=== PATIENT | female | born 1985 | race Caucasian/White ===

== ENCOUNTER → 2016-09-16 | Outpatient (REF) | payer OTHER ==
[~2016-09-16] MED LIST: /ONDA4TA OR; ACET65TA OR; CELE40TA PO; CIPR500T4 OR; CIPR500T89 PO; CLOT10TR PO; FLAG500T OR; FLAG500T PO; HEPA50VL SC; LEXA1TAB2 PO; LIAL1.2T PO; LOMO2.5T PO; LOPE2CA PO; METO10VL IV; MORP2SY IV; MOTR200T40 PO; MULTIVIT PO; NICO21DI4 TD; NICO21DI5 TD; NYST10PW TOP; ONDA4VLL IV; OXYC10TA12 PO; OXYC15TA76 PO; PERC7.5T12 PO; PRED10TA2 OR; PRED20TA OR; PRED20TA PO; PRIL40CA OR; PROT1TAB2 PO; PROT20TA11 PO; SENN8.6C PO; VITA100066 PO; VITA50003 PO; XANA0.25 PO; ZOFR20TA PO; [UNRECOGNIZED DRUG - OTHER] PO; humera IM; vitamin d PO
[2016-09-16 16:31] LABS: ALBUMIN 3.7 GM/DL (3.2-5.2); ALBUMIN/GLOBULIN RATIO 0.69 (1.00-1.93); ALKALINE PHOSPHATASE 384 U/L (45-117); ALT/SGPT 135 U/L (12-78); ANION GAP 10 MEQ/L (8-16); AST/SGOT 64 U/L (15-37); BASO # 0.2 K/mm3 (0.0-0.2); BASO % 1.4 % (0.0-1.0); BILIRUBIN,DIRECT 0.3 MG/DL (0.0-0.2); BILIRUBIN,TOTAL 0.4 MG/DL (0.2-1.0); BLOOD UREA NITROGEN 29 MG/DL (7-18); CALCIUM LEVEL 9.8 MG/DL (8.5-10.1); CARBON DIOXIDE LEVEL 23 MEQ/L (21-32); CHLORIDE LEVEL 100 MEQ/L (98-107); CREATININE FOR GFR 0.65 MG/DL (0.55-1.02); EOS # 0.2 K/mm3 (0.0-0.50); EOS % 1.1 % (0.0-3.0); GLOMERULAR FILTRATION RATE > 60.0 (>60); GLUCOSE, FASTING 116 MG/DL (70-105); LARGE UNSTAINED CELL # 0.3 K/mm3 (0.0-0.4); LYMPH # 4.5 K/mm3 (1.5-4.5); LYMPH % 33.1 % (24.0-44.0); MEAN CORPUSCULAR VOLUME 85.3 fl (80.0-96.0); MONO # 0.6 K/mm3 (0.0-0.8); MONO % 4.6 % (0.0-5.0); NEUTROPHILS # 7.5 K/mm3 (1.8-7.7); NEUTROPHILS % 57.8 % (36.0-66.0); PHOSPHORUS LEVEL 3.5 MG/DL (2.5-4.9); PLATELET COUNT, AUTOMATED 304 k/mm3 (150-450); POTASSIUM SERUM 4.4 MEQ/L (3.5-5.1); RED CELL DISTRIBUTION WIDTH 13.1 % (11.5-14.5); SODIUM LEVEL 133 MEQ/L (136-145); TOTAL PROTEIN 9.1 GM/DL (6.4-8.2); TRIGLYCERIDES LEVEL 158 MG/DL (<150); WHITE BLOOD COUNT 12.9 K/mm3 (4.0-10.0)
== END ==
LOC: M LAB REF 16:01
PROVIDERS: ATTEND Surgery
DX: K50.913 Crohn's disease, unspecified, with fistula (principal)

== ENCOUNTER 2016-09-20 18:24 | Inpatient (IN) | payer OTHER ==
[~2016-09-20] VITALS: Ht 160 cm; Wt 48.0 kg
[~2016-09-20 18:24] MED LIST changes: -OXYC15TA76 PO; -PROT1TAB2 PO; -PROT20TA11 PO
[2016-09-20] MEDS ORDERED: METOCLOPRAMIDE INJ 10MG/2ML VIAL (J2765) As Ordered ONE (20:22)
[2016-09-20] MEDS ORDERED: HYDROmorphone HCL 1 MG/ML SYRINGE (J1170) As Ordered ONE (20:22)
[2016-09-20 20:49] LABS: BASO % 0.2 % (0.0-1.0); EOS % 0.2 % (0.0-3.0); LARGE UNSTAINED CELL # 0.3 K/mm3 (0.0-0.4); LARGE UNSTAINED CELL % 1.4 % (0.0-4.0); LYMPH # 3.4 K/mm3 (1.5-4.5); LYMPH % 16.7 % (24.0-44.0); MEAN CORPUSCULAR HEMOGLOBIN 29.7 pg (27.0-33.0); MEAN CORPUSCULAR HGB CONC 35.7 g/dl (32.0-36.5); MEAN CORPUSCULAR VOLUME 83.3 fl (80.0-96.0); MONO # 0.8 K/mm3 (0.0-0.8); NEUTROPHILS # 15.8 K/mm3 (1.8-7.7); NEUTROPHILS % 77.4 % (36.0-66.0); PLATELET COUNT, AUTOMATED 335 k/mm3 (150-450); RED CELL DISTRIBUTION WIDTH 12.1 % (11.5-14.5); WHITE BLOOD COUNT 20.4 K/mm3 (4.0-10.0)
[2016-09-20] MEDS ORDERED: BOUDREAUX'S BUTT PASTE 4OZ TOP ONE (21:15)
[2016-09-20 21:26] LABS: ALBUMIN 4.3 GM/DL (3.2-5.2); ALBUMIN/GLOBULIN RATIO 0.74 (1.00-1.93); ALKALINE PHOSPHATASE 446 U/L (45-117); ALT/SGPT 159 U/L (12-78); AMYLASE 86 U/L (25-115); ANION GAP 14 MEQ/L (8-16); AST/SGOT 85 U/L (15-37); BILIRUBIN,DIRECT 0.3 MG/DL (0.0-0.2); BILIRUBIN,TOTAL 0.6 MG/DL (0.2-1.0); BLOOD UREA NITROGEN 82 MG/DL (7-18); CALCIUM LEVEL 11.6 MG/DL (8.5-10.1); CARBON DIOXIDE LEVEL 17 MEQ/L (21-32); CHLORIDE LEVEL 94 MEQ/L (98-107); CREATININE FOR GFR 1.08 MG/DL (0.55-1.02); GLOMERULAR FILTRATION RATE > 60.0 (>60); GLUCOSE, FASTING 127 MG/DL (70-105); SODIUM LEVEL 125 MEQ/L (136-145); TOTAL PROTEIN 10.1 GM/DL (6.4-8.2)
[2016-09-20] MEDS ORDERED: LOMOTIL 2.5MG/0.025MG TABLET As Ordered ONE (21:27)
[2016-09-20 21:41] LABS: POTASSIUM SERUM 5.4 MEQ/L (3.5-5.1)
[2016-09-20] MEDS ORDERED: GASTROGRAFIN SOLUTION 30ML (Q9963) As Ordered ONE (22:47)
[2016-09-20] MEDS ORDERED: ISOVUE-370 76% 100ML VIAL (Q9967) As Ordered ONE (23:30)
--- NOTE | 2016-09-21 00:30 | REPUSA ---
CLINICAL HISTORY: Abdominal pain TECHNIQUE: CT of the abdomen and pelvis was performed without intravenous contrast by obtaining walter guous CT axial slices from level of the heart to the proximal femoral diaphyses. Multiplanar reformat s were obtained in the coronal and sagittal projections. COMPARISON: CT abdomen pelvis 08/10/2016 FINDINGS : LOWER CHEST: The lung bases are clear. Heart is normal in size. No pleural or pericardial effusion is seen. LIVER: The liver is normal in size and contour. BILIARY SYSTEM: Status post cholecystectomy with no intrahepatic biliary ductal dilatation or calcifi ed biliary stones. PANCREAS: The pancreas is normal in size, contour and density. No suspicious cystic lesion or ductal dilatation. SPLEEN: Normal in size with no suspicious cystic lesion. ADRENALS: The adrenal glands are unremarkable. KIDNEYS/URETERS: The kidneys are normal in size. No calcified renal or ureteral calculi are seen. No suspicious cystic lesion or hydronephrosis. The ureters are not dilated. URINARY BLADDER: The urinary bladder is unremarkable without calcified stone, wall thickening or diverticula seen. UTERUS/ADNEXA: The uterus and left adnexa unremarkable. 1.9 cm right adnexal cyst has decreased from previous 2.4 cm. Air in vaginal vault again noted. AORTA AND ILIAC ARTERIES: No aneurysmal dilatation of the aorta or iliac arteries is seen. LYMPH NODES: No enlarged adenopathy. GASTROINTESTINAL: Operative sutures are noted in right lower quadrant from what appears to be an ill colic resection with right lower quadrant ileostomy. Stomach duodenum, and remaining bowel grossly no rmal without evidence of obstruction. PERITONEUM/RETROPERITONEUM/ABDOMINAL PELVIC WALL: -Stable approximately 2.5 x 1.0 cm right lower quadrant air-fluid collection noted on axial series 20 1, image 97 -There is contrast-filled fluid collection in the anterior mid abdominal wall communicating with an a pproximately 2.9 x 1.1 cm anterior intra-abdominal contrast and air-fluid collection on axial series 201, image 99-102 and inseparable from underlying contrast small bowel. -No other evidence of extraluminal air. -Resolution of multiple additional previous intra-abdominal fluid collections. OSSEOUS STRUCTURES/SOFT TISSUES: No suspicious osseous lesion or acute fracture. Midline abdominal wa ll douglas with stable 2 drain-like devices. IMPRESSION : 1. 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 2. Grossly stable additional 2.5 x 1.0 cm right lower quadrant fluid collection medial to the ileocol ic resection sutures which may be separate from the enterocutaneous fistula. While this may represent a postoperative seroma, in setting of infection abscess is not excluded.
[2016-09-21] MEDS ORDERED: ONDANSETRON 4MG/2ML VIAL (J2405) As Ordered ONE (00:33)
[2016-09-21] MEDS ORDERED: PROT20TA11 PO (01:52)
[2016-09-21] MEDS ORDERED: OXYC15TA76 PO (01:52)
[2016-09-21] MEDS ORDERED: VITA50003 PO (01:52)
[2016-09-21] MEDS ORDERED: ZOFR20TA PO (01:52)
[2016-09-21] MEDS ORDERED: LOPE2CA PO (01:52)
[2016-09-21] MEDS ORDERED: LOMO2.5T PO (01:52)
[2016-09-21] MEDS ORDERED: hydrOXYzine 10 MG TAB PO PRN (02:30)
[2016-09-21] MEDS ORDERED: METOCLOPRAMIDE INJ 10MG/2ML VIAL (J2765) As Ordered ONE (02:52)
[2016-09-21] MEDS ORDERED: oxyCODONE 5MG TAB PO PRN (03:00)
[2016-09-21] MEDS ORDERED: BOUDREAUX'S BUTT PASTE 4OZ TOP PRN (03:00)
--- NOTE | 2016-09-21 03:31 | EDDOCDS ---
Physician Documentation [facility] Name: Rosemarie Cortes Age: 31 yrs Sex: Female : 1985 Arrival Date: 09/20/2016 Time: 18:24 Bed 17 Private MD: Disposition: 09/21/16 01:16 Hospitalization ordered by Lindsay Kenyon for Inpatient Admission. Preliminary diagnosis are Volume depletion, Hypo-osmolality and hyponatremia, Vomiting, Abdominal and pelvic pain - with ostomy leakage. - Bed requested for 4 [place]. - Status is Inpatient Admission. cp1 - Condition is Stable. - Problem is an ongoing problem. - Symptoms have improved. Historical: - Allergies: no known allergies; - Home Meds: 1. diphenoxylate-atropine 2.5-0.025 mg Oral tab 2 tabs once daily (Last dose: 09/20/2016 08:00) 2. loperamide 2 mg Oral cap 2 caps (Last dose: 09/20/2016 08:00) 3. oxycodone 15 mg Oral tab 1 tab every 4 hours (Last dose: 09/20/2016 08:00) 4. Vitamin D Oral 73181 unit daily (Last dose: 09/20/2016 08:00) 5. Zofran (as hydrochloride) 4 mg Oral tab every 8 hours (Last dose: 09/20/2016 08:00) - PMHx: Crohn's; Anxiety; - PSHx: Gall Bladder Removal; Appendectomy; ; removal of illium; ileostomy with fistula; [facility] PICC placement; - Social history: Smoking status: Patient uses tobacco products, light tobacco smoker. No barriers to communication noted, The patient speaks fluent Kyrgyz. - Family history: Not pertinent. - : The pt / caregiver states he / she is not on anticoagulants. Home medication list is obtained from the patient. - Exposure Risk Screening:: None identified. PARAEDUCATOR: 09/20 18:42 LMP N/A - Irregular menses aa3 Vital Signs: 21:21 BP 122 / 58; Pulse 127; Resp 18; Temp 99; Pulse Ox 98% ; Weight 52.16 kg / 114.99 lbs; cmb Height 5 ft. 3 in. (160.02 cm) (M); Pain 01/19; 09/21 01:46 BP 106 / 63; Pulse 114; Resp 20; Temp 97.2(O); Pulse Ox 98% on R/A; Pain 5/10; jmv 03:27 BP 92 / 61; Pulse 120; Resp 20; Temp 98.1(O); Pulse Ox 98% on R/A; Pain 5/10; cmb 09/20 21:21 Body Mass Index 20.37 (52.16 kg, 160.02 cm) cmb MDM: 09/20 20:16 Metoclopramide 10 mg IV at 40 mg/hr once over 15 mins ordered. cs11 20:17 Dilaudid - HYDROmorphone 0.5 mg IVP once ordered. cs11 20:17 NS 0.9% 500 ml IV at bolus once ordered. cs11 20:18 CBC with Diff Ordered. EDMS 20:18 MED Profile Ordered. EDMS 20:18 Liver Profile Ordered. EDMS 20:18 Amylase Ordered. EDMS 20:18 Lipase Ordered. EDMS 20:29 Diphenoxylate-Atropine 2 tab-caps PO once ordered. cs11 20:36 Zinc Oxide Ointment 16 % 1 applic Topical now; apply to area around ostomy ordered. cs11 21:13 CBC with Diff Reviewed. cs11 21:15 Urinalysis: cath Ordered. EDMS 21:15 Urine Culture Ordered. EDMS 21:49 MED Profile Reviewed. cs11 21:49 Liver Profile Reviewed. cs11 21:49 Amylase Reviewed. cs11 21:49 Lipase Reviewed. cs11 21:51 NS 0.9% 1000 ml IV at bolus once ordered. cs11 22:09 Financial registration complete. zo 22:26 Urinalysis: cath Reviewed. cs11 23:00 [facility] [place] was scanned into [employer] and attached to record. zo 23:01 Diatrizoate Meglumine & Sodium Liquid 10 ml PO once; mix in 290cc of water; 1st 2250 af2 2nd cup at 2320 ordered. 23:51 CT ABD & PELVIS W/O CONTRAST Ordered. EDMS 09/21 00:29 Dilaudid - HYDROmorphone 0.5 mg IVP once ordered. mm11 00:29 Ondansetron 4 mg IVP once ordered. mm11 00:43 CT ABD & PELVIS W/O CONTRAST Reviewed. mm11 00:45 Venous Blood Gas (large pea green tube on ice) Ordered. EDMS 01:03 BED REQUEST+ADM ordered. EDMS 01:46 CBC WITH DIFFERENTIAL Ordered. EDMS 01:46 COMPLETE COMPHRENSIVE METABOLI Ordered. EDMS 01:47 PROTHROMBIN TIME PROFILE\E\INR Ordered. EDMS 02:17 LACTIC ACID LEVEL, LACTATE Ordered. EDMS 02:27 Admission / Observation Status ordered. EDMS 02:31 IONIZED CALCIUM Ordered. EDMS 02:34 Metoclopramide 5 mg IV at 40 mg/hr once over 15 mins ordered. af2 02:46 SODIUM,RANDOM URINE Ordered. EDMS 02:48 Written Provider Order was scanned into [employer] and attached to record. jlm 02:53 GAMMA GLUTAMYLTRANSFERASE Ordered. EDMS 02:55 GASTROINTESTINAL (GI) PANEL Ordered. EDMS 02:56 GASTROINTESTINAL (GI) PANEL Ordered. EDMS 03:13 T-Sheet-- Draft Copy was scanned into [employer] and attached to record. hs2 Administered Medications: 09/20 20:43 Drug: NS 0.9% 500 ml [sodium chloride 0.9 % intravenous solution] Route: IV; Rate: af2 bolus; Site: Implantable Access Device; 20:44 Drug: Metoclopramide 10 mg [metoclopramide 5 mg/mL injection solution] Route: IV; Rate: af2 40 mg/hr; Infused Over: 15 mins; Site: Implantable Access Device; 20:44 Drug: Dilaudid - HYDROmorphone 0.5 mg [hydromorphone 1 mg/mL injection syringe (0.5 af2 mL)] Route: IVP; Site: Implantable Access Device; 22:17 Drug: Zinc Oxide Ointment 16 % 1 applic Route: Topical; Site: affected area; af2 22:18 Drug: Diphenoxylate-Atropine 2 tab-caps [diphenoxylate-atropine 2.5 mg-0.025 mg tablet af2 (2 tabs)] Route: PO; 23:01 Drug: Diatrizoate Meglumine & Sodium 10 ml [diatrizoate meglumine and diat.sodium 66 af2 %-10 % oral solution (10 mL)] Route: PO; 23:06 Drug: NS 0.9% 1000 ml [sodium chloride 0.9 % intravenous solution] Route: IV; Rate: kas2 bolus; Site: Implantable Access Device; 09/21 00:37 Drug: Dilaudid - HYDROmorphone 0.5 mg [hydromorphone 1 mg/mL injection syringe (0.5 af2 mL)] Route: IVP; Site: Implantable Access Device; 00:38 Drug: Ondansetron 4 mg [ondansetron HCl 2 mg/mL intravenous solution (2 mL)] Route: af2 IVP; Site: Implantable Access Device; 02:55 Drug: Metoclopramide 5 mg [metoclopramide 5 mg/mL injection solution] Route: IV; Rate: af2 40 mg/hr; Infused Over: 15 mins; Site: Implantable Access Device; Signatures: Dispatcher [employer] EDMS Camila Lomas Matthew, DO DO mm11 Beverly Hankins,AMINATA SORENSONN cp1 Savi Melgar RN RN sls1 Marvel Hung, DO DO cs11 Jessi Wise RN RN aa3 Maryam Jimenez, [employer] Bette Castellanos RN RN af2 Deborah Daley, Reg Reg hs2 Katina Vidal RN kas2 The chart was reviewed and I authenticate all verbal orders and agree with the evaluation and treatment provided.Corrections: (The following items were deleted from the chart) 09/20 23:51 21:58 CT ABD & PELVIS WITH CONTRAST+CT ordered. EDMS EDMS 09/21 02:52 02:42 GAMMA GLUTAMYLTRANSFERASE ordered. EDMS EDMS 03:00 01:47 CDIFF PCR ordered. EDMS EDMS Attachments: 09/20 23:00 [facility] [place] Agreement zo 09/21 02:48 Written Provider Order jlm 03:13 T-Sheet-- Draft Copy hs2 MTDD
--- NOTE | 2016-09-21 03:31 | EDDOCDS ---
Nurse's Notes [facility] Name: Rosemarie Cortes Age: 31 yrs Sex: Female : 1985 Arrival Date: 09/20/2016 Time: 18:24 Bed 17 Private MD: Diagnosis: Volume depletion;Hypo-osmolality and hyponatremia;Vomiting;Abdominal and pelvic pain-with ostomy leakage Presentation: 09/20 18:29 Presenting complaint: EMS states: Patient has leaking around colostomy bag. Patient aa3 requested to go to [facility], was brought here by EMS to stabilize. Risk factors: the patient reports no vaginal bleeding. Adult Sepsis Screening: The patient does not have new or worsening altered mentation. Patient's respiratory rate is less than 22. Systolic blood pressure is less than or equal to 100 (1 point). Patient has a qSOFA score of 1- Negative Sepsis Screen. Suicide/Homicide risk assessment- the patient denies having any suicidal and/or homicidal ideations and does not present with any other emotional, behavioral or mental health complaints. Status: Patient is not a service worker or dependent. Transition of care: patient was not received from another setting of care. 18:29 Acuity: FREDDIE Level 3 aa3 18:29 Method Of Arrival: Ambulance aa3 Triage Assessment: 18:42 General: Appears uncomfortable, Behavior is anxious, cooperative. Pain: Location: aa3 umbilical area Pain currently is 7 out of 10 on a pain scale. Quality of pain is described as pulling. Pt Declines HIV testing. Neurological: Level of Consciousness is awake, alert, Oriented to person, place, time. Respiratory: Airway is patent Respiratory effort is even, unlabored, Respiratory pattern is regular, symmetrical. GI: Abdomen is non- distended Ileostomy site is reddened. Ostomy appliance is not intact. Last BM was September 20, 2016. 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 diphenoxylate-atropine 2.5-0.025 mg Oral tab 2 tabs once daily (Last dose: 09/20/2016 08:00) 2. loperamide 2 mg Oral cap 2 caps (Last dose: 09/20/2016 08:00) 3. oxycodone 15 mg Oral tab 1 tab every 4 hours (Last dose: 09/20/2016 08:00) 4. Vitamin D Oral 31439 unit daily (Last dose: 09/20/2016 08:00) 5. Zofran (as hydrochloride) 4 mg Oral tab every 8 hours (Last dose: 09/20/2016 08:00) - PMHx: Crohn's; Anxiety; - PSHx: Gall Bladder Removal; Appendectomy; ; removal of illium; ileostomy with fistula; MARY BETH PICC placement; - Social history: Smoking status: Patient uses tobacco products, light tobacco smoker. No barriers to communication noted, The patient speaks fluent Hungarian. - Family history: Not pertinent. - : The pt / caregiver states he / she is not on anticoagulants. Home medication list is obtained from the patient. - Exposure Risk Screening:: None identified. Screenin/10 02:47 Screening information is obtained from the patient. Fall risk: No risks identified. af2 Assistance ADL's: requires no assistance with activities of daily living. Abuse/DV Screen: The patient / caregiver reports he/she is: not in a situation that causes fear, pain or injury. Nutritional screening: On TPN. Advance Directives: Further advance directive information is declined. home support is adequate. Assessment: 09/20 19:24 General: Appears ill, Behavior is crying. Pain: Location: abdomen Pain currently is 10 af2 out of 10 on a pain scale. Neurological: Level of Consciousness is awake, alert, obeys commands. Cardiovascular: Heart tones S1 S2 present. Respiratory: Airway is patent Respiratory effort is even, unlabored, Breath sounds are clear bilaterally. GI: Abdomen is non- distended Colostomy site is reddened. is excoriated. colostomy bag is leaking. father states that "pt needs to go to [facility] and she will get there one way or another tonight.". GI: Bowel sounds present X 4 quads. Abd is tender to palpation X 4 quads. Guarding noted X 4 quads. Reports lower abdominal pain, upper abd pain, nausea, vomiting, states that colostomy drainage is unchanged. Derm: Skin is pale. 19:49 General: pt father approaches nurses station screaming, "I need some help, she is af2 leaking all over in here." Father advised of ER rules and asked to use call light for future needs, receptive to information and verbalizes understanding. Clean towels applied to leaking ostomy, skin underneath noted to be excoriated. . 20:49 General: Appears ill, uncomfortable, pt colostomy drainage cleaned and new towels af2 applied. assisted with repositioning and provided with ice chips. states relief with pain meds.. 21:50 General: Appears ill, Behavior is cooperative. Neurological: Level of Consciousness is af2 awake, alert. Respiratory: Airway is patent Respiratory effort is even, unlabored. Derm: Skin is pale. 22:50 General: Appears ill, Behavior is cooperative, pt unable to tolerated po contrast. af2 23:48 General: this freelance writer attempted iv on pt unsuccessfully, pt states "you can't get an IV, af2 you need to just do it without." provider notified, okay to do ct without contrast.. 09/21 00:50 General: Appears ill, Behavior is cooperative. Neurological: Level of Consciousness is af2 awake, alert. Respiratory: Airway is patent Respiratory effort is even, unlabored. GI: Reports diarrhea, nausea. Derm: Skin is pale. 01:50 General: Appears ill, Behavior is cooperative. Neurological: Level of Consciousness is af2 awake, alert. Respiratory: Airway is patent Respiratory effort is even, unlabored. GI: Reports lower abdominal pain, upper abd pain, nausea. Derm: Skin is pale. 02:50 General: Appears ill, Behavior is cooperative. Neurological: Level of Consciousness is af2 awake, alert. Respiratory: Airway is patent Respiratory effort is even, unlabored. GI: Reports diarrhea, nausea. Derm: Skin is pale. 03:25 General: Appears ill. Neurological: Level of Consciousness is awake, alert. af2 Respiratory: Airway is patent Respiratory effort is even, unlabored. GI: Abdomen is non- distended Colostomy site is reddened. is excoriated. Reports nausea. Derm: Skin is pale. Vital Signs: 09/20 21:21 BP 122 / 58; Pulse 127; Resp 18; Temp 99; Pulse Ox 98% ; Weight 52.16 kg; Height 5 ft. cmb 3 in. (160.02 cm) (M); Pain 01/19; 09/21 01:46 BP 106 / 63; Pulse 114; Resp 20; Temp 97.2(O); Pulse Ox 98% on R/A; Pain 5/10; jmv 03:27 BP 92 / 61; Pulse 120; Resp 20; Temp 98.1(O); Pulse Ox 98% on R/A; Pain 5/10; cmb 09/20 21:21 Body Mass Index 20.37 (52.16 kg, 160.02 cm) cmb Vitals: 09/20 18:42 Log In Time N/A - ambulance arrival. aa3 ED Course: 18:24 Patient visited by Ara Acuña, Manager Ent. deg 18:24 Patient moved to Waiting deg 18:26 Patient moved to 17 deg 18:29 Jessi Wise RN is Primary Nurse. aa3 18:33 Triage Initiated aa3 18:44 Patient visited by Jessi Wise RN. aa3 18:48 Marvel Hung DO is Attending Physician. cs11 18:48 Patient visited by Marvel Hung DO. cs11 18:55 Bette Venegas RN is Primary Nurse. af2 19:23 Patient visited by Bette Venegas RN. af2 19:23 The patient / caregiver is instructed regarding the plan of care and ED course. Patient af2 has correct armband on for positive identification. Placed in gown. 19:28 Patient visited by Bette Venegas RN. af2 19:51 Patient visited by Bette Venegas RN. af2 20:48 Patient visited by Bette Venegas RN. af2 20:50 Patient visited by Bette Venegas RN. af2 20:50 Flushed PICC line. af2 21:22 Patient visited by Elena Christina. cmb 22:18 Patient visited by Bette Venegas RN. af2 23:00 Patient visited by Bette Venegas RN. af2 23:00 [facility] Payment Agreement was scanned into [employer] and attached to record. zo 23:33 Patient visited by Bette Venegas RN. af2 23:34 Patient visited by Bette Venegas RN. af2 23:49 Patient visited by Bette Venegas RN. af2 23:57 Attending Physician role handed off by Marvel Hung DO mm11 23:57 Chuck Sadler DO is Attending Physician. mm11 09/21 00:15 Patient visited by Bette Venegas RN. af2 00:27 Diet: Patient given ice chips. Tolerated well. jlm 00:28 Patient visited by Maryam Jimenez, Manager Ent. jlm 00:39 CT ABD & PELVIS W/O CONTRAST Returned. EDMS 01:01 Patient visited by Chuck Salder DO. mm11 01:14 Lindsay Kenyon is Hospitalizing Provider. mm11 01:22 Patient visited by Elena Christina. cmb 01:47 Patient visited by Amauri Duvall PCA. jmv 02:04 Lindsay Kenyon medical administrative specialist. ys2 02:39 Lindsay Kenyon is Hospitalizing Provider. sls1 02:47 No procedures done that require assistance. af2 02:48 Written Provider Order was scanned into [employer] and attached to record. jlm 03:13 T-Sheet-- Draft Copy was scanned into [employer] and attached to record. hs2 03:27 Patient visited by Bette Venegas RN. af2 03:28 Patient visited by Elena Christina. cmb Administered Medications: 09/20 20:43 Drug: NS 0.9% 500 ml [sodium chloride 0.9 % intravenous solution] Route: IV; Rate: af2 bolus; Site: Implantable Access Device; 20:44 Drug: Metoclopramide 10 mg [metoclopramide 5 mg/mL injection solution] Route: IV; Rate: af2 40 mg/hr; Infused Over: 15 mins; Site: Implantable Access Device; 20:44 Drug: Dilaudid - HYDROmorphone 0.5 mg [hydromorphone 1 mg/mL injection syringe (0.5 af2 mL)] Route: IVP; Site: Implantable Access Device; 22:17 Drug: Zinc Oxide Ointment 16 % 1 applic Route: Topical; Site: affected area; af2 22:18 Drug: Diphenoxylate-Atropine 2 tab-caps [diphenoxylate-atropine 2.5 mg-0.025 mg tablet af2 (2 tabs)] Route: PO; 23:01 Drug: Diatrizoate Meglumine & Sodium 10 ml [diatrizoate meglumine and diat.sodium 66 af2 %-10 % oral solution (10 mL)] Route: PO; 23:06 Drug: NS 0.9% 1000 ml [sodium chloride 0.9 % intravenous solution] Route: IV; Rate: kas2 bolus; Site: Implantable Access Device; 09/21 00:37 Drug: Dilaudid - HYDROmorphone 0.5 mg [hydromorphone 1 mg/mL injection syringe (0.5 af2 mL)] Route: IVP; Site: Implantable Access Device; 00:38 Drug: Ondansetron 4 mg [ondansetron HCl 2 mg/mL intravenous solution (2 mL)] Route: af2 IVP; Site: Implantable Access Device; 02:55 Drug: Metoclopramide 5 mg [metoclopramide 5 mg/mL injection solution] Route: IV; Rate: af2 40 mg/hr; Infused Over: 15 mins; Site: Implantable Access Device; Order Results: Lab Order: CBC with Diff; SPEC'M 09/20/16 20:38 Test: WHITE BLOOD COUNT; Value: 20.4; Range: 4.0-10.0; Abnormal: Above high normal; Units: K/mm3; Status: F Test: RED BLOOD COUNT; Value: 5.93; Range: 4.00-5.40; Abnormal: Above high normal; Units: M/mm3; Status: F Test: HEMOGLOBIN; Value: 17.6; Range: 12.0-16.0; Abnormal: Above high normal; Units: g/dl; Status: F Test: HEMATOCRIT; Value: 49.4; Range: 36.0-47.0; Abnormal: Above high normal; Units: %; Status: F Test: MEAN CORPUSCULAR VOLUME; Value: 83.3; Range: 80.0-96.0; Units: fl; Status: F Test: MEAN CORPUSCULAR HEMOGLOBIN; Value: 29.7; Range: 27.0-33.0; Units: pg; Status: F Test: MEAN CORPUSCULAR HGB CONC; Value: 35.7; Range: 32.0-36.5; Units: g/dl; Status: F Test: RED CELL DISTRIBUTION WIDTH; Value: 12.1; Range: 11.5-14.5; Units: %; Status: F Test: PLATELET COUNT, AUTOMATED; Value: 335; Range: 150-450; Units: k/mm3; Status: F Test: NEUTROPHILS %; Value: 77.4; Range: 36.0-66.0; Abnormal: Above high normal; Units: %; Status: F Test: LYMPH %; Value: 16.7; Range: 24.0-44.0; Abnormal: Below low normal; Units: %; Status: F Test: MONO %; Value: 4.0; Range: 0.0-5.0; Units: %; Status: F Test: EOS %; Value: 0.2; Range: 0.0-3.0; Units: %; Status: F Test: BASO %; Value: 0.2; Range: 0.0-1.0; Units: %; Status: F Test: LARGE UNSTAINED CELL %; Value: 1.4; Range: 0.0-4.0; Units: %; Status: F Test: NEUTROPHILS #; Value: 15.8; Range: 1.8-7.7; Abnormal: Above high normal; Units: K/mm3; Status: F Test: LYMPH #; Value: 3.4; Range: 1.5-4.5; Units: K/mm3; Status: F Test: MONO #; Value: 0.8; Range: 0.0-0.8; Units: K/mm3; Status: F Test: EOS #; Value: 0.0; Range: 0.0-0.50; Units: K/mm3; Status: F Test: BASO #; Value: 0.0; Range: 0.0-0.2; Units: K/mm3; Status: F Test: LARGE UNSTAINED CELL #; Value: 0.3; Range: 0.0-0.4; Units: K/mm3; Status: F Lab Order: [facility] Profile; [facility]'M 09/20/16 20:38 Test: GLUCOSE, FASTING; Value: 127; Range: 70-105; Abnormal: Above high normal; Units: MG/DL; Status: F Test: BLOOD UREA NITROGEN; Value: 82; Range: 7-18; Abnormal: Above high normal; Units: MG/DL; Status: F Test: CREATININE FOR GFR; Value: 1.08; Range: 0.55-1.02; Abnormal: Above high normal; Units: MG/DL; Status: F Test: GLOMERULAR FILTRATION RATE; Value: > 60.0; Range: >60; Status: F Test: SODIUM LEVEL; Value: 125; Range: 136-145; Abnormal: Below low normal; Units: MEQ/L; Status: F Test: POTASSIUM SERUM; Value: 5.4; Range: 3.5-5.1; Abnormal: Above high normal; Units: MEQ/L; Status: F Test: CHLORIDE LEVEL; Value: 94; Range: 98-107; Abnormal: Below low normal; Units: MEQ/L; Status: F Test: CARBON DIOXIDE LEVEL; Value: 17; Range: 21-32; Abnormal: Below low normal; Units: MEQ/L; Status: F Test: ANION GAP; Value: 14; Range: 8-16; Units: MEQ/L; Status: F Test: CALCIUM LEVEL; Value: 11.6; Range: 8.5-10.1; Abnormal: Above high normal; Units: MG/DL; Status: F Test Note: ; Units are mL/min/1.73 m2 Chronic Kidney Disease Staging per NKF: Stage I & II GFR >=60 Normal to Mildly Decreased Stage III GFR 30-59 Moderately Decreased Stage IV GFR 15-29 Severely Decreased Stage V GFR <15 Very Little GFR Left ESRD GFR <15 on DAIRY CHEMIST Lab Order: Liver Profile; [facility]' 09/20/16 20:38 Test: AST/SGOT; Value: 85; Range: 15-37; Abnormal: Above high normal; Units: U/L; Status: F Test: ALT/SGPT; Value: 159; Range: 12-78; Abnormal: Above high normal; Units: U/L; Status: F Test: ALKALINE PHOSPHATASE; Value: 446; Range: 45-117; Abnormal: Above high normal; Units: U/L; Status: F Test: BILIRUBIN,TOTAL; Value: 0.6; Range: 0.2-1.0; Units: MG/DL; Status: F Test: BILIRUBIN,DIRECT; Value: 0.3; Range: 0.0-0.2; Abnormal: Above high normal; Units: MG/DL; Status: F Test: TOTAL PROTEIN; Value: 10.1; Range: 6.4-8.2; Abnormal: Above high normal; Units: GM/DL; Status: F Test: ALBUMIN; Value: 4.3; Range: 3.2-5.2; Units: GM/DL; Status: F Test: ALBUMIN/GLOBULIN RATIO; Value: 0.74; Range: 1.00-1.93; Abnormal: Below low normal; Status: F Lab Order: Amylase; [facility] 09/20/16 20:38 Test: AMYLASE; Value: 86; Range: 25-115; Units: U/L; Status: F Lab Order: Lipase; [facility] 09/20/16 20:38 Test: LIPASE; Value: 200; Range: 73-393; Units: U/L; Status: F Lab Order: Urinalysis: cath; [facility] 09/20/16 21:56 Test: APPEARANCE, URINE; Value: HAZY; Range: CLEAR; Status: F Test: COLOR, URINE; Value: YELLOW; Range: YELLOW; Status: F Test: PH,URINE; Value: 6.0; Range: 5.0-9.0; Units: UNITS; Status: F Test: SPECIFIC GRAVITY URINE AUTO; Value: 1.021; Range: 1.002-1.035; Status: F Test: PROTEIN, URINE AUTO; Value: 1+; Range: NEGATIVE; Abnormal: Above high normal; Units: mg/dL; Status: F Test: GLUCOSE, URINE (UA) AUTO; Value: 1+; Range: NEGATIVE; Abnormal: Above high normal; Units: mg/dL; Status: F Test: KETONE, URINE AUTO; Value: NEGATIVE; Range: NEGATIVE; Units: mg/dL; Status: F Test: UROBILINOGEN, URINE AUTO; Value: 0.2; Range: 0.0-2.0; Units: mg/dL; Status: F Test: BILIRUBIN, URINE AUTO; Value: NEGATIVE; Range: NEGATIVE; Status: F Test: NITRITE, URINE AUTO; Value: NEGATIVE; Range: NEGATIVE; Status: F Test: LEUKOCYTE ESTERASE, URINE AUTO; Value: NEGATIVE; Range: NEGATIVE; Status: F Test: BLOOD, URINE BLOOD; Value: NEGATIVE; Range: NEGATIVE; Status: F Test: WBC, URINE AUTO; Value: 0; Range: 0-3; Units: /HPF; Status: F Test: RBC, URINE AUTO; Value: 0; Range: 0-3; Units: /HPF; Status: F Test: BACTERIA, URINE AUTO; Value: NEGATIVE; Range: NEGATIVE; Status: F Test: SQUAMOUS EPITHELIAL CELL UR AU; Value: 0; Range: 0-6; Units: /HPF; Status: F Test: MUCUS, URINE; Value: SMALL; Range: NEGATIVE; Status: F Test: HYALINE CAST, URINE AUTO; Value: 22; Range: 0-1; Units: /LPF; Status: F Radiology Order: CT ABD & PELVIS W/O CONTRAST Test: CT ABD & PELVIS W/O CONTRAST REASON FOR EXAMINATION: Abdomen Pain; ; CLINICAL HISTORY: Abdominal pain; TECHNIQUE: CT of the abdomen and pelvis was performed without intravenous contrast by obtaining walter; guous CT axial slices from level of the heart to the proximal femoral diaphyses. Multiplanar reformat; s were obtained in the coronal and sagittal projections.; COMPARISON: CT abdomen pelvis 08/10/2016; FINDINGS :; LOWER CHEST: The lung bases are clear. Heart is normal in size. No pleural or pericardial effusion; is seen.; LIVER: The liver is normal in size and contour.; BILIARY SYSTEM: Status post cholecystectomy with no intrahepatic biliary ductal dilatation or calcifi; ed biliary stones.; PANCREAS: The pancreas is normal in size, contour and density. No suspicious cystic lesion or ductal; dilatation.; SPLEEN: Normal in size with no suspicious cystic lesion.; ADRENALS: The adrenal glands are unremarkable.; KIDNEYS/URETERS: The kidneys are normal in size. No calcified renal or ureteral calculi are seen. No; suspicious cystic lesion or hydronephrosis. The ureters are not dilated.; URINARY BLADDER: The urinary bladder is unremarkable without calcified stone, wall thickening or; diverticula seen.; UTERUS/ADNEXA: The uterus and left adnexa unremarkable. 1.9 cm right adnexal cyst has decreased from; previous 2.4 cm. Air in vaginal vault again noted.; AORTA AND ILIAC ARTERIES: No aneurysmal dilatation of the aorta or iliac arteries is seen.; LYMPH NODES: No enlarged adenopathy.; GASTROINTESTINAL: Operative sutures are noted in right lower quadrant from what appears to be an ill; colic resection with right lower quadrant ileostomy. Stomach duodenum, and remaining bowel grossly no; rmal without evidence of obstruction.; PERITONEUM/RETROPERITONEUM/ABDOMINAL PELVIC WALL:; -Stable approximately 2.5 x 1.0 cm right lower quadrant air-fluid collection noted on axial series 20; 1, image 97; -There is contrast-filled fluid collection in the anterior mid abdominal wall communicating with an a; pproximately 2.9 x 1.1 cm anterior intra-abdominal contrast and air-fluid collection on axial series; 201, image [id number] and inseparable from underlying contrast small bowel.; -No other evidence of extraluminal air.; -Resolution of multiple additional previous intra-abdominal fluid collections.; OSSEOUS STRUCTURES/SOFT TISSUES: No suspicious osseous lesion or acute fracture. Midline abdominal wa; ll douglas with stable 2 drain-like devices.; IMPRESSION :; 1. 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 Grossly stable additional 2.5 x 1.0 cm right lower quadrant fluid collection medial to the ileocol; ic resection sutures which may be separate from the enterocutaneous fistula. While this may represent; a postoperative seroma, in setting of infection abscess is not excluded.; ; Outcome: 01:16 Decision to Hospitalize by Provider. mm11 02:47 Discharge Assessment: Patient awake, alert and oriented x 3. No cognitive and/or af2 functional deficits noted. Patient verbalized understanding of disposition instructions. patient administered narcotics - yes. Patient was admitted to the hospital or transferred to another facility. The following High Risk Discharge criteria are identified: None. Admitted to Med/Surg accompanied by tech, via stretcher, with chart. Condition: stable. CT Study completed. Property :Personal belongings accompany Pt. 03:29 Patient left the ED. cp1 Signatures: Dispatcher [employer] EDMS Ara Acuña, Manager Ent Unit deg Camila Lomas Matthew, DO DO mm11 Beverly Hankins,[employer]IN[employer] PUBLIC AFFAIRS SPECIALIST cp1 Savi Melgar, RN RN sls1 Elena Christina cmMarvel Crawley, DO DO cs11 Jessi Wise,RN RN carina3 Maryam Jimenez, Manager Ent Unit Bette Castellanos,RN RN af2 Lindsay Kenyon ys2 Deborha Daley, Reg Reg hs2 Katina Vidal,MARYANNE RN kas2 Amauri Duvall, CARTOON ANIMATOR CARTOON ANIMATOR jmv MTDD
[2016-09-21 03:35] VITALS: BP 108/59
[2016-09-21] MEDS: NS 1,000 ML IV SCH ×4 (03:56→23:20)
--- NOTE | 2016-09-21 04:22 | HPE ---
DATE OF ADMISSION: 09/21/2016 PRIMARY CARE PROVIDER: CEDRIC Hooks. SURGEON: Dr. Nicholson in [place]. CHIEF COMPLAINT: Leakage, abdominal pain, from colostomy bag. HISTORY OF PRESENT ILLNESS: Ms. Cortes is a pleasant 31-year-old female with past medical history of Crohn's disease, has not been on treatment for years, ischemic perforation small bowel status post small bowel resection with previous ileocolic anastomosis and ileostomy, who presented to the emergency department tonight with complaint of worsening abdominal pain and increased output from colostomy bag. States that since May 2016 she has been in and out of the hospital. Most recent hospital was at [facility] for a whole month in August 2016 and was discharged 2 days prior to [place]. Since her discharge, had been relatively well. At baseline had some chronic abdominal pain, but her pain had worsened in the last 3-4 days. Pain is worse around the umbilical region, but can be diffusely. Described as if someone is trying to pull out her intestines. At its worst can be 10/10, currently 5/10. No radiation to her back. Takes oxycodone at home, which seems to take the edge off, but does not completely resolve her symptom. Associated with nausea and today started vomiting with approximately three episodes, which looks like the content from her colostomy bag, but smells like eggs. Also noticed that her colostomy bag has had more output in the last 3 or 4 days. Normally changes her bag every 3 or 4 days, but recently has been changing it daily. No hematochezia, hematemesis or melena. The last time she was on antibiotic was prior to her discharge from [facility]. She was on antibiotic for 1 month there for possible infection to her bowels. Since her admission in May, she had lost approximately close to 20 pounds. Because of her abdominal pain and chronic nausea, she takes total parenteral nutrition (TPN) at nighttime through her peripherally inserted central catheter (PICC) line that has been placed since May 2016. In the emergency department (ED), was given 1500 mL normal saline, Reglan, Dilaudid total of 1 mg, 4 mg zinc oxide. ED provider contacted [facility] surgeon who has agreed to accept the patient, but currently no bed is available. PAST MEDICAL HISTORY: 1. Crohn's disease, currently not on treatment. She has an appointment with gastrointestinal (GI), but because of her in and out admissions, has not been able to follow with them. 2. Ischemic perforation of small bowel. 3. Anxiety. 4. Vitamin D deficiency. 5. Abdominal abscess. 6. Escherichia (E) coli urinary tract infection (UTI). PAST SURGICAL HISTORY: 1. Cholecystectomy. 2. Appendectomy. 3. (C) sections. 4. Exploratory laparotomy. 5. Small bowel resection. 6. Resection of previous ileocolic anastomosis near ileostomy. 7. PICC line placement for TPN administration. Has been on TPN since May 2016. ALLERGIES: No known drug allergies. HOME MEDICATIONS: - Lomotil 2.5/0.025 four times a day as needed - vitamin D 50,000 units weekly - loperamide 4 mg four times a day as needed - Zofran 4 mg every 8 hours as needed - oxycodone 50 mg every 4 hours as needed - Protonix 20 mg by mouth daily SOCIAL HISTORY: Ex-smoker, used to smoke from 13 until last year. No alcohol. No drug use. No recent travel. Currently lives at home with her father. Used to work at a [employer], but currently not working. FAMILY HISTORY: Father with chronic obstructive pulmonary disease (COPD). Mother from COPD and heart disease. Aunts and uncles with heart attacks at young age. REVIEW OF SYSTEMS: CONSTITUTIONAL: Positive for subjective fevers. No chills. Positive for weight loss since being in and out of the hospital, approximately 20 pounds, but has gained some of this back. HEENT: No headaches, lightheadedness, dizziness, double vision, blurry vision. Reports sore to her mouth when she tried to swallow, which happens every time she has thrush. CARDIAC: Denies chest pain, paroxysmal nocturnal dyspnea, pillow orthopnea, lower extremity edema. PULMONARY: Denies shortness of breath, productive cough, hemoptysis. GASTROINTESTINAL: Positive for Crohn's disease and as above. GENITOURINARY: No dysuria, urinary urgency, frequency or hematuria. ONCOLOGY: No malignancy. HEMATOLOGY: No abnormal bleeding, bruising. ENDOCRINOLOGY: Negative for diabetes or thyroid disease. PSYCHIATRY: Positive for anxiety. PHYSICAL EXAMINATION: VITAL SIGNS: Blood pressure 122/58, heart rate 127, respiratory rate 18, temperature 99, pulse oximetry 98% on room air. Body mass index (BMI) 20.3. GENERAL: Patient was lying in bed, comfortable, in no acute distress. Alert, awake, oriented times three, pleasant and cooperative, tired appearing. HEENT: Normocephalic, atraumatic. Moist oral mucosa, some white exudates on her tongue, but no sores appreciated. NECK: Supple. Trachea midline. CHEST: Symmetric chest rise. No accessory muscle use. Breath sounds were clear to auscultation bilaterally. HEART: Mildly tachycardic, but regular S1, S2 present. ABDOMEN: Soft, diffusely tender to palpation. Colostomy bag is in place draining dark yellow fluid. There is leakage around the left lower of her abdomen. There is an area of erythematous changes in the left hypogastric region. It is significantly tender to palpation. Area is very moist, but no purulence or bloody discharge. EXTREMITIES: No pedal edema. Pedal pulses present bilaterally. Right upper extremity with PICC line in place. Surrounding area is clean and dry. INTEGUMENT: She has erythematous patches on her chest, left flank and back. Reportedly has been having more dry skin and itchy recently. No new medications have been started recently per patient. LABORATORY DATA: WBC 20.4, hemoglobin 17.6, hematocrit 49.4, platelets 335. Sodium 125, potassium 5.4, chloride 94, carbon dioxide 17, BUN 82, creatinine 1.08, fasting glucose 127, calcium 11.6, total bilirubin 0.6, direct bilirubin 0.3, AST 85, ALT 159, alkaline phosphatase 446, total protein 10.1, albumin 4.3, amylase 86, lipase 200. Urine 1+ protein, 1+ glucose. CT abdomen and pelvis reports liver normal size and contour. Stable approximately 2.5 x 1 cm right lower quadrant air-fluid collection. 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 1. Acute kidney injury. Likely secondary to dehydration from high output from colostomy bag. Continue with fluid hydration, normal saline 150 mL/h. Emergency department (ED) physician Dr. Hung has contacted [facility] for transfer of patient for further management by her surgeon. On-call surgeon overnight, Dr. Wright?, has already accepted the patient. Currently bed is pending. Transfer center would have to be contacted in the morning for update of their bed availability. 2. Crohn's disease. It is unclear why the patient has not been on treatment for this. She is planned on seeing a utility lineman in [place]. Will check for possible infectious cause for her high white count and increase output before consideration of treatment of Crohn's. 3. Hyponatremia. Etiology unclear. Serum osmolality is 286. Could be due to pseudohyponatremia. 4. Hypercalcemia. Check ionized calcium. Possible causes include medications, primary hyperparathyroidism versus malignancy versus other. 5. Hyperkalemia. Currently is not on any medication that could increase potassium level. Could be due to kidney disease. Will followup lab work in the morning. 6. Transaminitis. Will check GGT to assess for complications such as primary sclerosing cholangitis. 7. Malnutrition. Receives total parenteral nutrition (TPN) at nighttime through her peripherally inserted central catheter (PICC) line. 8. Thrush. Will start nystatin swish and swallow. 9. Deep venous thrombosis (DVT) prophylaxis. Sequential compression devices (SCDs), thromboembolism deterrents (TEDs). My preceptor for this patient encounter was Dr. Lindsay Kenyon. The preceptor was physically present in the building during the encounter and was fully available as needed. All aspects of the patient interview, examination, medical decision making process, and medical care plan development were reviewed and approved by the preceptor. The preceptor is aware and concurs with the plan as stated in the body of this note and will attest to such by his/her co-signature. TIKA
[2016-09-21 06:00] VITALS: BP 118/58
[2016-09-21 07:06] LABS: VENOUS BASE EXCESS -8.6 (-2.0-2.0); VENOUS O2 SATURATION 85.7 % (60.0-80.0); VENOUS PARTIAL PRESSURE CO2 34.6 mmHg (38.0-50.0); VENOUS PARTIAL PRESSURE O2 53.7 mmHg (30.0-50.0); VENOUS STANDARD HCO3 17.4 MEQ/L; VENOUS TOTAL CO2 17.8 MEQ/L (24.0-28.0)
[2016-09-21 07:13] LABS: BASO % 0.2 % (0.0-1.0); EOS # 0.1 K/mm3 (0.0-0.50); EOS % 0.7 % (0.0-3.0); LARGE UNSTAINED CELL # 0.3 K/mm3 (0.0-0.4); LARGE UNSTAINED CELL % 1.8 % (0.0-4.0); LYMPH # 3.5 K/mm3 (1.5-4.5); LYMPH % 24.9 % (24.0-44.0); MEAN CORPUSCULAR HGB CONC 35.7 g/dl (32.0-36.5); MEAN CORPUSCULAR VOLUME 84.1 fl (80.0-96.0); MONO # 0.7 K/mm3 (0.0-0.8); MONO % 4.8 % (0.0-5.0); NEUTROPHILS # 9.6 K/mm3 (1.8-7.7); NEUTROPHILS % 67.6 % (36.0-66.0); PLATELET COUNT, AUTOMATED 291 k/mm3 (150-450); RED CELL DISTRIBUTION WIDTH 12.2 % (11.5-14.5); WHITE BLOOD COUNT 14.2 K/mm3 (4.0-10.0)
[2016-09-21 07:22] LABS: INR 1.09
[2016-09-21 07:36] LABS: ALBUMIN 3.5 GM/DL (3.2-5.2); ALBUMIN/GLOBULIN RATIO 0.73 (1.00-1.93); ALKALINE PHOSPHATASE 342 U/L (45-117); ALT/SGPT 128 U/L (12-78); ANION GAP 9 MEQ/L (8-16); AST/SGOT 63 U/L (15-37); BILIRUBIN,TOTAL 0.5 MG/DL (0.2-1.0); BLOOD UREA NITROGEN 55 MG/DL (7-18); CALCIUM LEVEL 10.2 MG/DL (8.5-10.1); CARBON DIOXIDE LEVEL 20 MEQ/L (21-32); CHLORIDE LEVEL 97 MEQ/L (98-107); CREATININE FOR GFR 0.81 MG/DL (0.55-1.02); GAMMA GLUTAMYLTRANSPEPTIDASE 316 U/L (5-55); GLOMERULAR FILTRATION RATE > 60.0 (>60); GLUCOSE, FASTING 117 MG/DL (70-105); POTASSIUM SERUM 4.4 MEQ/L (3.5-5.1); SODIUM LEVEL 126 MEQ/L (136-145); TOTAL PROTEIN 8.3 GM/DL (6.4-8.2)
[2016-09-21] MEDS ORDERED: PROT1TAB2 PO (08:31)
[2016-09-21] MEDS: NYSTATIN 500,000 U/5 ML SUSP UDC PO SCH ×4 (09:15→20:27)
[2016-09-21] MEDS: oxyCODONE 5MG TAB PO PRN ×3 (11:55→20:28)
--- NOTE | 2016-09-21 12:07 | IPN ---
DATE: 09/21/2016 Rosemarie is seen in [address] [place] [address]. 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 Nicholson. Patient has been accepted in transfer to Dr. Nicholson's service but there are no beds at [facility]. Today, her stool test returned showing Clostridium (C) difficile colitis, which she is unaware previous C diff infection. She is on intravenous (IV) fluids and total parenteral nutrition (TPN). PHYSICAL EXAMINATION: 118/58, pulse of 114, respiratory rate 18, oxygen saturation 100%, 96.8 degrees. General appearance: Chronically ill appearing, cachectic. Significant abdominal pain. She has a high output into her colostomy bag and it is frothing. She is developing some skin irritation from leakage. LABORATORY DATA: Sodium 126, potassium 4.4, BUN 55, creatinine 0.8, glucose 117. Calcium is down to 10.2. Liver function tests are mildly improved. White count is down to 14.2, hemoglobin 15.4, platelets 291. IMPRESSION: 1. Enterocutaneous fistula. Patient has history of Crohn's disease. We are awaiting transfer to [facility] to her gastrointestinal (GI) surgeon. I called the transfer center. There is no beds available. I did make them aware of new C difficile colitis diagnosis. 2. Clostridium difficile colitis. Begin vancomycin 250 mg by mouth every 6 hours. She is not on a proton pump inhibitor (PPI). She was on admission. She should avoid PPI therapy at this point with strong indication as it increases risk of relapse. 3. Malnutrition. She is getting daily TPN. 4. Acute kidney injury. Resolved with IV fluids. 5. Electrolytes disturbances. These have improved.
[2016-09-21] MEDS: VANCOMYCIN ORAL SOL 250MG/5ML ORAL SYRINGE PO SCH ×3 (12:42→23:20)
[2016-09-21 14:00] VITALS: BP 115/71
[2016-09-21] MEDS: METOCLOPRAMIDE INJ 10MG/2ML VIAL (J2765) IV PRN (16:55)
[2016-09-21 22:00] VITALS: BP 113/65
[2016-09-22] MEDS: oxyCODONE 5MG TAB PO PRN ×5 (02:37→21:09)
[2016-09-22] MEDS: METOCLOPRAMIDE INJ 10MG/2ML VIAL (J2765) IV PRN (04:41)
[2016-09-22] MEDS: VANCOMYCIN ORAL SOL 250MG/5ML ORAL SYRINGE PO SCH ×3 (05:26→18:30)
[2016-09-22] MEDS: NS 1,000 ML IV SCH (05:26)
[2016-09-22 06:00] VITALS: BP 114/69
[2016-09-22 06:02] LABS: MEAN CORPUSCULAR HEMOGLOBIN 29.2 pg (27.0-33.0); MEAN CORPUSCULAR HGB CONC 34.8 g/dl (32.0-36.5); RED CELL DISTRIBUTION WIDTH 12.2 % (11.5-14.5); WHITE BLOOD COUNT 12.1 K/mm3 (4.0-10.0)
[2016-09-22 06:19] LABS: ALBUMIN 3.4 GM/DL (3.2-5.2); ALBUMIN/GLOBULIN RATIO 0.71 (1.00-1.93); ALKALINE PHOSPHATASE 348 U/L (45-117); ALT/SGPT 142 U/L (12-78); AST/SGOT 85 U/L (15-37); BILIRUBIN,TOTAL 0.6 MG/DL (0.2-1.0); BLOOD UREA NITROGEN 33 MG/DL (7-18); CALCIUM LEVEL 9.9 MG/DL (8.5-10.1); CARBON DIOXIDE LEVEL 23 MEQ/L (21-32); CHLORIDE LEVEL 99 MEQ/L (98-107); CREATININE FOR GFR 0.92 MG/DL (0.55-1.02); GLOMERULAR FILTRATION RATE > 60.0 (>60); GLUCOSE, FASTING 104 MG/DL (70-105); MAGNESIUM LEVEL 1.8 MG/DL (1.8-2.4); TOTAL PROTEIN 8.2 GM/DL (6.4-8.2)
[2016-09-22 06:37] LABS: ANION GAP 10 MEQ/L (8-16); SODIUM LEVEL 132 MEQ/L (136-145)
[2016-09-22 06:41] LABS: POTASSIUM SERUM 3.4 MEQ/L (3.5-5.1)
--- NOTE | 2016-09-22 07:57 | IPN ---
DATE: 09/22/2016 Rosemarie is seen [facility] [address] [facility]. She is feeling better. Nursing staff spent a commendable amount of effort in working on her ostomy problems, particularly the skin breakdown that was occurring because of the high flow and leakage. They have now hooked her ostomy up to suction and she has enough drainage that the skin is already feeling better and the patient was quite pleased with the results. She says that she feels better. She thinks that her output is down a little bit. Her abdominal pain has improved. PHYSICAL EXAMINATION: 114/69, pulse of 105, respiratory rate 18, 96% oxygen saturation, 98.9 degrees. GENERAL APPEARANCE: Chronically ill appearing, cachectic. Resting in bed. LUNGS: Clear. HEART: Regular rate and rhythm. ABDOMEN: Soft, nontender. Skin looks better under and around the ostomy. LABORATORIES: Sodium 132, potassium 3.4, BUN 33, creatinine 0.9, glucose 104. Liver functions are stable from yesterday. White count is down to 12.1, hemoglobin is 14.8. IMPRESSION: 1. Enterocutaneous fistula. Patient has a history of Crohn's disease. Dr. Nicholson at [facility] accepted her in transfer. I called the transfer center yesterday and no beds were available. I will put another call in today. 2. C. difficile colitis. She is on vancomycin 250 mg every 6 hours. She seems to be improved. White count is down. Abdominal exam is improved. 3. Malnutrition. She was getting daily TPN at home. We will be restarting this. I will speak to Dr. Kelly about giving us a hand initiating this. 4. Acute kidney injury. Improved. Will continue her IV fluids. 5. Electrolyte disturbances. Will change her IV fluids to include some potassium.
[2016-09-22] MEDS: NYSTATIN 500,000 U/5 ML SUSP UDC PO SCH ×4 (08:14→20:30)
[2016-09-22] MEDS: KCL 20MEQ in NS 1000ML 1,000 ML IV SCH ×2 (08:14→16:01)
[2016-09-22] MEDS ORDERED: SODIUM CHLORIDE 0.9% INJ 10 ML SYR IV PRN (10:30)
[2016-09-22 14:00] VITALS: BP 138/65
[2016-09-22] MEDS: HumaLOG INSULIN (NovoLOG) PER UNIT SC SCH (18:00)
[2016-09-22] MEDS ORDERED: MULTIVITAMIN -ADULT INJECTION 10 ML, CR/CU/SE/MN/ZN INJ 1 ML, POTASSIUM CHLORIDE INJ 44... IV SCH ×4 (18:00)
[2016-09-22] MEDS ORDERED: FAT EMULSION IV 20% 500 ML IV SCH (18:00)
[2016-09-22] MEDS: SODIUM CHLORIDE 0.9% INJ 10 ML SYR IV SCH (18:00)
[2016-09-22 22:00] VITALS: BP 100/66
[2016-09-23] MEDS: VANCOMYCIN ORAL SOL 250MG/5ML ORAL SYRINGE PO SCH ×4 (00:08→17:23)
[2016-09-23] MEDS: HumaLOG INSULIN (NovoLOG) PER UNIT SC SCH ×3 (00:13→12:00)
[2016-09-23] MEDS: oxyCODONE 5MG TAB PO PRN ×4 (02:52→18:21)
--- NOTE | 2016-09-23 04:31 | EDDOCDS ---
Physician Documentation [facility] Name: Rosemarie Cortes Age: 31 yrs Sex: Female : 1985 Arrival Date: 09/20/2016 Time: 18:24 Bed 17 Private MD: Disposition: 09/21/16 01:16 Hospitalization ordered by Lindsay Kenyon for Inpatient Admission. Preliminary diagnosis are Volume depletion, Hypo-osmolality and hyponatremia, Vomiting, Abdominal and pelvic pain - with ostomy leakage. - Bed requested for [address] [place]. - Status is Inpatient Admission. cp1 - Condition is Stable. - Problem is an ongoing problem. - Symptoms have improved. Historical: - Allergies: no known allergies; - Home Meds: 1. diphenoxylate-atropine 2.5-0.025 mg Oral tab 2 tabs once daily (Last dose: 09/20/2016 08:00) 2. loperamide 2 mg Oral cap 2 caps (Last dose: 09/20/2016 08:00) 3. oxycodone 15 mg Oral tab 1 tab every 4 hours (Last dose: 09/20/2016 08:00) 4. Vitamin D Oral 38810 unit daily (Last dose: 09/20/2016 08:00) 5. Zofran (as hydrochloride) 4 mg Oral tab every 8 hours (Last dose: 09/20/2016 08:00) - PMHx: Crohn's; Anxiety; - PSHx: Gall Bladder Removal; Appendectomy; ; removal of illium; ileostomy with fistula; MARY BETH PICC placement; - Social history: Smoking status: Patient uses tobacco products, light tobacco smoker. No barriers to communication noted, The patient speaks fluent Amharic. - Family history: Not pertinent. - : The pt / caregiver states he / she is not on anticoagulants. Home medication list is obtained from the patient. - Exposure Risk Screening:: None identified. 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 3 in. (160.02 cm) (M); Pain 01/19; 09/21 01:46 BP 106 / 63; Pulse 114; Resp 20; Temp 97.2(O); Pulse Ox 98% on R/A; Pain 5/10; jmv 03:27 BP 92 / 61; Pulse 120; Resp 20; Temp 98.1(O); Pulse Ox 98% on R/A; Pain 5/10; cmb 09/20 21:21 Body Mass Index 20.37 (52.16 kg, 160.02 cm) cmb MDM: 09/20 20:16 Metoclopramide 10 mg IV at 40 mg/hr once over 15 mins ordered. cs11 20:17 Dilaudid - HYDROmorphone 0.5 mg IVP once ordered. cs11 20:17 NS 0.9% 500 ml IV at bolus once ordered. cs11 20:18 CBC with Diff Ordered. EDMS 20:18 MED Profile Ordered. EDMS 20:18 Liver Profile Ordered. EDMS 20:18 Amylase Ordered. EDMS 20:18 Lipase Ordered. EDMS 20:29 Diphenoxylate-Atropine 2 tab-caps PO once ordered. cs11 20:36 Zinc Oxide Ointment 16 % 1 applic Topical now; apply to area around ostomy ordered. cs11 21:13 CBC with Diff Reviewed. cs11 21:15 Urinalysis: cath Ordered. EDMS 21:15 Urine Culture Ordered. EDMS 21:49 MED Profile Reviewed. cs11 21:49 Liver Profile Reviewed. cs11 21:49 Amylase Reviewed. cs11 21:49 Lipase Reviewed. cs11 21:51 NS 0.9% 1000 ml IV at bolus once ordered. cs11 22:09 Financial registration complete. zo 22:26 Urinalysis: cath Reviewed. cs11 23:00 [facility] Payment Agreement was scanned into [employer] and attached to record. zo 23:01 Diatrizoate Meglumine & Sodium Liquid 10 ml PO once; mix in 290cc of water; 1st 2250 af2 2nd cup at 2320 ordered. 23:51 CT ABD & PELVIS W/O CONTRAST Ordered. EDMS 09/21 00:29 Dilaudid - HYDROmorphone 0.5 mg IVP once ordered. mm11 00:29 Ondansetron 4 mg IVP once ordered. mm11 00:43 CT ABD & PELVIS W/O CONTRAST Reviewed. mm11 00:45 Venous Blood Gas (large pea green tube on ice) Ordered. EDMS 01:03 BED REQUEST+ADM ordered. EDMS 01:46 CBC WITH DIFFERENTIAL Ordered. EDMS 01:46 COMPLETE COMPHRENSIVE METABOLI Ordered. EDMS 01:47 PROTHROMBIN TIME PROFILE\E\INR Ordered. EDMS 02:17 LACTIC ACID LEVEL, LACTATE Ordered. EDMS 02:27 Admission / Observation Status ordered. EDMS 02:31 IONIZED CALCIUM Ordered. EDMS 02:34 Metoclopramide 5 mg IV at 40 mg/hr once over 15 mins ordered. af2 02:46 SODIUM,RANDOM URINE Ordered. EDMS 02:48 Written Provider Order was scanned into [employer] and attached to record. jlm 02:53 GAMMA GLUTAMYLTRANSFERASE Ordered. EDMS 02:55 GASTROINTESTINAL (GI) PANEL Ordered. EDMS 02:56 GASTROINTESTINAL (GI) PANEL Ordered. EDMS 03:13 T-Sheet-- Draft Copy was scanned into [employer] and attached to record. hs2 Administered Medications: 09/20 20:43 Drug: NS 0.9% 500 ml [sodium chloride 0.9 % intravenous solution] Route: IV; Rate: af2 bolus; Site: Implantable Access Device; 20:44 Drug: Metoclopramide 10 mg [metoclopramide 5 mg/mL injection solution] Route: IV; Rate: af2 40 mg/hr; Infused Over: 15 mins; Site: Implantable Access Device; 20:44 Drug: Dilaudid - HYDROmorphone 0.5 mg [hydromorphone 1 mg/mL injection syringe (0.5 af2 mL)] Route: IVP; Site: Implantable Access Device; 22:17 Drug: Zinc Oxide Ointment 16 % 1 applic Route: Topical; Site: affected area; af2 22:18 Drug: Diphenoxylate-Atropine 2 tab-caps [diphenoxylate-atropine 2.5 mg-0.025 mg tablet af2 (2 tabs)] Route: PO; 23:01 Drug: Diatrizoate Meglumine & Sodium 10 ml [diatrizoate meglumine and diat.sodium 66 af2 %-10 % oral solution (10 mL)] Route: PO; 23:06 Drug: NS 0.9% 1000 ml [sodium chloride 0.9 % intravenous solution] Route: IV; Rate: kas2 bolus; Site: Implantable Access Device; 09/21 00:37 Drug: Dilaudid - HYDROmorphone 0.5 mg [hydromorphone 1 mg/mL injection syringe (0.5 af2 mL)] Route: IVP; Site: Implantable Access Device; 00:38 Drug: Ondansetron 4 mg [ondansetron HCl 2 mg/mL intravenous solution (2 mL)] Route: af2 IVP; Site: Implantable Access Device; 02:55 Drug: Metoclopramide 5 mg [metoclopramide 5 mg/mL injection solution] Route: IV; Rate: af2 40 mg/hr; Infused Over: 15 mins; Site: Implantable Access Device; Signatures: Dispatcher [employer] EDMS Camila Lomas Matthew, DO DO mm11 Beverly Hankins,AMINATA SORENSONN cp1 Savi Melgar RN RN sls1 Marvel Hung, DO DO cs11 Jessi Wise RN RN aa3 Maryam Jimenez, Revenue Specialist Unit Bette Castellanos RN RN af2 Deborah Daley, Reg Reg hs2 Katina Vidal RN kas2 The chart was reviewed and I authenticate all verbal orders and agree with the evaluation and treatment provided.Corrections: (The following items were deleted from the chart) 09/20 23:51 21:58 CT ABD & PELVIS WITH CONTRAST+CT ordered. EDMS EDMS 09/21 02:52 02:42 GAMMA GLUTAMYLTRANSFERASE ordered. EDMS EDMS 03:00 01:47 CDIFF PCR ordered. EDMS EDMS Attachments: 09/20 23:00 [facility] Payment Agreement zo 09/21 02:48 Written Provider Order jlm 03:13 T-Sheet-- Draft Copy hs2 [facility]
--- NOTE | 2016-09-23 04:31 | EDDOCDS ---
Nurse's Notes [facility] Name: Rosemarie Cortes Age: 31 yrs Sex: Female : 1985 Arrival Date: 09/20/2016 Time: 18:24 Bed 17 Private MD: Diagnosis: Volume depletion;Hypo-osmolality and hyponatremia;Vomiting;Abdominal and pelvic pain-with ostomy leakage Presentation: 09/20 18:29 Presenting complaint: EMS states: Patient has leaking around colostomy bag. Patient aa3 requested to go to [facility], was brought here by EMS to stabilize. Risk factors: the patient reports no vaginal bleeding. Adult Sepsis Screening: The patient does not have new or worsening altered mentation. Patient's respiratory rate is less than 22. Systolic blood pressure is less than or equal to 100 (1 point). Patient has a qSOFA score of 1- Negative Sepsis Screen. Suicide/Homicide risk assessment- the patient denies having any suicidal and/or homicidal ideations and does not present with any other emotional, behavioral or mental health complaints. 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 Transition of care: patient was not received from another setting of care. 18:29 Acuity: FREDDIE Level 3 aa3 18:29 Method Of Arrival: Ambulance aa3 Triage Assessment: 18:42 General: Appears uncomfortable, Behavior is anxious, cooperative. Pain: Location: aa3 umbilical area Pain currently is 7 out of 10 on a pain scale. Quality of pain is described as pulling. Pt Declines HIV testing. Neurological: Level of Consciousness is awake, alert, Oriented to person, place, time. Respiratory: Airway is patent Respiratory effort is even, unlabored, Respiratory pattern is regular, symmetrical. GI: Abdomen is non- distended Ileostomy site is reddened. Ostomy appliance is not intact. Last BM was September 20, 2016. 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 diphenoxylate-atropine 2.5-0.025 mg Oral tab 2 tabs once daily (Last dose: 09/20/2016 08:00) 2. loperamide 2 mg Oral cap 2 caps (Last dose: 09/20/2016 08:00) 3. oxycodone 15 mg Oral tab 1 tab every 4 hours (Last dose: 09/20/2016 08:00) 4. Vitamin D Oral 29512 unit daily (Last dose: 09/20/2016 08:00) 5. Zofran (as hydrochloride) 4 mg Oral tab every 8 hours (Last dose: 09/20/2016 08:00) - PMHx: Crohn's; Anxiety; - PSHx: Gall Bladder Removal; Appendectomy; ; removal of illium; ileostomy with fistula; MARY BETH PICC placement; - Social history: Smoking status: Patient uses tobacco products, light tobacco smoker. No barriers to communication noted, The patient speaks fluent British. - Family history: Not pertinent. - : The pt / caregiver states he / she is not on anticoagulants. Home medication list is obtained from the patient. - Exposure Risk Screening:: None identified. Screenin/10 02:47 Screening information is obtained from the patient. Fall risk: No risks identified. af2 Assistance ADL's: requires no assistance with activities of daily living. Abuse/DV Screen: The patient / caregiver reports he/she is: not in a situation that causes fear, pain or injury. Nutritional screening: On TPN. Advance Directives: Further advance directive information is declined. home support is adequate. Assessment: 09/20 19:24 General: Appears ill, Behavior is crying. Pain: Location: abdomen Pain currently is 10 af2 out of 10 on a pain scale. Neurological: Level of Consciousness is awake, alert, obeys commands. Cardiovascular: Heart tones S1 S2 present. Respiratory: Airway is patent Respiratory effort is even, unlabored, Breath sounds are clear bilaterally. GI: Abdomen is non- distended Colostomy site is reddened. is excoriated. colostomy bag is leaking. father states that "pt needs to go to [facility] and she will get there one way or another tonight.". GI: Bowel sounds present X 4 quads. Abd is tender to palpation X 4 quads. Guarding noted X 4 quads. Reports lower abdominal pain, upper abd pain, nausea, vomiting, states that colostomy drainage is unchanged. Derm: Skin is pale. 19:49 General: pt father approaches nurses station screaming, "I need some help, she is af2 leaking all over in here." Father advised of ER rules and asked to use call light for future needs, receptive to information and verbalizes understanding. Clean towels applied to leaking ostomy, skin underneath noted to be excoriated. . 20:49 General: Appears ill, uncomfortable, pt colostomy drainage cleaned and new towels af2 applied. assisted with repositioning and provided with ice chips. states relief with pain meds.. 21:50 General: Appears ill, Behavior is cooperative. Neurological: Level of Consciousness is af2 awake, alert. Respiratory: Airway is patent Respiratory effort is even, unlabored. Derm: Skin is pale. 22:50 General: Appears ill, Behavior is cooperative, pt unable to tolerated po contrast. af2 23:48 General: this editorial writer attempted iv on pt unsuccessfully, pt states "you can't get an IV, af2 you need to just do it without." provider notified, okay to do ct without contrast.. 09/21 00:50 General: Appears ill, Behavior is cooperative. Neurological: Level of Consciousness is af2 awake, alert. Respiratory: Airway is patent Respiratory effort is even, unlabored. GI: Reports diarrhea, nausea. Derm: Skin is pale. 01:50 General: Appears ill, Behavior is cooperative. Neurological: Level of Consciousness is af2 awake, alert. Respiratory: Airway is patent Respiratory effort is even, unlabored. GI: Reports lower abdominal pain, upper abd pain, nausea. Derm: Skin is pale. 02:50 General: Appears ill, Behavior is cooperative. Neurological: Level of Consciousness is af2 awake, alert. Respiratory: Airway is patent Respiratory effort is even, unlabored. GI: Reports diarrhea, nausea. Derm: Skin is pale. 03:25 General: Appears ill. Neurological: Level of Consciousness is awake, alert. af2 Respiratory: Airway is patent Respiratory effort is even, unlabored. GI: Abdomen is non- distended Colostomy site is reddened. is excoriated. Reports nausea. Derm: Skin is pale. Vital Signs: 09/20 21:21 BP 122 / 58; Pulse 127; Resp 18; Temp 99; Pulse Ox 98% ; Weight 52.16 kg; Height 5 ft. cmb 3 in. (160.02 cm) (M); Pain 01/19; 09/21 01:46 BP 106 / 63; Pulse 114; Resp 20; Temp 97.2(O); Pulse Ox 98% on R/A; Pain 5/10; jmv 03:27 BP 92 / 61; Pulse 120; Resp 20; Temp 98.1(O); Pulse Ox 98% on R/A; Pain 5/10; cmb 09/20 21:21 Body Mass Index 20.37 (52.16 kg, 160.02 cm) cmb Vitals: 09/20 18:42 Log In Time N/A - ambulance arrival. aa3 ED Course: 18:24 Patient visited by Ara Acuña, Hair Spring Cutter. deg 18:24 Patient moved to Waiting deg 18:26 Patient moved to 17 deg 18:29 Jessi Wise RN is Primary Nurse. aa3 18:33 Triage Initiated aa3 18:44 Patient visited by Jessi Wise RN. aa3 18:48 Marvel Hung DO is Attending Physician. cs11 18:48 Patient visited by Marvel Hung DO. cs11 18:55 Bette Venegas RN is Primary Nurse. af2 19:23 Patient visited by Bette Venegas RN. af2 19:23 The patient / caregiver is instructed regarding the plan of care and ED course. Patient af2 has correct armband on for positive identification. Placed in gown. 19:28 Patient visited by Bette Venegas RN. af2 19:51 Patient visited by Bette Venegas RN. af2 20:48 Patient visited by Bette Venegas RN. af2 20:50 Patient visited by Bette Venegas RN. af2 20:50 Flushed PICC line. af2 21:22 Patient visited by Elena Christina. cmb 22:18 Patient visited by Bette Venegas RN. af2 23:00 Patient visited by Bette Venegas RN. af2 23:00 [facility] Payment Agreement was scanned into [employer] and attached to record. zo 23:33 Patient visited by Bette Venegas RN. af2 23:34 Patient visited by Bette Venegas RN. af2 23:49 Patient visited by Bette Venegas RN. af2 23:57 Attending Physician role handed off by Marvel Hung DO mm11 23:57 Chuck Sadler DO is Attending Physician. mm11 09/21 00:15 Patient visited by Bette Venegas RN. af2 00:27 Diet: Patient given ice chips. Tolerated well. jlm 00:28 Patient visited by Maryam Jimenez, Hair Spring Cutter. jlm 00:39 CT ABD & PELVIS W/O CONTRAST Returned. EDMS 01:01 Patient visited by Chuck Sadler DO. mm11 01:14 Lindsay Kenyon is Hospitalizing Provider. mm11 01:22 Patient visited by Elena Christina. cmb 01:47 Patient visited by Amauri Duvall PCA. jmv 02:04 Lindsay Kenyon artistic associate. ys2 02:39 Lindsay Kenyon is Hospitalizing Provider. sls1 02:47 No procedures done that require assistance. af2 02:48 Written Provider Order was scanned into [employer] and attached to record. jlm 03:13 T-Sheet-- Draft Copy was scanned into [employer] and attached to record. hs2 03:27 Patient visited by Bette Venegas RN. af2 03:28 Patient visited by Elena Christina. cmb Administered Medications: 09/20 20:43 Drug: NS 0.9% 500 ml [sodium chloride 0.9 % intravenous solution] Route: IV; Rate: af2 bolus; Site: Implantable Access Device; 20:44 Drug: Metoclopramide 10 mg [metoclopramide 5 mg/mL injection solution] Route: IV; Rate: af2 40 mg/hr; Infused Over: 15 mins; Site: Implantable Access Device; 20:44 Drug: Dilaudid - HYDROmorphone 0.5 mg [hydromorphone 1 mg/mL injection syringe (0.5 af2 mL)] Route: IVP; Site: Implantable Access Device; 22:17 Drug: Zinc Oxide Ointment 16 % 1 applic Route: Topical; Site: affected area; af2 22:18 Drug: Diphenoxylate-Atropine 2 tab-caps [diphenoxylate-atropine 2.5 mg-0.025 mg tablet af2 (2 tabs)] Route: PO; 23:01 Drug: Diatrizoate Meglumine & Sodium 10 ml [diatrizoate meglumine and diat.sodium 66 af2 %-10 % oral solution (10 mL)] Route: PO; 23:06 Drug: NS 0.9% 1000 ml [sodium chloride 0.9 % intravenous solution] Route: IV; Rate: kas2 bolus; Site: Implantable Access Device; 09/21 00:37 Drug: Dilaudid - HYDROmorphone 0.5 mg [hydromorphone 1 mg/mL injection syringe (0.5 af2 mL)] Route: IVP; Site: Implantable Access Device; 00:38 Drug: Ondansetron 4 mg [ondansetron HCl 2 mg/mL intravenous solution (2 mL)] Route: af2 IVP; Site: Implantable Access Device; 02:55 Drug: Metoclopramide 5 mg [metoclopramide 5 mg/mL injection solution] Route: IV; Rate: af2 40 mg/hr; Infused Over: 15 mins; Site: Implantable Access Device; Order Results: Lab Order: CBC with Diff; SPEC'M 09/20/16 20:38 Test: WHITE BLOOD COUNT; Value: 20.4; Range: 4.0-10.0; Abnormal: Above high normal; Units: K/mm3; Status: F Test: RED BLOOD COUNT; Value: 5.93; Range: 4.00-5.40; Abnormal: Above high normal; Units: M/mm3; Status: F Test: HEMOGLOBIN; Value: 17.6; Range: 12.0-16.0; Abnormal: Above high normal; Units: g/dl; Status: F Test: HEMATOCRIT; Value: 49.4; Range: 36.0-47.0; Abnormal: Above high normal; Units: %; Status: F Test: MEAN CORPUSCULAR VOLUME; Value: 83.3; Range: 80.0-96.0; Units: fl; Status: F Test: MEAN CORPUSCULAR HEMOGLOBIN; Value: 29.7; Range: 27.0-33.0; Units: pg; Status: F Test: MEAN CORPUSCULAR HGB CONC; Value: 35.7; Range: 32.0-36.5; Units: g/dl; Status: F Test: RED CELL DISTRIBUTION WIDTH; Value: 12.1; Range: 11.5-14.5; Units: %; Status: F Test: PLATELET COUNT, AUTOMATED; Value: 335; Range: 150-450; Units: k/mm3; Status: F Test: NEUTROPHILS %; Value: 77.4; Range: 36.0-66.0; Abnormal: Above high normal; Units: %; Status: F Test: LYMPH %; Value: 16.7; Range: 24.0-44.0; Abnormal: Below low normal; Units: %; Status: F Test: MONO %; Value: 4.0; Range: 0.0-5.0; Units: %; Status: F Test: EOS %; Value: 0.2; Range: 0.0-3.0; Units: %; Status: F Test: BASO %; Value: 0.2; Range: 0.0-1.0; Units: %; Status: F Test: LARGE UNSTAINED CELL %; Value: 1.4; Range: 0.0-4.0; Units: %; Status: F Test: NEUTROPHILS #; Value: 15.8; Range: 1.8-7.7; Abnormal: Above high normal; Units: K/mm3; Status: F Test: LYMPH #; Value: 3.4; Range: 1.5-4.5; Units: K/mm3; Status: F Test: MONO #; Value: 0.8; Range: 0.0-0.8; Units: K/mm3; Status: F Test: EOS #; Value: 0.0; Range: 0.0-0.50; Units: K/mm3; Status: F Test: BASO #; Value: 0.0; Range: 0.0-0.2; Units: K/mm3; Status: F Test: LARGE UNSTAINED CELL #; Value: 0.3; Range: 0.0-0.4; Units: K/mm3; Status: F Lab Order: [facility] Profile; [facility]'M 09/20/16 20:38 Test: GLUCOSE, FASTING; Value: 127; Range: 70-105; Abnormal: Above high normal; Units: MG/DL; Status: F Test: BLOOD UREA NITROGEN; Value: 82; Range: 7-18; Abnormal: Above high normal; Units: MG/DL; Status: F Test: CREATININE FOR GFR; Value: 1.08; Range: 0.55-1.02; Abnormal: Above high normal; Units: MG/DL; Status: F Test: GLOMERULAR FILTRATION RATE; Value: > 60.0; Range: >60; Status: F Test: SODIUM LEVEL; Value: 125; Range: 136-145; Abnormal: Below low normal; Units: MEQ/L; Status: F Test: POTASSIUM SERUM; Value: 5.4; Range: 3.5-5.1; Abnormal: Above high normal; Units: MEQ/L; Status: F Test: CHLORIDE LEVEL; Value: 94; Range: 98-107; Abnormal: Below low normal; Units: MEQ/L; Status: F Test: CARBON DIOXIDE LEVEL; Value: 17; Range: 21-32; Abnormal: Below low normal; Units: MEQ/L; Status: F Test: ANION GAP; Value: 14; Range: 8-16; Units: MEQ/L; Status: F Test: CALCIUM LEVEL; Value: 11.6; Range: 8.5-10.1; Abnormal: Above high normal; Units: MG/DL; Status: F Test Note: ; Units are mL/min/1.73 m2 Chronic Kidney Disease Staging per NKF: Stage I & II GFR >=60 Normal to Mildly Decreased Stage III GFR 30-59 Moderately Decreased Stage IV GFR 15-29 Severely Decreased Stage V GFR <15 Very Little GFR Left ESRD GFR <15 on CLINICAL QUALITY ANALYST Lab Order: Liver Profile; [facility]' 09/20/16 20:38 Test: AST/SGOT; Value: 85; Range: 15-37; Abnormal: Above high normal; Units: U/L; Status: F Test: ALT/SGPT; Value: 159; Range: 12-78; Abnormal: Above high normal; Units: U/L; Status: F Test: ALKALINE PHOSPHATASE; Value: 446; Range: 45-117; Abnormal: Above high normal; Units: U/L; Status: F Test: BILIRUBIN,TOTAL; Value: 0.6; Range: 0.2-1.0; Units: MG/DL; Status: F Test: BILIRUBIN,DIRECT; Value: 0.3; Range: 0.0-0.2; Abnormal: Above high normal; Units: MG/DL; Status: F Test: TOTAL PROTEIN; Value: 10.1; Range: 6.4-8.2; Abnormal: Above high normal; Units: GM/DL; Status: F Test: ALBUMIN; Value: 4.3; Range: 3.2-5.2; Units: GM/DL; Status: F Test: ALBUMIN/GLOBULIN RATIO; Value: 0.74; Range: 1.00-1.93; Abnormal: Below low normal; Status: F Lab Order: Amylase; [facility] 09/20/16 20:38 Test: AMYLASE; Value: 86; Range: 25-115; Units: U/L; Status: F Lab Order: Lipase; [facility] 09/20/16 20:38 Test: LIPASE; Value: 200; Range: 73-393; Units: U/L; Status: F Lab Order: Urinalysis: cath; [facility] 09/20/16 21:56 Test: APPEARANCE, URINE; Value: HAZY; Range: CLEAR; Status: F Test: COLOR, URINE; Value: YELLOW; Range: YELLOW; Status: F Test: PH,URINE; Value: 6.0; Range: 5.0-9.0; Units: UNITS; Status: F Test: SPECIFIC GRAVITY URINE AUTO; Value: 1.021; Range: 1.002-1.035; Status: F Test: PROTEIN, URINE AUTO; Value: 1+; Range: NEGATIVE; Abnormal: Above high normal; Units: mg/dL; Status: F Test: GLUCOSE, URINE (UA) AUTO; Value: 1+; Range: NEGATIVE; Abnormal: Above high normal; Units: mg/dL; Status: F Test: KETONE, URINE AUTO; Value: NEGATIVE; Range: NEGATIVE; Units: mg/dL; Status: F Test: UROBILINOGEN, URINE AUTO; Value: 0.2; Range: 0.0-2.0; Units: mg/dL; Status: F Test: BILIRUBIN, URINE AUTO; Value: NEGATIVE; Range: NEGATIVE; Status: F Test: NITRITE, URINE AUTO; Value: NEGATIVE; Range: NEGATIVE; Status: F Test: LEUKOCYTE ESTERASE, URINE AUTO; Value: NEGATIVE; Range: NEGATIVE; Status: F Test: BLOOD, URINE BLOOD; Value: NEGATIVE; Range: NEGATIVE; Status: F Test: WBC, URINE AUTO; Value: 0; Range: 0-3; Units: /HPF; Status: F Test: RBC, URINE AUTO; Value: 0; Range: 0-3; Units: /HPF; Status: F Test: BACTERIA, URINE AUTO; Value: NEGATIVE; Range: NEGATIVE; Status: F Test: SQUAMOUS EPITHELIAL CELL UR AU; Value: 0; Range: 0-6; Units: /HPF; Status: F Test: MUCUS, URINE; Value: SMALL; Range: NEGATIVE; Status: F Test: HYALINE CAST, URINE AUTO; Value: 22; Range: 0-1; Units: /LPF; Status: F Radiology Order: CT ABD & PELVIS W/O CONTRAST Test: CT ABD & PELVIS W/O CONTRAST REASON FOR EXAMINATION: Abdomen Pain; ; CLINICAL HISTORY: Abdominal pain; TECHNIQUE: CT of the abdomen and pelvis was performed without intravenous contrast by obtaining walter; guous CT axial slices from level of the heart to the proximal femoral diaphyses. Multiplanar reformat; s were obtained in the coronal and sagittal projections.; COMPARISON: CT abdomen pelvis 08/10/2016; FINDINGS :; LOWER CHEST: The lung bases are clear. Heart is normal in size. No pleural or pericardial effusion; is seen.; LIVER: The liver is normal in size and contour.; BILIARY SYSTEM: Status post cholecystectomy with no intrahepatic biliary ductal dilatation or calcifi; ed biliary stones.; PANCREAS: The pancreas is normal in size, contour and density. No suspicious cystic lesion or ductal; dilatation.; SPLEEN: Normal in size with no suspicious cystic lesion.; ADRENALS: The adrenal glands are unremarkable.; KIDNEYS/URETERS: The kidneys are normal in size. No calcified renal or ureteral calculi are seen. No; suspicious cystic lesion or hydronephrosis. The ureters are not dilated.; URINARY BLADDER: The urinary bladder is unremarkable without calcified stone, wall thickening or; diverticula seen.; UTERUS/ADNEXA: The uterus and left adnexa unremarkable. 1.9 cm right adnexal cyst has decreased from; previous 2.4 cm. Air in vaginal vault again noted.; AORTA AND ILIAC ARTERIES: No aneurysmal dilatation of the aorta or iliac arteries is seen.; LYMPH NODES: No enlarged adenopathy.; GASTROINTESTINAL: Operative sutures are noted in right lower quadrant from what appears to be an ill; colic resection with right lower quadrant ileostomy. Stomach duodenum, and remaining bowel grossly no; rmal without evidence of obstruction.; PERITONEUM/RETROPERITONEUM/ABDOMINAL PELVIC WALL:; -Stable approximately 2.5 x 1.0 cm right lower quadrant air-fluid collection noted on axial series 20; 1, image 97; -There is contrast-filled fluid collection in the anterior mid abdominal wall communicating with an a; pproximately 2.9 x 1.1 cm anterior intra-abdominal contrast and air-fluid collection on axial series; 201, image [id number] and inseparable from underlying contrast small bowel.; -No other evidence of extraluminal air.; -Resolution of multiple additional previous intra-abdominal fluid collections.; OSSEOUS STRUCTURES/SOFT TISSUES: No suspicious osseous lesion or acute fracture. Midline abdominal wa; ll douglas with stable 2 drain-like devices.; IMPRESSION :; 1. 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 Grossly stable additional 2.5 x 1.0 cm right lower quadrant fluid collection medial to the ileocol; ic resection sutures which may be separate from the enterocutaneous fistula. While this may represent; a postoperative seroma, in setting of infection abscess is not excluded.; ; Outcome: 01:16 Decision to Hospitalize by Provider. mm11 02:47 Discharge Assessment: Patient awake, alert and oriented x 3. No cognitive and/or af2 functional deficits noted. Patient verbalized understanding of disposition instructions. patient administered narcotics - yes. Patient was admitted to the hospital or transferred to another facility. The following High Risk Discharge criteria are identified: None. Admitted to Med/Surg accompanied by tech, via stretcher, with chart. Condition: stable. CT Study completed. Property :Personal belongings accompany Pt. 03:29 Patient left the ED. cp1 Signatures: Dispatcher [employer] EDMS Ara Acuña, Hair Spring Cutter Unit deg Camila Lomas Matthew, DO DO mm11 Beverly Hankins,AMINATA EDUCATIONAL ASSISTANT TEACHER cp1 Saiv Melgar, RN RN sls1 Elena Christina cmMarvel Crawley, DO DO cs11 Jessi Wise,RN RN carina3 Maryam Jimenez, Hair Spring Cutter Unit Bette Castellanos,RN RN af2 Lindsay Kenyon ys2 Deborah Daley, Reg Reg hs2 Katina Vidal,MARYANNE RN kas2 Amauri Duvall, PAROLE SUPERVISOR PAROLE SUPERVISOR jmv Chart Complete MTDD
--- NOTE | 2016-09-23 04:31 | EDDOCDS ---
Physician Documentation [facility] Name: Rosemarie Cortes Age: 31 yrs Sex: Female : 1985 Arrival Date: 09/20/2016 Time: 18:24 Bed 17 Private MD: Disposition: 09/21/16 01:16 Hospitalization ordered by Lindsay Kenyon for Inpatient Admission. Preliminary diagnosis are Volume depletion, Hypo-osmolality and hyponatremia, Vomiting, Abdominal and pelvic pain - with ostomy leakage. - Bed requested for 4 [place]. - Status is Inpatient Admission. cp1 - Condition is Stable. - Problem is an ongoing problem. - Symptoms have improved. Historical: - Allergies: no known allergies; - Home Meds: 1. diphenoxylate-atropine 2.5-0.025 mg Oral tab 2 tabs once daily (Last dose: 09/20/2016 08:00) 2. loperamide 2 mg Oral cap 2 caps (Last dose: 09/20/2016 08:00) 3. oxycodone 15 mg Oral tab 1 tab every 4 hours (Last dose: 09/20/2016 08:00) 4. Vitamin D Oral 94761 unit daily (Last dose: 09/20/2016 08:00) 5. Zofran (as hydrochloride) 4 mg Oral tab every 8 hours (Last dose: 09/20/2016 08:00) - PMHx: Crohn's; Anxiety; - PSHx: Gall Bladder Removal; Appendectomy; ; removal of illium; ileostomy with fistula; MARY BETH PICC placement; - Social history: Smoking status: Patient uses tobacco products, light tobacco smoker. No barriers to communication noted, The patient speaks fluent Latvian. - Family history: Not pertinent. - : The pt / caregiver states he / she is not on anticoagulants. Home medication list is obtained from the patient. - Exposure Risk Screening:: None identified. 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 3 in. (160.02 cm) (M); Pain 01/19; 09/21 01:46 BP 106 / 63; Pulse 114; Resp 20; Temp 97.2(O); Pulse Ox 98% on R/A; Pain 5/10; jmv 03:27 BP 92 / 61; Pulse 120; Resp 20; Temp 98.1(O); Pulse Ox 98% on R/A; Pain 5/10; cmb 09/20 21:21 Body Mass Index 20.37 (52.16 kg, 160.02 cm) cmb MDM: 09/20 20:16 Metoclopramide 10 mg IV at 40 mg/hr once over 15 mins ordered. cs11 20:17 Dilaudid - HYDROmorphone 0.5 mg IVP once ordered. cs11 20:17 NS 0.9% 500 ml IV at bolus once ordered. cs11 20:18 CBC with Diff Ordered. EDMS 20:18 MED Profile Ordered. EDMS 20:18 Liver Profile Ordered. EDMS 20:18 Amylase Ordered. EDMS 20:18 Lipase Ordered. EDMS 20:29 Diphenoxylate-Atropine 2 tab-caps PO once ordered. cs11 20:36 Zinc Oxide Ointment 16 % 1 applic Topical now; apply to area around ostomy ordered. cs11 21:13 CBC with Diff Reviewed. cs11 21:15 Urinalysis: cath Ordered. EDMS 21:15 Urine Culture Ordered. EDMS 21:49 MED Profile Reviewed. cs11 21:49 Liver Profile Reviewed. cs11 21:49 Amylase Reviewed. cs11 21:49 Lipase Reviewed. cs11 21:51 NS 0.9% 1000 ml IV at bolus once ordered. cs11 22:09 Financial registration complete. zo 22:26 Urinalysis: cath Reviewed. cs11 23:00 [facility] [place] was scanned into [employer] and attached to record. zo 23:01 Diatrizoate Meglumine & Sodium Liquid 10 ml PO once; mix in 290cc of water; 1st 2250 af2 2nd cup at 2320 ordered. 23:51 CT ABD & PELVIS W/O CONTRAST Ordered. EDMS 09/21 00:29 Dilaudid - HYDROmorphone 0.5 mg IVP once ordered. mm11 00:29 Ondansetron 4 mg IVP once ordered. mm11 00:43 CT ABD & PELVIS W/O CONTRAST Reviewed. mm11 00:45 Venous Blood Gas (large pea green tube on ice) Ordered. EDMS 01:03 BED REQUEST+ADM ordered. EDMS 01:46 CBC WITH DIFFERENTIAL Ordered. EDMS 01:46 COMPLETE COMPHRENSIVE METABOLI Ordered. EDMS 01:47 PROTHROMBIN TIME PROFILE\E\INR Ordered. EDMS 02:17 LACTIC ACID LEVEL, LACTATE Ordered. EDMS 02:27 Admission / Observation Status ordered. EDMS 02:31 IONIZED CALCIUM Ordered. EDMS 02:34 Metoclopramide 5 mg IV at 40 mg/hr once over 15 mins ordered. af2 02:46 SODIUM,RANDOM URINE Ordered. EDMS 02:48 Written Provider Order was scanned into [employer] and attached to record. jlm 02:53 GAMMA GLUTAMYLTRANSFERASE Ordered. EDMS 02:55 GASTROINTESTINAL (GI) PANEL Ordered. EDMS 02:56 GASTROINTESTINAL (GI) PANEL Ordered. EDMS 03:13 T-Sheet-- Draft Copy was scanned into [employer] and attached to record. hs2 Administered Medications: 09/20 20:43 Drug: NS 0.9% 500 ml [sodium chloride 0.9 % intravenous solution] Route: IV; Rate: af2 bolus; Site: Implantable Access Device; 20:44 Drug: Metoclopramide 10 mg [metoclopramide 5 mg/mL injection solution] Route: IV; Rate: af2 40 mg/hr; Infused Over: 15 mins; Site: Implantable Access Device; 20:44 Drug: Dilaudid - HYDROmorphone 0.5 mg [hydromorphone 1 mg/mL injection syringe (0.5 af2 mL)] Route: IVP; Site: Implantable Access Device; 22:17 Drug: Zinc Oxide Ointment 16 % 1 applic Route: Topical; Site: affected area; af2 22:18 Drug: Diphenoxylate-Atropine 2 tab-caps [diphenoxylate-atropine 2.5 mg-0.025 mg tablet af2 (2 tabs)] Route: PO; 23:01 Drug: Diatrizoate Meglumine & Sodium 10 ml [diatrizoate meglumine and diat.sodium 66 af2 %-10 % oral solution (10 mL)] Route: PO; 23:06 Drug: NS 0.9% 1000 ml [sodium chloride 0.9 % intravenous solution] Route: IV; Rate: kas2 bolus; Site: Implantable Access Device; 09/21 00:37 Drug: Dilaudid - HYDROmorphone 0.5 mg [hydromorphone 1 mg/mL injection syringe (0.5 af2 mL)] Route: IVP; Site: Implantable Access Device; 00:38 Drug: Ondansetron 4 mg [ondansetron HCl 2 mg/mL intravenous solution (2 mL)] Route: af2 IVP; Site: Implantable Access Device; 02:55 Drug: Metoclopramide 5 mg [metoclopramide 5 mg/mL injection solution] Route: IV; Rate: af2 40 mg/hr; Infused Over: 15 mins; Site: Implantable Access Device; Signatures: Dispatcher [employer] EDMS Camila Lomas Matthew, DO DO mm11 Beverly Hankins,AMINATA SORENSONN cp1 Savi Melgar RN RN sls1 Marvel Hung, DO DO cs11 Jessi Wise RN RN aa3 Maryam Jimenez, Resident Medical Officer Unit Bette Castellanos RN RN af2 Deborah Daley, Reg Reg hs2 Katina Vidal RN kas2 The chart was reviewed and I authenticate all verbal orders and agree with the evaluation and treatment provided.Corrections: (The following items were deleted from the chart) 09/20 23:51 21:58 CT ABD & PELVIS WITH CONTRAST+CT ordered. EDMS EDMS 09/21 02:52 02:42 GAMMA GLUTAMYLTRANSFERASE ordered. EDMS EDMS 03:00 01:47 CDIFF PCR ordered. EDMS EDMS Attachments: 09/20 23:00 [facility] [place] Agreement zo 09/21 02:48 Written Provider Order jlm 03:13 T-Sheet-- Draft Copy hs2 Chart Complete [facility]
[2016-09-23 06:00] VITALS: BP 90/64
[2016-09-23] MEDS: SODIUM CHLORIDE 0.9% INJ 10 ML SYR IV SCH ×2 (06:20→17:23)
[2016-09-23 06:51] LABS: MEAN CORPUSCULAR HEMOGLOBIN 29.9 pg (27.0-33.0); MEAN CORPUSCULAR VOLUME 81.8 fl (80.0-96.0); WHITE BLOOD COUNT 10.3 K/mm3 (4.0-10.0)
[2016-09-23 06:53] LABS: MEAN CORPUSCULAR HGB CONC 36.4 g/dl (32.0-36.5)
[2016-09-23 07:10] LABS: ALKALINE PHOSPHATASE 333 U/L (45-117); ALT/SGPT 138 U/L (12-78); ANION GAP 8 MEQ/L (8-16); AST/SGOT 73 U/L (15-37); BILIRUBIN,TOTAL 0.4 MG/DL (0.2-1.0); BLOOD UREA NITROGEN 29 MG/DL (7-18); CALCIUM LEVEL 9.5 MG/DL (8.5-10.1); CARBON DIOXIDE LEVEL 26 MEQ/L (21-32); CHLORIDE LEVEL 97 MEQ/L (98-107); CREATININE FOR GFR 0.73 MG/DL (0.55-1.02); GLOMERULAR FILTRATION RATE > 60.0 (>60); GLUCOSE, FASTING 84 MG/DL (70-105); POTASSIUM SERUM 4.1 MEQ/L (3.5-5.1); SODIUM LEVEL 131 MEQ/L (136-145); TOTAL PROTEIN 7.3 GM/DL (6.4-8.2)
[2016-09-23] MEDS: KCL 20MEQ in NS 1000ML 1,000 ML IV SCH (09:13)
[2016-09-23] MEDS: NYSTATIN 500,000 U/5 ML SUSP UDC PO SCH ×3 (09:13→17:23)
--- NOTE | 2016-09-23 15:25 | IPN ---
DATE: 09/23/2016 Rosemarie feels better. Stool output is decreased. We have been waiting for a transfer to Dr. Xavier's service at [facility]. Apparently through some missed communication, it was believed the transfer had been cancelled and neither I nor any member of my rounding team, nor anyone from out office has canceled this transfer. I called the transfer center and now she is back on the list. PHYSICAL EXAMINATION: Vital signs stable. 98 degrees. She looks much better. Lungs clear. Abdomen is soft. Decreased stool output. Skin continues to improve. LABS: White count is down to 10.3. Potassium is up to 4.1. IMPRESSION: 1. C. difficile colitis. Day number three of vancomycin 250 mg every 6 hours. 2. Enterocutaneous fistula. Awaiting transfer to Dr. Vicente, [facility]. 3. Malnutrition. We have restarted her total parenteral nutrition (TPN). She apparently gets her lipid infusion three times per week so we will change this. 4. Acute kidney injury. This is resolved.
[2016-09-23] MEDS ORDERED: FAT EMULSION IV 20% 500 ML IV SCH (18:00)
[2016-09-23] MEDS ORDERED: AMINO AC/ELECTROLYTE/DEX/CALC 2,000 ML IV SCH (18:00)
== END 2016-09-23 19:20 | disposition short-term general hospital (02) | DRG 248 ==
LOC: M ED 18:24 → M ED INP 09-21 02:25 → M MSPAV 09-21 03:35
PROVIDERS: ADMIT Internal Medicine; ATTEND Family Medicine
DX: A04.7 Enterocolitis due to Clostridium difficile (principal); N17.9 Acute kidney failure, unspecified; K63.2 Fistula of intestine; E46 Unspecified protein-calorie malnutrition; B37.0 Candidal stomatitis; E87.1 Hypo-osmolality and hyponatremia; K50.90 Crohn's disease, unspecified, without complications; E55.9 Vitamin D deficiency, unspecified; E83.52 Hypercalcemia; E87.5 Hyperkalemia; Z93.3 Colostomy status; Z79.899 Other long term (current) drug therapy; Z87.891 Personal history of nicotine dependence

== ENCOUNTER → 2016-10-12 | Outpatient (REF) | payer OTHER ==
[~2016-10-12] MED LIST changes: -MOTR200T40 PO; +MOTR200T44 PO; +OXYC15TA76 PO; +PROT1TAB2 PO; +PROT20TA11 PO
[2016-10-12 19:20] LABS: ALBUMIN 3.9 GM/DL (3.2-5.2); ALBUMIN/GLOBULIN RATIO 0.83 (1.00-1.93); ALKALINE PHOSPHATASE 360 U/L (45-117); ALT/SGPT 62 U/L (12-78); ANION GAP 11 MEQ/L (8-16); AST/SGOT 42 U/L (15-37); BILIRUBIN,TOTAL 0.4 MG/DL (0.2-1.0); BLOOD UREA NITROGEN 21 MG/DL (7-18); CALCIUM LEVEL 9.6 MG/DL (8.5-10.1); CARBON DIOXIDE LEVEL 27 MEQ/L (21-32); CHLORIDE LEVEL 98 MEQ/L (98-107); CREATININE FOR GFR 0.84 MG/DL (0.55-1.02); GLOMERULAR FILTRATION RATE > 60.0 (>60); GLUCOSE, FASTING 93 MG/DL (70-105); MAGNESIUM LEVEL 1.9 MG/DL (1.8-2.4); PHOSPHORUS LEVEL 4.2 MG/DL (2.5-4.9); POTASSIUM SERUM 4.2 MEQ/L (3.5-5.1); SODIUM LEVEL 136 MEQ/L (136-145); TOTAL PROTEIN 8.6 GM/DL (6.4-8.2); TRIGLYCERIDES LEVEL 178 MG/DL (<150)
[2016-10-12 21:31] LABS: BASO % 0.4 % (0.0-1.0); EOS # 0.1 K/mm3 (0.0-0.50); EOS % 0.9 % (0.0-3.0); LARGE UNSTAINED CELL # 0.2 K/mm3 (0.0-0.4); LARGE UNSTAINED CELL % 1.9 % (0.0-4.0); LYMPH # 2.7 K/mm3 (1.5-4.5); LYMPH % 33.8 % (24.0-44.0); MEAN CORPUSCULAR HEMOGLOBIN 29.1 pg (27.0-33.0); MEAN CORPUSCULAR HGB CONC 33.6 g/dl (32.0-36.5); MEAN CORPUSCULAR VOLUME 86.6 fl (80.0-96.0); MONO # 0.4 K/mm3 (0.0-0.8); NEUTROPHILS # 4.7 K/mm3 (1.8-7.7); PLATELET COUNT, AUTOMATED 609 k/mm3 (150-450); RED CELL DISTRIBUTION WIDTH 13.3 % (11.5-14.5); WHITE BLOOD COUNT 8.1 K/mm3 (4.0-10.0)
== END ==
LOC: M LAB REF 08:53
PROVIDERS: ATTEND Surgery
DX: K63.2 Fistula of intestine (principal)

== ENCOUNTER → 2016-10-15 | Outpatient (REF) | payer OTHER ==
[2016-10-15 19:36] LABS: FOLATE 22.6 NG/ML (>5.4)
== END ==
LOC: M LAB REF 16:57
PROVIDERS: ATTEND Surgery
DX: K63.2 Fistula of intestine (principal)

== ENCOUNTER → 2016-10-19 | Outpatient (REF) | payer OTHER ==
[2016-10-19 18:52] LABS: ALBUMIN 3.6 GM/DL (3.2-5.2); ALBUMIN/GLOBULIN RATIO 0.75 (1.00-1.93); ALKALINE PHOSPHATASE 275 U/L (45-117); ALT/SGPT 79 U/L (12-78); ANION GAP 9 MEQ/L (8-16); AST/SGOT 65 U/L (15-37); BILIRUBIN,TOTAL 0.4 MG/DL (0.2-1.0); BLOOD UREA NITROGEN 26 MG/DL (7-18); CALCIUM LEVEL 9.2 MG/DL (8.5-10.1); CARBON DIOXIDE LEVEL 23 MEQ/L (21-32); CHLORIDE LEVEL 103 MEQ/L (98-107); CREATININE FOR GFR 0.55 MG/DL (0.55-1.02); GLOMERULAR FILTRATION RATE > 60.0 (>60); GLUCOSE, FASTING 78 MG/DL (70-105); MAGNESIUM LEVEL 2.2 MG/DL (1.8-2.4); PHOSPHORUS LEVEL 3.4 MG/DL (2.5-4.9); POTASSIUM SERUM 4.8 MEQ/L (3.5-5.1); SODIUM LEVEL 135 MEQ/L (136-145); TOTAL PROTEIN 8.4 GM/DL (6.4-8.2); TRIGLYCERIDES LEVEL 94 MG/DL (<150)
[2016-10-19 19:33] LABS: BASO % 0.3 % (0.0-1.0); EOS # 0.1 K/mm3 (0.0-0.50); EOS % 0.7 % (0.0-3.0); LARGE UNSTAINED CELL # 0.2 K/mm3 (0.0-0.4); LARGE UNSTAINED CELL % 1.7 % (0.0-4.0); LYMPH % 28.6 % (24.0-44.0); MEAN CORPUSCULAR HEMOGLOBIN 28.3 pg (27.0-33.0); MEAN CORPUSCULAR HGB CONC 32.9 g/dl (32.0-36.5); MEAN CORPUSCULAR VOLUME 86.3 fl (80.0-96.0); MONO # 0.4 K/mm3 (0.0-0.8); MONO % 4.1 % (0.0-5.0); NEUTROPHILS # 6.8 K/mm3 (1.8-7.7); NEUTROPHILS % 64.6 % (36.0-66.0); PLATELET COUNT, AUTOMATED 341 k/mm3 (150-450); RED CELL DISTRIBUTION WIDTH 12.8 % (11.5-14.5); WHITE BLOOD COUNT 10.5 K/mm3 (4.0-10.0)
== END ==
LOC: M LAB REF 16:43
PROVIDERS: ATTEND Surgery
DX: K63.2 Fistula of intestine (principal)

== ENCOUNTER → 2016-10-25 | Outpatient (REF) | payer SELFPAY ==
[2016-10-25 19:55] LABS: ALBUMIN 3.9 GM/DL (3.2-5.2); ALBUMIN/GLOBULIN RATIO 0.89 (1.00-1.93); ALKALINE PHOSPHATASE 286 U/L (45-117); ALT/SGPT 94 U/L (12-78); ANION GAP 10 MEQ/L (8-16); AST/SGOT 59 U/L (15-37); BILIRUBIN,TOTAL 0.5 MG/DL (0.2-1.0); BLOOD UREA NITROGEN 45 MG/DL (7-18); CALCIUM LEVEL 9.3 MG/DL (8.5-10.1); CARBON DIOXIDE LEVEL 25 MEQ/L (21-32); CHLORIDE LEVEL 97 MEQ/L (98-107); CREATININE FOR GFR 0.89 MG/DL (0.55-1.02); GLOMERULAR FILTRATION RATE > 60.0 (>60); GLUCOSE, FASTING 95 MG/DL (70-105); MAGNESIUM LEVEL 2.6 MG/DL (1.8-2.4); PHOSPHORUS LEVEL 2.2 MG/DL (2.5-4.9); POTASSIUM SERUM 4.9 MEQ/L (3.5-5.1); SODIUM LEVEL 132 MEQ/L (136-145); TOTAL PROTEIN 8.3 GM/DL (6.4-8.2); TRIGLYCERIDES LEVEL 115 MG/DL (<150)
[2016-10-25 19:59] LABS: BASO % 0.3 % (0.0-1.0); EOS # 0.1 K/mm3 (0.0-0.50); EOS % 1.1 % (0.0-3.0); LARGE UNSTAINED CELL # 0.1 K/mm3 (0.0-0.4); LARGE UNSTAINED CELL % 1.2 % (0.0-4.0); LYMPH # 2.3 K/mm3 (1.5-4.5); LYMPH % 27.4 % (24.0-44.0); MEAN CORPUSCULAR HEMOGLOBIN 28.3 pg (27.0-33.0); MEAN CORPUSCULAR HGB CONC 33.3 g/dl (32.0-36.5); MEAN CORPUSCULAR VOLUME 85.2 fl (80.0-96.0); MONO # 0.4 K/mm3 (0.0-0.8); MONO % 5.2 % (0.0-5.0); NEUTROPHILS # 5.3 K/mm3 (1.8-7.7); NEUTROPHILS % 64.8 % (36.0-66.0); PLATELET COUNT, AUTOMATED 261 k/mm3 (150-450); RED CELL DISTRIBUTION WIDTH 12.9 % (11.5-14.5); WHITE BLOOD COUNT 8.2 K/mm3 (4.0-10.0)
== END ==
LOC: M LAB REF 17:03
PROVIDERS: ATTEND Surgery
DX: K63.2 Fistula of intestine (principal)

== ENCOUNTER → 2016-11-01 | Outpatient (REF) | payer SELFPAY ==
[2016-11-01 16:02] LABS: BASO # 0.1 K/mm3 (0.0-0.2); BASO % 0.4 % (0.0-1.0); EOS # 0.3 K/mm3 (0.0-0.50); EOS % 2.2 % (0.0-3.0); LARGE UNSTAINED CELL # 0.2 K/mm3 (0.0-0.4); LARGE UNSTAINED CELL % 1.4 % (0.0-4.0); LYMPH # 3.3 K/mm3 (1.5-4.5); LYMPH % 22.8 % (24.0-44.0); MEAN CORPUSCULAR HEMOGLOBIN 29.6 pg (27.0-33.0); MEAN CORPUSCULAR HGB CONC 34.9 g/dl (32.0-36.5); MEAN CORPUSCULAR VOLUME 84.9 fl (80.0-96.0); MONO # 0.5 K/mm3 (0.0-0.8); MONO % 3.8 % (0.0-5.0); NEUTROPHILS # 9.5 K/mm3 (1.8-7.7); NEUTROPHILS % 69.4 % (36.0-66.0); PLATELET COUNT, AUTOMATED 348 k/mm3 (150-450); RED CELL DISTRIBUTION WIDTH 12.5 % (11.5-14.5); WHITE BLOOD COUNT 13.6 K/mm3 (4.0-10.0)
[2016-11-01 16:25] LABS: ALBUMIN 3.9 GM/DL (3.2-5.2); ALKALINE PHOSPHATASE 365 U/L (45-117); ALT/SGPT 225 U/L (12-78); ANION GAP 9 MEQ/L (8-16); AST/SGOT 106 U/L (15-37); BILIRUBIN,TOTAL 0.4 MG/DL (0.2-1.0); BLOOD UREA NITROGEN 31 MG/DL (7-18); CALCIUM LEVEL 9.7 MG/DL (8.5-10.1); CARBON DIOXIDE LEVEL 31 MEQ/L (21-32); CHLORIDE LEVEL 90 MEQ/L (98-107); CREATININE FOR GFR 1.11 MG/DL (0.55-1.02); GLOMERULAR FILTRATION RATE > 60.0 (>60); GLUCOSE, FASTING 101 MG/DL (70-105); MAGNESIUM LEVEL 2.2 MG/DL (1.8-2.4); PHOSPHORUS LEVEL 4.1 MG/DL (2.5-4.9); POTASSIUM SERUM 3.8 MEQ/L (3.5-5.1); SODIUM LEVEL 130 MEQ/L (136-145); TOTAL PROTEIN 8.8 GM/DL (6.4-8.2); TRIGLYCERIDES LEVEL 281 MG/DL (<150)
== END ==
LOC: M LAB REF 14:55
PROVIDERS: ATTEND Surgery
DX: K63.2 Fistula of intestine (principal)

== ENCOUNTER → 2016-11-10 | Outpatient (REF) | payer SELFPAY ==
[2016-11-10 14:34] LABS: ALBUMIN 3.4 GM/DL (3.2-5.2); ALBUMIN/GLOBULIN RATIO 0.79 (1.00-1.93); ALKALINE PHOSPHATASE 269 U/L (45-117); ALT/SGPT 147 U/L (12-78); ANION GAP 8 MEQ/L (8-16); AST/SGOT 92 U/L (15-37); BILIRUBIN,TOTAL 0.3 MG/DL (0.2-1.0); BLOOD UREA NITROGEN 24 MG/DL (7-18); CALCIUM LEVEL 9.1 MG/DL (8.5-10.1); CARBON DIOXIDE LEVEL 23 MEQ/L (21-32); CHLORIDE LEVEL 107 MEQ/L (98-107); CREATININE FOR GFR 0.71 MG/DL (0.55-1.02); GLOMERULAR FILTRATION RATE > 60.0 (>60); GLUCOSE, FASTING 107 MG/DL (70-105); MAGNESIUM LEVEL 2.2 MG/DL (1.8-2.4); PHOSPHORUS LEVEL 3.7 MG/DL (2.5-4.9); POTASSIUM SERUM 4.9 MEQ/L (3.5-5.1); SODIUM LEVEL 138 MEQ/L (136-145); TOTAL PROTEIN 7.7 GM/DL (6.4-8.2); TRIGLYCERIDES LEVEL 241 MG/DL (<150)
[2016-11-10 14:51] LABS: BASO % 0.3 % (0.0-1.0); EOS # 0.3 K/mm3 (0.0-0.50); EOS % 3.7 % (0.0-3.0); LARGE UNSTAINED CELL # 0.1 K/mm3 (0.0-0.4); LARGE UNSTAINED CELL % 1.4 % (0.0-4.0); LYMPH # 3.1 K/mm3 (1.5-4.5); LYMPH % 34.2 % (24.0-44.0); MEAN CORPUSCULAR HEMOGLOBIN 27.9 pg (27.0-33.0); MEAN CORPUSCULAR HGB CONC 32.2 g/dl (32.0-36.5); MEAN CORPUSCULAR VOLUME 86.5 fl (80.0-96.0); MONO # 0.4 K/mm3 (0.0-0.8); MONO % 3.9 % (0.0-5.0); NEUTROPHILS # 5.1 K/mm3 (1.8-7.7); NEUTROPHILS % 56.5 % (36.0-66.0); PLATELET COUNT, AUTOMATED 384 k/mm3 (150-450); RED CELL DISTRIBUTION WIDTH 13.3 % (11.5-14.5); WHITE BLOOD COUNT 9.1 K/mm3 (4.0-10.0)
== END ==
LOC: M LAB REF 13:50
PROVIDERS: ATTEND Surgery
DX: K63.2 Fistula of intestine (principal)

== ENCOUNTER → 2016-11-15 | Outpatient (REF) | payer OTHER ==
[2016-11-15 17:48] LABS: BASO % 0.3 % (0.0-1.0); EOS # 0.2 K/mm3 (0.0-0.50); EOS % 3.4 % (0.0-3.0); LARGE UNSTAINED CELL # 0.1 K/mm3 (0.0-0.4); LARGE UNSTAINED CELL % 1.9 % (0.0-4.0); LYMPH % 34.1 % (24.0-44.0); MEAN CORPUSCULAR HEMOGLOBIN 28.8 pg (27.0-33.0); MEAN CORPUSCULAR HGB CONC 32.5 g/dl (32.0-36.5); MEAN CORPUSCULAR VOLUME 88.6 fl (80.0-96.0); MONO # 0.2 K/mm3 (0.0-0.8); NEUTROPHILS # 3.3 K/mm3 (1.8-7.7); NEUTROPHILS % 56.4 % (36.0-66.0); PLATELET COUNT, AUTOMATED 302 k/mm3 (150-450); RED CELL DISTRIBUTION WIDTH 13.9 % (11.5-14.5); WHITE BLOOD COUNT 5.9 K/mm3 (4.0-10.0)
[2016-11-15 18:20] LABS: ALBUMIN 2.9 GM/DL (3.2-5.2); ALBUMIN/GLOBULIN RATIO 0.83 (1.00-1.93); ALKALINE PHOSPHATASE 204 U/L (45-117); ALT/SGPT 104 U/L (12-78); ANION GAP 7 MEQ/L (8-16); AST/SGOT 32 U/L (15-37); BILIRUBIN,TOTAL 0.2 MG/DL (0.2-1.0); BLOOD UREA NITROGEN 19 MG/DL (7-18); CALCIUM LEVEL 8.2 MG/DL (8.5-10.1); CARBON DIOXIDE LEVEL 23 MEQ/L (21-32); CHLORIDE LEVEL 110 MEQ/L (98-107); CREATININE FOR GFR 0.53 MG/DL (0.55-1.02); GLOMERULAR FILTRATION RATE > 60.0 (>60); GLUCOSE, FASTING 66 MG/DL (70-105); MAGNESIUM LEVEL 2.1 MG/DL (1.8-2.4); PHOSPHORUS LEVEL 2.8 MG/DL (2.5-4.9); POTASSIUM SERUM 5.1 MEQ/L (3.5-5.1); SODIUM LEVEL 140 MEQ/L (136-145); TOTAL PROTEIN 6.4 GM/DL (6.4-8.2); TRIGLYCERIDES LEVEL 131 MG/DL (<150)
== END ==
LOC: M LAB REF 16:50
PROVIDERS: ATTEND Surgery
DX: K50.913 Crohn's disease, unspecified, with fistula (principal)

== ENCOUNTER → 2016-11-22 | Outpatient (REF) | payer OTHER ==
[2016-11-22 18:29] LABS: BASO % 0.3 % (0.0-1.0); EOS # 0.1 K/mm3 (0.0-0.50); LARGE UNSTAINED CELL # 0.1 K/mm3 (0.0-0.4); LARGE UNSTAINED CELL % 1.4 % (0.0-4.0); LYMPH # 1.9 K/mm3 (1.5-4.5); LYMPH % 28.9 % (24.0-44.0); MEAN CORPUSCULAR HEMOGLOBIN 29.9 pg (27.0-33.0); MEAN CORPUSCULAR HGB CONC 33.2 g/dl (32.0-36.5); MEAN CORPUSCULAR VOLUME 90.2 fl (80.0-96.0); MONO # 0.3 K/mm3 (0.0-0.8); MONO % 5.1 % (0.0-5.0); NEUTROPHILS # 3.9 K/mm3 (1.8-7.7); NEUTROPHILS % 62.3 % (36.0-66.0); PLATELET COUNT, AUTOMATED 319 k/mm3 (150-450); RED CELL DISTRIBUTION WIDTH 14.2 % (11.5-14.5); WHITE BLOOD COUNT 6.2 K/mm3 (4.0-10.0)
[2016-11-22 19:05] LABS: ALBUMIN/GLOBULIN RATIO 0.77 (1.00-1.93); ALKALINE PHOSPHATASE 176 U/L (45-117); ALT/SGPT 83 U/L (12-78); ANION GAP 8 MEQ/L (8-16); AST/SGOT 37 U/L (15-37); BILIRUBIN,DIRECT 0.1 MG/DL (0.0-0.2); BILIRUBIN,TOTAL 0.3 MG/DL (0.2-1.0); BLOOD UREA NITROGEN 16 MG/DL (7-18); CALCIUM LEVEL 8.7 MG/DL (8.5-10.1); CARBON DIOXIDE LEVEL 25 MEQ/L (21-32); CHLORIDE LEVEL 107 MEQ/L (98-107); CREATININE FOR GFR 0.51 MG/DL (0.55-1.02); GLOMERULAR FILTRATION RATE > 60.0 (>60); GLUCOSE, FASTING 78 MG/DL (70-105); PHOSPHORUS LEVEL 3.3 MG/DL (2.5-4.9); POTASSIUM SERUM 4.3 MEQ/L (3.5-5.1); SODIUM LEVEL 140 MEQ/L (136-145); TOTAL PROTEIN 6.9 GM/DL (6.4-8.2); TRIGLYCERIDES LEVEL 99 MG/DL (<150)
== END ==
LOC: M LAB REF 16:36
PROVIDERS: ATTEND Surgery
DX: K63.2 Fistula of intestine (principal); K50.913 Crohn's disease, unspecified, with fistula

== ENCOUNTER → 2016-11-30 | Outpatient (REF) | payer OTHER ==
[2016-11-30 17:33] LABS: BASO % 0.2 % (0.0-1.0); EOS # 0.1 K/mm3 (0.0-0.50); EOS % 1.5 % (0.0-3.0); LARGE UNSTAINED CELL # 0.1 K/mm3 (0.0-0.4); LARGE UNSTAINED CELL % 0.8 % (0.0-4.0); LYMPH # 1.9 K/mm3 (1.5-4.5); LYMPH % 27.5 % (24.0-44.0); MEAN CORPUSCULAR HEMOGLOBIN 28.8 pg (27.0-33.0); MEAN CORPUSCULAR VOLUME 89.9 fl (80.0-96.0); MONO # 0.3 K/mm3 (0.0-0.8); MONO % 4.3 % (0.0-5.0); NEUTROPHILS # 4.6 K/mm3 (1.8-7.7); NEUTROPHILS % 65.7 % (36.0-66.0); PLATELET COUNT, AUTOMATED 296 k/mm3 (150-450); RED CELL DISTRIBUTION WIDTH 13.8 % (11.5-14.5)
[2016-11-30 18:27] LABS: ALBUMIN 3.2 GM/DL (3.2-5.2); ALBUMIN/GLOBULIN RATIO 0.78 (1.00-1.93); ALKALINE PHOSPHATASE 180 U/L (45-117); ALT/SGPT 47 U/L (12-78); ANION GAP 10 MEQ/L (8-16); AST/SGOT 26 U/L (15-37); BILIRUBIN,TOTAL 0.2 MG/DL (0.2-1.0); BLOOD UREA NITROGEN 15 MG/DL (7-18); CALCIUM LEVEL 9.2 MG/DL (8.5-10.1); CARBON DIOXIDE LEVEL 24 MEQ/L (21-32); CHLORIDE LEVEL 108 MEQ/L (98-107); CREATININE FOR GFR 0.64 MG/DL (0.55-1.02); GLOMERULAR FILTRATION RATE > 60.0 (>60); GLUCOSE, FASTING 93 MG/DL (70-105); PHOSPHORUS LEVEL 3.6 MG/DL (2.5-4.9); POTASSIUM SERUM 4.3 MEQ/L (3.5-5.1); SODIUM LEVEL 142 MEQ/L (136-145); TOTAL PROTEIN 7.3 GM/DL (6.4-8.2); TRIGLYCERIDES LEVEL 117 MG/DL (<150)
== END ==
LOC: M LAB REF 16:36
PROVIDERS: ATTEND Surgery
DX: K63.2 Fistula of intestine (principal)

== ENCOUNTER → 2016-12-06 | Outpatient (REF) | payer OTHER ==
[2016-12-06 19:11] LABS: ALBUMIN 3.2 GM/DL (3.2-5.2); ALBUMIN/GLOBULIN RATIO 0.82 (1.00-1.93); ALKALINE PHOSPHATASE 160 U/L (45-117); ALT/SGPT 38 U/L (12-78); ANION GAP 7 MEQ/L (8-16); AST/SGOT 25 U/L (15-37); BILIRUBIN,TOTAL 0.3 MG/DL (0.2-1.0); BLOOD UREA NITROGEN 11 MG/DL (7-18); CALCIUM LEVEL 9.1 MG/DL (8.5-10.1); CARBON DIOXIDE LEVEL 26 MEQ/L (21-32); CHLORIDE LEVEL 106 MEQ/L (98-107); CREATININE FOR GFR 0.64 MG/DL (0.55-1.02); GLOMERULAR FILTRATION RATE > 60.0 (>60); GLUCOSE, FASTING 81 MG/DL (70-105); MAGNESIUM LEVEL 1.8 MG/DL (1.8-2.4); PHOSPHORUS LEVEL 4.5 MG/DL (2.5-4.9); POTASSIUM SERUM 3.9 MEQ/L (3.5-5.1); SODIUM LEVEL 139 MEQ/L (136-145); TOTAL PROTEIN 7.1 GM/DL (6.4-8.2); TRIGLYCERIDES LEVEL 173 MG/DL (<150)
[2016-12-06 19:41] LABS: BASO % 0.3 % (0.0-1.0); EOS # 0.1 K/mm3 (0.0-0.50); EOS % 1.8 % (0.0-3.0); LARGE UNSTAINED CELL # 0.1 K/mm3 (0.0-0.4); LARGE UNSTAINED CELL % 1.2 % (0.0-4.0); LYMPH # 2.4 K/mm3 (1.5-4.5); LYMPH % 35.3 % (24.0-44.0); MEAN CORPUSCULAR HEMOGLOBIN 29.2 pg (27.0-33.0); MEAN CORPUSCULAR VOLUME 88.6 fl (80.0-96.0); MONO # 0.3 K/mm3 (0.0-0.8); MONO % 4.4 % (0.0-5.0); NEUTROPHILS # 3.9 K/mm3 (1.8-7.7); NEUTROPHILS % 57.1 % (36.0-66.0); PLATELET COUNT, AUTOMATED 286 k/mm3 (150-450); RED CELL DISTRIBUTION WIDTH 13.6 % (11.5-14.5); WHITE BLOOD COUNT 6.8 K/mm3 (4.0-10.0)
== END ==
LOC: M LAB REF 17:12
PROVIDERS: ATTEND Surgery
DX: K50.90 Crohn's disease, unspecified, without complications (principal); K63.2 Fistula of intestine

== ENCOUNTER → 2016-12-13 | Outpatient (REF) | payer OTHER ==
[2016-12-13 16:03] LABS: BASO % 0.2 % (0.0-1.0); EOS % 0.5 % (0.0-3.0); LARGE UNSTAINED CELL # 0.1 K/mm3 (0.0-0.4); LARGE UNSTAINED CELL % 1.1 % (0.0-4.0); LYMPH # 1.6 K/mm3 (1.5-4.5); MEAN CORPUSCULAR HEMOGLOBIN 29.5 pg (27.0-33.0); MEAN CORPUSCULAR HGB CONC 33.1 g/dl (32.0-36.5); MEAN CORPUSCULAR VOLUME 88.9 fl (80.0-96.0); MONO # 0.3 K/mm3 (0.0-0.8); MONO % 4.6 % (0.0-5.0); NEUTROPHILS # 4.5 K/mm3 (1.8-7.7); NEUTROPHILS % 69.6 % (36.0-66.0); PLATELET COUNT, AUTOMATED 224 k/mm3 (150-450); RED CELL DISTRIBUTION WIDTH 13.4 % (11.5-14.5); WHITE BLOOD COUNT 6.4 K/mm3 (4.0-10.0)
[2016-12-13 16:17] LABS: ALBUMIN 3.2 GM/DL (3.2-5.2); ALBUMIN/GLOBULIN RATIO 0.78 (1.00-1.93); ALKALINE PHOSPHATASE 168 U/L (45-117); ALT/SGPT 65 U/L (12-78); ANION GAP 7 MEQ/L (8-16); AST/SGOT 53 U/L (15-37); BILIRUBIN,TOTAL 0.3 MG/DL (0.2-1.0); BLOOD UREA NITROGEN 15 MG/DL (7-18); CALCIUM LEVEL 8.8 MG/DL (8.5-10.1); CARBON DIOXIDE LEVEL 25 MEQ/L (21-32); CHLORIDE LEVEL 105 MEQ/L (98-107); CREATININE FOR GFR 0.69 MG/DL (0.55-1.02); GLOMERULAR FILTRATION RATE > 60.0 (>60); GLUCOSE, FASTING 97 MG/DL (70-105); MAGNESIUM LEVEL 1.8 MG/DL (1.8-2.4); PHOSPHORUS LEVEL 3.3 MG/DL (2.5-4.9); SODIUM LEVEL 137 MEQ/L (136-145); TOTAL PROTEIN 7.3 GM/DL (6.4-8.2); TRIGLYCERIDES LEVEL 87 MG/DL (<150)
== END ==
LOC: M LAB REF 15:06
PROVIDERS: ATTEND Surgery
DX: K63.2 Fistula of intestine (principal)

== ENCOUNTER → 2016-12-19 | Outpatient (REF) | payer OTHER ==
[2016-12-19 13:49] LABS: BASO % 0.2 % (0.0-1.0); EOS # 0.1 K/mm3 (0.0-0.50); EOS % 1.8 % (0.0-3.0); LARGE UNSTAINED CELL # 0.1 K/mm3 (0.0-0.4); LARGE UNSTAINED CELL % 1.6 % (0.0-4.0); LYMPH # 2.2 K/mm3 (1.5-4.5); LYMPH % 30.5 % (24.0-44.0); MEAN CORPUSCULAR HEMOGLOBIN 29.4 pg (27.0-33.0); MEAN CORPUSCULAR HGB CONC 32.5 g/dl (32.0-36.5); MEAN CORPUSCULAR VOLUME 90.5 fl (80.0-96.0); MONO # 0.3 K/mm3 (0.0-0.8); MONO % 4.5 % (0.0-5.0); NEUTROPHILS # 4.2 K/mm3 (1.8-7.7); NEUTROPHILS % 61.5 % (36.0-66.0); PLATELET COUNT, AUTOMATED 263 k/mm3 (150-450); RED CELL DISTRIBUTION WIDTH 13.5 % (11.5-14.5); WHITE BLOOD COUNT 6.8 K/mm3 (4.0-10.0)
[2016-12-19 13:58] LABS: ALBUMIN 3.1 GM/DL (3.2-5.2); ALBUMIN/GLOBULIN RATIO 0.76 (1.00-1.93); ALKALINE PHOSPHATASE 280 U/L (45-117); ALT/SGPT 86 U/L (12-78); ANION GAP 5 MEQ/L (8-16); AST/SGOT 44 U/L (15-37); BILIRUBIN,TOTAL 0.4 MG/DL (0.2-1.0); BLOOD UREA NITROGEN 16 MG/DL (7-18); CALCIUM LEVEL 8.6 MG/DL (8.5-10.1); CARBON DIOXIDE LEVEL 25 MEQ/L (21-32); CHLORIDE LEVEL 108 MEQ/L (98-107); CREATININE FOR GFR 0.62 MG/DL (0.55-1.02); GLOMERULAR FILTRATION RATE > 60.0 (>60); GLUCOSE, FASTING 94 MG/DL (70-105); MAGNESIUM LEVEL 2.1 MG/DL (1.8-2.4); PHOSPHORUS LEVEL 3.5 MG/DL (2.5-4.9); POTASSIUM SERUM 4.7 MEQ/L (3.5-5.1); SODIUM LEVEL 138 MEQ/L (136-145); TOTAL PROTEIN 7.2 GM/DL (6.4-8.2); TRIGLYCERIDES LEVEL 112 MG/DL (<150)
== END ==
LOC: M LAB REF 13:35
PROVIDERS: ATTEND Surgery
DX: K63.2 Fistula of intestine (principal)

== ENCOUNTER → 2017-01-24 | Outpatient (REF) | payer OTHER ==
[~2017-01-24] MED LIST changes: +IMOD2TAB16 PO; +OXYC-517 PO; +TPNINJ3 IV
[2017-01-24 19:20] LABS: ALBUMIN 3.2 GM/DL (3.2-5.2); ALKALINE PHOSPHATASE 237 U/L (45-117); ALT/SGPT 45 U/L (12-78); ANION GAP 6 MEQ/L (8-16); AST/SGOT 33 U/L (15-37); BILIRUBIN,TOTAL 0.4 MG/DL (0.2-1.0); BLOOD UREA NITROGEN 9 MG/DL (7-18); CALCIUM LEVEL 9.3 MG/DL (8.5-10.1); CARBON DIOXIDE LEVEL 28 MEQ/L (21-32); CHLORIDE LEVEL 105 MEQ/L (98-107); CREATININE FOR GFR 0.55 MG/DL (0.55-1.02); GLOMERULAR FILTRATION RATE > 60.0 (>60); GLUCOSE, FASTING 82 MG/DL (70-105); MAGNESIUM LEVEL 2.2 MG/DL (1.8-2.4); PHOSPHORUS LEVEL 3.9 MG/DL (2.5-4.9); POTASSIUM SERUM 4.3 MEQ/L (3.5-5.1); SODIUM LEVEL 139 MEQ/L (136-145); TOTAL PROTEIN 7.8 GM/DL (6.4-8.2); TRIGLYCERIDES LEVEL 171 MG/DL (<150)
[2017-01-24 19:29] LABS: BASO % 0.2 % (0.0-1.0); EOS # 0.2 K/mm3 (0.0-0.50); EOS % 2.4 % (0.0-3.0); LARGE UNSTAINED CELL # 0.1 K/mm3 (0.0-0.4); LARGE UNSTAINED CELL % 1.4 % (0.0-4.0); LYMPH # 2.2 K/mm3 (1.5-4.5); LYMPH % 24.8 % (24.0-44.0); MEAN CORPUSCULAR HEMOGLOBIN 29.7 pg (27.0-33.0); MEAN CORPUSCULAR HGB CONC 32.8 g/dl (32.0-36.5); MEAN CORPUSCULAR VOLUME 90.7 fl (80.0-96.0); MONO # 0.4 K/mm3 (0.0-0.8); NEUTROPHILS # 5.9 K/mm3 (1.8-7.7); NEUTROPHILS % 66.2 % (36.0-66.0); PLATELET COUNT, AUTOMATED 380 k/mm3 (150-450); RED CELL DISTRIBUTION WIDTH 13.1 % (11.5-14.5); WHITE BLOOD COUNT 8.9 K/mm3 (4.0-10.0)
== END ==
LOC: M LAB REF 16:41
PROVIDERS: ATTEND Surgery
DX: K63.2 Fistula of intestine (principal); K50.90 Crohn's disease, unspecified, without complications

== ENCOUNTER → 2017-02-02 | Outpatient (REF) | payer OTHER ==
[2017-02-03 16:34] LABS: LYMPH % 30.8 % (24.0-44.0); MEAN CORPUSCULAR HGB CONC 34.9 g/dl (32.0-36.5); MONO % 5.7 % (0.0-5.0); NEUTROPHILS % 60.2 % (36.0-66.0); PLATELET COUNT, AUTOMATED 234 k/mm3 (150-450); RED CELL DISTRIBUTION WIDTH 13.2 % (11.5-14.5)
[2017-02-03 16:35] LABS: BASO % 0.2 % (0.0-1.0); BLOOD UREA NITROGEN 9 MG/DL (7-18); CREATININE FOR GFR 0.56 MG/DL (0.55-1.02); EOS # 0.1 K/mm3 (0.0-0.50); EOS % 1.6 % (0.0-3.0); GLOMERULAR FILTRATION RATE > 60.0 (>60); GLUCOSE, FASTING 86 MG/DL (70-105); LARGE UNSTAINED CELL # 0.1 K/mm3 (0.0-0.4); LARGE UNSTAINED CELL % 1.5 % (0.0-4.0); LYMPH # 2.3 K/mm3 (1.5-4.5); MONO # 0.4 K/mm3 (0.0-0.8); NEUTROPHILS # 4.2 K/mm3 (1.8-7.7)
[2017-02-03 16:36] LABS: ALBUMIN/GLOBULIN RATIO 0.71 (1.00-1.93); ALKALINE PHOSPHATASE 121 U/L (45-117); ALT/SGPT 28 U/L (12-78); ANION GAP 5 MEQ/L (8-16); AST/SGOT 11 U/L (15-37); BILIRUBIN,TOTAL 0.3 MG/DL (0.2-1.0); CALCIUM LEVEL 8.6 MG/DL (8.5-10.1); CARBON DIOXIDE LEVEL 30 MEQ/L (21-32); CHLORIDE LEVEL 105 MEQ/L (98-107); MAGNESIUM LEVEL 1.7 MG/DL (1.8-2.4); PHOSPHORUS LEVEL 1.8 MG/DL (2.5-4.9); SODIUM LEVEL 140 MEQ/L (136-145); TOTAL PROTEIN 7.2 GM/DL (6.4-8.2); TRIGLYCERIDES LEVEL 156 MG/DL (<150)
== END ==
LOC: M LAB REF 10:21
PROVIDERS: ATTEND Surgery
DX: K50.913 Crohn's disease, unspecified, with fistula (principal)

== ENCOUNTER → 2017-02-04 | Outpatient (REF) | payer OTHER ==
[2017-02-04 10:23] LABS: BASO % 0.1 % (0.0-1.0); EOS # 0.1 K/mm3 (0.0-0.50); EOS % 1.9 % (0.0-3.0); LARGE UNSTAINED CELL # 0.1 K/mm3 (0.0-0.4); LARGE UNSTAINED CELL % 1.6 % (0.0-4.0); LYMPH # 1.4 K/mm3 (1.5-4.5); LYMPH % 21.5 % (24.0-44.0); MEAN CORPUSCULAR HEMOGLOBIN 29.4 pg (27.0-33.0); MEAN CORPUSCULAR HGB CONC 33.8 g/dl (32.0-36.5); MEAN CORPUSCULAR VOLUME 86.8 fl (80.0-96.0); MONO # 0.2 K/mm3 (0.0-0.8); MONO % 3.8 % (0.0-5.0); NEUTROPHILS # 4.5 K/mm3 (1.8-7.7); NEUTROPHILS % 71.1 % (36.0-66.0); PLATELET COUNT, AUTOMATED 258 k/mm3 (150-450); WHITE BLOOD COUNT 6.3 K/mm3 (4.0-10.0)
[2017-02-04 10:34] LABS: ALBUMIN 2.9 GM/DL (3.2-5.2); ALBUMIN/GLOBULIN RATIO 0.73 (1.00-1.93); ALKALINE PHOSPHATASE 111 U/L (45-117); ALT/SGPT 22 U/L (12-78); ANION GAP 4 MEQ/L (8-16); AST/SGOT 10 U/L (15-37); BILIRUBIN,TOTAL 0.2 MG/DL (0.2-1.0); BLOOD UREA NITROGEN 6 MG/DL (7-18); CALCIUM LEVEL 8.8 MG/DL (8.5-10.1); CARBON DIOXIDE LEVEL 26 MEQ/L (21-32); CHLORIDE LEVEL 111 MEQ/L (98-107); CREATININE FOR GFR 0.53 MG/DL (0.55-1.02); GLOMERULAR FILTRATION RATE > 60.0 (>60); GLUCOSE, FASTING 113 MG/DL (70-105); PHOSPHORUS LEVEL 2.9 MG/DL (2.5-4.9); POTASSIUM SERUM 4.2 MEQ/L (3.5-5.1); SODIUM LEVEL 141 MEQ/L (136-145); TOTAL PROTEIN 6.9 GM/DL (6.4-8.2); TRIGLYCERIDES LEVEL 135 MG/DL (<150)
== END ==
LOC: M LAB REF 10:07
PROVIDERS: ATTEND Surgery
DX: K50.913 Crohn's disease, unspecified, with fistula (principal)

== ENCOUNTER → 2017-02-07 | Outpatient (REF) | payer OTHER ==
[2017-02-07 15:04] LABS: BASO % 0.2 % (0.0-1.0); EOS # 0.1 K/mm3 (0.0-0.50); EOS % 1.2 % (0.0-3.0); LARGE UNSTAINED CELL # 0.1 K/mm3 (0.0-0.4); LARGE UNSTAINED CELL % 0.9 % (0.0-4.0); LYMPH % 22.4 % (24.0-44.0); MEAN CORPUSCULAR HEMOGLOBIN 28.2 pg (27.0-33.0); MEAN CORPUSCULAR HGB CONC 32.7 g/dl (32.0-36.5); MEAN CORPUSCULAR VOLUME 86.1 fl (80.0-96.0); MONO # 0.3 K/mm3 (0.0-0.8); MONO % 3.1 % (0.0-5.0); NEUTROPHILS % 72.1 % (36.0-66.0); PLATELET COUNT, AUTOMATED 193 k/mm3 (150-450); RED CELL DISTRIBUTION WIDTH 13.2 % (11.5-14.5); WHITE BLOOD COUNT 8.4 K/mm3 (4.0-10.0)
[2017-02-07 15:37] LABS: ALBUMIN 3.1 GM/DL (3.2-5.2); ALBUMIN/GLOBULIN RATIO 0.74 (1.00-1.93); ALKALINE PHOSPHATASE 144 U/L (45-117); ALT/SGPT 63 U/L (12-78); ANION GAP 5 MEQ/L (8-16); AST/SGOT 45 U/L (15-37); BILIRUBIN,DIRECT 0.2 MG/DL (0.0-0.2); BILIRUBIN,TOTAL 0.4 MG/DL (0.2-1.0); BLOOD UREA NITROGEN 7 MG/DL (7-18); CALCIUM LEVEL 9.1 MG/DL (8.5-10.1); CARBON DIOXIDE LEVEL 28 MEQ/L (21-32); CHLORIDE LEVEL 108 MEQ/L (98-107); CREATININE FOR GFR 0.49 MG/DL (0.55-1.02); GLOMERULAR FILTRATION RATE > 60.0 (>60); GLUCOSE, FASTING 79 MG/DL (70-105); MAGNESIUM LEVEL 1.8 MG/DL (1.8-2.4); PHOSPHORUS LEVEL 3.4 MG/DL (2.5-4.9); POTASSIUM SERUM 3.9 MEQ/L (3.5-5.1); SODIUM LEVEL 141 MEQ/L (136-145); TOTAL PROTEIN 7.3 GM/DL (6.4-8.2); TRIGLYCERIDES LEVEL 104 MG/DL (<150)
== END ==
LOC: M LAB REF 13:30
PROVIDERS: ATTEND Surgery
DX: K50.913 Crohn's disease, unspecified, with fistula (principal)

== ENCOUNTER → 2017-02-15 | Outpatient (REF) | payer OTHER ==
[2017-02-15 18:00] LABS: BASO % 0.4 % (0.0-1.0); EOS # 0.1 K/mm3 (0.0-0.50); EOS % 0.9 % (0.0-3.0); LARGE UNSTAINED CELL # 0.1 K/mm3 (0.0-0.4); LARGE UNSTAINED CELL % 0.4 % (0.0-4.0); LYMPH # 1.3 K/mm3 (1.5-4.5); LYMPH % 11.1 % (24.0-44.0); MEAN CORPUSCULAR HEMOGLOBIN 28.9 pg (27.0-33.0); MEAN CORPUSCULAR HGB CONC 33.5 g/dl (32.0-36.5); MEAN CORPUSCULAR VOLUME 86.2 fl (80.0-96.0); MONO # 0.2 K/mm3 (0.0-0.8); MONO % 1.6 % (0.0-5.0); NEUTROPHILS % 85.6 % (36.0-66.0); PLATELET COUNT, AUTOMATED 371 k/mm3 (150-450); RED CELL DISTRIBUTION WIDTH 12.8 % (11.5-14.5); WHITE BLOOD COUNT 11.6 K/mm3 (4.0-10.0)
[2017-02-15 19:11] LABS: ALBUMIN 3.4 GM/DL (3.2-5.2); ALBUMIN/GLOBULIN RATIO 0.76 (1.00-1.93); ALKALINE PHOSPHATASE 186 U/L (45-117); ALT/SGPT 53 U/L (12-78); ANION GAP 5 MEQ/L (8-16); AST/SGOT 21 U/L (15-37); BILIRUBIN,TOTAL 0.4 MG/DL (0.2-1.0); BLOOD UREA NITROGEN 12 MG/DL (7-18); CALCIUM LEVEL 9.5 MG/DL (8.5-10.1); CARBON DIOXIDE LEVEL 27 MEQ/L (21-32); CHLORIDE LEVEL 107 MEQ/L (98-107); CREATININE FOR GFR 0.61 MG/DL (0.55-1.02); GLOMERULAR FILTRATION RATE > 60.0 (>60); GLUCOSE, FASTING 86 MG/DL (70-105); PHOSPHORUS LEVEL 3.2 MG/DL (2.5-4.9); SODIUM LEVEL 139 MEQ/L (136-145); TOTAL PROTEIN 7.9 GM/DL (6.4-8.2); TRIGLYCERIDES LEVEL 192 MG/DL (<150)
== END ==
LOC: M LAB REF 16:47
PROVIDERS: ATTEND Surgery
DX: K50.913 Crohn's disease, unspecified, with fistula (principal)

== ENCOUNTER 2017-02-20 04:00 | Emergency (ER) | payer OTHER ==
[~2017-02-20] VITALS: Ht 160 cm; Wt 54.4 kg
[~2017-02-20 04:00] MED LIST changes: -IMOD2TAB16 PO; -OXYC-517 PO; -TPNINJ3 IV
[2017-02-20] MEDS ORDERED: TPNINJ3 IV (04:44)
[2017-02-20] MEDS ORDERED: IMOD2TAB16 PO (04:44)
[2017-02-20] MEDS ORDERED: OXYC-517 PO (04:44)
[2017-02-20] MEDS ORDERED: ONDANSETRON 4MG/2ML VIAL (J2405) IV ONE (04:45)
[2017-02-20] MEDS ORDERED: MORPHINE 2 MG/ML 1ML SYRINGE IV ONE (04:45)
[2017-02-20] MEDS ORDERED: NS 1,000 ML IV ONE ×2 (05:15→06:00)
[2017-02-20] MEDS ORDERED: PIPERACILLIN/TAZOBACTAM SOD 3.375 GM in D5W MINI-BAG PLUS 50 ML IV ONE (05:15)
[2017-02-20] MEDS ORDERED: ACETAMINOPHEN TAB 650MG DOSE (2X325MG) As Ordered ONE (05:18)
[2017-02-20 05:20] LABS: ANION GAP 12 MEQ/L (8-16); BLOOD UREA NITROGEN 7 MG/DL (7-18); CALCIUM LEVEL 7.8 MG/DL (8.5-10.1); CARBON DIOXIDE LEVEL 25 MEQ/L (21-32); CHLORIDE LEVEL 97 MEQ/L (98-107); CREATININE FOR GFR 0.63 MG/DL (0.55-1.02); GLOMERULAR FILTRATION RATE > 60.0 (>60); GLUCOSE, FASTING 114 MG/DL (70-105); POTASSIUM SERUM 3.1 MEQ/L (3.5-5.1); SODIUM LEVEL 134 MEQ/L (136-145)
[2017-02-20] MEDS ORDERED: ACETAMINOPHEN TAB 650MG DOSE (2X325MG) PO ONE (05:30)
[2017-02-20 05:32] LABS: MEAN CORPUSCULAR HGB CONC 34.9 g/dl (32.0-36.5); MEAN CORPUSCULAR VOLUME 83.2 fl (80.0-96.0); RED CELL DISTRIBUTION WIDTH 13.1 % (11.5-14.5); WHITE BLOOD COUNT 7.4 K/mm3 (4.0-10.0)
[2017-02-20 08:20] VITALS: BP 104/59
== END 2017-02-20 08:40 | disposition short-term general hospital (02) ==
LOC: M ED 04:38
DX: T81.31XA Disruption of external operation (surgical) wound, not elsewhere classified, initial encounter (principal); X58.XXXA Exposure to other specified factors, initial encounter; Y92.9 Unspecified place or not applicable; Y93.9 Activity, unspecified; Y99.9 Unspecified external cause status; K50.90 Crohn's disease, unspecified, without complications

== ENCOUNTER → 2017-03-08 | Outpatient (REF) | payer OTHER ==
[~2017-03-08] MED LIST changes: +IMOD2TAB16 PO; +OXYC-517 PO; +TPNINJ3 IV
[2017-03-08 11:59] LABS: BASO % 0.5 % (0.0-1.0); EOS % 0.5 % (0.0-3.0); LARGE UNSTAINED CELL # 0.1 K/mm3 (0.0-0.4); LYMPH # 1.6 K/mm3 (1.5-4.5); LYMPH % 18.5 % (24.0-44.0); MEAN CORPUSCULAR HEMOGLOBIN 27.5 pg (27.0-33.0); MEAN CORPUSCULAR HGB CONC 32.2 g/dl (32.0-36.5); MEAN CORPUSCULAR VOLUME 85.6 fl (80.0-96.0); MONO # 0.3 K/mm3 (0.0-0.8); MONO % 3.6 % (0.0-5.0); NEUTROPHILS # 6.4 K/mm3 (1.8-7.7); NEUTROPHILS % 75.9 % (36.0-66.0); PLATELET COUNT, AUTOMATED 698 k/mm3 (150-450); RED CELL DISTRIBUTION WIDTH 18.4 % (11.5-14.5); WHITE BLOOD COUNT 8.4 K/mm3 (4.0-10.0)
[2017-03-08 12:15] LABS: ERYTHROCYTE SEDIMENTATION RATE 104 mm/hr (0-20)
[2017-03-08 13:09] LABS: ALBUMIN 2.8 GM/DL (3.2-5.2); ALBUMIN/GLOBULIN RATIO 0.47 (1.00-1.93); ALKALINE PHOSPHATASE 268 U/L (45-117); ALT/SGPT 34 U/L (12-78); ANION GAP 7 MEQ/L (8-16); AST/SGOT 21 U/L (15-37); BILIRUBIN,TOTAL 0.3 MG/DL (0.2-1.0); BLOOD UREA NITROGEN 16 MG/DL (7-18); CALCIUM LEVEL 9.5 MG/DL (8.5-10.1); CARBON DIOXIDE LEVEL 27 MEQ/L (21-32); CHLORIDE LEVEL 105 MEQ/L (98-107); CREATININE FOR GFR 0.48 MG/DL (0.55-1.02); GLOMERULAR FILTRATION RATE > 60.0 (>60); GLUCOSE, FASTING 96 MG/DL (70-105); MAGNESIUM LEVEL 2.1 MG/DL (1.8-2.4); PHOSPHORUS LEVEL 3.2 MG/DL (2.5-4.9); POTASSIUM SERUM 4.6 MEQ/L (3.5-5.1); SODIUM LEVEL 139 MEQ/L (136-145); TOTAL PROTEIN 8.8 GM/DL (6.4-8.2); TRIGLYCERIDES LEVEL 193 MG/DL (<150)
== END ==
LOC: M LAB REF 11:40
PROVIDERS: ATTEND Surgery
DX: K50.913 Crohn's disease, unspecified, with fistula (principal)

== ENCOUNTER → 2017-03-14 | Outpatient (REF) | payer OTHER ==
[~2017-03-14] MED LIST changes: +VITA1CAP40 PO; -VITA50003 PO
[2017-03-14 19:18] LABS: BASO % 0.3 % (0.0-1.0); EOS % 0.4 % (0.0-3.0); LARGE UNSTAINED CELL # 0.1 K/mm3 (0.0-0.4); LARGE UNSTAINED CELL % 0.9 % (0.0-4.0); LYMPH # 2.2 K/mm3 (1.5-4.5); LYMPH % 24.4 % (24.0-44.0); MEAN CORPUSCULAR HEMOGLOBIN 28.4 pg (27.0-33.0); MEAN CORPUSCULAR HGB CONC 32.7 g/dl (32.0-36.5); MEAN CORPUSCULAR VOLUME 86.9 fl (80.0-96.0); MONO # 0.4 K/mm3 (0.0-0.8); MONO % 4.1 % (0.0-5.0); NEUTROPHILS % 69.9 % (36.0-66.0); PLATELET COUNT, AUTOMATED 525 k/mm3 (150-450); RED CELL DISTRIBUTION WIDTH 18.3 % (11.5-14.5); WHITE BLOOD COUNT 8.6 K/mm3 (4.0-10.0)
[2017-03-14 20:47] LABS: ALBUMIN 3.3 GM/DL (3.2-5.2); ALBUMIN/GLOBULIN RATIO 0.55 (1.00-1.93); ALKALINE PHOSPHATASE 250 U/L (45-117); ALT/SGPT 46 U/L (12-78); ANION GAP 9 MEQ/L (8-16); AST/SGOT 36 U/L (15-37); BILIRUBIN,TOTAL 0.4 MG/DL (0.2-1.0); BLOOD UREA NITROGEN 18 MG/DL (7-18); CALCIUM LEVEL 9.6 MG/DL (8.5-10.1); CARBON DIOXIDE LEVEL 26 MEQ/L (21-32); CHLORIDE LEVEL 104 MEQ/L (98-107); CREATININE FOR GFR 0.42 MG/DL (0.55-1.02); GLOMERULAR FILTRATION RATE > 60.0 (>60); GLUCOSE, FASTING 81 MG/DL (70-105); MAGNESIUM LEVEL 2.1 MG/DL (1.8-2.4); PHOSPHORUS LEVEL 3.3 MG/DL (2.5-4.9); POTASSIUM SERUM 4.2 MEQ/L (3.5-5.1); SODIUM LEVEL 139 MEQ/L (136-145); TOTAL PROTEIN 9.3 GM/DL (6.4-8.2); TRIGLYCERIDES LEVEL 153 MG/DL (<150)
== END ==
LOC: M LAB REF 17:11
PROVIDERS: ATTEND Surgery
DX: K50.913 Crohn's disease, unspecified, with fistula (principal)

== ENCOUNTER 2017-03-16 12:46 | Emergency (ER) | payer OTHER ==
[~2017-03-16] VITALS: Ht 160 cm; Wt 48.6 kg
[2017-03-16] MEDS ORDERED: ONDANSETRON 4MG/2ML VIAL (J2405) IV ONE (14:00)
[2017-03-16] MEDS ORDERED: NS 1,000 ML IV ONE (14:00)
[2017-03-16] MEDS: HYDROmorphone HCL 1 MG/ML SYRINGE (J1170) IV PRN ×2 (14:25→15:59)
[2017-03-16 14:46] LABS: BASO # 0.1 K/mm3 (0.0-0.2); BASO % 0.7 % (0.0-1.0); EOS # 0.2 K/mm3 (0.0-0.50); EOS % 1.7 % (0.0-3.0); LARGE UNSTAINED CELL # 0.1 K/mm3 (0.0-0.4); LARGE UNSTAINED CELL % 1.3 % (0.0-4.0); LYMPH # 2.5 K/mm3 (1.5-4.5); LYMPH % 23.5 % (24.0-44.0); MEAN CORPUSCULAR HEMOGLOBIN 28.5 pg (27.0-33.0); MEAN CORPUSCULAR HGB CONC 33.1 g/dl (32.0-36.5); MEAN CORPUSCULAR VOLUME 86.1 fl (80.0-96.0); MONO # 0.4 K/mm3 (0.0-0.8); NEUTROPHILS # 7.3 K/mm3 (1.8-7.7); NEUTROPHILS % 68.7 % (36.0-66.0); PLATELET COUNT, AUTOMATED 401 k/mm3 (150-450); RED CELL DISTRIBUTION WIDTH 17.8 % (11.5-14.5); WHITE BLOOD COUNT 10.5 K/mm3 (4.0-10.0)
[2017-03-16 14:48] LABS: CALCIUM OXALATE CRYSTALS SMALL
[2017-03-16 15:02] LABS: ALBUMIN 3.2 GM/DL (3.2-5.2); ALBUMIN/GLOBULIN RATIO 0.51 (1.00-1.93); ALKALINE PHOSPHATASE 268 U/L (45-117); ALT/SGPT 68 U/L (12-78); AMYLASE 83 U/L (25-115); ANION GAP 7 MEQ/L (8-16); AST/SGOT 41 U/L (15-37); BILIRUBIN,DIRECT 0.2 MG/DL (0.0-0.2); BILIRUBIN,TOTAL 0.6 MG/DL (0.2-1.0); BLOOD UREA NITROGEN 13 MG/DL (7-18); CALCIUM LEVEL 9.7 MG/DL (8.5-10.1); CARBON DIOXIDE LEVEL 27 MEQ/L (21-32); CHLORIDE LEVEL 102 MEQ/L (98-107); CREATININE FOR GFR 0.63 MG/DL (0.55-1.02); GLOMERULAR FILTRATION RATE > 60.0 (>60); GLUCOSE, FASTING 92 MG/DL (70-105); POTASSIUM SERUM 3.4 MEQ/L (3.5-5.1); SODIUM LEVEL 136 MEQ/L (136-145); TOTAL PROTEIN 9.5 GM/DL (6.4-8.2)
[2017-03-16] MEDS ORDERED: ISOVUE-370 76% 100ML VIAL (Q9967) As Ordered ONE (15:17)
[2017-03-16 16:14] LABS: CONTROL LINE UCG INT CTR LINE PRESENT
--- NOTE | 2017-03-16 16:14 | REP ---
Clinical: Right lower quadrant abdominal pain. Technique: Axial contrast enhanced images from the lung bases to the pubic symphysis using 100 ml Isovue 370 intravenous contrast material with coronal and sagittal re-formations. Comparison: 09/20/2016. Findings: Mural thickening and enhancement to the visualized small and large bowel is consistent with an acute infectious/inflammatory enterocolitis postsurgical changes related to prior multiple bowel resections suggested and there appear to be very small fluid collections overlying the right anterior abdominopelvic wall with surrounding inflammatory stranding suggesting the possibility of small forming abscess sees (images 73 - 85). No obvious associated bowel obstruction or free air to suggest perforation. Lung bases clear. Visualized heart and pericardium normal. Liver, spleen, pancreas, bilateral adrenal glands and kidneys are normal. The patient is status post cholecystectomy. Pelvis demonstrates normal bladder and age-appropriate uterus/adnexa. No ascites. No free air. No obvious adenopathy. Vasculature appears normal. Surrounding musculoskeletal structures are intact. Impression: 1. Findings suggest diffuse enterocolitis. No associated obstruction, perforation, or drainable collection. 2. Inflammatory stranding and small fluid collections in the right anterior abdominal pelvic wall suggest small forming abscess sees and warrant further investigation. Signed by Darci Devine MD 03/16/2017 04:05 P
[2017-03-16 17:59] VITALS: BP 112/72
[2017-03-16] MEDS ORDERED: SODIUM CHLORIDE 0.9% INJ 10 ML SYR IV SCH (18:00)
[2017-03-16] MEDS ORDERED: HYDROmorphone HCL 1 MG/ML SYRINGE (J1170) As Ordered ONE (18:50)
== END 2017-03-16 18:01 | disposition home or self-care (01) ==
LOC: M ED 12:46
DX: K52.9 Noninfective gastroenteritis and colitis, unspecified (principal); G89.28 Other chronic postprocedural pain; F17.210 Nicotine dependence, cigarettes, uncomplicated; Z79.899 Other long term (current) drug therapy; Z87.19 Personal history of other diseases of the digestive system

== ENCOUNTER → 2017-04-04 | Outpatient (REF) | payer OTHER ==
[2017-04-04 13:05] LABS: BASO % 0.2 % (0.0-1.0); EOS # 0.1 K/mm3 (0.0-0.50); LARGE UNSTAINED CELL # 0.1 K/mm3 (0.0-0.4); LARGE UNSTAINED CELL % 1.3 % (0.0-4.0); LYMPH # 2.3 K/mm3 (1.5-4.5); LYMPH % 28.6 % (24.0-44.0); MEAN CORPUSCULAR HEMOGLOBIN 28.7 pg (27.0-33.0); MEAN CORPUSCULAR HGB CONC 33.3 g/dl (32.0-36.5); MEAN CORPUSCULAR VOLUME 86.3 fl (80.0-96.0); MONO # 0.3 K/mm3 (0.0-0.8); MONO % 3.7 % (0.0-5.0); NEUTROPHILS # 4.9 K/mm3 (1.8-7.7); NEUTROPHILS % 65.1 % (36.0-66.0); PLATELET COUNT, AUTOMATED 312 k/mm3 (150-450); RED CELL DISTRIBUTION WIDTH 16.5 % (11.5-14.5); WHITE BLOOD COUNT 7.6 K/mm3 (4.0-10.0)
[2017-04-04 13:33] LABS: ALBUMIN 3.1 GM/DL (3.2-5.2); ALKALINE PHOSPHATASE 118 U/L (45-117); ALT/SGPT 41 U/L (12-78); ANION GAP 8 MEQ/L (8-16); AST/SGOT 18 U/L (15-37); BILIRUBIN,TOTAL 0.5 MG/DL (0.2-1.0); BLOOD UREA NITROGEN 16 MG/DL (7-18); CALCIUM LEVEL 8.9 MG/DL (8.5-10.1); CARBON DIOXIDE LEVEL 25 MEQ/L (21-32); CHLORIDE LEVEL 106 MEQ/L (98-107); CREATININE FOR GFR 0.54 MG/DL (0.55-1.02); GLOMERULAR FILTRATION RATE > 60.0 (>60); GLUCOSE, FASTING 90 MG/DL (70-105); MAGNESIUM LEVEL 2.1 MG/DL (1.8-2.4); PHOSPHORUS LEVEL 3.6 MG/DL (2.5-4.9); SODIUM LEVEL 139 MEQ/L (136-145); TOTAL PROTEIN 7.5 GM/DL (6.4-8.2); TRIGLYCERIDES LEVEL 99 MG/DL (<150)
== END ==
LOC: M LAB REF 12:13
PROVIDERS: ATTEND Surgery
DX: K50.913 Crohn's disease, unspecified, with fistula (principal); K63.2 Fistula of intestine

== ENCOUNTER → 2017-04-13 | Outpatient (REF) | payer OTHER ==
[2017-04-13 15:34] LABS: ALBUMIN 3.3 GM/DL (3.2-5.2); ALKALINE PHOSPHATASE 112 U/L (45-117); ALT/SGPT 28 U/L (12-78); ANION GAP 9 MEQ/L (8-16); AST/SGOT 17 U/L (15-37); BILIRUBIN,TOTAL 0.3 MG/DL (0.2-1.0); BLOOD UREA NITROGEN 18 MG/DL (7-18); CALCIUM LEVEL 9.2 MG/DL (8.5-10.1); CARBON DIOXIDE LEVEL 25 MEQ/L (21-32); CHLORIDE LEVEL 107 MEQ/L (98-107); CREATININE FOR GFR 0.56 MG/DL (0.55-1.02); GLOMERULAR FILTRATION RATE > 60.0 (>60); GLUCOSE, FASTING 84 MG/DL (70-105); MAGNESIUM LEVEL 2.2 MG/DL (1.8-2.4); PHOSPHORUS LEVEL 4.1 MG/DL (2.5-4.9); POTASSIUM SERUM 4.1 MEQ/L (3.5-5.1); SODIUM LEVEL 141 MEQ/L (136-145); TRIGLYCERIDES LEVEL 137 MG/DL (<150)
== END ==
LOC: M LAB REF 14:56
PROVIDERS: ATTEND Surgery
DX: K63.2 Fistula of intestine (principal)

== ENCOUNTER → 2017-04-19 | Outpatient (REF) | payer OTHER ==
[2017-04-19 21:55] LABS: BASO % 0.3 % (0.0-1.0); EOS # 0.1 K/mm3 (0.0-0.50); LARGE UNSTAINED CELL # 0.1 K/mm3 (0.0-0.4); LARGE UNSTAINED CELL % 1.4 % (0.0-4.0); LYMPH # 2.4 K/mm3 (1.5-4.5); LYMPH % 30.6 % (24.0-44.0); MEAN CORPUSCULAR HEMOGLOBIN 28.5 pg (27.0-33.0); MEAN CORPUSCULAR HGB CONC 32.9 g/dl (32.0-36.5); MEAN CORPUSCULAR VOLUME 86.5 fl (80.0-96.0); MONO # 0.3 K/mm3 (0.0-0.8); MONO % 3.4 % (0.0-5.0); NEUTROPHILS # 4.8 K/mm3 (1.8-7.7); NEUTROPHILS % 63.4 % (36.0-66.0); PLATELET COUNT, AUTOMATED 269 k/mm3 (150-450); WHITE BLOOD COUNT 7.6 K/mm3 (4.0-10.0)
[2017-04-19 22:02] LABS: ALBUMIN 3.1 GM/DL (3.2-5.2); ALBUMIN/GLOBULIN RATIO 0.76 (1.00-1.93); ALKALINE PHOSPHATASE 107 U/L (45-117); ALT/SGPT 23 U/L (12-78); ANION GAP 8 MEQ/L (8-16); AST/SGOT 13 U/L (15-37); BILIRUBIN,TOTAL 0.3 MG/DL (0.2-1.0); BLOOD UREA NITROGEN 14 MG/DL (7-18); CALCIUM LEVEL 8.5 MG/DL (8.5-10.1); CARBON DIOXIDE LEVEL 27 MEQ/L (21-32); CHLORIDE LEVEL 106 MEQ/L (98-107); CREATININE FOR GFR 0.54 MG/DL (0.55-1.02); GLOMERULAR FILTRATION RATE > 60.0 (>60); GLUCOSE, FASTING 80 MG/DL (70-105); POTASSIUM SERUM 3.8 MEQ/L (3.5-5.1); SODIUM LEVEL 141 MEQ/L (136-145); TOTAL PROTEIN 7.2 GM/DL (6.4-8.2); TRIGLYCERIDES LEVEL 140 MG/DL (<150)
[2017-04-19 22:45] LABS: ERYTHROCYTE SEDIMENTATION RATE 40 mm/hr (0-20)
== END ==
LOC: M LAB REF 20:37
PROVIDERS: ATTEND Internal Medicine
DX: K65.1 Peritoneal abscess (principal); E44.0 Moderate protein-calorie malnutrition

== ENCOUNTER → 2017-04-25 | Outpatient (REF) | payer OTHER ==
[2017-04-25 18:58] LABS: ALBUMIN 3.2 GM/DL (3.2-5.2); ALBUMIN/GLOBULIN RATIO 0.76 (1.00-1.93); ALKALINE PHOSPHATASE 123 U/L (45-117); ALT/SGPT 26 U/L (12-78); ANION GAP 10 MEQ/L (8-16); AST/SGOT 16 U/L (15-37); BILIRUBIN,TOTAL 0.3 MG/DL (0.2-1.0); BLOOD UREA NITROGEN 9 MG/DL (7-18); CALCIUM LEVEL 8.7 MG/DL (8.5-10.1); CARBON DIOXIDE LEVEL 28 MEQ/L (21-32); CHLORIDE LEVEL 106 MEQ/L (98-107); CREATININE FOR GFR 0.57 MG/DL (0.55-1.02); GLOMERULAR FILTRATION RATE > 60.0 (>60); GLUCOSE, FASTING 80 MG/DL (70-105); MAGNESIUM LEVEL 1.7 MG/DL (1.8-2.4); PHOSPHORUS LEVEL 3.9 MG/DL (2.5-4.9); POTASSIUM SERUM 3.4 MEQ/L (3.5-5.1); SODIUM LEVEL 144 MEQ/L (136-145); TOTAL PROTEIN 7.4 GM/DL (6.4-8.2); TRIGLYCERIDES LEVEL 111 MG/DL (<150)
== END ==
LOC: M LAB REF 16:44
PROVIDERS: ATTEND Surgery
DX: K63.2 Fistula of intestine (principal)

== ENCOUNTER → 2017-05-02 | Outpatient (REF) | payer OTHER ==
[2017-05-02 16:15] LABS: ALBUMIN 2.8 GM/DL (3.2-5.2); ALBUMIN/GLOBULIN RATIO 0.72 (1.00-1.93); ALKALINE PHOSPHATASE 115 U/L (45-117); ALT/SGPT 20 U/L (12-78); ANION GAP 10 MEQ/L (8-16); AST/SGOT 13 U/L (15-37); BILIRUBIN,TOTAL 0.2 MG/DL (0.2-1.0); BLOOD UREA NITROGEN 7 MG/DL (7-18); CALCIUM LEVEL 8.6 MG/DL (8.5-10.1); CARBON DIOXIDE LEVEL 27 MEQ/L (21-32); CHLORIDE LEVEL 109 MEQ/L (98-107); CREATININE FOR GFR 0.51 MG/DL (0.55-1.02); GLOMERULAR FILTRATION RATE > 60.0 (>60); GLUCOSE, FASTING 85 MG/DL (70-105); MAGNESIUM LEVEL 1.7 MG/DL (1.8-2.4); PHOSPHORUS LEVEL 3.7 MG/DL (2.5-4.9); POTASSIUM SERUM 3.7 MEQ/L (3.5-5.1); SODIUM LEVEL 146 MEQ/L (136-145); TOTAL PROTEIN 6.7 GM/DL (6.4-8.2); TRIGLYCERIDES LEVEL 160 MG/DL (<150)
== END ==
LOC: M LAB REF 14:50
PROVIDERS: ATTEND Surgery
DX: K50.913 Crohn's disease, unspecified, with fistula (principal); K63.2 Fistula of intestine

== ENCOUNTER → 2017-05-23 | Outpatient (REF) | payer OTHER ==
[2017-05-23 18:42] LABS: ALBUMIN 3.2 GM/DL (3.2-5.2); ALBUMIN/GLOBULIN RATIO 0.82 (1.00-1.93); ALKALINE PHOSPHATASE 87 U/L (45-117); ALT/SGPT 36 U/L (12-78); ANION GAP 8 MEQ/L (8-16); AST/SGOT 12 U/L (15-37); BILIRUBIN,TOTAL 0.2 MG/DL (0.2-1.0); BLOOD UREA NITROGEN 5 MG/DL (7-18); CALCIUM LEVEL 8.8 MG/DL (8.5-10.1); CARBON DIOXIDE LEVEL 29 MEQ/L (21-32); CHLORIDE LEVEL 106 MEQ/L (98-107); GLOMERULAR FILTRATION RATE > 60.0 (>60); GLUCOSE, FASTING 78 MG/DL (70-105); MAGNESIUM LEVEL 1.7 MG/DL (1.8-2.4); PHOSPHORUS LEVEL 4.5 MG/DL (2.5-4.9); POTASSIUM SERUM 3.3 MEQ/L (3.5-5.1); SODIUM LEVEL 143 MEQ/L (136-145); TOTAL PROTEIN 7.1 GM/DL (6.4-8.2); TRIGLYCERIDES LEVEL 244 MG/DL (<150)
== END ==
LOC: M LAB REF 16:44
PROVIDERS: ATTEND Surgery
DX: K63.2 Fistula of intestine (principal); K50.913 Crohn's disease, unspecified, with fistula

== ENCOUNTER 2017-09-11 19:02 | Inpatient (IN) | payer OTHER ==
[2017-09-11 20:41] LABS: KETONE, URINE AUTO RFX TRACE mg/dL (NEGATIVE); LEUKOCYTE ESTERASE UR AUTO RFX NEGATIVE (NEGATIVE); MUCUS, URINE RFX SMALL (NEGATIVE); NITRITE, URINE AUTO RFX NEGATIVE (NEGATIVE); RBC, URINE AUTO RFX 1 /HPF (0-3); SQUAM EPITHELIAL CELL UR AURFX 4 /HPF (0-6); WBC, URINE AUTO RFX 5 /HPF (0-3)
[2017-09-11 20:42] LABS: BASO % 0.1 % (0.0-1.0); EOS # 0.1 10^3/uL (0.0-0.50); EOS % 0.5 % (0.0-3.0); HEMATOCRIT 41.5 % (36.0-47.0); HEMOGLOBIN 13.6 g/dl (12.0-16.0); IMMATURE GRANULOCYTE # 0.1 10^3/uL (0-0); IMMATURE GRANULOCYTE % 0.5 % (0-0); LYMPH % 19.8 % (24.0-44.0); MEAN CORPUSCULAR HEMOGLOBIN 27.5 pg (27.0-33.0); MEAN CORPUSCULAR HGB CONC 32.8 g/dl (32.0-36.5); MEAN CORPUSCULAR VOLUME 83.8 fl (80.0-96.0); MONO # 0.7 10^3/uL (0.0-0.8); MONO % 4.9 % (0.0-5.0); NEUTROPHILS # 11.3 10^3/uL (1.8-7.7); NEUTROPHILS % 74.2 % (36.0-66.0); PLATELET COUNT, AUTOMATED 410 10^3/uL (150-450); RED BLOOD COUNT 4.95 10^6/uL (4.00-5.40); RED CELL DISTRIBUTION WIDTH 14.2 % (11.5-14.5); WHITE BLOOD COUNT 15.2 10^3/uL (4.0-10.0)
[2017-09-11] MEDS: NS 1,000 ML IV (21:30)
[2017-09-11] MEDS: ONDANSETRON 4MG/2ML VIAL (J2405) IV (21:30)
[2017-09-11 21:40] LABS: CONTROL LINE HCG INT CTR LINE PRESENT; HCG, SERUM QUALITATIVE NEGATIVE (NEGATIVE)
[2017-09-11] MEDS: MORPHINE 4 MG/ML 1ML SYRINGE IV ×2 (21:40→23:54)
[2017-09-11 21:54] LABS: ALKALINE PHOSPHATASE 125 U/L (45-117); ALT/SGPT 20 U/L (12-78); ANION GAP 9 MEQ/L (8-16); AST/SGOT 7 U/L (7-37); BILIRUBIN,DIRECT < 0.1 MG/DL (0.0-0.2); BILIRUBIN,TOTAL 0.2 MG/DL (0.2-1.0); BLOOD UREA NITROGEN 8 MG/DL (7-18); CALCIUM LEVEL 8.5 MG/DL (8.5-10.1); CARBON DIOXIDE LEVEL 29 MEQ/L (21-32); CHLORIDE LEVEL 106 MEQ/L (98-107); CREATININE FOR GFR 0.51 MG/DL (0.55-1.02); GLOMERULAR FILTRATION RATE > 60.0 (>60); GLUCOSE, FASTING 79 MG/DL (70-105); LIPASE 57 U/L (73-393); POTASSIUM SERUM 3.2 MEQ/L (3.5-5.1); SODIUM LEVEL 144 MEQ/L (136-145); TOTAL PROTEIN 7.3 GM/DL (6.4-8.2)
[2017-09-11] MEDS ORDERED: ISOVUE-370 76% 100ML VIAL (Q9967) As Ordered (22:15)
[2017-09-12] MEDS: sulfaSALAzine 500 MG TABEC PO ×4 (01:00→21:25)
[2017-09-12 01:42] LABS: LACTIC ACID SEPSIS PROTOCOL 0.5 MMOL/L (0.4-2.0)
[2017-09-12] MEDS: MORPHINE 4 MG/ML 1ML SYRINGE IV (02:56)
[2017-09-12] MEDS: NS 1,000 ML IV ×3 (03:23→22:56)
[2017-09-12] MEDS: metroNIDAZOLE 500 MG in APPROPRIATE DILUENT 1 EA IV ×4 (03:23→19:50)
[2017-09-12 07:13] LABS: MEAN CORPUSCULAR HEMOGLOBIN 26.7 pg (27.0-33.0); MEAN CORPUSCULAR HGB CONC 32.2 g/dl (32.0-36.5); MEAN CORPUSCULAR VOLUME 82.9 fl (80.0-96.0); RED BLOOD COUNT 3.86 10^6/uL (4.00-5.40); WHITE BLOOD COUNT 10.3 10^3/uL (4.0-10.0)
[2017-09-12] MEDS: MORPHINE 2 MG/ML 1ML SYRINGE IV ×6 (07:13→22:24)
[2017-09-12] MEDS: ONDANSETRON 4MG/2ML VIAL (J2405) IV ×2 (07:13→22:28)
[2017-09-12 07:18] LABS: HEMOGLOBIN 10.3 g/dl (12.0-16.0); PLATELET COUNT, AUTOMATED 301 10^3/uL (150-450)
[2017-09-12 07:37] LABS: ALBUMIN 2.2 GM/DL (3.2-5.2); ALBUMIN/GLOBULIN RATIO 0.56 (1.00-1.93); ALKALINE PHOSPHATASE 97 U/L (45-117); ALT/SGPT 15 U/L (12-78); ANION GAP 7 MEQ/L (8-16); AST/SGOT 8 U/L (7-37); BILIRUBIN,TOTAL 0.3 MG/DL (0.2-1.0); BLOOD UREA NITROGEN 6 MG/DL (7-18); CALCIUM LEVEL 8.2 MG/DL (8.5-10.1); CARBON DIOXIDE LEVEL 27 MEQ/L (21-32); CHLORIDE LEVEL 108 MEQ/L (98-107); CREATININE FOR GFR 0.51 MG/DL (0.55-1.02); GLOMERULAR FILTRATION RATE > 60.0 (>60); GLUCOSE, FASTING 84 MG/DL (70-105); SODIUM LEVEL 142 MEQ/L (136-145); TOTAL PROTEIN 6.1 GM/DL (6.4-8.2)
[2017-09-12] MEDS: PANTOPRAZOLE 40MG INJ (PROTONIX) (C9113) IV (08:20)
[2017-09-12] MEDS: CIPROFLOXACIN 400 MG in APPROPRIATE DILUENT 1 EA IV ×2 (11:17)
[2017-09-12] MEDS: KETOROLAC 60 MG/2 ML VIAL (J1885) IM (16:57)
[2017-09-13] MEDS: CIPROFLOXACIN 400 MG in APPROPRIATE DILUENT 1 EA IV ×3 (00:03→23:57)
[2017-09-13] MEDS: NS 1,000 ML IV (00:32)
[2017-09-13] MEDS: KETOROLAC 30 MG/ML VIAL (J1885) IV ×3 (01:15→16:54)
[2017-09-13] MEDS: PROMETHAZINE INJ 25 MG/ML VIAL (J2550) IV ×3 (01:16→20:53)
[2017-09-13] MEDS: metroNIDAZOLE 500 MG in APPROPRIATE DILUENT 1 EA IV ×4 (02:23→20:12)
[2017-09-13] MEDS: MORPHINE 2 MG/ML 1ML SYRINGE IV ×5 (06:39→23:39)
[2017-09-13 07:49] LABS: HEMATOCRIT 32.1 % (36.0-47.0); HEMOGLOBIN 10.7 g/dl (12.0-16.0); MEAN CORPUSCULAR HEMOGLOBIN 27.3 pg (27.0-33.0); MEAN CORPUSCULAR HGB CONC 33.3 g/dl (32.0-36.5); MEAN CORPUSCULAR VOLUME 81.9 fl (80.0-96.0); PLATELET COUNT, AUTOMATED 282 10^3/uL (150-450); RED BLOOD COUNT 3.92 10^6/uL (4.00-5.40); RED CELL DISTRIBUTION WIDTH 13.5 % (11.5-14.5); WHITE BLOOD COUNT 8.8 10^3/uL (4.0-10.0)
[2017-09-13] MEDS: sulfaSALAzine 500 MG TABEC PO ×4 (08:11→20:12)
[2017-09-13] MEDS: PANTOPRAZOLE 40MG INJ (PROTONIX) (C9113) IV (08:11)
[2017-09-13 08:18] LABS: ALBUMIN 2.4 GM/DL (3.2-5.2); ALBUMIN/GLOBULIN RATIO 0.67 (1.00-1.93); ALKALINE PHOSPHATASE 103 U/L (45-117); ALT/SGPT 16 U/L (12-78); ANION GAP 7 MEQ/L (8-16); AST/SGOT 8 U/L (7-37); BILIRUBIN,TOTAL 0.3 MG/DL (0.2-1.0); BLOOD UREA NITROGEN 3 MG/DL (7-18); CALCIUM LEVEL 7.9 MG/DL (8.5-10.1); CARBON DIOXIDE LEVEL 26 MEQ/L (21-32); CHLORIDE LEVEL 109 MEQ/L (98-107); CREATININE FOR GFR 0.44 MG/DL (0.55-1.02); GLOMERULAR FILTRATION RATE > 60.0 (>60); GLUCOSE, FASTING 95 MG/DL (70-105); POTASSIUM SERUM 2.9 MEQ/L (3.5-5.1); SODIUM LEVEL 142 MEQ/L (136-145)
[2017-09-13] MEDS: KCL 10MEQ IN 100ML SWI (KRUN) 10 MEQ in APPROPRIATE DILUENT 1 EA IV ×3 (09:39→11:27)
[2017-09-13] MEDS: ONDANSETRON 4MG/2ML VIAL (J2405) IV (11:52)
[2017-09-13] MEDS: KCL 20MEQ IN D5/0.45NS 1000ML 1,000 ML IV ×2 (13:46→20:12)
[2017-09-14] MEDS: KETOROLAC 30 MG/ML VIAL (J1885) IV ×3 (01:52→17:36)
[2017-09-14] MEDS: metroNIDAZOLE 500 MG in APPROPRIATE DILUENT 1 EA IV ×4 (01:52→20:13)
[2017-09-14] MEDS: KCL 20MEQ IN D5/0.45NS 1000ML 1,000 ML IV (01:52)
[2017-09-14] MEDS: GASTROGRAFIN SOLUTION 30ML PO (06:33)
[2017-09-14 07:03] LABS: HEMATOCRIT 30.6 % (36.0-47.0); HEMOGLOBIN 10.1 g/dl (12.0-16.0); MEAN CORPUSCULAR VOLUME 81.8 fl (80.0-96.0); PLATELET COUNT, AUTOMATED 288 10^3/uL (150-450); RED BLOOD COUNT 3.74 10^6/uL (4.00-5.40); RED CELL DISTRIBUTION WIDTH 13.4 % (11.5-14.5); WHITE BLOOD COUNT 7.3 10^3/uL (4.0-10.0)
[2017-09-14] MEDS: GASTROGRAFIN SOLUTION 30ML (Q9963) PO (07:03)
[2017-09-14 07:48] LABS: ALBUMIN/GLOBULIN RATIO 0.63 (1.00-1.93); ALKALINE PHOSPHATASE 88 U/L (45-117); ALT/SGPT 14 U/L (12-78); ANION GAP 8 MEQ/L (8-16); AST/SGOT 9 U/L (7-37); BILIRUBIN,TOTAL 0.3 MG/DL (0.2-1.0); BLOOD UREA NITROGEN 3 MG/DL (7-18); C REACTIVE PROTEIN QUANTITATIV 8.25 MG/DL (0.00-0.30); CALCIUM LEVEL 7.7 MG/DL (8.5-10.1); CARBON DIOXIDE LEVEL 26 MEQ/L (21-32); CHLORIDE LEVEL 110 MEQ/L (98-107); CREATININE FOR GFR 0.44 MG/DL (0.55-1.02); GLOMERULAR FILTRATION RATE > 60.0 (>60); GLUCOSE, FASTING 100 MG/DL (70-105); SODIUM LEVEL 144 MEQ/L (136-145); TOTAL PROTEIN 5.2 GM/DL (6.4-8.2)
[2017-09-14] MEDS ORDERED: ISOVUE-370 76% 100ML VIAL (Q9967) As Ordered (07:57)
[2017-09-14] MEDS: PANTOPRAZOLE 40MG INJ (PROTONIX) (C9113) IV (09:59)
[2017-09-14] MEDS: sulfaSALAzine 500 MG TABEC PO ×3 (10:00→20:13)
[2017-09-14] MEDS: MORPHINE 2 MG/ML 1ML SYRINGE IV ×6 (10:29→23:31)
[2017-09-14] MEDS: KCL 40MEQ IN D5/0.45NS 1000ML 1,000 ML IV ×2 (12:48→23:30)
[2017-09-14] MEDS: CIPROFLOXACIN 400 MG in APPROPRIATE DILUENT 1 EA IV ×2 (12:48→23:30)
[2017-09-14] MEDS: BISACODYL 10 MG SUPP PR (15:12)
[2017-09-14] MEDS: ONDANSETRON 4MG/2ML VIAL (J2405) IV (16:25)
[2017-09-14] MEDS: PROMETHAZINE INJ 25 MG/ML VIAL (J2550) IV (22:57)
[2017-09-15] MEDS: ACETAMINOPHEN TAB 650MG DOSE (2X325MG) PO (00:22)
[2017-09-15] MEDS: metroNIDAZOLE 500 MG in APPROPRIATE DILUENT 1 EA IV ×4 (01:50→22:03)
[2017-09-15] MEDS: KETOROLAC 30 MG/ML VIAL (J1885) IV ×3 (01:51→20:29)
[2017-09-15] MEDS: ONDANSETRON 4MG/2ML VIAL (J2405) IV ×2 (05:11→12:19)
[2017-09-15] MEDS: MORPHINE 2 MG/ML 1ML SYRINGE IV ×4 (05:12→15:54)
[2017-09-15 07:33] LABS: HEMATOCRIT 33.1 % (36.0-47.0); HEMOGLOBIN 10.8 g/dl (12.0-16.0); MEAN CORPUSCULAR HEMOGLOBIN 27.1 pg (27.0-33.0); MEAN CORPUSCULAR HGB CONC 32.6 g/dl (32.0-36.5); PLATELET COUNT, AUTOMATED 324 10^3/uL (150-450); RED BLOOD COUNT 3.99 10^6/uL (4.00-5.40); RED CELL DISTRIBUTION WIDTH 13.5 % (11.5-14.5); WHITE BLOOD COUNT 7.5 10^3/uL (4.0-10.0)
[2017-09-15 07:57] LABS: ALBUMIN 2.1 GM/DL (3.2-5.2); ALBUMIN/GLOBULIN RATIO 0.58 (1.00-1.93); ALKALINE PHOSPHATASE 85 U/L (45-117); ALT/SGPT 14 U/L (12-78); ANION GAP 7 MEQ/L (8-16); AST/SGOT 4 U/L (7-37); BILIRUBIN,TOTAL 0.2 MG/DL (0.2-1.0); CALCIUM LEVEL 8.2 MG/DL (8.5-10.1); CARBON DIOXIDE LEVEL 25 MEQ/L (21-32); CHLORIDE LEVEL 110 MEQ/L (98-107); CREATININE FOR GFR 0.41 MG/DL (0.55-1.02); GLOMERULAR FILTRATION RATE > 60.0 (>60); GLUCOSE, FASTING 109 MG/DL (70-105); POTASSIUM SERUM 3.6 MEQ/L (3.5-5.1); SODIUM LEVEL 142 MEQ/L (136-145); TOTAL PROTEIN 5.7 GM/DL (6.4-8.2)
[2017-09-15 08:10] LABS: BLOOD UREA NITROGEN < 1 MG/DL (7-18)
[2017-09-15] MEDS: PANTOPRAZOLE 40MG INJ (PROTONIX) (C9113) IV (08:41)
[2017-09-15] MEDS: KCL 40MEQ IN D5/0.45NS 1000ML 1,000 ML IV (08:41)
[2017-09-15] MEDS: PROMETHAZINE INJ 25 MG/ML VIAL (J2550) IV ×3 (08:41→20:28)
[2017-09-15] MEDS: sulfaSALAzine 500 MG TABEC PO ×3 (08:41→22:03)
[2017-09-15] MEDS: FLEET ENEMA PR (10:30)
[2017-09-15] MEDS: CIPROFLOXACIN 400 MG in APPROPRIATE DILUENT 1 EA IV (12:19)
[2017-09-15] MEDS: oxyCODONE 5MG TAB PO ×2 (16:27→22:28)
[2017-09-16] MEDS: CIPROFLOXACIN 400 MG in APPROPRIATE DILUENT 1 EA IV (00:50)
[2017-09-16] MEDS: metroNIDAZOLE 500 MG in APPROPRIATE DILUENT 1 EA IV ×2 (02:00→10:21)
[2017-09-16] MEDS: oxyCODONE 5MG TAB PO ×2 (04:15→10:19)
[2017-09-16] MEDS: PROMETHAZINE INJ 25 MG/ML VIAL (J2550) IV (07:16)
[2017-09-16 07:33] LABS: HEMATOCRIT 30.4 % (36.0-47.0); HEMOGLOBIN 9.9 g/dl (12.0-16.0); MEAN CORPUSCULAR HGB CONC 32.6 g/dl (32.0-36.5); MEAN CORPUSCULAR VOLUME 83.1 fl (80.0-96.0); PLATELET COUNT, AUTOMATED 307 10^3/uL (150-450); RED BLOOD COUNT 3.66 10^6/uL (4.00-5.40); RED CELL DISTRIBUTION WIDTH 13.4 % (11.5-14.5); WHITE BLOOD COUNT 6.9 10^3/uL (4.0-10.0)
[2017-09-16 08:00] LABS: ALBUMIN/GLOBULIN RATIO 0.59 (1.00-1.93); ALKALINE PHOSPHATASE 73 U/L (45-117); ALT/SGPT 9 U/L (12-78); ANION GAP 8 MEQ/L (8-16); AST/SGOT 3 U/L (7-37); BILIRUBIN,TOTAL 0.2 MG/DL (0.2-1.0); BLOOD UREA NITROGEN 2 MG/DL (7-18); CALCIUM LEVEL 7.7 MG/DL (8.5-10.1); CARBON DIOXIDE LEVEL 25 MEQ/L (21-32); CHLORIDE LEVEL 110 MEQ/L (98-107); CREATININE FOR GFR 0.41 MG/DL (0.55-1.02); GLOMERULAR FILTRATION RATE > 60.0 (>60); GLUCOSE, FASTING 85 MG/DL (70-105); POTASSIUM SERUM 3.1 MEQ/L (3.5-5.1); SODIUM LEVEL 143 MEQ/L (136-145); TOTAL PROTEIN 5.4 GM/DL (6.4-8.2)
[2017-09-16] MEDS: KETOROLAC 30 MG/ML VIAL (J1885) IV (10:20)
[2017-09-16] MEDS: PANTOPRAZOLE 40MG INJ (PROTONIX) (C9113) IV (10:21)
[2017-09-16] MEDS: sulfaSALAzine 500 MG TABEC PO (10:21)
== END 2017-09-16 11:00 | disposition home or self-care (01) | DRG 245 ==
LOC: M ED INP 09-12 00:32 → M PED 09-12 02:00 → M ED 19:02
DX: K50.919 Crohn's disease, unspecified, with unspecified complications (principal); K63.2 Fistula of intestine; K56.7 Ileus, unspecified; K52.9 Noninfective gastroenteritis and colitis, unspecified; E87.6 Hypokalemia; Z90.49 Acquired absence of other specified parts of digestive tract; Z93.2 Ileostomy status; Z87.891 Personal history of nicotine dependence; Z79.899 Other long term (current) drug therapy

== ENCOUNTER → 2017-11-17 | Outpatient (CLI) | payer MEDICAID | LOC: M OUTALCOH 13:59 | DX: F10.10 Alcohol abuse, uncomplicated (principal) ==

== ENCOUNTER 2017-11-28 09:52 | Outpatient (RCR) | payer MEDICAID | END 2017-12-10 | LOC: M OUTALCOH 09:52 | DX: F10.10 Alcohol abuse, uncomplicated (principal); F17.200 Nicotine dependence, unspecified, uncomplicated ==

== ENCOUNTER 2017-12-12 13:30 | Outpatient (RCR) | payer MEDICAID | END 2018-01-09 | LOC: M OUTALCOH 12-13 16:00 | DX: F10.10 Alcohol abuse, uncomplicated (principal); F17.200 Nicotine dependence, unspecified, uncomplicated ==

== ENCOUNTER 2018-01-17 16:00 | Outpatient (RCR) | payer MEDICAID | END 2018-02-09 | LOC: M OUTALCOH 16:00 | DX: F10.10 Alcohol abuse, uncomplicated (principal); F17.200 Nicotine dependence, unspecified, uncomplicated ==

== ENCOUNTER 2018-02-02 19:38 | Emergency (ER) | payer OTHER, MEDICAID ==
[2018-02-02 20:24] LABS: BASO % 0.2 % (0.0-1.0); EOS # 0.1 10^3/uL (0.0-0.50); EOS % 0.8 % (0.0-3.0); HEMATOCRIT 39.5 % (36.0-47.0); HEMOGLOBIN 13.4 g/dl (12.0-15.5); IMMATURE GRANULOCYTE % 0.3 % (0-3.0); LYMPH # 3.2 10^3/uL (1.5-4.5); MEAN CORPUSCULAR HEMOGLOBIN 29.5 pg (27.0-33.0); MEAN CORPUSCULAR HGB CONC 33.9 g/dl (32.0-36.5); MONO # 0.5 10^3/uL (0.0-0.8); MONO % 3.8 % (0.0-5.0); NEUTROPHILS # 8.8 10^3/uL (1.8-7.7); NEUTROPHILS % 69.9 % (36.0-66.0); PLATELET COUNT, AUTOMATED 337 10^3/uL (150-450); RED BLOOD COUNT 4.54 10^6/uL (4.00-5.40); RED CELL DISTRIBUTION WIDTH 13.5 % (11.5-14.5); WHITE BLOOD COUNT 12.6 10^3/uL (4.0-10.0)
[2018-02-02 20:49] LABS: ALBUMIN 3.6 GM/DL (3.2-5.2); ALBUMIN/GLOBULIN RATIO 0.97 (1.00-1.93); ALKALINE PHOSPHATASE 102 U/L (45-117); ALT/SGPT 23 U/L (12-78); ANION GAP 2 MEQ/L (8-16); APPEARANCE, URINE CLEAR (CLEAR); AST/SGOT 12 U/L (7-37); BACTERIA, URINE AUTO NEGATIVE (NEGATIVE); BILIRUBIN, URINE AUTO NEGATIVE (NEGATIVE); BILIRUBIN,DIRECT < 0.1 MG/DL (0.0-0.2); BILIRUBIN,TOTAL 0.2 MG/DL (0.2-1.0); BLOOD UREA NITROGEN 6 MG/DL (7-18); BLOOD, URINE BLOOD NEGATIVE (NEGATIVE); CALCIUM LEVEL 8.6 MG/DL (8.5-10.1); CARBON DIOXIDE LEVEL 32 MEQ/L (21-32); CHLORIDE LEVEL 108 MEQ/L (98-107); COLOR, URINE STRAW (YELLOW); GLOMERULAR FILTRATION RATE > 60.0 (>60); GLUCOSE, FASTING 71 MG/DL (70-100); GLUCOSE, URINE (UA) AUTO NEGATIVE (NEGATIVE); KETONE, URINE AUTO NEGATIVE (NEGATIVE); LEUKOCYTE ESTERASE, URINE AUTO NEGATIVE (NEGATIVE); LIPASE 116 U/L (73-393); NITRITE, URINE AUTO NEGATIVE (NEGATIVE); POTASSIUM SERUM 3.4 MEQ/L (3.5-5.1); PROTEIN, URINE AUTO NEGATIVE (NEGATIVE); RBC, URINE AUTO 1 /HPF (0-3); SODIUM LEVEL 142 MEQ/L (136-145); SPECIFIC GRAVITY URINE AUTO 1.002 (1.002-1.035); SQUAMOUS EPITHELIAL CELL UR AU 0 /HPF (0-6); TOTAL PROTEIN 7.3 GM/DL (6.4-8.2); UROBILINOGEN, URINE AUTO 0.2 mg/dL (0.0-2.0); WBC, URINE AUTO 0 /HPF (0-3)
[2018-02-02] MEDS ORDERED: ISOVUE-370 76% 100ML VIAL (Q9967) As Ordered (23:21)
[2018-02-02] MEDS: METOCLOPRAMIDE INJ 10MG/2ML VIAL (J2765) IV (23:30)
[2018-02-02] MEDS: NS 1,000 ML IV (23:30)
[2018-02-02 23:35] LABS: C REACTIVE PROTEIN QUANTITATIV < 0.30 MG/DL (0.00-0.30)
[2018-02-03 00:07] LABS: ERYTHROCYTE SEDIMENTATION RATE 37 mm/hr (0-20)
[2018-02-03] MEDS: MORPHINE 4 MG/ML 1ML VIAL/SYRINGE (J2270) IV (00:34)
[2018-02-03] MEDS: methylPREDNISolone INJ 125 MG/2 ML VIAL (J2930) IV (00:45)
== END 2018-02-03 01:29 | disposition short-term general hospital (02) ==
LOC: M ED 02-03 01:29
DX: K50.00 Crohn's disease of small intestine without complications (principal); K29.70 Gastritis, unspecified, without bleeding; K72.90 Hepatic failure, unspecified without coma; M54.9 Dorsalgia, unspecified; D64.9 Anemia, unspecified; F41.9 Anxiety disorder, unspecified; Z87.19 Personal history of other diseases of the digestive system; Z90.49 Acquired absence of other specified parts of digestive tract; Z72.0 Tobacco use; Z79.899 Other long term (current) drug therapy
CPT/HCPCS: J2270

== ENCOUNTER 2018-02-13 10:05 | Outpatient (RCR) | payer MEDICAID | END 2018-03-11 | LOC: M OUTALCOH 10:05 | DX: F10.10 Alcohol abuse, uncomplicated (principal); F17.200 Nicotine dependence, unspecified, uncomplicated ==

== ENCOUNTER 2018-03-20 16:45 | Emergency (ER) | payer OTHER ==
[2018-03-20 17:42] LABS: KETONE, URINE AUTO RFX TRACE mg/dL (NEGATIVE); LEUKOCYTE ESTERASE UR AUTO RFX NEGATIVE (NEGATIVE); MUCUS, URINE RFX SMALL (NEGATIVE); NITRITE, URINE AUTO RFX NEGATIVE (NEGATIVE); RBC, URINE AUTO RFX 5 /HPF (0-3); SPECIFIC GRAVITY UR AUTO RFX 1.021 (1.002-1.035); SQUAM EPITHELIAL CELL UR AURFX 1 /HPF (0-6); WBC, URINE AUTO RFX 2 /HPF (0-3)
[2018-03-20] MEDS: NS 1,000 ML IV (18:15)
[2018-03-20 18:21] LABS: CONTROL LINE UCG INT CTR LINE PRESENT; URINE PREG TEST NEGATIVE (NEGATIVE)
[2018-03-20 18:44] LABS: BASO % 0.3 % (0.0-1.0); EOS # 0.1 10^3/uL (0.0-0.50); EOS % 0.8 % (0.0-3.0); HEMATOCRIT 41.8 % (36.0-47.0); HEMOGLOBIN 13.7 g/dl (12.0-15.5); IMMATURE GRANULOCYTE % 0.3 % (0-3.0); LYMPH # 2.8 10^3/uL (1.5-4.5); LYMPH % 26.2 % (24.0-44.0); MEAN CORPUSCULAR HEMOGLOBIN 29.4 pg (27.0-33.0); MEAN CORPUSCULAR HGB CONC 32.8 g/dl (32.0-36.5); MEAN CORPUSCULAR VOLUME 89.7 fl (80.0-96.0); MONO # 0.5 10^3/uL (0.0-0.8); MONO % 4.6 % (0.0-5.0); NEUTROPHILS # 7.2 10^3/uL (1.8-7.7); NEUTROPHILS % 67.8 % (36.0-66.0); PLATELET COUNT, AUTOMATED 360 10^3/uL (150-450); RED BLOOD COUNT 4.66 10^6/uL (4.00-5.40); RED CELL DISTRIBUTION WIDTH 13.4 % (11.5-14.5); WHITE BLOOD COUNT 10.6 10^3/uL (4.0-10.0)
[2018-03-20] MEDS: MORPHINE 4 MG/ML 1ML VIAL/SYRINGE (J2270) IV (18:47)
[2018-03-20] MEDS: GASTROGRAFIN SOLUTION 30ML PO ×2 (18:47→19:15)
[2018-03-20] MEDS: ONDANSETRON 4MG/2ML VIAL (J2405) IV (18:48)
[2018-03-20 19:08] LABS: ERYTHROCYTE SEDIMENTATION RATE 39 mm/hr (0-20)
[2018-03-20 19:11] LABS: ALBUMIN 3.4 GM/DL (3.2-5.2); ALBUMIN/GLOBULIN RATIO 0.77 (1.00-1.93); ALKALINE PHOSPHATASE 108 U/L (45-117); ALT/SGPT 18 U/L (12-78); ANION GAP 5 MEQ/L (8-16); AST/SGOT 10 U/L (7-37); BILIRUBIN,DIRECT < 0.1 MG/DL (0.0-0.2); BILIRUBIN,TOTAL 0.2 MG/DL (0.2-1.0); BLOOD UREA NITROGEN 5 MG/DL (7-18); CALCIUM LEVEL 8.8 MG/DL (8.5-10.1); CARBON DIOXIDE LEVEL 29 MEQ/L (21-32); CHLORIDE LEVEL 106 MEQ/L (98-107); CREATININE FOR GFR 0.66 MG/DL (0.55-1.30); GLOMERULAR FILTRATION RATE > 60.0 (>60); GLUCOSE, FASTING 79 MG/DL (70-100); LIPASE 83 U/L (73-393); POTASSIUM SERUM 3.5 MEQ/L (3.5-5.1); SODIUM LEVEL 140 MEQ/L (136-145); TOTAL PROTEIN 7.8 GM/DL (6.4-8.2)
[2018-03-20] MEDS ORDERED: ISOVUE-370 76% 100ML VIAL (Q9967) As Ordered (20:06)
[2018-03-20] MEDS: KETOROLAC 30 MG/ML VIAL (J1885) IV (20:59)
[2018-03-20] MEDS: HYDROMORPHONE HCL 0.5 MG/ 0.5 ML SYRINGE (J1170 PER 1) IV (21:42)
[2018-03-20] MEDS: methylPREDNISolone INJ 125 MG/2 ML VIAL (J2930) IV (21:50)
== END 2018-03-20 22:37 | disposition home or self-care (01) ==
LOC: M ED 16:45
DX: K50.10 Crohn's disease of large intestine without complications (principal); K50.00 Crohn's disease of small intestine without complications; R10.9 Unspecified abdominal pain; L03.311 Cellulitis of abdominal wall; F41.9 Anxiety disorder, unspecified; Z72.0 Tobacco use; Z79.899 Other long term (current) drug therapy
CPT/HCPCS: J2270

== ENCOUNTER 2018-03-28 16:31 | Outpatient (RCR) | payer MEDICAID | END 2018-04-11 | LOC: M OUTALCOH 16:31 | DX: F10.10 Alcohol abuse, uncomplicated (principal); F17.200 Nicotine dependence, unspecified, uncomplicated ==

== ENCOUNTER 2018-04-11 16:28 | Inpatient (IN) | payer OTHER ==
[2018-04-11 17:23] LABS: BASO % 0.2 % (0.0-1.0); EOS % 0.2 % (0.0-3.0); HEMATOCRIT 38.6 % (36.0-47.0); HEMOGLOBIN 12.6 g/dl (12.0-15.5); IMMATURE GRANULOCYTE % 0.5 % (0-3.0); LYMPH # 1.9 10^3/uL (1.5-4.5); LYMPH % 15.4 % (24.0-44.0); MEAN CORPUSCULAR HEMOGLOBIN 29.4 pg (27.0-33.0); MEAN CORPUSCULAR HGB CONC 32.6 g/dl (32.0-36.5); MEAN CORPUSCULAR VOLUME 90.2 fl (80.0-96.0); MONO % 8.3 % (0.0-5.0); NEUTROPHILS # 9.4 10^3/uL (1.8-7.7); NEUTROPHILS % 75.4 % (36.0-66.0); PLATELET COUNT, AUTOMATED 426 10^3/uL (150-450); RED BLOOD COUNT 4.28 10^6/uL (4.00-5.40); RED CELL DISTRIBUTION WIDTH 14.2 % (11.5-14.5); WHITE BLOOD COUNT 12.5 10^3/uL (4.0-10.0)
[2018-04-11] MEDS: KETOROLAC 30 MG/ML VIAL (J1885) IV (17:34)
[2018-04-11] MEDS: NS 1,000 ML IV ×2 (17:34→20:00)
[2018-04-11] MEDS: DICYCLOMINE INJ 20MG/2ML (J0500) IM (17:35)
[2018-04-11] MEDS: GASTROGRAFIN SOLUTION 30ML PO ×2 (17:45→18:20)
[2018-04-11 17:47] LABS: ERYTHROCYTE SEDIMENTATION RATE 61 mm/hr (0-20)
[2018-04-11 17:49] LABS: APPEARANCE, URINE CLEAR (CLEAR); BACTERIA, URINE AUTO 1+ (NEGATIVE); BILIRUBIN, URINE AUTO NEGATIVE (NEGATIVE); BLOOD, URINE BLOOD NEGATIVE (NEGATIVE); COLOR, URINE YELLOW (YELLOW); GLUCOSE, URINE (UA) AUTO NEGATIVE (NEGATIVE); KETONE, URINE AUTO NEGATIVE (NEGATIVE); LEUKOCYTE ESTERASE, URINE AUTO NEGATIVE (NEGATIVE); NITRITE, URINE AUTO NEGATIVE (NEGATIVE); PROTEIN, URINE AUTO NEGATIVE (NEGATIVE); RBC, URINE AUTO 1 /HPF (0-3); SPECIFIC GRAVITY URINE AUTO 1.005 (1.002-1.035); SQUAMOUS EPITHELIAL CELL UR AU 0 /HPF (0-6); UROBILINOGEN, URINE AUTO 0.2 mg/dL (0.0-2.0); WBC, URINE AUTO 0 /HPF (0-3)
[2018-04-11 17:52] LABS: ALBUMIN 2.7 GM/DL (3.2-5.2); ALBUMIN/GLOBULIN RATIO 0.66 (1.00-1.93); ALKALINE PHOSPHATASE 91 U/L (45-117); ALT/SGPT 17 U/L (12-78); AMYLASE 27 U/L (25-115); ANION GAP 8 MEQ/L (8-16); AST/SGOT 13 U/L (7-37); BILIRUBIN,TOTAL 0.4 MG/DL (0.2-1.0); BLOOD UREA NITROGEN 9 MG/DL (7-18); CALCIUM LEVEL 8.4 MG/DL (8.5-10.1); CARBON DIOXIDE LEVEL 30 MEQ/L (21-32); CHLORIDE LEVEL 100 MEQ/L (98-107); CREATININE FOR GFR 0.63 MG/DL (0.55-1.30); GLOMERULAR FILTRATION RATE > 60.0 (>60); GLUCOSE, FASTING 88 MG/DL (70-100); LIPASE 51 U/L (73-393); POTASSIUM SERUM 3.5 MEQ/L (3.5-5.1); SODIUM LEVEL 138 MEQ/L (136-145); TOTAL PROTEIN 6.8 GM/DL (6.4-8.2)
[2018-04-11] MEDS: HYDROMORPHONE HCL 0.5 MG/ 0.5 ML SYRINGE (J1170 PER 1) IV ×3 (17:57→22:17)
[2018-04-11] MEDS ORDERED: ISOVUE-370 76% 100ML VIAL (Q9967) As Ordered (19:18)
[2018-04-11] MEDS: methylPREDNISolone INJ 125 MG/2 ML VIAL (J2930) IV (21:49)
[2018-04-12] MEDS ORDERED: ONDANSETRON 4 MG ORAL DISINTEGRATING TAB (Q0162 PER 1MG) PO (00:15)
[2018-04-12] MEDS ORDERED: ACETAMINOPHEN 500 MG TAB PO (00:15)
[2018-04-12] MEDS: DICYCLOMINE INJ 20MG/2ML (J0500) IM ×2 (00:18→19:00)
[2018-04-12] MEDS: NS 1,000 ML IV ×4 (00:19→23:41)
[2018-04-12] MEDS: MORPHINE 4 MG/ML 1ML VIAL/SYRINGE (J2270) IV ×5 (02:18→21:11)
[2018-04-12] MEDS: methylPREDNISolone INJ 40 MG/1 ML VIAL (J2920) IV ×3 (08:57→21:11)
[2018-04-12] MEDS: CIPROFLOXACIN 400 MG in APPROPRIATE DILUENT 1 EA IV (17:37)
[2018-04-12 18:15] LABS: HEPATITIS B SURFACE ANTIBODY POSITIVE (POSITIVE); VITAMIN B12 LEVEL 303 PG/ML (247-911)
[2018-04-12 18:25] LABS: HEPATITIS B SURFACE ANTIGEN NEGATIVE (NEGATIVE)
[2018-04-12] MEDS: KETOROLAC 30 MG/ML VIAL (J1885) IV (18:32)
[2018-04-12] MEDS: metroNIDAZOLE 500 MG in APPROPRIATE DILUENT 1 EA IV (18:32)
[2018-04-13] MEDS: metroNIDAZOLE 500 MG in APPROPRIATE DILUENT 1 EA IV ×3 (01:25→18:45)
[2018-04-13] MEDS: MORPHINE 4 MG/ML 1ML VIAL/SYRINGE (J2270) IV ×6 (01:25→23:27)
[2018-04-13] MEDS: CIPROFLOXACIN 400 MG in APPROPRIATE DILUENT 1 EA IV ×2 (05:18→17:25)
[2018-04-13] MEDS: methylPREDNISolone INJ 40 MG/1 ML VIAL (J2920) IV ×3 (09:34→20:16)
[2018-04-13] MEDS: KETOROLAC 30 MG/ML VIAL (J1885) IV (15:27)
[2018-04-13] MEDS: NS 1,000 ML IV (15:27)
[2018-04-13] MEDS ORDERED: DICYCLOMINE INJ 20MG/2ML (J0500) IM (17:30)
[2018-04-14] MEDS: NS 1,000 ML IV ×2 (00:27→13:21)
[2018-04-14] MEDS: metroNIDAZOLE 500 MG in APPROPRIATE DILUENT 1 EA IV ×3 (01:36→17:18)
[2018-04-14] MEDS: MORPHINE 4 MG/ML 1ML VIAL/SYRINGE (J2270) IV ×5 (03:39→22:05)
[2018-04-14] MEDS: CIPROFLOXACIN 400 MG in APPROPRIATE DILUENT 1 EA IV ×2 (04:43→16:07)
[2018-04-14 05:56] LABS: HEMATOCRIT 31.8 % (36.0-47.0); HEMOGLOBIN 10.2 g/dl (12.0-15.5); IMMATURE GRANULOCYTE % 0.8 % (0-3.0); LYMPH # 1.4 10^3/uL (1.5-4.5); LYMPH % 21.9 % (24.0-44.0); MEAN CORPUSCULAR HGB CONC 32.1 g/dl (32.0-36.5); MEAN CORPUSCULAR VOLUME 90.3 fl (80.0-96.0); MONO # 0.5 10^3/uL (0.0-0.8); MONO % 7.6 % (0.0-5.0); NEUTROPHILS # 4.3 10^3/uL (1.8-7.7); NEUTROPHILS % 69.7 % (36.0-66.0); PLATELET COUNT, AUTOMATED 392 10^3/uL (150-450); RED BLOOD COUNT 3.52 10^6/uL (4.00-5.40); RED CELL DISTRIBUTION WIDTH 14.5 % (11.5-14.5); WHITE BLOOD COUNT 6.2 10^3/uL (4.0-10.0)
[2018-04-14 06:10] LABS: ANION GAP 7 MEQ/L (8-16); BLOOD UREA NITROGEN 15 MG/DL (7-18); C REACTIVE PROTEIN QUANTITATIV 1.85 MG/DL (0.00-0.30); CALCIUM LEVEL 7.9 MG/DL (8.5-10.1); CARBON DIOXIDE LEVEL 25 MEQ/L (21-32); CHLORIDE LEVEL 113 MEQ/L (98-107); CREATININE FOR GFR 0.52 MG/DL (0.55-1.30); GLOMERULAR FILTRATION RATE > 60.0 (>60); GLUCOSE, FASTING 165 MG/DL (70-100); POTASSIUM SERUM 3.7 MEQ/L (3.5-5.1); SODIUM LEVEL 145 MEQ/L (136-145)
[2018-04-14] MEDS ORDERED: VoLumen 0.1% SUSPENSION 450ML BOTTLE As Ordered (08:27)
[2018-04-14] MEDS ORDERED: ISOVUE-370 76% 100ML VIAL (Q9967) As Ordered (08:28)
[2018-04-14] MEDS ORDERED: GLUCAGON FOR INJ 1 MG VIAL (J1610) As Ordered (09:14)
[2018-04-14] MEDS: methylPREDNISolone INJ 40 MG/1 ML VIAL (J2920) IV ×3 (10:04→20:10)
[2018-04-14] MEDS: ENOXAPARIN 40 MG/0.4 ML SYRINGE (J1650) SC (13:21)
[2018-04-14] MEDS: MIRALAX *UNIT DOSE* 17GM PACKET PO (20:10)
[2018-04-14] MEDS: KETOROLAC 30 MG/ML VIAL (J1885) IV (20:10)
[2018-04-14] MEDS: FAMOTIDINE 20 MG TAB PO (20:10)
[2018-04-15] MEDS: NS 1,000 ML IV ×3 (01:01→18:01)
[2018-04-15] MEDS: metroNIDAZOLE 500 MG in APPROPRIATE DILUENT 1 EA IV ×3 (01:05→18:53)
[2018-04-15] MEDS: CIPROFLOXACIN 400 MG in APPROPRIATE DILUENT 1 EA IV ×2 (04:12→17:18)
[2018-04-15] MEDS: KETOROLAC 30 MG/ML VIAL (J1885) IV ×2 (04:54→17:19)
[2018-04-15 06:08] LABS: BASO % 0.1 % (0.0-1.0); HEMATOCRIT 33.6 % (36.0-47.0); HEMOGLOBIN 10.6 g/dl (12.0-15.5); IMMATURE GRANULOCYTE % 0.8 % (0-3.0); LYMPH # 1.7 10^3/uL (1.5-4.5); LYMPH % 22.3 % (24.0-44.0); MEAN CORPUSCULAR HEMOGLOBIN 28.7 pg (27.0-33.0); MEAN CORPUSCULAR HGB CONC 31.5 g/dl (32.0-36.5); MEAN CORPUSCULAR VOLUME 91.1 fl (80.0-96.0); MONO # 0.5 10^3/uL (0.0-0.8); MONO % 7.1 % (0.0-5.0); NEUTROPHILS # 5.2 10^3/uL (1.8-7.7); NEUTROPHILS % 69.7 % (36.0-66.0); PLATELET COUNT, AUTOMATED 375 10^3/uL (150-450); RED BLOOD COUNT 3.69 10^6/uL (4.00-5.40); RED CELL DISTRIBUTION WIDTH 14.4 % (11.5-14.5); WHITE BLOOD COUNT 7.4 10^3/uL (4.0-10.0)
[2018-04-15 06:29] LABS: ANION GAP 7 MEQ/L (8-16); BLOOD UREA NITROGEN 9 MG/DL (7-18); CALCIUM LEVEL 7.6 MG/DL (8.5-10.1); CARBON DIOXIDE LEVEL 25 MEQ/L (21-32); CHLORIDE LEVEL 111 MEQ/L (98-107); CREATININE FOR GFR 0.48 MG/DL (0.55-1.30); GLOMERULAR FILTRATION RATE > 60.0 (>60); GLUCOSE, FASTING 142 MG/DL (70-100); POTASSIUM SERUM 3.7 MEQ/L (3.5-5.1); SODIUM LEVEL 143 MEQ/L (136-145)
[2018-04-15 08:09] LABS: QUANTIFERON GOLD TB Negative (Negative); TB Test (QFT) Antigen 0.04 IU/mL (.); TB Test (QFT) Mitogen 7.25 IU/mL (.); TB Test (QFT) Nil 0.04 IU/mL (.)
[2018-04-15] MEDS: methylPREDNISolone INJ 40 MG/1 ML VIAL (J2920) IV ×3 (09:20→20:46)
[2018-04-15] MEDS: ENOXAPARIN 40 MG/0.4 ML SYRINGE (J1650) SC (09:20)
[2018-04-15] MEDS: MORPHINE 4 MG/ML 1ML VIAL/SYRINGE (J2270) IV ×4 (09:21→23:00)
[2018-04-15] MEDS: FAMOTIDINE 20 MG TAB PO ×2 (09:21→20:48)
[2018-04-15] MEDS: MIRALAX *UNIT DOSE* 17GM PACKET PO ×2 (09:21→20:46)
[2018-04-15] MEDS ORDERED: ISOVUE-370 76% 100ML VIAL (Q9967) As Ordered (11:36)
[2018-04-16] MEDS: NS 1,000 ML IV (00:55)
[2018-04-16] MEDS: metroNIDAZOLE 500 MG in APPROPRIATE DILUENT 1 EA IV ×2 (01:53→08:51)
[2018-04-16] MEDS: MORPHINE 4 MG/ML 1ML VIAL/SYRINGE (J2270) IV ×2 (03:34→08:52)
[2018-04-16] MEDS: CIPROFLOXACIN 400 MG in APPROPRIATE DILUENT 1 EA IV (05:25)
[2018-04-16] MEDS: KETOROLAC 30 MG/ML VIAL (J1885) IV (05:25)
[2018-04-16 06:03] LABS: BASO % 0.1 % (0.0-1.0); HEMATOCRIT 33.9 % (36.0-47.0); IMMATURE GRANULOCYTE % 1.3 % (0-3.0); LYMPH # 1.3 10^3/uL (1.5-4.5); LYMPH % 13.4 % (24.0-44.0); MEAN CORPUSCULAR HEMOGLOBIN 29.3 pg (27.0-33.0); MEAN CORPUSCULAR HGB CONC 32.4 g/dl (32.0-36.5); MEAN CORPUSCULAR VOLUME 90.4 fl (80.0-96.0); MONO # 0.6 10^3/uL (0.0-0.8); NEUTROPHILS # 7.4 10^3/uL (1.8-7.7); NEUTROPHILS % 79.2 % (36.0-66.0); PLATELET COUNT, AUTOMATED 425 10^3/uL (150-450); RED BLOOD COUNT 3.75 10^6/uL (4.00-5.40); RED CELL DISTRIBUTION WIDTH 14.2 % (11.5-14.5); WHITE BLOOD COUNT 9.4 10^3/uL (4.0-10.0)
[2018-04-16 06:36] LABS: ALBUMIN/GLOBULIN RATIO 0.61 (1.00-1.93); ALKALINE PHOSPHATASE 53 U/L (45-117); ALT/SGPT 12 U/L (12-78); ANION GAP 6 MEQ/L (8-16); AST/SGOT 4 U/L (7-37); BILIRUBIN,TOTAL 0.1 MG/DL (0.2-1.0); BLOOD UREA NITROGEN 9 MG/DL (7-18); CARBON DIOXIDE LEVEL 27 MEQ/L (21-32); CHLORIDE LEVEL 110 MEQ/L (98-107); CREATININE FOR GFR 0.49 MG/DL (0.55-1.30); GLOMERULAR FILTRATION RATE > 60.0 (>60); GLUCOSE, FASTING 131 MG/DL (70-100); POTASSIUM SERUM 3.8 MEQ/L (3.5-5.1); SODIUM LEVEL 143 MEQ/L (136-145); TOTAL PROTEIN 5.3 GM/DL (6.4-8.2)
[2018-04-16] MEDS: ENOXAPARIN 40 MG/0.4 ML SYRINGE (J1650) SC (08:51)
[2018-04-16] MEDS: methylPREDNISolone INJ 40 MG/1 ML VIAL (J2920) IV (08:51)
[2018-04-16] MEDS: MIRALAX *UNIT DOSE* 17GM PACKET PO (08:51)
[2018-04-16] MEDS: FAMOTIDINE 20 MG TAB PO (08:51)
== END 2018-04-16 12:46 | disposition home or self-care (01) | DRG 245 ==
LOC: M ED INP 16:29 → M ED 16:28 → M MS4PR 04-12 01:49 → M MSPAV 04-13 15:17
DX: K50.013 Crohn's disease of small intestine with fistula (principal); J90 Pleural effusion, not elsewhere classified; K56.600 Partial intestinal obstruction, unspecified as to cause; E05.00 Thyrotoxicosis with diffuse goiter without thyrotoxic crisis or storm; Z91.14 Patient's other noncompliance with medication regimen; F17.200 Nicotine dependence, unspecified, uncomplicated; Z79.899 Other long term (current) drug therapy

== ENCOUNTER → 2018-04-24 | Outpatient (CLI) | payer OTHER | LOC: M LAB 11:45 | DX: J90 Pleural effusion, not elsewhere classified (principal) | CPT/HCPCS: 71046 ==

== ENCOUNTER 2018-05-01 13:37 | Outpatient (CLI) | payer OTHER ==
[2018-05-01] MEDS: VEDOLIZUMAB 300 MG in NS 250 ML IV (14:05)
== END 2018-05-01 15:55 | disposition home or self-care (01) ==
LOC: M INFU 13:37
DX: K50.90 Crohn's disease, unspecified, without complications (principal); F17.210 Nicotine dependence, cigarettes, uncomplicated; Z88.8 Allergy status to other drugs, medicaments and biological substances; Z79.899 Other long term (current) drug therapy; Z79.2 Long term (current) use of antibiotics; Z79.52 Long term (current) use of systemic steroids; Z80.0 Family history of malignant neoplasm of digestive organs
CPT/HCPCS: J3380

== ENCOUNTER 2018-05-16 07:13 | Outpatient (CLI) | payer OTHER ==
[2018-05-16] MEDS: VEDOLIZUMAB 300 MG in NS 250 ML IV (08:24)
== END 2018-05-16 10:25 | disposition home or self-care (01) ==
LOC: M INFU 07:13
DX: K50.90 Crohn's disease, unspecified, without complications (principal); Z88.8 Allergy status to other drugs, medicaments and biological substances
CPT/HCPCS: J3380

== ENCOUNTER → 2018-05-22 | Outpatient (CLI) | payer OTHER | LOC: M RAD 16:53 | DX: J90 Pleural effusion, not elsewhere classified (principal) | CPT/HCPCS: 71046 ==

== ENCOUNTER 2018-06-12 10:12 | Outpatient (CLI) | payer OTHER ==
[2018-06-12] MEDS: VEDOLIZUMAB 300 MG in NS 250 ML IV (10:58)
== END 2018-06-12 12:15 | disposition home or self-care (01) ==
LOC: M INFU 10:12
DX: K50.90 Crohn's disease, unspecified, without complications (principal); Z88.8 Allergy status to other drugs, medicaments and biological substances
CPT/HCPCS: J3380

== ENCOUNTER → 2018-06-16 | Outpatient (CLI) | payer OTHER ==
[2018-06-16 15:20] LABS: BASO % 0.1 % (0.0-1.0); EOS % 0.1 % (0.0-3.0); HEMATOCRIT 34.6 % (36.0-47.0); HEMOGLOBIN 9.9 g/dl (12.0-15.5); LYMPH # 1.3 10^3/uL (1.5-4.5); LYMPH % 8.3 % (24.0-44.0); MEAN CORPUSCULAR HEMOGLOBIN 24.1 pg (27.0-33.0); MEAN CORPUSCULAR HGB CONC 28.6 g/dl (32.0-36.5); MEAN CORPUSCULAR VOLUME 84.2 fl (80.0-96.0); MONO # 0.1 10^3/uL (0.0-0.8); MONO % 0.8 % (0.0-5.0); NEUTROPHILS # 14.2 10^3/uL (1.8-7.7); NEUTROPHILS % 89.7 % (36.0-66.0); PLATELET COUNT, AUTOMATED 541 10^3/uL (150-450); RED BLOOD COUNT 4.11 10^6/uL (4.00-5.40); RED CELL DISTRIBUTION WIDTH 16.8 % (11.5-14.5); WHITE BLOOD COUNT 15.8 10^3/uL (4.0-10.0)
[2018-06-16 15:45] LABS: ALBUMIN/GLOBULIN RATIO 0.88 (1.00-1.93); ALKALINE PHOSPHATASE 72 U/L (45-117); ALT/SGPT 15 U/L (12-78); ANION GAP 8 MEQ/L (8-16); AST/SGOT 6 U/L (7-37); BILIRUBIN,TOTAL 0.2 MG/DL (0.2-1.0); BLOOD UREA NITROGEN 15 MG/DL (7-18); C REACTIVE PROTEIN QUANTITATIV < 0.30 MG/DL (0.00-0.30); CALCIUM LEVEL 8.8 MG/DL (8.5-10.1); CARBON DIOXIDE LEVEL 29 MEQ/L (21-32); CHLORIDE LEVEL 107 MEQ/L (98-107); CREATININE FOR GFR 0.74 MG/DL (0.55-1.30); GLOMERULAR FILTRATION RATE > 60.0 (>60); GLUCOSE, FASTING 130 MG/DL (70-100); POTASSIUM SERUM 4.1 MEQ/L (3.5-5.1); SODIUM LEVEL 144 MEQ/L (136-145); TOTAL PROTEIN 6.4 GM/DL (6.4-8.2)
== END ==
LOC: M LAB 14:38
DX: K50.013 Crohn's disease of small intestine with fistula (principal); K50.018 Crohn's disease of small intestine with other complication
CPT/HCPCS: 80053

== ENCOUNTER → 2018-08-07 | Outpatient (CLI) | payer OTHER ==
[2018-08-07 12:47] LABS: BASO % 0.2 % (0.0-1.0); EOS % 0.1 % (0.0-3.0); HEMATOCRIT 33.1 % (36.0-47.0); HEMOGLOBIN 9.5 g/dl (12.0-15.5); LYMPH # 1.7 10^3/uL (1.5-4.5); MEAN CORPUSCULAR HEMOGLOBIN 21.5 pg (27.0-33.0); MEAN CORPUSCULAR HGB CONC 28.7 g/dl (32.0-36.5); MEAN CORPUSCULAR VOLUME 75.1 fl (80.0-96.0); MONO # 0.4 10^3/uL (0.0-0.8); MONO % 1.9 % (0.0-5.0); NEUTROPHILS # 16.3 10^3/uL (1.8-7.7); NEUTROPHILS % 87.8 % (36.0-66.0); PLATELET COUNT, AUTOMATED 485 10^3/uL (150-450); RED BLOOD COUNT 4.41 10^6/uL (4.00-5.40); RED CELL DISTRIBUTION WIDTH 18.2 % (11.5-14.5); WHITE BLOOD COUNT 18.5 10^3/uL (4.0-10.0)
[2018-08-07 13:17] LABS: ALBUMIN 2.8 GM/DL (3.2-5.2); ALBUMIN/GLOBULIN RATIO 0.82 (1.00-1.93); ALKALINE PHOSPHATASE 63 U/L (45-117); ALT/SGPT 17 U/L (12-78); ANION GAP 9 MEQ/L (8-16); AST/SGOT 11 U/L (7-37); BILIRUBIN,TOTAL < 0.1 MG/DL (0.2-1.0); BLOOD UREA NITROGEN 14 MG/DL (7-18); C REACTIVE PROTEIN QUANTITATIV 0.32 MG/DL (0.00-0.30); CALCIUM LEVEL 8.7 MG/DL (8.5-10.1); CARBON DIOXIDE LEVEL 26 MEQ/L (21-32); CHLORIDE LEVEL 107 MEQ/L (98-107); CREATININE FOR GFR 0.76 MG/DL (0.55-1.30); GLOMERULAR FILTRATION RATE > 60.0 (>60); GLUCOSE, FASTING 96 MG/DL (70-100); POTASSIUM SERUM 4.1 MEQ/L (3.5-5.1); SODIUM LEVEL 142 MEQ/L (136-145); TOTAL PROTEIN 6.2 GM/DL (6.4-8.2)
== END ==
LOC: M LAB 11:35
DX: K50.013 Crohn's disease of small intestine with fistula (principal)
CPT/HCPCS: 80053

== ENCOUNTER → 2018-08-29 | Outpatient (CLI) | payer OTHER ==
[~2018-08-29] MED LIST changes: +ACET-683 PO; +APAP500T10 PO; +BACT800T5 PO; +CIPR500T3 PO; +DULC10SU2 PR; +FAMO20TA PO; +GASTROGRAFIN SOLUTION 30ML (Q9963) As Ordered ONE; +ISOVUE-370 76% 100ML VIAL (Q9967) As Ordered ONE; +ONDA4TAB6 PO; +OXYCO5TA PO; +PERC5TAB12 PO; +REGL10TA6 PO; +SUBO8MIS SL; +SULF50TA PO; +TYLE500T78 PO; -VITA1CAP40 PO; +VITA50005 PO; -ZOFR20TA PO; +ZOFR4TAB14 SL; +ZOFR4TAB16 PO
--- NOTE | 2018-09-01 10:01 | REP ---
Clinical: Abdominal pain with history of Crohn disease and fistula. Technique: Axial contrast enhanced images from the lung bases to the pubic symphysis using oral (per protocol) and 100 ml Isovue 370 intravenous contrast material with precontrast images of the abdomen as well as coronal and sagittal re-formations. Comparison: 04/14/2018. Findings: Lung bases are clear and the previously noted pleural effusion and atelectasis has resolved. Visualized heart and pericardium normal. The patient is again noted to be status post right anterior abdominal wall ostomy with subtle stable chronic inflammatory changes in the underlying subcutaneous tissue. Mural enhancement to the colon with subtle pericolonic stranding suggests acute infectious/inflammatory changes. There is no evidence for bowel obstruction and no significant free air or drainable collection/abscess identified. No obvious fistula is appreciated and no extraluminal fluid or contrast collection is identified. Liver, spleen, pancreas, bilateral adrenal glands and kidneys are relatively normal / stable 2 mm nonobstructing right renal calculus and 1.2 cm left renal cyst identified. The pelvis demonstrates normal bladder and age-appropriate uterus/adnexa. No pelvic fluid or ascites. No free air. Scattered sub centimeter mesenteric lymph nodes are suggested and likely reactive. Abdominal aorta and vasculature without aneurysm or dissection. Osseous structures are intact. Impression: 1. Mural enhancement to the colon suggests an acute infectious/inflammatory colitis likely related to the patient's known inflammatory bowel disease. No evidence for bowel obstruction or perforation. No drainable collection or extraluminal fluid identified. 2. 2 mm nonobstructing right renal calculus and 1.2 cm left renal cyst. 3. The previously noted right pleural effusion and atelectasis resolved. 4. Ostomy and postsurgical changes again noted. Electronically Signed by Darci Devine MD 09/01/2018 09:53 A
== END ==
LOC: M RAD 09:48
PROVIDERS: ATTEND Internal Medicine Gastroenterology
DX: K50.013 Crohn's disease of small intestine with fistula (principal); N20.0 Calculus of kidney; N28.1 Cyst of kidney, acquired
CPT/HCPCS: 74178; Q9963; Q9967

== ENCOUNTER → 2018-10-09 | Outpatient (CLI) | payer OTHER ==
[~2018-10-09] MED LIST changes: -GASTROGRAFIN SOLUTION 30ML (Q9963) As Ordered ONE; -ISOVUE-370 76% 100ML VIAL (Q9967) As Ordered ONE; -NICO21DI5 TD; +NICO21DI6 TD
[2018-10-09 13:17] LABS: BASO % 0.3 % (0.0-1.0); EOS % 0.1 % (0.0-3.0); HEMATOCRIT 35.1 % (36.0-47.0); HEMOGLOBIN 10.1 g/dl (12.0-15.5); LYMPH % 6.5 % (24.0-44.0); MEAN CORPUSCULAR HGB CONC 28.8 g/dl (32.0-36.5); MEAN CORPUSCULAR VOLUME 76.3 fl (80.0-96.0); MONO # 0.2 10^3/uL (0.0-0.8); NEUTROPHILS # 14.2 10^3/uL (1.8-7.7); NEUTROPHILS % 91.5 % (36.0-66.0); PLATELET COUNT, AUTOMATED 384 10^3/uL (150-450); WHITE BLOOD COUNT 15.6 10^3/uL (4.0-10.0)
[2018-10-09 13:40] LABS: ALBUMIN 3.3 GM/DL (3.2-5.2); ALT/SGPT 12 U/L (12-78); BILIRUBIN,TOTAL 0.3 MG/DL (0.2-1.0); BLOOD UREA NITROGEN 14 MG/DL (7-18); CALCIUM LEVEL 9.4 MG/DL (8.5-10.1); CARBON DIOXIDE LEVEL 28 MEQ/L (21-32); CHLORIDE LEVEL 102 MEQ/L (98-107); CREATININE FOR GFR 0.67 MG/DL (0.55-1.30); GLOMERULAR FILTRATION RATE > 60.0 (>60); GLUCOSE, FASTING 107 MG/DL (70-100); IRON (FE) 40 UG/DL (50-170); PERCENT SATURATION 9.5 % (13.2-45.0); POTASSIUM SERUM 4.3 MEQ/L (3.5-5.1); SODIUM LEVEL 138 MEQ/L (136-145); TOTAL IRON BINDING CAPACITY 419 UG/DL (250-450); TOTAL PROTEIN 6.9 GM/DL (6.4-8.2)
[2018-10-10 07:34] LABS: VITAMIN B12 LEVEL 410 PG/ML (232-1245)
[2018-10-12 09:50] LABS: 6-TGN 347 (230-400)
== END ==
LOC: M LAB 12:10
PROVIDERS: ATTEND Internal Medicine Gastroenterology
DX: K50.013 Crohn's disease of small intestine with fistula (principal); K50.012 Crohn's disease of small intestine with intestinal obstruction

== ENCOUNTER 2018-10-22 07:57 | Emergency (ER) | payer OTHER ==
[~2018-10-22] VITALS: Ht 160 cm; Wt 59.1 kg
[2018-10-22] MEDS ORDERED: LEVO500T3 (08:04)
[2018-10-22] MEDS ORDERED: PRED20TA PO (08:04)
[2018-10-22] MEDS ORDERED: KETOROLAC 30 MG/ML VIAL (J1885) IV ONE (08:30)
[2018-10-22 08:35] LABS: BASO % 0.3 % (0.0-1.0); EOS # 0.1 10^3/uL (0.0-0.50); EOS % 0.7 % (0.0-3.0); HEMATOCRIT 31.7 % (36.0-47.0); HEMOGLOBIN 9.7 g/dl (12.0-15.5); LYMPH # 2.6 10^3/uL (1.5-4.5); MEAN CORPUSCULAR HGB CONC 30.6 g/dl (32.0-36.5); MEAN CORPUSCULAR VOLUME 78.3 fl (80.0-96.0); MONO # 0.5 10^3/uL (0.0-0.8); NEUTROPHILS # 4.5 10^3/uL (1.8-7.7); NEUTROPHILS % 58.3 % (36.0-66.0); PLATELET COUNT, AUTOMATED 504 10^3/uL (150-450); RED BLOOD COUNT 4.05 10^6/uL (4.00-5.40); WHITE BLOOD COUNT 7.6 10^3/uL (4.0-10.0)
[2018-10-22] MEDS: GASTROGRAFIN SOLUTION 30ML PO SCH ×2 (09:16→09:28)
[2018-10-22 09:17] LABS: ALBUMIN 2.6 GM/DL (3.2-5.2); ALT/SGPT 10 U/L (12-78); BILIRUBIN,DIRECT < 0.1 MG/DL (0.0-0.2); BILIRUBIN,TOTAL 0.3 MG/DL (0.2-1.0); BLOOD UREA NITROGEN 8 MG/DL (7-18); CALCIUM LEVEL 8.7 MG/DL (8.5-10.1); CARBON DIOXIDE LEVEL 26 MEQ/L (21-32); CHLORIDE LEVEL 101 MEQ/L (98-107); CREATININE FOR GFR 0.57 MG/DL (0.55-1.30); GLOMERULAR FILTRATION RATE > 60.0 (>60); GLUCOSE, FASTING 107 MG/DL (70-100); LIPASE 44 U/L (73-393); POTASSIUM SERUM 3.6 MEQ/L (3.5-5.1); SODIUM LEVEL 134 MEQ/L (136-145); TOTAL PROTEIN 6.9 GM/DL (6.4-8.2)
[2018-10-22 09:28] LABS: HCG, SERUM QUALITATIVE NEGATIVE (NEGATIVE)
[2018-10-22] MEDS ORDERED: ISOVUE-370 76% 100ML VIAL (Q9967) As Ordered ONE (10:34)
--- NOTE | 2018-10-22 13:56 | REP ---
CT ABDOMEN AND PELVIS WITH ORAL AND IV CONTRAST: TECHNIQUE: Axial contrast enhanced images from the lung bases to the pubic symphysis using 100 mL Isovue 370 intravenous contrast material with multiplanar reformations. COMPARISON: MRI 10/18/[address] 08/29/2018. Visualized lung bases demonstrate no infiltrate. Liver is unremarkable. Patient has had a prior cholecystectomy without significant biliary dilatation. Spleen, adrenals, and pancreas are unremarkable. Left renal cyst is again noted without hydronephrosis. There is no abdominal aortic aneurysm. I see no adenopathy, free air, or free fluid. No pelvic mass is seen. Caliber of large and small bowel loops is increased, but ingested oral contrast is seen throughout the small bowel and is also seen in the right colon with no evidence of obstruction. Again visualized is a subtle thin area of increased density extending from a loop of distal ileum in the right lower quadrant anteriorly to the skin consistent with a known enterocutaneous fistula which is draining through the skin. A small bowel loop just deep to that appears mildly thickened and unchanged since prior CT. An abscess has developed more inferolaterally in the abdominal wall overlying the right lower quadrant. The abscess measures approximately 5.7 x 3.5 x 3.3 cm. There appears to be communication with the overlying skin at this point, now with the fistula between the abscess and the overlying skin. IMPRESSION: Known enterocutaneous fistula from a loop of distal ileum to the skin overlying the right abdomen. There has been developmental of an abscess in the adjacent abdominal wall a little more inferiorly and laterally to that site, as seen on MRI of 10/18/2018. This abscess appears to communicate with the fistula. The abscess also appears to communicate with a small fistula superficially to the overlying skin, and appears to be draining through the overlying skin. There is no intra-abdominal abscess. Electronically Signed by Stiven Ramirez MD 10/22/2018 07:06 P
[2018-10-22] MEDS ORDERED: NS 1,000 ML IV SCH (14:00)
[2018-10-22 14:52] VITALS: BP 105/60
== END 2018-10-22 14:57 | disposition short-term general hospital (02) ==
LOC: M ED 07:57
DX: K50.913 Crohn's disease, unspecified, with fistula (principal); K50.914 Crohn's disease, unspecified, with abscess; L02.211 Cutaneous abscess of abdominal wall; F33.9 Major depressive disorder, recurrent, unspecified; F41.9 Anxiety disorder, unspecified; Z98.0 Intestinal bypass and anastomosis status; Z79.2 Long term (current) use of antibiotics; Z79.899 Other long term (current) drug therapy; Z79.52 Long term (current) use of systemic steroids
CPT/HCPCS: 74177; 80048; 80076; 83605; 83690; 84703; 85025; 87040; 87077; 87186; 93041; 96374; 96375; 99285; J1885; Q9963; Q9967

== ENCOUNTER → 2018-11-06 | Outpatient (REF) | payer OTHER ==
[~2018-11-06] MED LIST changes: +LEVO500T3
[2018-11-06 13:10] LABS: BASO % 0.3 % (0.0-1.0); EOS # 0.1 10^3/uL (0.0-0.50); EOS % 0.7 % (0.0-3.0); HEMATOCRIT 30.4 % (36.0-47.0); HEMOGLOBIN 8.9 g/dl (12.0-15.5); LYMPH # 3.6 10^3/uL (1.5-4.5); LYMPH % 36.1 % (24.0-44.0); MEAN CORPUSCULAR HEMOGLOBIN 24.9 pg (27.0-33.0); MEAN CORPUSCULAR HGB CONC 29.3 g/dl (32.0-36.5); MEAN CORPUSCULAR VOLUME 84.9 fl (80.0-96.0); MONO # 0.9 10^3/uL (0.0-0.8); MONO % 9.5 % (0.0-5.0); NEUTROPHILS # 5.2 10^3/uL (1.8-7.7); NEUTROPHILS % 52.9 % (36.0-66.0); PLATELET COUNT, AUTOMATED 228 10^3/uL (150-450); RED BLOOD COUNT 3.58 10^6/uL (4.00-5.40); WHITE BLOOD COUNT 9.9 10^3/uL (4.0-10.0)
[2018-11-06 13:50] LABS: ALT/SGPT 22 U/L (12-78); BILIRUBIN,TOTAL 0.2 MG/DL (0.2-1.0); BLOOD UREA NITROGEN 21 MG/DL (7-18); CALCIUM LEVEL 8.9 MG/DL (8.5-10.1); CARBON DIOXIDE LEVEL 29 MEQ/L (21-32); CHLORIDE LEVEL 103 MEQ/L (98-107); CREATININE FOR GFR 0.43 MG/DL (0.55-1.30); GLOMERULAR FILTRATION RATE > 60.0 (>60); GLUCOSE, FASTING 93 MG/DL (70-100); MAGNESIUM LEVEL 1.9 MG/DL (1.8-2.4); PHOSPHORUS LEVEL 4.3 MG/DL (2.5-4.9); POTASSIUM SERUM 4.5 MEQ/L (3.5-5.1); SODIUM LEVEL 138 MEQ/L (136-145); TOTAL PROTEIN 6.6 GM/DL (6.4-8.2)
== END ==
LOC: M LAB REF 12:52
PROVIDERS: ATTEND Surgery
DX: K50.90 Crohn's disease, unspecified, without complications (principal)

== ENCOUNTER → 2018-11-13 | Outpatient (REF) | payer OTHER ==
[2018-11-13 14:12] LABS: HEMOGLOBIN 9.2 g/dl (12.0-15.5); MEAN CORPUSCULAR HEMOGLOBIN 25.2 pg (27.0-33.0); MEAN CORPUSCULAR HGB CONC 29.7 g/dl (32.0-36.5); MEAN CORPUSCULAR VOLUME 84.9 fl (80.0-96.0); PLATELET COUNT, AUTOMATED 171 10^3/uL (150-450); RED BLOOD COUNT 3.65 10^6/uL (4.00-5.40); WHITE BLOOD COUNT 10.5 10^3/uL (4.0-10.0)
[2018-11-13 15:00] LABS: BLOOD UREA NITROGEN 20 MG/DL (7-18); CALCIUM LEVEL 8.6 MG/DL (8.5-10.1); CARBON DIOXIDE LEVEL 20 MEQ/L (21-32); CHLORIDE LEVEL 106 MEQ/L (98-107); CREATININE FOR GFR 0.42 MG/DL (0.55-1.30); GLOMERULAR FILTRATION RATE > 60.0 (>60); GLUCOSE, FASTING 98 MG/DL (70-100); POTASSIUM SERUM 3.7 MEQ/L (3.5-5.1); SODIUM LEVEL 138 MEQ/L (136-145)
[2018-11-13 15:01] LABS: ALT/SGPT 14 U/L (12-78); BILIRUBIN,TOTAL 0.3 MG/DL (0.2-1.0); PHOSPHORUS LEVEL 4.3 MG/DL (2.5-4.9); TOTAL PROTEIN 6.8 GM/DL (6.4-8.2)
== END ==
LOC: M LAB REF 13:51
PROVIDERS: ATTEND Surgery
DX: Z13.9 Encounter for screening, unspecified (principal)

== ENCOUNTER → 2018-11-20 | Outpatient (REF) | payer OTHER ==
[2018-11-20 14:55] LABS: EOS # 0.1 10^3/uL (0.0-0.50); EOS % 1.8 % (0.0-3.0); HEMATOCRIT 26.7 % (36.0-47.0); HEMOGLOBIN 8.2 g/dl (12.0-15.5); LYMPH # 1.6 10^3/uL (1.5-4.5); LYMPH % 26.8 % (24.0-44.0); MEAN CORPUSCULAR HEMOGLOBIN 25.5 pg (27.0-33.0); MEAN CORPUSCULAR HGB CONC 30.7 g/dl (32.0-36.5); MEAN CORPUSCULAR VOLUME 82.9 fl (80.0-96.0); MONO # 0.4 10^3/uL (0.0-0.8); MONO % 6.4 % (0.0-5.0); NEUTROPHILS # 3.9 10^3/uL (1.8-7.7); NEUTROPHILS % 64.7 % (36.0-66.0); PLATELET COUNT, AUTOMATED 252 10^3/uL (150-450); RED BLOOD COUNT 3.22 10^6/uL (4.00-5.40); WHITE BLOOD COUNT 6.1 10^3/uL (4.0-10.0)
[2018-11-20 15:14] LABS: ALBUMIN 2.4 GM/DL (3.2-5.2); ALT/SGPT 11 U/L (12-78); BILIRUBIN,TOTAL 0.2 MG/DL (0.2-1.0); BLOOD UREA NITROGEN 24 MG/DL (7-18); CARBON DIOXIDE LEVEL 26 MEQ/L (21-32); CHLORIDE LEVEL 108 MEQ/L (98-107); CREATININE FOR GFR 0.46 MG/DL (0.55-1.30); GLOMERULAR FILTRATION RATE > 60.0 (>60); GLUCOSE, FASTING 110 MG/DL (70-100); MAGNESIUM LEVEL 1.7 MG/DL (1.8-2.4); PHOSPHORUS LEVEL 4.3 MG/DL (2.5-4.9); POTASSIUM SERUM 4.1 MEQ/L (3.5-5.1); SODIUM LEVEL 142 MEQ/L (136-145); TOTAL PROTEIN 6.1 GM/DL (6.4-8.2)
== END ==
LOC: M LAB REF 13:54
PROVIDERS: ATTEND Surgery
DX: Z13.9 Encounter for screening, unspecified (principal)

== ENCOUNTER → 2018-11-27 | Outpatient (REF) | payer OTHER ==
[2018-11-27 13:56] LABS: BASO % 0.1 % (0.0-1.0); EOS # 0.1 10^3/uL (0.0-0.50); HEMOGLOBIN 8.6 g/dl (12.0-15.5); LYMPH # 1.9 10^3/uL (1.5-4.5); LYMPH % 27.2 % (24.0-44.0); MEAN CORPUSCULAR HGB CONC 29.7 g/dl (32.0-36.5); MEAN CORPUSCULAR VOLUME 84.3 fl (80.0-96.0); MONO # 0.4 10^3/uL (0.0-0.8); MONO % 6.1 % (0.0-5.0); NEUTROPHILS # 4.5 10^3/uL (1.8-7.7); NEUTROPHILS % 65.3 % (36.0-66.0); PLATELET COUNT, AUTOMATED 372 10^3/uL (150-450); RED BLOOD COUNT 3.44 10^6/uL (4.00-5.40); WHITE BLOOD COUNT 6.8 10^3/uL (4.0-10.0)
[2018-11-27 14:17] LABS: ALBUMIN 2.6 GM/DL (3.2-5.2); ALT/SGPT 20 U/L (12-78); BILIRUBIN,TOTAL 0.2 MG/DL (0.2-1.0); BLOOD UREA NITROGEN 21 MG/DL (7-18); CALCIUM LEVEL 8.8 MG/DL (8.5-10.1); CARBON DIOXIDE LEVEL 25 MEQ/L (21-32); CHLORIDE LEVEL 104 MEQ/L (98-107); GLOMERULAR FILTRATION RATE > 60.0 (>60); GLUCOSE, FASTING 107 MG/DL (70-100); PHOSPHORUS LEVEL 4.7 MG/DL (2.5-4.9); POTASSIUM SERUM 3.8 MEQ/L (3.5-5.1); SODIUM LEVEL 138 MEQ/L (136-145); TOTAL PROTEIN 6.4 GM/DL (6.4-8.2)
== END ==
LOC: M LAB REF 13:20
PROVIDERS: ATTEND Surgery
DX: K50.90 Crohn's disease, unspecified, without complications (principal)

== ENCOUNTER → 2018-12-12 | Outpatient (REF) | payer OTHER ==
[~2018-12-12] MED LIST changes: -/ONDA4TA OR; +HEPA1INJ23 SC; -HEPA50VL SC; +NYST-15 TOP; -NYST10PW TOP; +ONDA-1 OR
[2018-12-12 13:45] LABS: HEMOGLOBIN 12.5 g/dl (12.0-15.5); MEAN CORPUSCULAR HEMOGLOBIN 25.8 pg (27.0-33.0); MEAN CORPUSCULAR HGB CONC 31.3 g/dl (32.0-36.5); MEAN CORPUSCULAR VOLUME 82.5 fl (80.0-96.0); PLATELET COUNT, AUTOMATED 406 10^3/uL (150-450); RED BLOOD COUNT 4.85 10^6/uL (4.00-5.40); WHITE BLOOD COUNT 18.9 10^3/uL (4.0-10.0)
[2018-12-12 14:14] LABS: EOSINOPHILS 1 % (0-5); LYMPHOCYTES 22 % (16-52); METAMYELOCYTES 2 % (0-0); MONOCYTES 4 % (0-8); MYELOCYTES 1 % (0-0); NEUTROPHILS 67 % (35-75)
[2018-12-12 14:15] LABS: ALBUMIN 3.6 GM/DL (3.2-5.2); ALT/SGPT 302 U/L (12-78); ANISOCYTOSIS 2+; BILIRUBIN,TOTAL 0.4 MG/DL (0.2-1.0); BLOOD UREA NITROGEN 41 MG/DL (7-18); CALCIUM LEVEL 9.4 MG/DL (8.5-10.1); CARBON DIOXIDE LEVEL 24 MEQ/L (21-32); CHLORIDE LEVEL 96 MEQ/L (98-107); CREATININE FOR GFR 0.65 MG/DL (0.55-1.30); GLOMERULAR FILTRATION RATE > 60.0 (>60); GLUCOSE, FASTING 129 MG/DL (70-100); HYPOCHROMASIA 1+; MAGNESIUM LEVEL 2.7 MG/DL (1.8-2.4); PHOSPHORUS LEVEL 4.7 MG/DL (2.5-4.9); POTASSIUM SERUM 6.1 MEQ/L (3.5-5.1); SODIUM LEVEL 129 MEQ/L (136-145)
[2018-12-12 14:16] LABS: PLATELET ESTIMATE NORMAL (NORMAL)
== END ==
LOC: M SHH 13:27
PROVIDERS: ATTEND Surgery
DX: K50.919 Crohn's disease, unspecified, with unspecified complications (principal)

== ENCOUNTER → 2018-12-13 | Outpatient (REF) | payer OTHER ==
[~2018-12-13] MED LIST changes: +MORP15TA2 PO; +OCTR100I SQ
[2018-12-13 14:12] LABS: ALBUMIN 3.9 GM/DL (3.2-5.2); ALT/SGPT 311 U/L (12-78); BILIRUBIN,TOTAL 0.4 MG/DL (0.2-1.0); BLOOD UREA NITROGEN 51 MG/DL (7-18); CALCIUM LEVEL 9.5 MG/DL (8.5-10.1); CARBON DIOXIDE LEVEL 23 MEQ/L (21-32); CHLORIDE LEVEL 96 MEQ/L (98-107); CREATININE FOR GFR 0.69 MG/DL (0.55-1.30); GLOMERULAR FILTRATION RATE > 60.0 (>60); GLUCOSE, FASTING 90 MG/DL (70-100); MAGNESIUM LEVEL 3.2 MG/DL (1.8-2.4); PHOSPHORUS LEVEL 4.4 MG/DL (2.5-4.9); SODIUM LEVEL 127 MEQ/L (136-145); TOTAL PROTEIN 8.4 GM/DL (6.4-8.2)
[2018-12-13 14:13] LABS: POTASSIUM SERUM 6.2 MEQ/L (3.5-5.1)
[2018-12-13 15:49] LABS: HEMATOCRIT 41.4 % (36.0-47.0); HEMOGLOBIN 12.5 g/dl (12.0-15.5); MEAN CORPUSCULAR HEMOGLOBIN 25.2 pg (27.0-33.0); MEAN CORPUSCULAR HGB CONC 30.2 g/dl (32.0-36.5); MEAN CORPUSCULAR VOLUME 83.3 fl (80.0-96.0); PLATELET COUNT, AUTOMATED 403 10^3/uL (150-450); RED BLOOD COUNT 4.97 10^6/uL (4.00-5.40)
[2018-12-13 16:25] LABS: WHITE BLOOD COUNT 25.9 10^3/uL (4.0-10.0)
[2018-12-13 20:24] LABS: ATYPICAL LYMPH 2 % (0-5); BASOPHILS 1 % (0-4); EOSINOPHILS 2 % (0-5); LYMPHOCYTES 28 % (16-52); METAMYELOCYTES 2 % (0-0); MONOCYTES 8 % (0-8); NEUTROPHILS 56 % (35-75); SMUDGE CELLS 1+
[2018-12-13 20:25] LABS: ANISOCYTOSIS 3+; OVALOCYTES 1+; PLATELET ESTIMATE NORMAL (NORMAL); POIKILOCYTOSIS 1+
[2018-12-13 20:26] LABS: POLYCHROMASIA 1+
== END ==
LOC: M SHH 13:21
PROVIDERS: ATTEND Surgery
DX: E44.0 Moderate protein-calorie malnutrition (principal); K63.2 Fistula of intestine; K50.819 Crohn's disease of both small and large intestine with unspecified complications; Z78.9 Other specified health status

== ENCOUNTER → 2018-12-18 | Outpatient (REF) | payer OTHER ==
[2018-12-18 13:25] LABS: BASO # 0.1 10^3/uL (0.0-0.2); BASO % 0.4 % (0.0-1.0); EOS # 0.2 10^3/uL (0.0-0.50); EOS % 1.5 % (0.0-3.0); HEMATOCRIT 36.3 % (36.0-47.0); HEMOGLOBIN 11.4 g/dl (12.0-15.5); LYMPH # 3.5 10^3/uL (1.5-4.5); LYMPH % 26.9 % (24.0-44.0); MEAN CORPUSCULAR HEMOGLOBIN 25.6 pg (27.0-33.0); MEAN CORPUSCULAR HGB CONC 31.4 g/dl (32.0-36.5); MEAN CORPUSCULAR VOLUME 81.4 fl (80.0-96.0); MONO % 7.4 % (0.0-5.0); NEUTROPHILS # 8.3 10^3/uL (1.8-7.7); NEUTROPHILS % 62.9 % (36.0-66.0); PLATELET COUNT, AUTOMATED 314 10^3/uL (150-450); RED BLOOD COUNT 4.46 10^6/uL (4.00-5.40); WHITE BLOOD COUNT 13.2 10^3/uL (4.0-10.0)
[2018-12-18 14:00] LABS: BLOOD UREA NITROGEN 43 MG/DL (7-18); CALCIUM LEVEL 9.4 MG/DL (8.5-10.1); CARBON DIOXIDE LEVEL 30 MEQ/L (21-32); CHLORIDE LEVEL 91 MEQ/L (98-107); CREATININE FOR GFR 0.74 MG/DL (0.55-1.30); GLOMERULAR FILTRATION RATE > 60.0 (>60); GLUCOSE, FASTING 116 MG/DL (70-100); MAGNESIUM LEVEL 2.7 MG/DL (1.8-2.4); POTASSIUM SERUM 4.2 MEQ/L (3.5-5.1); SODIUM LEVEL 131 MEQ/L (136-145); TRIGLYCERIDES LEVEL 81 MG/DL (<150)
== END ==
LOC: M SHH 13:02
PROVIDERS: ATTEND Surgery
DX: Z78.9 Other specified health status (principal)

== ENCOUNTER 2018-12-19 12:42 | Emergency (ER) | payer OTHER ==
[~2018-12-19] VITALS: Ht 160 cm; Wt 59.1 kg
[~2018-12-19 12:42] MED LIST changes: -MORP15TA2 PO; -OCTR100I SQ
[2018-12-19] MEDS ORDERED: OCTR100I SQ (12:50)
[2018-12-19] MEDS ORDERED: LOMO2.5T PO (12:50)
[2018-12-19] MEDS ORDERED: MORP15TA2 PO (12:50)
[2018-12-19] MEDS ORDERED: ONDANSETRON 4MG/2ML VIAL (J2405) IV ONE (13:30)
[2018-12-19] MEDS ORDERED: NS 1,000 ML IV ONE (13:30)
[2018-12-19 14:02] LABS: BASO # 0.1 10^3/uL (0.0-0.2); BASO % 0.3 % (0.0-1.0); EOS # 0.2 10^3/uL (0.0-0.50); EOS % 1.1 % (0.0-3.0); HEMATOCRIT 38.1 % (36.0-47.0); HEMOGLOBIN 12.1 g/dl (12.0-15.5); LYMPH # 3.2 10^3/uL (1.5-4.5); LYMPH % 21.7 % (24.0-44.0); MEAN CORPUSCULAR HEMOGLOBIN 26.1 pg (27.0-33.0); MEAN CORPUSCULAR HGB CONC 31.8 g/dl (32.0-36.5); MEAN CORPUSCULAR VOLUME 82.1 fl (80.0-96.0); MONO # 1.1 10^3/uL (0.0-0.8); MONO % 7.2 % (0.0-5.0); NEUTROPHILS # 9.9 10^3/uL (1.8-7.7); NEUTROPHILS % 68.5 % (36.0-66.0); PLATELET COUNT, AUTOMATED 355 10^3/uL (150-450); RED BLOOD COUNT 4.64 10^6/uL (4.00-5.40); WHITE BLOOD COUNT 14.5 10^3/uL (4.0-10.0)
[2018-12-19 14:11] LABS: INR 1.06; PROTHROMBIN TIME 13.9 SECONDS (12.1-14.4)
[2018-12-19 14:12] LABS: PARTIAL THROMBOPLASTIN TIME 31.5 SECONDS (25.4-37.6)
[2018-12-19 14:25] LABS: ALBUMIN 3.9 GM/DL (3.2-5.2); ALT/SGPT 224 U/L (12-78); AMYLASE 139 U/L (25-115); BILIRUBIN,DIRECT 0.3 MG/DL (0.0-0.2); BILIRUBIN,TOTAL 0.7 MG/DL (0.2-1.0); BLOOD UREA NITROGEN 52 MG/DL (7-18); CALCIUM LEVEL 9.7 MG/DL (8.5-10.1); CARBON DIOXIDE LEVEL 29 MEQ/L (21-32); CHLORIDE LEVEL 87 MEQ/L (98-107); CK-MB VALUE MASS < 1.0 NG/ML (<3.6); CPK CREATINE PHOSPHOKINASE 11 U/L (26-192); CREATININE FOR GFR 0.92 MG/DL (0.55-1.30); GLOMERULAR FILTRATION RATE > 60.0 (>60); GLUCOSE, FASTING 122 MG/DL (70-100); LIPASE 344 U/L (73-393); MB/CK RELATIVE INDEX 9.09 (< OR =4); POTASSIUM SERUM 4.4 MEQ/L (3.5-5.1); SODIUM LEVEL 125 MEQ/L (136-145); TOTAL PROTEIN 8.1 GM/DL (6.4-8.2); TROPONIN I < 0.02 NG/ML (< 0.10)
[2018-12-19 14:41] LABS: OSMOLALITY SERUM 286 MOSM/KG (275-295)
[2018-12-19 18:27] VITALS: BP 84/58
--- NOTE | 2018-12-20 08:18 | ECGEPIP ---
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
== END 2018-12-19 18:31 | disposition short-term general hospital (02) ==
LOC: M ED 12:42
DX: K50.919 Crohn's disease, unspecified, with unspecified complications (principal); I95.1 Orthostatic hypotension; N17.9 Acute kidney failure, unspecified; R00.0 Tachycardia, unspecified; R94.31 Abnormal electrocardiogram [ECG] [EKG]; K63.2 Fistula of intestine; Z79.899 Other long term (current) drug therapy
CPT/HCPCS: 80048; 80076; 82150; 82550; 82553; 83605; 83690; 83930; 85025; 85610; 85730; 87040; 93005; 93041; 96374; 99285; J2405

== ENCOUNTER → 2019-01-29 | Outpatient (REF) | payer OTHER ==
[~2019-01-29] MED LIST changes: +MORP15TA2 PO; +OCTR100I SQ
[2019-01-29 13:36] LABS: BASO % 0.1 % (0.0-1.0); EOS # 0.1 10^3/uL (0.0-0.50); EOS % 0.8 % (0.0-3.0); HEMATOCRIT 27.3 % (36.0-47.0); HEMOGLOBIN 8.4 g/dl (12.0-15.5); LYMPH # 1.6 10^3/uL (1.5-4.5); LYMPH % 22.1 % (24.0-44.0); MEAN CORPUSCULAR HEMOGLOBIN 27.9 pg (27.0-33.0); MEAN CORPUSCULAR HGB CONC 30.8 g/dl (32.0-36.5); MEAN CORPUSCULAR VOLUME 90.7 fl (80.0-96.0); MONO # 0.5 10^3/uL (0.0-0.8); MONO % 6.1 % (0.0-5.0); NEUTROPHILS # 5.2 10^3/uL (1.8-7.7); NEUTROPHILS % 70.6 % (36.0-66.0); PLATELET COUNT, AUTOMATED 320 10^3/uL (150-450); RED BLOOD COUNT 3.01 10^6/uL (4.00-5.40); WHITE BLOOD COUNT 7.3 10^3/uL (4.0-10.0)
[2019-01-29 15:39] LABS: ALBUMIN 2.2 GM/DL (3.2-5.2); ALT/SGPT 28 U/L (12-78); BILIRUBIN,TOTAL 0.2 MG/DL (0.2-1.0); BLOOD UREA NITROGEN 18 MG/DL (7-18); CALCIUM LEVEL 8.1 MG/DL (8.5-10.1); CARBON DIOXIDE LEVEL 25 MEQ/L (21-32); CHLORIDE LEVEL 104 MEQ/L (98-107); CREATININE FOR GFR 0.28 MG/DL (0.55-1.30); GLOMERULAR FILTRATION RATE > 60.0 (>60); GLUCOSE, FASTING 102 MG/DL (70-100); MAGNESIUM LEVEL 2.1 MG/DL (1.8-2.4); PHOSPHORUS LEVEL 3.5 MG/DL (2.5-4.9); POTASSIUM SERUM 4.4 MEQ/L (3.5-5.1); SODIUM LEVEL 136 MEQ/L (136-145); TOTAL PROTEIN 6.3 GM/DL (6.4-8.2); TRIGLYCERIDES LEVEL 61 MG/DL (<150)
== END ==
LOC: M LAB REF 13:05
PROVIDERS: ATTEND Surgery
DX: K63.2 Fistula of intestine (principal)

== ENCOUNTER 2019-02-05 13:11 | Emergency (ER) | payer OTHER ==
[2019-02-05] MEDS ORDERED: NS 1,000 ML IV SCH (13:27)
[2019-02-05] MEDS ORDERED: ONDANSETRON 4MG/2ML VIAL (J2405) IV ONE ×2 (13:45→17:15)
[2019-02-05] MEDS ORDERED: NS 1,000 ML IV ONE (13:45)
[2019-02-05] MEDS: GASTROGRAFIN SOLUTION 30ML PO SCH ×2 (13:57→14:45)
[2019-02-05] MEDS: MORPHINE 2 MG/ML 1ML SYRINGE (J2270) IV PRN ×2 (13:58→16:19)
[2019-02-05 14:05] LABS: BASO % 0.2 % (0.0-1.0); EOS % 0.4 % (0.0-3.0); HEMATOCRIT 34.4 % (36.0-47.0); HEMOGLOBIN 10.7 g/dl (12.0-15.5); LYMPH # 2.3 10^3/uL (1.5-4.5); LYMPH % 27.1 % (24.0-44.0); MEAN CORPUSCULAR HEMOGLOBIN 26.5 pg (27.0-33.0); MEAN CORPUSCULAR HGB CONC 31.1 g/dl (32.0-36.5); MEAN CORPUSCULAR VOLUME 85.1 fl (80.0-96.0); MONO # 0.6 10^3/uL (0.0-0.8); NEUTROPHILS # 5.5 10^3/uL (1.8-7.7); NEUTROPHILS % 65.1 % (36.0-66.0); PLATELET COUNT, AUTOMATED 434 10^3/uL (150-450); RED BLOOD COUNT 4.04 10^6/uL (4.00-5.40); WHITE BLOOD COUNT 8.4 10^3/uL (4.0-10.0)
[2019-02-05 14:28] LABS: ALT/SGPT 81 U/L (12-78); BILIRUBIN,DIRECT 0.1 MG/DL (0.0-0.2); BILIRUBIN,TOTAL 0.4 MG/DL (0.2-1.0); BLOOD UREA NITROGEN 18 MG/DL (7-18); CALCIUM LEVEL 8.7 MG/DL (8.5-10.1); CARBON DIOXIDE LEVEL 24 MEQ/L (21-32); CHLORIDE LEVEL 103 MEQ/L (98-107); CREATININE FOR GFR 0.64 MG/DL (0.55-1.30); GLOMERULAR FILTRATION RATE > 60.0 (>60); GLUCOSE, FASTING 110 MG/DL (70-100); LIPASE 317 U/L (73-393); POTASSIUM SERUM 3.9 MEQ/L (3.5-5.1); SODIUM LEVEL 140 MEQ/L (136-145); TOTAL PROTEIN 7.9 GM/DL (6.4-8.2)
[2019-02-05] MEDS ORDERED: MORPHINE 4 MG/ML 1ML VIAL/SYRINGE (J2270) IV ONE ×2 (14:45→16:30)
[2019-02-05] MEDS ORDERED: ISOVUE-370 76% 100ML VIAL (Q9967) As Ordered ONE (15:01)
--- NOTE | 2019-02-05 16:11 | REP ---
Clinical: Acute abdominal pain. History of Crohn's. Technique: Axial noncontrast images from the lung bases to the pubic symphysis with coronal and sagittal re-formations. Comparison: 10/22/2018. Findings: Extensive postsurgical changes involving the enteric system and the anterior abdominal wall consistent with Crohn disease are again noted. There is no evidence for bowel obstruction and the inflammatory changes along the anterior abdominal wall appear considerably improved when compared to prior examination. There is no evidence for drainable collection or abscess. Ileostomy and adjacent open with through the anterior abdominal wall are consistent with the previously diagnosed fistulous tract(s). Liver, spleen, pancreas, bilateral adrenal glands and kidneys are normal for noncontrast evaluation. Evidence of prior cholecystectomy. Pelvis demonstrates collapsed normal bladder and age-appropriate uterus/adnexa. No ascites. No free air. Abdominal aorta without aneurysm. Lung bases are clear. Skeletal structures are intact. Impression: 1. Extensive changes involving the enteric system and anterior abdominal wall related to Crohn's disease are again noted, but the previously identified abscess and infectious changes in the anterior abdominal wall have essentially resolved. 2. While no definite acute process is appreciated, inflammatory changes involving the residual small bowel cannot definitively be excluded at evaluation is limited by the lack of both oral and intravenous contrast enhancement. No ascites. No obvious drainable collection/abscess. No free air. Electronically Signed by Darci Devine MD 02/05/2019 04:03 P
[2019-02-05 18:15] VITALS: BP 123/67
== END 2019-02-05 18:19 | disposition short-term general hospital (02) ==
LOC: EDBD 13:11 → M ED 13:11
DX: K50.90 Crohn's disease, unspecified, without complications (principal)
CPT/HCPCS: 74176; 80048; 80076; 83605; 83690; 84702; 85025; 87040; 87507; 93041; 96374; 96375; 96376; 99285; J2270; J2405; Q9963

== ENCOUNTER → 2019-02-26 | Outpatient (REF) | payer OTHER ==
[2019-02-26 12:04] LABS: BASO % 0.1 % (0.0-1.0); EOS # 0.1 10^3/uL (0.0-0.50); EOS % 0.4 % (0.0-3.0); LYMPH % 22.2 % (24.0-44.0); MEAN CORPUSCULAR HEMOGLOBIN 25.4 pg (27.0-33.0); MEAN CORPUSCULAR HGB CONC 29.4 g/dl (32.0-36.5); MEAN CORPUSCULAR VOLUME 86.5 fl (80.0-96.0); MONO % 7.3 % (0.0-5.0); NEUTROPHILS # 9.4 10^3/uL (1.8-7.7); NEUTROPHILS % 69.4 % (36.0-66.0); PLATELET COUNT, AUTOMATED 307 10^3/uL (150-450); RED BLOOD COUNT 3.93 10^6/uL (4.00-5.40); WHITE BLOOD COUNT 13.5 10^3/uL (4.0-10.0)
[2019-02-26 12:22] LABS: ALBUMIN 2.7 GM/DL (3.2-5.2); ALT/SGPT 33 U/L (12-78); BILIRUBIN,TOTAL 0.2 MG/DL (0.2-1.0); BLOOD UREA NITROGEN 25 MG/DL (7-18); CALCIUM LEVEL 8.5 MG/DL (8.5-10.1); CARBON DIOXIDE LEVEL 29 MEQ/L (21-32); CHLORIDE LEVEL 106 MEQ/L (98-107); CREATININE FOR GFR 0.38 MG/DL (0.55-1.30); GLOMERULAR FILTRATION RATE > 60.0 (>60); GLUCOSE, FASTING 90 MG/DL (70-100); MAGNESIUM LEVEL 2.3 MG/DL (1.8-2.4); PHOSPHORUS LEVEL 2.9 MG/DL (2.5-4.9); POTASSIUM SERUM 4.5 MEQ/L (3.5-5.1); SODIUM LEVEL 140 MEQ/L (136-145); TOTAL PROTEIN 6.5 GM/DL (6.4-8.2); TRIGLYCERIDES LEVEL 127 MG/DL (<150)
== END ==
LOC: M LAB REF 11:12
PROVIDERS: ATTEND Surgery
DX: E86.9 Volume depletion, unspecified (principal)

== ENCOUNTER → 2019-03-05 | Outpatient (REF) | payer OTHER ==
[2019-03-05 13:38] LABS: ALBUMIN 2.6 GM/DL (3.2-5.2); ALT/SGPT 28 U/L (12-78); BILIRUBIN,TOTAL 0.1 MG/DL (0.2-1.0); BLOOD UREA NITROGEN 25 MG/DL (7-18); CALCIUM LEVEL 8.2 MG/DL (8.5-10.1); CARBON DIOXIDE LEVEL 27 MEQ/L (21-32); CHLORIDE LEVEL 106 MEQ/L (98-107); CREATININE FOR GFR 0.36 MG/DL (0.55-1.30); GLOMERULAR FILTRATION RATE > 60.0 (>60); GLUCOSE, FASTING 74 MG/DL (70-100); MAGNESIUM LEVEL 2.3 MG/DL (1.8-2.4); PHOSPHORUS LEVEL 2.8 MG/DL (2.5-4.9); POTASSIUM SERUM 4.3 MEQ/L (3.5-5.1); SODIUM LEVEL 139 MEQ/L (136-145); TOTAL PROTEIN 6.4 GM/DL (6.4-8.2)
[2019-03-05 13:58] LABS: BASO % 0.1 % (0.0-1.0); EOS # 0.2 10^3/uL (0.0-0.50); EOS % 1.6 % (0.0-3.0); HEMATOCRIT 32.5 % (36.0-47.0); HEMOGLOBIN 9.5 g/dl (12.0-15.5); LYMPH # 3.6 10^3/uL (1.5-4.5); LYMPH % 34.2 % (24.0-44.0); MEAN CORPUSCULAR HEMOGLOBIN 24.5 pg (27.0-33.0); MEAN CORPUSCULAR HGB CONC 29.2 g/dl (32.0-36.5); MEAN CORPUSCULAR VOLUME 83.8 fl (80.0-96.0); MONO % 9.2 % (0.0-5.0); NEUTROPHILS # 5.8 10^3/uL (1.8-7.7); NEUTROPHILS % 54.3 % (36.0-66.0); PLATELET COUNT, AUTOMATED 350 10^3/uL (150-450); RED BLOOD COUNT 3.88 10^6/uL (4.00-5.40); WHITE BLOOD COUNT 10.6 10^3/uL (4.0-10.0)
== END ==
LOC: M SHH 12:18
PROVIDERS: ATTEND Surgery
DX: E86.9 Volume depletion, unspecified (principal)

== ENCOUNTER → 2019-03-12 | Outpatient (REF) | payer OTHER ==
[2019-03-12 13:26] LABS: BASO % 0.2 % (0.0-1.0); EOS # 0.1 10^3/uL (0.0-0.50); EOS % 0.5 % (0.0-3.0); HEMATOCRIT 30.3 % (36.0-47.0); HEMOGLOBIN 8.8 g/dl (12.0-15.5); LYMPH # 3.5 10^3/uL (1.5-4.5); LYMPH % 26.4 % (24.0-44.0); MEAN CORPUSCULAR HEMOGLOBIN 24.9 pg (27.0-33.0); MEAN CORPUSCULAR VOLUME 85.8 fl (80.0-96.0); MONO # 0.9 10^3/uL (0.0-0.8); MONO % 6.6 % (0.0-5.0); NEUTROPHILS # 8.7 10^3/uL (1.8-7.7); NEUTROPHILS % 65.6 % (36.0-66.0); PLATELET COUNT, AUTOMATED 308 10^3/uL (150-450); RED BLOOD COUNT 3.53 10^6/uL (4.00-5.40); WHITE BLOOD COUNT 13.3 10^3/uL (4.0-10.0)
[2019-03-12 13:46] LABS: ALBUMIN 2.6 GM/DL (3.2-5.2); ALT/SGPT 24 U/L (12-78); BILIRUBIN,TOTAL < 0.1 MG/DL (0.2-1.0); BLOOD UREA NITROGEN 23 MG/DL (7-18); CALCIUM LEVEL 7.8 MG/DL (8.5-10.1); CARBON DIOXIDE LEVEL 27 MEQ/L (21-32); CHLORIDE LEVEL 107 MEQ/L (98-107); CREATININE FOR GFR 0.32 MG/DL (0.55-1.30); GLOMERULAR FILTRATION RATE > 60.0 (>60); GLUCOSE, FASTING 61 MG/DL (70-100); MAGNESIUM LEVEL 2.4 MG/DL (1.8-2.4); PHOSPHORUS LEVEL 2.3 MG/DL (2.5-4.9); POTASSIUM SERUM 4.6 MEQ/L (3.5-5.1); SODIUM LEVEL 141 MEQ/L (136-145); TOTAL PROTEIN 5.8 GM/DL (6.4-8.2); TRIGLYCERIDES LEVEL 124 MG/DL (<150)
== END ==
LOC: M SHH 12:27
PROVIDERS: ATTEND Surgery
DX: K63.2 Fistula of intestine (principal)

== ENCOUNTER → 2019-03-19 | Outpatient (REF) | payer OTHER ==
[2019-03-19 13:33] LABS: BASO % 0.1 % (0.0-1.0); EOS % 0.3 % (0.0-3.0); HEMATOCRIT 29.9 % (36.0-47.0); HEMOGLOBIN 8.8 g/dl (12.0-15.5); LYMPH # 3.1 10^3/uL (1.5-4.5); LYMPH % 31.7 % (24.0-44.0); MEAN CORPUSCULAR HEMOGLOBIN 23.8 pg (27.0-33.0); MEAN CORPUSCULAR HGB CONC 29.4 g/dl (32.0-36.5); MONO # 0.7 10^3/uL (0.0-0.8); MONO % 7.3 % (0.0-5.0); NEUTROPHILS # 5.9 10^3/uL (1.8-7.7); NEUTROPHILS % 59.9 % (36.0-66.0); PLATELET COUNT, AUTOMATED 318 10^3/uL (150-450); RED BLOOD COUNT 3.69 10^6/uL (4.00-5.40); WHITE BLOOD COUNT 9.9 10^3/uL (4.0-10.0)
[2019-03-19 13:56] LABS: ALBUMIN 2.9 GM/DL (3.2-5.2); ALT/SGPT 25 U/L (12-78); BILIRUBIN,TOTAL 0.2 MG/DL (0.2-1.0); BLOOD UREA NITROGEN 19 MG/DL (7-18); CALCIUM LEVEL 8.8 MG/DL (8.5-10.1); CARBON DIOXIDE LEVEL 26 MEQ/L (21-32); CHLORIDE LEVEL 108 MEQ/L (98-107); CREATININE FOR GFR 0.55 MG/DL (0.55-1.30); GLOMERULAR FILTRATION RATE > 60.0 (>60); GLUCOSE, FASTING 79 MG/DL (70-100); MAGNESIUM LEVEL 1.8 MG/DL (1.8-2.4); PHOSPHORUS LEVEL 3.8 MG/DL (2.5-4.9); POTASSIUM SERUM 3.7 MEQ/L (3.5-5.1); SODIUM LEVEL 142 MEQ/L (136-145); TOTAL PROTEIN 6.5 GM/DL (6.4-8.2); TRIGLYCERIDES LEVEL 146 MG/DL (<150)
== END ==
LOC: M SHH 13:11
PROVIDERS: ATTEND Surgery
DX: Z00.00 Encounter for general adult medical examination without abnormal findings (principal)

== ENCOUNTER → 2019-03-26 | Outpatient (REF) | payer OTHER ==
[2019-03-26 12:34] LABS: BASO % 0.2 % (0.0-1.0); EOS # 0.1 10^3/uL (0.0-0.50); EOS % 0.6 % (0.0-3.0); HEMATOCRIT 29.5 % (36.0-47.0); HEMOGLOBIN 8.4 g/dl (12.0-15.5); LYMPH # 4.3 10^3/uL (1.5-4.5); LYMPH % 31.7 % (24.0-44.0); MEAN CORPUSCULAR HEMOGLOBIN 23.7 pg (27.0-33.0); MEAN CORPUSCULAR HGB CONC 28.5 g/dl (32.0-36.5); MEAN CORPUSCULAR VOLUME 83.1 fl (80.0-96.0); MONO # 0.8 10^3/uL (0.0-0.8); MONO % 5.8 % (0.0-5.0); NEUTROPHILS # 8.2 10^3/uL (1.8-7.7); PLATELET COUNT, AUTOMATED 224 10^3/uL (150-450); RED BLOOD COUNT 3.55 10^6/uL (4.00-5.40); WHITE BLOOD COUNT 13.4 10^3/uL (4.0-10.0)
[2019-03-26 12:55] LABS: ALBUMIN 2.7 GM/DL (3.2-5.2); ALT/SGPT 21 U/L (12-78); BILIRUBIN,TOTAL 0.2 MG/DL (0.2-1.0); BLOOD UREA NITROGEN 22 MG/DL (7-18); CALCIUM LEVEL 7.8 MG/DL (8.5-10.1); CARBON DIOXIDE LEVEL 24 MEQ/L (21-32); CHLORIDE LEVEL 110 MEQ/L (98-107); CREATININE FOR GFR 0.42 MG/DL (0.55-1.30); GLOMERULAR FILTRATION RATE > 60.0 (>60); GLUCOSE, FASTING 83 MG/DL (70-100); MAGNESIUM LEVEL 2.2 MG/DL (1.8-2.4); PHOSPHORUS LEVEL 2.9 MG/DL (2.5-4.9); POTASSIUM SERUM 3.9 MEQ/L (3.5-5.1); SODIUM LEVEL 143 MEQ/L (136-145); TOTAL PROTEIN 5.9 GM/DL (6.4-8.2); TRIGLYCERIDES LEVEL 88 MG/DL (<150)
== END ==
LOC: M SHH 12:07
PROVIDERS: ATTEND Surgery
DX: E86.9 Volume depletion, unspecified (principal)

== ENCOUNTER → 2019-04-02 | Outpatient (REF) | payer OTHER ==
[2019-04-02 16:31] LABS: BASO % 0.1 % (0.0-1.0); EOS % 0.1 % (0.0-3.0); HEMOGLOBIN 9.4 g/dl (12.0-15.5); LYMPH # 1.4 10^3/uL (1.5-4.5); LYMPH % 8.6 % (24.0-44.0); MEAN CORPUSCULAR HEMOGLOBIN 23.8 pg (27.0-33.0); MEAN CORPUSCULAR HGB CONC 29.4 g/dl (32.0-36.5); MONO # 0.4 10^3/uL (0.0-0.8); MONO % 2.2 % (0.0-5.0); NEUTROPHILS # 14.2 10^3/uL (1.8-7.7); NEUTROPHILS % 88.1 % (36.0-66.0); PLATELET COUNT, AUTOMATED 287 10^3/uL (150-450); RED BLOOD COUNT 3.95 10^6/uL (4.00-5.40); WHITE BLOOD COUNT 16.1 10^3/uL (4.0-10.0)
[2019-04-02 16:57] LABS: ALBUMIN 3.3 GM/DL (3.2-5.2); ALT/SGPT 25 U/L (12-78); BILIRUBIN,TOTAL 0.2 MG/DL (0.2-1.0); BLOOD UREA NITROGEN 13 MG/DL (7-18); CALCIUM LEVEL 8.7 MG/DL (8.5-10.1); CARBON DIOXIDE LEVEL 26 MEQ/L (21-32); CHLORIDE LEVEL 107 MEQ/L (98-107); CREATININE FOR GFR 0.63 MG/DL (0.55-1.30); GLOMERULAR FILTRATION RATE > 60.0 (>60); GLUCOSE, FASTING 93 MG/DL (70-100); MAGNESIUM LEVEL 1.8 MG/DL (1.8-2.4); PHOSPHORUS LEVEL 3.6 MG/DL (2.5-4.9); POTASSIUM SERUM 3.5 MEQ/L (3.5-5.1); SODIUM LEVEL 141 MEQ/L (136-145); TOTAL PROTEIN 7.2 GM/DL (6.4-8.2); TRIGLYCERIDES LEVEL 187 MG/DL (<150)
== END ==
LOC: M SHH 15:22
PROVIDERS: ATTEND Surgery
DX: K63.2 Fistula of intestine (principal); E44.0 Moderate protein-calorie malnutrition; K50.919 Crohn's disease, unspecified, with unspecified complications

== ENCOUNTER → 2019-04-09 | Outpatient (REF) | payer OTHER ==
[2019-04-09 13:03] LABS: ALT/SGPT 19 U/L (12-78); BILIRUBIN,TOTAL 0.1 MG/DL (0.2-1.0); BLOOD UREA NITROGEN 17 MG/DL (7-18); CALCIUM LEVEL 8.4 MG/DL (8.5-10.1); CARBON DIOXIDE LEVEL 26 MEQ/L (21-32); CHLORIDE LEVEL 113 MEQ/L (98-107); CREATININE FOR GFR 0.43 MG/DL (0.55-1.30); GLOMERULAR FILTRATION RATE > 60.0 (>60); GLUCOSE, FASTING 87 MG/DL (70-100); PHOSPHORUS LEVEL 3.5 MG/DL (2.5-4.9); POTASSIUM SERUM 3.1 MEQ/L (3.5-5.1); SODIUM LEVEL 145 MEQ/L (136-145); TOTAL PROTEIN 6.2 GM/DL (6.4-8.2); TRIGLYCERIDES LEVEL 206 MG/DL (<150)
[2019-04-09 13:06] LABS: BASO % 0.1 % (0.0-1.0); EOS # 0.1 10^3/uL (0.0-0.50); EOS % 0.6 % (0.0-3.0); HEMATOCRIT 29.8 % (36.0-47.0); HEMOGLOBIN 8.5 g/dl (12.0-15.5); LYMPH # 3.6 10^3/uL (1.5-4.5); LYMPH % 30.2 % (24.0-44.0); MEAN CORPUSCULAR HEMOGLOBIN 22.9 pg (27.0-33.0); MEAN CORPUSCULAR HGB CONC 28.5 g/dl (32.0-36.5); MEAN CORPUSCULAR VOLUME 80.3 fl (80.0-96.0); MONO # 0.7 10^3/uL (0.0-0.8); NEUTROPHILS # 7.4 10^3/uL (1.8-7.7); NEUTROPHILS % 62.3 % (36.0-66.0); PLATELET COUNT, AUTOMATED 277 10^3/uL (150-450); RED BLOOD COUNT 3.71 10^6/uL (4.00-5.40); WHITE BLOOD COUNT 11.9 10^3/uL (4.0-10.0)
== END ==
LOC: M SHH 11:34
PROVIDERS: ATTEND Surgery
DX: K63.2 Fistula of intestine (principal); E44.0 Moderate protein-calorie malnutrition; K50.919 Crohn's disease, unspecified, with unspecified complications

== ENCOUNTER → 2019-04-16 | Outpatient (REF) | payer OTHER ==
[2019-04-16 15:53] LABS: BASO % 0.1 % (0.0-1.0); EOS % 0.1 % (0.0-3.0); HEMATOCRIT 33.5 % (36.0-47.0); HEMOGLOBIN 9.5 g/dl (12.0-15.5); LYMPH # 0.9 10^3/uL (1.5-4.5); MEAN CORPUSCULAR HEMOGLOBIN 21.7 pg (27.0-33.0); MEAN CORPUSCULAR HGB CONC 28.4 g/dl (32.0-36.5); MEAN CORPUSCULAR VOLUME 76.5 fl (80.0-96.0); MONO # 0.2 10^3/uL (0.0-0.8); MONO % 1.2 % (0.0-5.0); NEUTROPHILS # 13.4 10^3/uL (1.8-7.7); NEUTROPHILS % 91.8 % (36.0-66.0); PLATELET COUNT, AUTOMATED 335 10^3/uL (150-450); RED BLOOD COUNT 4.38 10^6/uL (4.00-5.40); WHITE BLOOD COUNT 14.6 10^3/uL (4.0-10.0)
[2019-04-16 16:30] LABS: ALBUMIN 3.4 GM/DL (3.2-5.2); ALT/SGPT 17 U/L (12-78); BILIRUBIN,TOTAL 0.3 MG/DL (0.2-1.0); BLOOD UREA NITROGEN 16 MG/DL (7-18); CALCIUM LEVEL 9.1 MG/DL (8.5-10.1); CARBON DIOXIDE LEVEL 22 MEQ/L (21-32); CHLORIDE LEVEL 109 MEQ/L (98-107); CREATININE FOR GFR 0.64 MG/DL (0.55-1.30); GLOMERULAR FILTRATION RATE > 60.0 (>60); GLUCOSE, FASTING 123 MG/DL (70-100); PHOSPHORUS LEVEL 3.4 MG/DL (2.5-4.9); SODIUM LEVEL 142 MEQ/L (136-145); TOTAL PROTEIN 6.9 GM/DL (6.4-8.2); TRIGLYCERIDES LEVEL 200 MG/DL (<150)
[2019-04-16 16:31] LABS: MAGNESIUM LEVEL 1.5 MG/DL (1.8-2.4)
== END ==
LOC: M SHH 15:09
PROVIDERS: ATTEND Surgery
DX: E87.70 Fluid overload, unspecified (principal)

== ENCOUNTER → 2019-04-23 | Outpatient (REF) | payer OTHER ==
[2019-04-23 17:40] LABS: BASO % 0.1 % (0.0-1.0); HEMATOCRIT 31.4 % (36.0-47.0); HEMOGLOBIN 9.1 g/dl (12.0-15.5); LYMPH # 0.8 10^3/uL (1.5-4.5); LYMPH % 6.2 % (24.0-44.0); MEAN CORPUSCULAR HEMOGLOBIN 21.8 pg (27.0-33.0); MEAN CORPUSCULAR VOLUME 75.3 fl (80.0-96.0); MONO # 0.2 10^3/uL (0.0-0.8); MONO % 1.4 % (0.0-5.0); NEUTROPHILS # 11.4 10^3/uL (1.8-7.7); NEUTROPHILS % 91.4 % (36.0-66.0); PLATELET COUNT, AUTOMATED 301 10^3/uL (150-450); RED BLOOD COUNT 4.17 10^6/uL (4.00-5.40); WHITE BLOOD COUNT 12.5 10^3/uL (4.0-10.0)
[2019-04-23 18:45] LABS: ALBUMIN 3.2 GM/DL (3.2-5.2); ALT/SGPT 17 U/L (12-78); BILIRUBIN,TOTAL 0.3 MG/DL (0.2-1.0); BLOOD UREA NITROGEN 12 MG/DL (7-18); CALCIUM LEVEL 8.4 MG/DL (8.5-10.1); CARBON DIOXIDE LEVEL 24 MEQ/L (21-32); CHLORIDE LEVEL 107 MEQ/L (98-107); CREATININE FOR GFR 0.62 MG/DL (0.55-1.30); GLOMERULAR FILTRATION RATE > 60.0 (>60); GLUCOSE, FASTING 137 MG/DL (70-100); MAGNESIUM LEVEL 1.6 MG/DL (1.8-2.4); PHOSPHORUS LEVEL 2.7 MG/DL (2.5-4.9); POTASSIUM SERUM 2.8 MEQ/L (3.5-5.1); SODIUM LEVEL 143 MEQ/L (136-145); THYROGLOBULIN ANTIBODY < 15.0 U/ML (<60.0); TOTAL PROTEIN 6.7 GM/DL (6.4-8.2)
== END ==
LOC: M LAB REF 16:41
PROVIDERS: ATTEND Surgery
DX: K63.2 Fistula of intestine (principal); E44.0 Moderate protein-calorie malnutrition; K50.919 Crohn's disease, unspecified, with unspecified complications

== ENCOUNTER → 2019-04-30 | Outpatient (REF) | payer OTHER ==
[2019-04-30 14:10] LABS: BASO % 0.2 % (0.0-1.0); EOS % 0.2 % (0.0-3.0); HEMATOCRIT 32.7 % (36.0-47.0); HEMOGLOBIN 9.1 g/dl (12.0-15.5); LYMPH # 3.3 10^3/uL (1.5-4.5); LYMPH % 26.2 % (24.0-44.0); MEAN CORPUSCULAR HGB CONC 27.8 g/dl (32.0-36.5); MONO # 0.7 10^3/uL (0.0-0.8); MONO % 5.8 % (0.0-5.0); NEUTROPHILS # 8.5 10^3/uL (1.8-7.7); NEUTROPHILS % 67.2 % (36.0-66.0); PLATELET COUNT, AUTOMATED 279 10^3/uL (150-450); RED BLOOD COUNT 4.14 10^6/uL (4.00-5.40); WHITE BLOOD COUNT 12.6 10^3/uL (4.0-10.0)
[2019-04-30 14:45] LABS: ALBUMIN 2.8 GM/DL (3.2-5.2); ALT/SGPT 10 U/L (12-78); BILIRUBIN,TOTAL 0.1 MG/DL (0.2-1.0); BLOOD UREA NITROGEN 10 MG/DL (7-18); CALCIUM LEVEL 8.1 MG/DL (8.5-10.1); CARBON DIOXIDE LEVEL 29 MEQ/L (21-32); CHLORIDE LEVEL 110 MEQ/L (98-107); CREATININE FOR GFR 0.56 MG/DL (0.55-1.30); GLOMERULAR FILTRATION RATE > 60.0 (>60); GLUCOSE, FASTING 67 MG/DL (70-100); MAGNESIUM LEVEL 1.4 MG/DL (1.8-2.4); PHOSPHORUS LEVEL 2.9 MG/DL (2.5-4.9); POTASSIUM SERUM 2.5 MEQ/L (3.5-5.1); SODIUM LEVEL 146 MEQ/L (136-145); TOTAL PROTEIN 5.9 GM/DL (6.4-8.2)
== END ==
LOC: M SHH 12:35
PROVIDERS: ATTEND Surgery
DX: K63.2 Fistula of intestine (principal)

== ENCOUNTER → 2019-05-03 | Outpatient (REF) | payer OTHER ==
[2019-05-03 13:11] LABS: BASO % 0.1 % (0.0-1.0); EOS # 0.1 10^3/uL (0.0-0.50); EOS % 0.4 % (0.0-3.0); HEMATOCRIT 32.2 % (36.0-47.0); LYMPH # 3.1 10^3/uL (1.5-4.5); LYMPH % 19.5 % (24.0-44.0); MEAN CORPUSCULAR HEMOGLOBIN 22.1 pg (27.0-33.0); MEAN CORPUSCULAR VOLUME 78.9 fl (80.0-96.0); MONO # 0.9 10^3/uL (0.0-0.8); MONO % 5.5 % (0.0-5.0); NEUTROPHILS # 11.7 10^3/uL (1.8-7.7); NEUTROPHILS % 73.7 % (36.0-66.0); PLATELET COUNT, AUTOMATED 294 10^3/uL (150-450); RED BLOOD COUNT 4.08 10^6/uL (4.00-5.40); WHITE BLOOD COUNT 15.9 10^3/uL (4.0-10.0)
[2019-05-03 13:40] LABS: ALBUMIN 2.8 GM/DL (3.2-5.2); ALT/SGPT 13 U/L (12-78); BILIRUBIN,TOTAL 0.3 MG/DL (0.2-1.0); BLOOD UREA NITROGEN 18 MG/DL (7-18); CALCIUM LEVEL 8.4 MG/DL (8.5-10.1); CARBON DIOXIDE LEVEL 29 MEQ/L (21-32); CHLORIDE LEVEL 103 MEQ/L (98-107); CREATININE FOR GFR 0.48 MG/DL (0.55-1.30); GLOMERULAR FILTRATION RATE > 60.0 (>60); GLUCOSE, FASTING 86 MG/DL (70-100); MAGNESIUM LEVEL 2.4 MG/DL (1.8-2.4); PHOSPHORUS LEVEL 2.5 MG/DL (2.5-4.9); POTASSIUM SERUM 4.4 MEQ/L (3.5-5.1); SODIUM LEVEL 139 MEQ/L (136-145); TOTAL PROTEIN 6.7 GM/DL (6.4-8.2); TRIGLYCERIDES LEVEL 179 MG/DL (<150)
== END ==
LOC: M LAB REF 12:02
PROVIDERS: ATTEND Surgery
DX: K50.819 Crohn's disease of both small and large intestine with unspecified complications (principal); Z78.9 Other specified health status

== ENCOUNTER → 2019-05-07 | Outpatient (REF) | payer OTHER ==
[2019-05-07 11:39] LABS: BASO % 0.2 % (0.0-1.0); EOS # 0.1 10^3/uL (0.0-0.50); EOS % 0.6 % (0.0-3.0); HEMATOCRIT 31.1 % (36.0-47.0); HEMOGLOBIN 8.5 g/dl (12.0-15.5); LYMPH # 3.4 10^3/uL (1.5-4.5); LYMPH % 26.5 % (24.0-44.0); MEAN CORPUSCULAR HEMOGLOBIN 21.7 pg (27.0-33.0); MEAN CORPUSCULAR HGB CONC 27.3 g/dl (32.0-36.5); MEAN CORPUSCULAR VOLUME 79.5 fl (80.0-96.0); MONO # 0.9 10^3/uL (0.0-0.8); MONO % 7.3 % (0.0-5.0); NEUTROPHILS # 8.2 10^3/uL (1.8-7.7); NEUTROPHILS % 64.4 % (36.0-66.0); PLATELET COUNT, AUTOMATED 244 10^3/uL (150-450); RED BLOOD COUNT 3.91 10^6/uL (4.00-5.40); WHITE BLOOD COUNT 12.6 10^3/uL (4.0-10.0)
[2019-05-07 12:03] LABS: ALBUMIN 2.6 GM/DL (3.2-5.2); ALT/SGPT 15 U/L (12-78); BILIRUBIN,TOTAL 0.3 MG/DL (0.2-1.0); BLOOD UREA NITROGEN 17 MG/DL (7-18); CALCIUM LEVEL 8.3 MG/DL (8.5-10.1); CARBON DIOXIDE LEVEL 29 MEQ/L (21-32); CHLORIDE LEVEL 108 MEQ/L (98-107); CREATININE FOR GFR 0.37 MG/DL (0.55-1.30); GLOMERULAR FILTRATION RATE > 60.0 (>60); GLUCOSE, FASTING 91 MG/DL (70-100); MAGNESIUM LEVEL 2.4 MG/DL (1.8-2.4); PHOSPHORUS LEVEL 2.7 MG/DL (2.5-4.9); POTASSIUM SERUM 4.2 MEQ/L (3.5-5.1); SODIUM LEVEL 142 MEQ/L (136-145); TRIGLYCERIDES LEVEL 124 MG/DL (<150)
== END ==
LOC: M SHH 11:26
PROVIDERS: ATTEND Surgery
DX: Z00.00 Encounter for general adult medical examination without abnormal findings (principal)

== ENCOUNTER → 2019-05-15 | Outpatient (REF) | payer OTHER ==
[2019-05-15 12:48] LABS: HEMATOCRIT 32.7 % (36.0-47.0); MEAN CORPUSCULAR HEMOGLOBIN 21.1 pg (27.0-33.0); MEAN CORPUSCULAR HGB CONC 27.5 g/dl (32.0-36.5); MEAN CORPUSCULAR VOLUME 76.8 fl (80.0-96.0); PLATELET COUNT, AUTOMATED 274 10^3/uL (150-450); RED BLOOD COUNT 4.26 10^6/uL (4.00-5.40); WHITE BLOOD COUNT 14.7 10^3/uL (4.0-10.0)
[2019-05-15 13:14] LABS: ALBUMIN 2.6 GM/DL (3.2-5.2); ALT/SGPT 18 U/L (12-78); BILIRUBIN,TOTAL 0.2 MG/DL (0.2-1.0); BLOOD UREA NITROGEN 19 MG/DL (7-18); CALCIUM LEVEL 8.1 MG/DL (8.5-10.1); CARBON DIOXIDE LEVEL 28 MEQ/L (21-32); CHLORIDE LEVEL 111 MEQ/L (98-107); CREATININE FOR GFR 0.39 MG/DL (0.55-1.30); GLOMERULAR FILTRATION RATE > 60.0 (>60); GLUCOSE, FASTING 99 MG/DL (70-100); MAGNESIUM LEVEL 2.5 MG/DL (1.8-2.4); PHOSPHORUS LEVEL 3.2 MG/DL (2.5-4.9); SODIUM LEVEL 144 MEQ/L (136-145); TRIGLYCERIDES LEVEL 134 MG/DL (<150)
== END ==
LOC: M SHH 12:01
PROVIDERS: ATTEND Surgery
DX: R79.89 Other specified abnormal findings of blood chemistry (principal)

== ENCOUNTER → 2019-05-21 | Outpatient (REF) | payer OTHER ==
[2019-05-21 13:05] LABS: HEMATOCRIT 30.9 % (36.0-47.0); HEMOGLOBIN 8.5 g/dl (12.0-15.5); MEAN CORPUSCULAR HEMOGLOBIN 21.2 pg (27.0-33.0); MEAN CORPUSCULAR HGB CONC 27.5 g/dl (32.0-36.5); MEAN CORPUSCULAR VOLUME 77.1 fl (80.0-96.0); PLATELET COUNT, AUTOMATED 267 10^3/uL (150-450); RED BLOOD COUNT 4.01 10^6/uL (4.00-5.40); WHITE BLOOD COUNT 15.7 10^3/uL (4.0-10.0)
[2019-05-21 13:15] LABS: ALBUMIN 2.7 GM/DL (3.2-5.2); ALT/SGPT 15 U/L (12-78); BILIRUBIN,TOTAL 0.2 MG/DL (0.2-1.0); BLOOD UREA NITROGEN 23 MG/DL (7-18); CALCIUM LEVEL 8.2 MG/DL (8.5-10.1); CARBON DIOXIDE LEVEL 28 MEQ/L (21-32); CHLORIDE LEVEL 108 MEQ/L (98-107); CREATININE FOR GFR 0.37 MG/DL (0.55-1.30); GLOMERULAR FILTRATION RATE > 60.0 (>60); GLUCOSE, FASTING 88 MG/DL (70-100); MAGNESIUM LEVEL 2.4 MG/DL (1.8-2.4); POTASSIUM SERUM 4.5 MEQ/L (3.5-5.1); SODIUM LEVEL 142 MEQ/L (136-145); TOTAL PROTEIN 5.9 GM/DL (6.4-8.2); TRIGLYCERIDES LEVEL 206 MG/DL (<150)
[2019-05-21 13:37] LABS: ATYPICAL LYMPH 1 % (0-5); EOSINOPHILS 1 % (0-3); LYMPHOCYTES 25 % (16-44); METAMYELOCYTES 1 % (0-0); MONOCYTES 2 % (0-5); NEUTROPHILS 69 % (28-66); PLATELET ESTIMATE NORMAL (NORMAL)
[2019-05-21 13:38] LABS: ANISOCYTOSIS 1+; HYPOCHROMASIA 2+; MICROCYTOSIS 1+; POIKILOCYTOSIS 1+
== END ==
LOC: M SHH 11:59
PROVIDERS: ATTEND Surgery
DX: Z00.00 Encounter for general adult medical examination without abnormal findings (principal)

== ENCOUNTER → 2019-05-28 | Outpatient (REF) | payer OTHER ==
[2019-05-28 11:33] LABS: BASO % 0.2 % (0.0-1.0); EOS # 0.1 10^3/uL (0.0-0.5); EOS % 0.5 % (0.0-3.0); HEMATOCRIT 33.6 % (36.0-47.0); HEMOGLOBIN 9.1 g/dl (12.0-15.5); LYMPH # 3.5 10^3/uL (1.5-5.0); LYMPH % 26.9 % (24.0-44.0); MEAN CORPUSCULAR HEMOGLOBIN 21.7 pg (27.0-33.0); MEAN CORPUSCULAR HGB CONC 27.1 g/dl (32.0-36.5); MONO # 0.9 10^3/uL (0.0-0.8); MONO % 6.7 % (0.0-5.0); NEUTROPHILS # 8.5 10^3/uL (1.5-8.5); NEUTROPHILS % 64.9 % (36.0-66.0); PLATELET COUNT, AUTOMATED 251 10^3/uL (150-450); WHITE BLOOD COUNT 13.1 10^3/uL (4.0-10.0)
[2019-05-28 12:23] LABS: ALBUMIN 3.2 GM/DL (3.2-5.2); ALT/SGPT 16 U/L (12-78); BILIRUBIN,TOTAL 0.2 MG/DL (0.2-1.0); BLOOD UREA NITROGEN 24 MG/DL (7-18); CALCIUM LEVEL 9.3 MG/DL (8.5-10.1); CARBON DIOXIDE LEVEL 28 MEQ/L (21-32); CHLORIDE LEVEL 109 MEQ/L (98-107); CREATININE FOR GFR 0.42 MG/DL (0.55-1.30); GLOMERULAR FILTRATION RATE > 60.0 (>60); GLUCOSE, FASTING 70 MG/DL (70-100); MAGNESIUM LEVEL 2.4 MG/DL (1.8-2.4); PHOSPHORUS LEVEL 2.5 MG/DL (2.5-4.9); POTASSIUM SERUM 4.6 MEQ/L (3.5-5.1); SODIUM LEVEL 144 MEQ/L (136-145); TOTAL PROTEIN 6.6 GM/DL (6.4-8.2); TRIGLYCERIDES LEVEL 179 MG/DL (<150)
== END ==
LOC: M SHH 10:36
PROVIDERS: ATTEND Surgery
DX: E87.8 Other disorders of electrolyte and fluid balance, not elsewhere classified (principal)

== ENCOUNTER → 2019-06-04 | Outpatient (REF) | payer OTHER ==
[2019-06-04 13:57] LABS: BASO % 0.2 % (0.0-1.0); EOS # 0.1 10^3/uL (0.0-0.5); EOS % 0.5 % (0.0-3.0); HEMATOCRIT 30.7 % (36.0-47.0); HEMOGLOBIN 8.4 g/dl (12.0-15.5); LYMPH # 3.6 10^3/uL (1.5-5.0); LYMPH % 29.9 % (24.0-44.0); MEAN CORPUSCULAR HEMOGLOBIN 21.1 pg (27.0-33.0); MEAN CORPUSCULAR HGB CONC 27.4 g/dl (32.0-36.5); MEAN CORPUSCULAR VOLUME 76.9 fl (80.0-96.0); MONO # 0.8 10^3/uL (0.0-0.8); MONO % 6.9 % (0.0-5.0); NEUTROPHILS # 7.5 10^3/uL (1.5-8.5); NEUTROPHILS % 61.7 % (36.0-66.0); PLATELET COUNT, AUTOMATED 277 10^3/uL (150-450); RED BLOOD COUNT 3.99 10^6/uL (4.00-5.40); WHITE BLOOD COUNT 12.1 10^3/uL (4.0-10.0)
[2019-06-04 14:12] LABS: ALBUMIN 2.8 GM/DL (3.2-5.2); ALT/SGPT 18 U/L (12-78); BILIRUBIN,TOTAL 0.2 MG/DL (0.2-1.0); BLOOD UREA NITROGEN 19 MG/DL (7-18); CALCIUM LEVEL 8.3 MG/DL (8.5-10.1); CARBON DIOXIDE LEVEL 28 MEQ/L (21-32); CHLORIDE LEVEL 107 MEQ/L (98-107); GLOMERULAR FILTRATION RATE > 60.0 (>60); GLUCOSE, FASTING 66 MG/DL (70-100); MAGNESIUM LEVEL 2.3 MG/DL (1.8-2.4); PHOSPHORUS LEVEL 3.2 MG/DL (2.5-4.9); POTASSIUM SERUM 4.1 MEQ/L (3.5-5.1); SODIUM LEVEL 144 MEQ/L (136-145); TRIGLYCERIDES LEVEL 132 MG/DL (<150)
== END ==
LOC: M SHH 13:17
PROVIDERS: ATTEND Surgery
DX: Z00.00 Encounter for general adult medical examination without abnormal findings (principal)

== ENCOUNTER → 2019-06-11 | Outpatient (REF) | payer OTHER ==
[~2019-06-11] MED LIST changes: +CIPR500T3; +LOPE2CAP; +METR-265; +MORP2CAR IV; -MORP2SY IV; +OMEP-218; +PRED10TA2; +SUBO8MIS
[2019-06-11 14:05] LABS: HEMATOCRIT 36.5 % (36.0-47.0); HEMOGLOBIN 9.6 g/dl (12.0-15.5); MEAN CORPUSCULAR HEMOGLOBIN 21.6 pg (27.0-33.0); MEAN CORPUSCULAR HGB CONC 26.3 g/dl (32.0-36.5); PLATELET COUNT, AUTOMATED 238 10^3/uL (150-450); RED BLOOD COUNT 4.45 10^6/uL (4.00-5.40); WHITE BLOOD COUNT 18.4 10^3/uL (4.0-10.0)
[2019-06-11 14:54] LABS: LYMPHOCYTES 22 % (16-44); MONOCYTES 9 % (0-5); NEUTROPHILS 68 % (28-66); PLATELET ESTIMATE NORMAL (NORMAL)
[2019-06-11 14:55] LABS: ANISOCYTOSIS 1+; HYPOCHROMASIA 1+; POIKILOCYTOSIS 1+
[2019-06-11 15:31] LABS: ALBUMIN 2.8 GM/DL (3.2-5.2); ALT/SGPT 14 U/L (12-78); BILIRUBIN,TOTAL 0.2 MG/DL (0.2-1.0); BLOOD UREA NITROGEN 22 MG/DL (7-18); CALCIUM LEVEL 8.5 MG/DL (8.5-10.1); CARBON DIOXIDE LEVEL 28 MEQ/L (21-32); CHLORIDE LEVEL 105 MEQ/L (98-107); CREATININE FOR GFR 0.48 MG/DL (0.55-1.30); GLOMERULAR FILTRATION RATE > 60.0 (>60); GLUCOSE, FASTING 33 MG/DL (70-100); MAGNESIUM LEVEL 2.5 MG/DL (1.8-2.4); PHOSPHORUS LEVEL 3.3 MG/DL (2.5-4.9); SODIUM LEVEL 142 MEQ/L (136-145); THYROGLOBULIN ANTIBODY < 15.0 U/ML (<60.0)
== END ==
LOC: M SHH 13:43
PROVIDERS: ATTEND Surgery
DX: K63.2 Fistula of intestine (principal)

== ENCOUNTER → 2019-06-18 | Outpatient (REF) | payer OTHER ==
[2019-06-18 16:05] LABS: BASO % 0.1 % (0.0-1.0); EOS % 0.1 % (0.0-3.0); HEMATOCRIT 34.8 % (36.0-47.0); HEMOGLOBIN 9.4 g/dl (12.0-15.5); LYMPH # 0.9 10^3/uL (1.5-5.0); MEAN CORPUSCULAR HEMOGLOBIN 21.9 pg (27.0-33.0); MEAN CORPUSCULAR VOLUME 81.1 fl (80.0-96.0); MONO # 0.2 10^3/uL (0.0-0.8); MONO % 1.7 % (0.0-5.0); PLATELET COUNT, AUTOMATED 302 10^3/uL (150-450); RED BLOOD COUNT 4.29 10^6/uL (4.00-5.40); WHITE BLOOD COUNT 14.3 10^3/uL (4.0-10.0)
[2019-06-18 16:20] LABS: ALBUMIN 2.9 GM/DL (3.2-5.2); ALT/SGPT 17 U/L (12-78); BILIRUBIN,TOTAL 0.2 MG/DL (0.2-1.0); BLOOD UREA NITROGEN 16 MG/DL (7-18); CALCIUM LEVEL 8.3 MG/DL (8.5-10.1); CARBON DIOXIDE LEVEL 24 MEQ/L (21-32); CHLORIDE LEVEL 105 MEQ/L (98-107); CREATININE FOR GFR 0.61 MG/DL (0.55-1.30); GLOMERULAR FILTRATION RATE > 60.0 (>60); GLUCOSE, FASTING 126 MG/DL (70-100); MAGNESIUM LEVEL 1.8 MG/DL (1.8-2.4); PHOSPHORUS LEVEL 2.5 MG/DL (2.5-4.9); POTASSIUM SERUM 3.8 MEQ/L (3.5-5.1); SODIUM LEVEL 140 MEQ/L (136-145); TOTAL PROTEIN 6.7 GM/DL (6.4-8.2)
[2019-06-18 16:29] LABS: THYROGLOBULIN ANTIBODY < 15.0 U/ML (<60.0)
== END ==
LOC: M SHH 15:02
PROVIDERS: ATTEND Surgery
DX: K63.2 Fistula of intestine (principal)

== ENCOUNTER → 2019-06-25 | Outpatient (REF) | payer OTHER ==
[~2019-06-25] MED LIST changes: -CIPR500T3; -LOPE2CAP; -METR-265; -MORP2CAR IV; +MORP2SY IV; -OMEP-218; -PRED10TA2; -SUBO8MIS
[2019-06-25 14:51] LABS: BASO # 0.1 10^3/uL (0.0-0.2); BASO % 0.3 % (0.0-1.0); EOS % 0.1 % (0.0-3.0); HEMATOCRIT 35.4 % (36.0-47.0); HEMOGLOBIN 9.7 g/dl (12.0-15.5); LYMPH # 1.5 10^3/uL (1.5-5.0); MEAN CORPUSCULAR HEMOGLOBIN 22.6 pg (27.0-33.0); MEAN CORPUSCULAR HGB CONC 27.4 g/dl (32.0-36.5); MEAN CORPUSCULAR VOLUME 82.3 fl (80.0-96.0); MONO # 0.6 10^3/uL (0.0-0.8); NEUTROPHILS # 12.4 10^3/uL (1.5-8.5); NEUTROPHILS % 84.5 % (36.0-66.0); PLATELET COUNT, AUTOMATED 322 10^3/uL (150-450); WHITE BLOOD COUNT 14.6 10^3/uL (4.0-10.0)
[2019-06-25 15:19] LABS: ALBUMIN 2.8 GM/DL (3.2-5.2); ALT/SGPT 13 U/L (12-78); BILIRUBIN,TOTAL 0.1 MG/DL (0.2-1.0); BLOOD UREA NITROGEN 23 MG/DL (7-18); CALCIUM LEVEL 8.3 MG/DL (8.5-10.1); CARBON DIOXIDE LEVEL 26 MEQ/L (21-32); CHLORIDE LEVEL 105 MEQ/L (98-107); CREATININE FOR GFR 0.45 MG/DL (0.55-1.30); GLOMERULAR FILTRATION RATE > 60.0 (>60); GLUCOSE, FASTING 92 MG/DL (70-100); MAGNESIUM LEVEL 1.9 MG/DL (1.8-2.4); PHOSPHORUS LEVEL 2.8 MG/DL (2.5-4.9); POTASSIUM SERUM 4.6 MEQ/L (3.5-5.1); SODIUM LEVEL 139 MEQ/L (136-145); TOTAL PROTEIN 6.1 GM/DL (6.4-8.2)
[2019-06-25 15:36] LABS: THYROGLOBULIN ANTIBODY < 15.0 U/ML (<60.0)
== END ==
LOC: M SHH 13:44
PROVIDERS: ATTEND Surgery
DX: K63.2 Fistula of intestine (principal)

== ENCOUNTER → 2019-07-02 | Outpatient (REF) | payer OTHER ==
[2019-07-02 17:28] LABS: BASO % 0.2 % (0.0-1.0); EOS # 0.1 10^3/uL (0.0-0.5); EOS % 0.3 % (0.0-3.0); HEMATOCRIT 37.3 % (36.0-47.0); LYMPH # 1.9 10^3/uL (1.5-5.0); LYMPH % 12.5 % (24.0-44.0); MEAN CORPUSCULAR HEMOGLOBIN 21.9 pg (27.0-33.0); MEAN CORPUSCULAR HGB CONC 26.8 g/dl (32.0-36.5); MEAN CORPUSCULAR VOLUME 81.6 fl (80.0-96.0); MONO # 0.7 10^3/uL (0.0-0.8); MONO % 4.2 % (0.0-5.0); NEUTROPHILS # 12.7 10^3/uL (1.5-8.5); NEUTROPHILS % 81.8 % (36.0-66.0); PLATELET COUNT, AUTOMATED 308 10^3/uL (150-450); RED BLOOD COUNT 4.57 10^6/uL (4.00-5.40); WHITE BLOOD COUNT 15.5 10^3/uL (4.0-10.0)
[2019-07-02 17:46] LABS: ALT/SGPT 16 U/L (12-78); BILIRUBIN,TOTAL 0.2 MG/DL (0.2-1.0); BLOOD UREA NITROGEN 22 MG/DL (7-18); CALCIUM LEVEL 8.6 MG/DL (8.5-10.1); CARBON DIOXIDE LEVEL 24 MEQ/L (21-32); CHLORIDE LEVEL 107 MEQ/L (98-107); GLOMERULAR FILTRATION RATE > 60.0 (>60); GLUCOSE, FASTING 50 MG/DL (70-100); MAGNESIUM LEVEL 2.1 MG/DL (1.8-2.4); PHOSPHORUS LEVEL 3.2 MG/DL (2.5-4.9); SODIUM LEVEL 141 MEQ/L (136-145); TRIGLYCERIDES LEVEL 186 MG/DL (<150)
== END ==
LOC: M LAB REF 17:00
PROVIDERS: ATTEND Surgery
DX: K63.2 Fistula of intestine (principal)

== ENCOUNTER → 2019-07-09 | Outpatient (REF) | payer OTHER ==
[2019-07-09 13:29] LABS: BASO % 0.1 % (0.0-1.0); EOS % 0.2 % (0.0-3.0); HEMATOCRIT 38.7 % (36.0-47.0); HEMOGLOBIN 10.9 g/dl (12.0-15.5); LYMPH # 1.8 10^3/uL (1.5-5.0); LYMPH % 11.1 % (24.0-44.0); MEAN CORPUSCULAR HEMOGLOBIN 22.8 pg (27.0-33.0); MEAN CORPUSCULAR HGB CONC 28.2 g/dl (32.0-36.5); MONO # 0.5 10^3/uL (0.0-0.8); MONO % 3.2 % (0.0-5.0); NEUTROPHILS # 13.6 10^3/uL (1.5-8.5); NEUTROPHILS % 84.3 % (36.0-66.0); PLATELET COUNT, AUTOMATED 289 10^3/uL (150-450); RED BLOOD COUNT 4.78 10^6/uL (4.00-5.40); WHITE BLOOD COUNT 16.2 10^3/uL (4.0-10.0)
[2019-07-09 14:06] LABS: ALT/SGPT 17 U/L (12-78); BILIRUBIN,TOTAL 0.2 MG/DL (0.2-1.0); BLOOD UREA NITROGEN 27 MG/DL (7-18); CALCIUM LEVEL 8.5 MG/DL (8.5-10.1); CARBON DIOXIDE LEVEL 26 MEQ/L (21-32); CHLORIDE LEVEL 107 MEQ/L (98-107); CREATININE FOR GFR 0.54 MG/DL (0.55-1.30); GLOMERULAR FILTRATION RATE > 60.0 (>60); GLUCOSE, FASTING 119 MG/DL (70-100); MAGNESIUM LEVEL 2.1 MG/DL (1.8-2.4); PHOSPHORUS LEVEL 3.1 MG/DL (2.5-4.9); POTASSIUM SERUM 4.6 MEQ/L (3.5-5.1); SODIUM LEVEL 139 MEQ/L (136-145); TOTAL PROTEIN 6.5 GM/DL (6.4-8.2); TRIGLYCERIDES LEVEL 83 MG/DL (<150)
== END ==
LOC: M SHH 13:05
PROVIDERS: ATTEND Surgery
DX: K63.2 Fistula of intestine (principal)

== ENCOUNTER → 2019-07-16 | Outpatient (REF) | payer OTHER ==
[2019-07-16 14:35] LABS: BASO % 0.2 % (0.0-1.0); EOS # 0.1 10^3/uL (0.0-0.5); EOS % 0.9 % (0.0-3.0); HEMATOCRIT 38.5 % (36.0-47.0); HEMOGLOBIN 10.9 g/dl (12.0-15.5); LYMPH # 4.5 10^3/uL (1.5-5.0); LYMPH % 27.7 % (24.0-44.0); MEAN CORPUSCULAR HEMOGLOBIN 22.3 pg (27.0-33.0); MEAN CORPUSCULAR HGB CONC 28.3 g/dl (32.0-36.5); MEAN CORPUSCULAR VOLUME 78.7 fl (80.0-96.0); MONO # 1.2 10^3/uL (0.0-0.8); MONO % 7.4 % (0.0-5.0); NEUTROPHILS # 10.1 10^3/uL (1.5-8.5); NEUTROPHILS % 62.6 % (36.0-66.0); PLATELET COUNT, AUTOMATED 292 10^3/uL (150-450); RED BLOOD COUNT 4.89 10^6/uL (4.00-5.40); WHITE BLOOD COUNT 16.2 10^3/uL (4.0-10.0)
[2019-07-16 15:00] LABS: ALBUMIN 2.7 GM/DL (3.2-5.2); ALT/SGPT 16 U/L (12-78); BILIRUBIN,TOTAL 0.9 MG/DL (0.2-1.0); BLOOD UREA NITROGEN 19 MG/DL (7-18); CALCIUM LEVEL 8.1 MG/DL (8.5-10.1); CARBON DIOXIDE LEVEL 25 MEQ/L (21-32); CHLORIDE LEVEL 106 MEQ/L (98-107); CREATININE FOR GFR 0.46 MG/DL (0.55-1.30); GLOMERULAR FILTRATION RATE > 60.0 (>60); GLUCOSE, FASTING 68 MG/DL (70-100); PHOSPHORUS LEVEL 3.7 MG/DL (2.5-4.9); POTASSIUM SERUM 3.6 MEQ/L (3.5-5.1); SODIUM LEVEL 143 MEQ/L (136-145); TOTAL PROTEIN 6.1 GM/DL (6.4-8.2); TRIGLYCERIDES LEVEL 121 MG/DL (<150)
== END ==
LOC: M LAB REF 13:45 → M SHH 13:45
PROVIDERS: ATTEND Surgery
DX: K63.2 Fistula of intestine (principal)

== ENCOUNTER → 2019-07-23 | Outpatient (REF) | payer OTHER ==
[~2019-07-23] MED LIST changes: +CIPR500T3; +LOPE2CAP; +METR-265; +OMEP-218; +PRED10TA2; +SUBO8MIS
[2019-07-23 13:26] LABS: BASO % 0.2 % (0.0-1.0); EOS # 0.1 10^3/uL (0.0-0.5); EOS % 0.8 % (0.0-3.0); LYMPH % 17.9 % (24.0-44.0); MEAN CORPUSCULAR HEMOGLOBIN 22.6 pg (27.0-33.0); MEAN CORPUSCULAR HGB CONC 28.1 g/dl (32.0-36.5); MEAN CORPUSCULAR VOLUME 80.2 fl (80.0-96.0); MONO # 0.8 10^3/uL (0.0-0.8); MONO % 7.3 % (0.0-5.0); NEUTROPHILS # 8.1 10^3/uL (1.5-8.5); NEUTROPHILS % 73.3 % (36.0-66.0); PLATELET COUNT, AUTOMATED 284 10^3/uL (150-450); RED BLOOD COUNT 3.99 10^6/uL (4.00-5.40)
[2019-07-23 13:50] LABS: ALBUMIN 2.3 GM/DL (3.2-5.2); ALT/SGPT 11 U/L (12-78); BILIRUBIN,TOTAL 0.2 MG/DL (0.2-1.0); BLOOD UREA NITROGEN 22 MG/DL (7-18); CALCIUM LEVEL 8.5 MG/DL (8.5-10.1); CARBON DIOXIDE LEVEL 29 MEQ/L (21-32); CHLORIDE LEVEL 107 MEQ/L (98-107); CREATININE FOR GFR 0.43 MG/DL (0.55-1.30); GLOMERULAR FILTRATION RATE > 60.0 (>60); GLUCOSE, FASTING 101 MG/DL (70-100); MAGNESIUM LEVEL 1.8 MG/DL (1.8-2.4); PHOSPHORUS LEVEL 3.1 MG/DL (2.5-4.9); POTASSIUM SERUM 3.9 MEQ/L (3.5-5.1); SODIUM LEVEL 142 MEQ/L (136-145); TOTAL PROTEIN 5.6 GM/DL (6.4-8.2); TRIGLYCERIDES LEVEL 90 MG/DL (<150)
== END ==
LOC: M LAB REF 12:51
PROVIDERS: ATTEND Surgery
DX: K63.2 Fistula of intestine (principal)

== ENCOUNTER 2019-07-25 18:01 | Emergency (ER) | payer OTHER ==
[~2019-07-25] VITALS: Ht 160 cm; Wt 61.4 kg
[~2019-07-25 18:01] MED LIST changes: -CIPR500T3; -LOPE2CAP; -METR-265; -OMEP-218; -PRED10TA2; -SUBO8MIS
[2019-07-25] MEDS ORDERED: PRED10TA2 (18:10)
[2019-07-25] MEDS ORDERED: SUBO8MIS (18:10)
[2019-07-25] MEDS ORDERED: LOPE2CAP (18:10)
[2019-07-25] MEDS ORDERED: METR-265 (18:10)
[2019-07-25] MEDS ORDERED: OMEP-218 (18:10)
[2019-07-25] MEDS ORDERED: CIPR500T3 (18:10)
[2019-07-25 21:14] VITALS: BP 121/60
== END 2019-07-25 21:39 | disposition home or self-care (01) ==
LOC: M ED 18:01
DX: L02.211 Cutaneous abscess of abdominal wall (principal); J45.909 Unspecified asthma, uncomplicated; K50.90 Crohn's disease, unspecified, without complications; Z79.899 Other long term (current) drug therapy

== ENCOUNTER → 2019-07-30 | Outpatient (REF) | payer OTHER ==
[~2019-07-30] MED LIST changes: +CIPR500T3; +LOPE2CAP; +METR-265; +OMEP-218; +PRED10TA2; +SUBO8MIS
[2019-07-30 12:14] LABS: BASO % 0.2 % (0.0-1.0); EOS % 0.1 % (0.0-3.0); HEMATOCRIT 35.6 % (36.0-47.0); HEMOGLOBIN 9.7 g/dl (12.0-15.5); LYMPH # 1.2 10^3/uL (1.5-5.0); LYMPH % 8.7 % (24.0-44.0); MEAN CORPUSCULAR HEMOGLOBIN 22.3 pg (27.0-33.0); MEAN CORPUSCULAR HGB CONC 27.2 g/dl (32.0-36.5); MEAN CORPUSCULAR VOLUME 81.8 fl (80.0-96.0); MONO # 0.4 10^3/uL (0.0-0.8); MONO % 2.9 % (0.0-5.0); NEUTROPHILS # 11.9 10^3/uL (1.5-8.5); NEUTROPHILS % 87.3 % (36.0-66.0); PLATELET COUNT, AUTOMATED 424 10^3/uL (150-450); RED BLOOD COUNT 4.35 10^6/uL (4.00-5.40); WHITE BLOOD COUNT 13.6 10^3/uL (4.0-10.0)
[2019-07-30 12:53] LABS: ALBUMIN 2.7 GM/DL (3.2-5.2); ALT/SGPT 13 U/L (12-78); BILIRUBIN,TOTAL 0.2 MG/DL (0.2-1.0); BLOOD UREA NITROGEN 15 MG/DL (7-18); CALCIUM LEVEL 8.7 MG/DL (8.5-10.1); CARBON DIOXIDE LEVEL 23 MEQ/L (21-32); CHLORIDE LEVEL 110 MEQ/L (98-107); GLOMERULAR FILTRATION RATE > 60.0 (>60); GLUCOSE, FASTING 98 MG/DL (70-100); MAGNESIUM LEVEL 1.4 MG/DL (1.8-2.4); PHOSPHORUS LEVEL 3.1 MG/DL (2.5-4.9); POTASSIUM SERUM 3.5 MEQ/L (3.5-5.1); SODIUM LEVEL 142 MEQ/L (136-145); TOTAL PROTEIN 6.5 GM/DL (6.4-8.2); TRIGLYCERIDES LEVEL 269 MG/DL (<150)
== END ==
LOC: M SHH 11:37
PROVIDERS: ATTEND Surgery
DX: K63.2 Fistula of intestine (principal)

== ENCOUNTER → 2019-08-06 | Outpatient (REF) | payer OTHER ==
[2019-08-06 13:14] LABS: BASO % 0.1 % (0.0-1.0); EOS % 0.1 % (0.0-3.0); HEMATOCRIT 36.3 % (36.0-47.0); HEMOGLOBIN 10.1 g/dl (12.0-15.5); LYMPH # 1.5 10^3/uL (1.5-5.0); MEAN CORPUSCULAR HEMOGLOBIN 22.7 pg (27.0-33.0); MEAN CORPUSCULAR HGB CONC 27.8 g/dl (32.0-36.5); MEAN CORPUSCULAR VOLUME 81.6 fl (80.0-96.0); MONO # 0.3 10^3/uL (0.0-0.8); MONO % 2.2 % (0.0-5.0); NEUTROPHILS # 13.1 10^3/uL (1.5-8.5); NEUTROPHILS % 86.4 % (36.0-66.0); PLATELET COUNT, AUTOMATED 356 10^3/uL (150-450); RED BLOOD COUNT 4.45 10^6/uL (4.00-5.40); WHITE BLOOD COUNT 15.2 10^3/uL (4.0-10.0)
[2019-08-06 13:29] LABS: ALBUMIN 2.8 GM/DL (3.2-5.2); ALT/SGPT 12 U/L (12-78); BILIRUBIN,TOTAL 0.2 MG/DL (0.2-1.0); BLOOD UREA NITROGEN 15 MG/DL (7-18); CALCIUM LEVEL 8.4 MG/DL (8.5-10.1); CARBON DIOXIDE LEVEL 22 MEQ/L (21-32); CHLORIDE LEVEL 110 MEQ/L (98-107); CREATININE FOR GFR 0.74 MG/DL (0.55-1.30); GLOMERULAR FILTRATION RATE > 60.0 (>60); GLUCOSE, FASTING 125 MG/DL (70-100); PHOSPHORUS LEVEL 3.3 MG/DL (2.5-4.9); POTASSIUM SERUM 3.7 MEQ/L (3.5-5.1); SODIUM LEVEL 142 MEQ/L (136-145); TOTAL PROTEIN 6.7 GM/DL (6.4-8.2); TRIGLYCERIDES LEVEL 204 MG/DL (<150)
== END ==
LOC: M SHH 12:45
PROVIDERS: ATTEND Surgery
DX: T81.83XA Persistent postprocedural fistula, initial encounter (principal)

== ENCOUNTER → 2019-08-13 | Outpatient (REF) | payer OTHER ==
[~2019-08-13] MED LIST changes: +MORP2CAR IV; -MORP2SY IV
[2019-08-13 15:35] LABS: BASO % 0.2 % (0.0-1.0); HEMATOCRIT 39.6 % (36.0-47.0); HEMOGLOBIN 11.2 g/dl (12.0-15.5); LYMPH # 1.3 10^3/uL (1.5-5.0); LYMPH % 6.5 % (24.0-44.0); MEAN CORPUSCULAR HEMOGLOBIN 22.4 pg (27.0-33.0); MEAN CORPUSCULAR HGB CONC 28.3 g/dl (32.0-36.5); MONO # 0.2 10^3/uL (0.0-0.8); MONO % 0.8 % (0.0-5.0); NEUTROPHILS # 17.6 10^3/uL (1.5-8.5); NEUTROPHILS % 91.4 % (36.0-66.0); PLATELET COUNT, AUTOMATED 354 10^3/uL (150-450); RED BLOOD COUNT 5.01 10^6/uL (4.00-5.40); WHITE BLOOD COUNT 19.3 10^3/uL (4.0-10.0)
[2019-08-13 16:18] LABS: ALBUMIN 3.1 GM/DL (3.2-5.2); ALT/SGPT 17 U/L (12-78); BILIRUBIN,TOTAL 0.2 MG/DL (0.2-1.0); BLOOD UREA NITROGEN 11 MG/DL (7-18); CALCIUM LEVEL 7.5 MG/DL (8.5-10.1); CARBON DIOXIDE LEVEL 23 MEQ/L (21-32); CHLORIDE LEVEL 104 MEQ/L (98-107); CREATININE FOR GFR 0.76 MG/DL (0.55-1.30); GLOMERULAR FILTRATION RATE > 60.0 (>60); GLUCOSE, FASTING 104 MG/DL (70-100); MAGNESIUM LEVEL 0.7 MG/DL (1.8-2.4); PHOSPHORUS LEVEL 3.5 MG/DL (2.5-4.9); POTASSIUM SERUM 3.1 MEQ/L (3.5-5.1); SODIUM LEVEL 141 MEQ/L (136-145); TOTAL PROTEIN 7.4 GM/DL (6.4-8.2); TRIGLYCERIDES LEVEL 211 MG/DL (<150)
== END ==
LOC: M SHH 14:38
PROVIDERS: ATTEND Surgery
DX: T81.83XA Persistent postprocedural fistula, initial encounter (principal); Y83.1 Surgical operation with implant of artificial internal device as the cause of abnormal reaction of the patient, or of later complication, without mention of misadventure at the time of the procedure

== ENCOUNTER → 2019-08-20 | Outpatient (REF) | payer OTHER ==
[2019-08-20 15:40] LABS: BASO % 0.1 % (0.0-1.0); EOS % 0.1 % (0.0-3.0); HEMATOCRIT 35.7 % (36.0-47.0); LYMPH # 0.7 10^3/uL (1.5-5.0); LYMPH % 5.5 % (24.0-44.0); MEAN CORPUSCULAR HEMOGLOBIN 22.4 pg (27.0-33.0); MEAN CORPUSCULAR VOLUME 79.9 fl (80.0-96.0); MONO # 0.1 10^3/uL (0.0-0.8); MONO % 0.8 % (0.0-5.0); NEUTROPHILS # 12.2 10^3/uL (1.5-8.5); NEUTROPHILS % 92.9 % (36.0-66.0); PLATELET COUNT, AUTOMATED 287 10^3/uL (150-450); RED BLOOD COUNT 4.47 10^6/uL (4.00-5.40); WHITE BLOOD COUNT 13.1 10^3/uL (4.0-10.0)
[2019-08-20 15:49] LABS: ALBUMIN 2.7 GM/DL (3.2-5.2); ALT/SGPT 21 U/L (12-78); BILIRUBIN,TOTAL 0.3 MG/DL (0.2-1.0); BLOOD UREA NITROGEN 12 MG/DL (7-18); CARBON DIOXIDE LEVEL 20 MEQ/L (21-32); CHLORIDE LEVEL 113 MEQ/L (98-107); CREATININE FOR GFR 0.63 MG/DL (0.55-1.30); GLOMERULAR FILTRATION RATE > 60.0 (>60); GLUCOSE, FASTING 131 MG/DL (70-100); MAGNESIUM LEVEL 1.3 MG/DL (1.8-2.4); POTASSIUM SERUM 3.7 MEQ/L (3.5-5.1); SODIUM LEVEL 143 MEQ/L (136-145); TOTAL PROTEIN 6.2 GM/DL (6.4-8.2); TRIGLYCERIDES LEVEL 148 MG/DL (<150)
== END ==
LOC: M LAB REF 15:26
PROVIDERS: ATTEND Surgery
DX: T81.83XA Persistent postprocedural fistula, initial encounter (principal)

== ENCOUNTER → 2019-08-27 | Outpatient (REF) | payer OTHER ==
[2019-08-27 13:25] LABS: BASO % 0.2 % (0.0-1.0); EOS # 0.1 10^3/uL (0.0-0.5); EOS % 1.1 % (0.0-3.0); HEMATOCRIT 33.4 % (36.0-47.0); HEMOGLOBIN 9.1 g/dl (12.0-15.5); LYMPH # 2.8 10^3/uL (1.5-5.0); LYMPH % 26.1 % (24.0-44.0); MEAN CORPUSCULAR HEMOGLOBIN 22.1 pg (27.0-33.0); MEAN CORPUSCULAR HGB CONC 27.2 g/dl (32.0-36.5); MEAN CORPUSCULAR VOLUME 81.1 fl (80.0-96.0); MONO # 0.7 10^3/uL (0.0-0.8); MONO % 6.5 % (0.0-5.0); NEUTROPHILS % 65.6 % (36.0-66.0); PLATELET COUNT, AUTOMATED 283 10^3/uL (150-450); RED BLOOD COUNT 4.12 10^6/uL (4.00-5.40); WHITE BLOOD COUNT 10.7 10^3/uL (4.0-10.0)
[2019-08-27 13:46] LABS: ALBUMIN 2.3 GM/DL (3.2-5.2); ALT/SGPT 12 U/L (12-78); BILIRUBIN,TOTAL 0.2 MG/DL (0.2-1.0); BLOOD UREA NITROGEN 7 MG/DL (7-18); CALCIUM LEVEL 7.4 MG/DL (8.5-10.1); CARBON DIOXIDE LEVEL 28 MEQ/L (21-32); CHLORIDE LEVEL 106 MEQ/L (98-107); CREATININE FOR GFR 0.52 MG/DL (0.55-1.30); GLOMERULAR FILTRATION RATE > 60.0 (>60); GLUCOSE, FASTING 90 MG/DL (70-100); MAGNESIUM LEVEL 1.1 MG/DL (1.8-2.4); PHOSPHORUS LEVEL 3.1 MG/DL (2.5-4.9); POTASSIUM SERUM 3.2 MEQ/L (3.5-5.1); SODIUM LEVEL 142 MEQ/L (136-145); TOTAL PROTEIN 5.3 GM/DL (6.4-8.2); TRIGLYCERIDES LEVEL 140 MG/DL (<150)
== END ==
LOC: M SHH 12:26
PROVIDERS: ATTEND Surgery
DX: T81.83XD Persistent postprocedural fistula, subsequent encounter (principal); X58.XXXD Exposure to other specified factors, subsequent encounter

== ENCOUNTER → 2019-09-03 | Outpatient (REF) | payer OTHER ==
[2019-09-03 14:49] LABS: BASO % 0.2 % (0.0-1.0); EOS # 0.1 10^3/uL (0.0-0.5); EOS % 0.5 % (0.0-3.0); HEMATOCRIT 34.8 % (36.0-47.0); HEMOGLOBIN 9.6 g/dl (12.0-15.5); LYMPH # 3.9 10^3/uL (1.5-5.0); LYMPH % 28.1 % (24.0-44.0); MEAN CORPUSCULAR HGB CONC 27.6 g/dl (32.0-36.5); MEAN CORPUSCULAR VOLUME 79.8 fl (80.0-96.0); MONO # 0.8 10^3/uL (0.0-0.8); MONO % 5.9 % (0.0-5.0); NEUTROPHILS # 8.9 10^3/uL (1.5-8.5); NEUTROPHILS % 64.6 % (36.0-66.0); PLATELET COUNT, AUTOMATED 355 10^3/uL (150-450); RED BLOOD COUNT 4.36 10^6/uL (4.00-5.40); WHITE BLOOD COUNT 13.8 10^3/uL (4.0-10.0)
[2019-09-03 15:34] LABS: ALBUMIN 2.4 GM/DL (3.2-5.2); ALT/SGPT 12 U/L (12-78); BILIRUBIN,TOTAL 0.4 MG/DL (0.2-1.0); BLOOD UREA NITROGEN 9 MG/DL (7-18); CALCIUM LEVEL 7.8 MG/DL (8.5-10.1); CARBON DIOXIDE LEVEL 23 MEQ/L (21-32); CHLORIDE LEVEL 106 MEQ/L (98-107); CREATININE FOR GFR 0.65 MG/DL (0.55-1.30); GLOMERULAR FILTRATION RATE > 60.0 (>60); GLUCOSE, FASTING 85 MG/DL (70-100); MAGNESIUM LEVEL 1.1 MG/DL (1.8-2.4); PHOSPHORUS LEVEL 3.1 MG/DL (2.5-4.9); POTASSIUM SERUM 2.9 MEQ/L (3.5-5.1); SODIUM LEVEL 143 MEQ/L (136-145); TOTAL PROTEIN 5.5 GM/DL (6.4-8.2); TRIGLYCERIDES LEVEL 140 MG/DL (<150)
== END ==
LOC: M SHH 13:28
PROVIDERS: ATTEND Surgery
DX: K63.2 Fistula of intestine (principal)

== ENCOUNTER → 2019-09-10 | Outpatient (REF) | payer OTHER ==
[2019-09-10 15:01] LABS: ALBUMIN 2.7 GM/DL (3.2-5.2); ALT/SGPT 12 U/L (12-78); BILIRUBIN,TOTAL 0.2 MG/DL (0.2-1.0); BLOOD UREA NITROGEN 12 MG/DL (7-18); CARBON DIOXIDE LEVEL 24 MEQ/L (21-32); CHLORIDE LEVEL 107 MEQ/L (98-107); CREATININE FOR GFR 0.55 MG/DL (0.55-1.30); GLOMERULAR FILTRATION RATE > 60.0 (>60); GLUCOSE, FASTING 144 MG/DL (70-100); PHOSPHORUS LEVEL 2.8 MG/DL (2.5-4.9); POTASSIUM SERUM 3.7 MEQ/L (3.5-5.1); SODIUM LEVEL 142 MEQ/L (136-145); TRIGLYCERIDES LEVEL 66 MG/DL (<150)
[2019-09-10 15:11] LABS: BASO % 0.2 % (0.0-1.0); EOS % 0.1 % (0.0-3.0); HEMATOCRIT 38.3 % (36.0-47.0); HEMOGLOBIN 10.6 g/dl (12.0-15.5); LYMPH # 1.2 10^3/uL (1.5-5.0); LYMPH % 6.8 % (24.0-44.0); MEAN CORPUSCULAR HEMOGLOBIN 22.1 pg (27.0-33.0); MEAN CORPUSCULAR HGB CONC 27.7 g/dl (32.0-36.5); MEAN CORPUSCULAR VOLUME 79.8 fl (80.0-96.0); MONO # 0.4 10^3/uL (0.0-0.8); MONO % 2.4 % (0.0-5.0); NEUTROPHILS # 14.9 10^3/uL (1.5-8.5); NEUTROPHILS % 88.2 % (36.0-66.0); PLATELET COUNT, AUTOMATED 341 10^3/uL (150-450); WHITE BLOOD COUNT 16.9 10^3/uL (4.0-10.0)
== END ==
LOC: M SHH 13:30
PROVIDERS: ATTEND Surgery
DX: K63.2 Fistula of intestine (principal)

== ENCOUNTER → 2019-09-17 | Outpatient (REF) | payer OTHER ==
[2019-09-17 12:09] LABS: BASO % 0.2 % (0.0-1.0); EOS % 0.2 % (0.0-3.0); HEMATOCRIT 36.7 % (36.0-47.0); HEMOGLOBIN 10.2 g/dl (12.0-15.5); LYMPH # 3.4 10^3/uL (1.5-5.0); LYMPH % 19.2 % (24.0-44.0); MEAN CORPUSCULAR HGB CONC 27.8 g/dl (32.0-36.5); MEAN CORPUSCULAR VOLUME 79.3 fl (80.0-96.0); MONO # 1.1 10^3/uL (0.0-0.8); NEUTROPHILS # 13.2 10^3/uL (1.5-8.5); NEUTROPHILS % 73.5 % (36.0-66.0); PLATELET COUNT, AUTOMATED 282 10^3/uL (150-450); RED BLOOD COUNT 4.63 10^6/uL (4.00-5.40); WHITE BLOOD COUNT 17.9 10^3/uL (4.0-10.0)
[2019-09-17 13:10] LABS: ALBUMIN 2.7 GM/DL (3.2-5.2); ALT/SGPT 15 U/L (12-78); BILIRUBIN,TOTAL 0.3 MG/DL (0.2-1.0); BLOOD UREA NITROGEN 11 MG/DL (7-18); CALCIUM LEVEL 8.2 MG/DL (8.5-10.1); CARBON DIOXIDE LEVEL 20 MEQ/L (21-32); CHLORIDE LEVEL 105 MEQ/L (98-107); CREATININE FOR GFR 0.68 MG/DL (0.55-1.30); GLOMERULAR FILTRATION RATE > 60.0 (>60); GLUCOSE, FASTING 99 MG/DL (70-100); MAGNESIUM LEVEL 1.1 MG/DL (1.8-2.4); PHOSPHORUS LEVEL 4.4 MG/DL (2.5-4.9); POTASSIUM SERUM 2.9 MEQ/L (3.5-5.1); SODIUM LEVEL 140 MEQ/L (136-145); TOTAL PROTEIN 6.1 GM/DL (6.4-8.2); TRIGLYCERIDES LEVEL 222 MG/DL (<150)
== END ==
LOC: M SHH 11:38
PROVIDERS: ATTEND Surgery
DX: K63.2 Fistula of intestine (principal)

== ENCOUNTER → 2019-09-24 | Outpatient (REF) | payer OTHER ==
[2019-09-24 15:10] LABS: BASO % 0.2 % (0.0-1.0); EOS % 0.2 % (0.0-3.0); HEMATOCRIT 38.8 % (36.0-47.0); LYMPH # 1.1 10^3/uL (1.5-5.0); LYMPH % 8.4 % (24.0-44.0); MEAN CORPUSCULAR HEMOGLOBIN 22.8 pg (27.0-33.0); MEAN CORPUSCULAR HGB CONC 28.4 g/dl (32.0-36.5); MEAN CORPUSCULAR VOLUME 80.5 fl (80.0-96.0); MONO # 0.4 10^3/uL (0.0-0.8); MONO % 3.2 % (0.0-5.0); NEUTROPHILS # 11.6 10^3/uL (1.5-8.5); NEUTROPHILS % 86.9 % (36.0-66.0); PLATELET COUNT, AUTOMATED 358 10^3/uL (150-450); RED BLOOD COUNT 4.82 10^6/uL (4.00-5.40); WHITE BLOOD COUNT 13.3 10^3/uL (4.0-10.0)
[2019-09-24 15:50] LABS: ALT/SGPT 12 U/L (12-78); BILIRUBIN,TOTAL 0.4 MG/DL (0.2-1.0); BLOOD UREA NITROGEN 15 MG/DL (7-18); CALCIUM LEVEL 8.2 MG/DL (8.5-10.1); CARBON DIOXIDE LEVEL 24 MEQ/L (21-32); CHLORIDE LEVEL 107 MEQ/L (98-107); CREATININE FOR GFR 0.55 MG/DL (0.55-1.30); GLOMERULAR FILTRATION RATE > 60.0 (>60); GLUCOSE, FASTING 126 MG/DL (70-100); MAGNESIUM LEVEL 2.1 MG/DL (1.8-2.4); PHOSPHORUS LEVEL 2.4 MG/DL (2.5-4.9); POTASSIUM SERUM 4.2 MEQ/L (3.5-5.1); SODIUM LEVEL 142 MEQ/L (136-145); TOTAL PROTEIN 6.5 GM/DL (6.4-8.2); TRIGLYCERIDES LEVEL 139 MG/DL (<150)
== END ==
LOC: M LAB REF 14:50
PROVIDERS: ATTEND Surgery
DX: K63.2 Fistula of intestine (principal)

== ENCOUNTER → 2019-10-02 | Outpatient (REF) | payer OTHER ==
[2019-10-02 15:24] LABS: HEMATOCRIT 35.3 % (36.0-47.0); HEMOGLOBIN 10.4 g/dl (12.0-15.5); LYMPH # 0.8 10^3/uL (1.5-5.0); LYMPH % 7.7 % (24.0-44.0); MEAN CORPUSCULAR HEMOGLOBIN 23.3 pg (27.0-33.0); MEAN CORPUSCULAR HGB CONC 29.5 g/dl (32.0-36.5); MONO # 0.2 10^3/uL (0.0-0.8); MONO % 1.7 % (0.0-5.0); NEUTROPHILS # 9.3 10^3/uL (1.5-8.5); NEUTROPHILS % 89.7 % (36.0-66.0); PLATELET COUNT, AUTOMATED 244 10^3/uL (150-450); RED BLOOD COUNT 4.47 10^6/uL (4.00-5.40); WHITE BLOOD COUNT 10.3 10^3/uL (4.0-10.0)
[2019-10-02 15:51] LABS: ALBUMIN 2.9 GM/DL (3.2-5.2); ALT/SGPT 12 U/L (12-78); BILIRUBIN,TOTAL 0.2 MG/DL (0.2-1.0); BLOOD UREA NITROGEN 11 MG/DL (7-18); CALCIUM LEVEL 7.6 MG/DL (8.5-10.1); CARBON DIOXIDE LEVEL 25 MEQ/L (21-32); CHLORIDE LEVEL 107 MEQ/L (98-107); CREATININE FOR GFR 0.55 MG/DL (0.55-1.30); GLOMERULAR FILTRATION RATE > 60.0 (>60); GLUCOSE, FASTING 152 MG/DL (70-100); MAGNESIUM LEVEL 1.9 MG/DL (1.8-2.4); PHOSPHORUS LEVEL 2.4 MG/DL (2.5-4.9); POTASSIUM SERUM 3.8 MEQ/L (3.5-5.1); SODIUM LEVEL 139 MEQ/L (136-145); TOTAL PROTEIN 6.1 GM/DL (6.4-8.2); TRIGLYCERIDES LEVEL 130 MG/DL (<150)
== END ==
LOC: M SHH 14:36
PROVIDERS: ATTEND Surgery
DX: K63.2 Fistula of intestine (principal)

== ENCOUNTER → 2019-10-08 | Outpatient (REF) | payer OTHER ==
[2019-10-08 15:30] LABS: BASO % 0.2 % (0.0-1.0); EOS % 0.1 % (0.0-3.0); HEMATOCRIT 37.1 % (36.0-47.0); HEMOGLOBIN 10.6 g/dl (12.0-15.5); LYMPH # 1.2 10^3/uL (1.5-5.0); LYMPH % 11.5 % (24.0-44.0); MEAN CORPUSCULAR HEMOGLOBIN 22.9 pg (27.0-33.0); MEAN CORPUSCULAR HGB CONC 28.6 g/dl (32.0-36.5); MEAN CORPUSCULAR VOLUME 80.1 fl (80.0-96.0); MONO # 0.2 10^3/uL (0.0-0.8); MONO % 1.5 % (0.0-5.0); NEUTROPHILS # 8.5 10^3/uL (1.5-8.5); NEUTROPHILS % 83.7 % (36.0-66.0); PLATELET COUNT, AUTOMATED 297 10^3/uL (150-450); RED BLOOD COUNT 4.63 10^6/uL (4.00-5.40); WHITE BLOOD COUNT 10.1 10^3/uL (4.0-10.0)
[2019-10-08 15:49] LABS: ALT/SGPT 13 U/L (12-78); BILIRUBIN,TOTAL 0.2 MG/DL (0.2-1.0); BLOOD UREA NITROGEN 15 MG/DL (7-18); CALCIUM LEVEL 7.8 MG/DL (8.5-10.1); CARBON DIOXIDE LEVEL 24 MEQ/L (21-32); CHLORIDE LEVEL 107 MEQ/L (98-107); CREATININE FOR GFR 0.58 MG/DL (0.55-1.30); GLOMERULAR FILTRATION RATE > 60.0 (>60); GLUCOSE, FASTING 219 MG/DL (70-100); MAGNESIUM LEVEL 2.2 MG/DL (1.8-2.4); PHOSPHORUS LEVEL 2.4 MG/DL (2.5-4.9); SODIUM LEVEL 141 MEQ/L (136-145); TOTAL PROTEIN 6.6 GM/DL (6.4-8.2); TRIGLYCERIDES LEVEL 105 MG/DL (<150)
== END ==
LOC: M SHH 14:16
PROVIDERS: ATTEND Surgery
DX: K63.2 Fistula of intestine (principal)

== ENCOUNTER → 2019-10-15 | Outpatient (REF) | payer OTHER ==
[2019-10-15 12:25] LABS: BASO % 0.2 % (0.0-1.0); EOS # 0.1 10^3/uL (0.0-0.5); EOS % 0.5 % (0.0-3.0); HEMATOCRIT 37.7 % (36.0-47.0); HEMOGLOBIN 10.3 g/dl (12.0-15.5); LYMPH # 1.2 10^3/uL (1.5-5.0); LYMPH % 6.4 % (24.0-44.0); MEAN CORPUSCULAR HEMOGLOBIN 22.1 pg (27.0-33.0); MEAN CORPUSCULAR HGB CONC 27.3 g/dl (32.0-36.5); MEAN CORPUSCULAR VOLUME 80.9 fl (80.0-96.0); MONO # 0.5 10^3/uL (0.0-0.8); MONO % 2.8 % (0.0-5.0); NEUTROPHILS # 16.9 10^3/uL (1.5-8.5); NEUTROPHILS % 88.8 % (36.0-66.0); PLATELET COUNT, AUTOMATED 325 10^3/uL (150-450); RED BLOOD COUNT 4.66 10^6/uL (4.00-5.40); WHITE BLOOD COUNT 19.1 10^3/uL (4.0-10.0)
[2019-10-15 12:42] LABS: ALT/SGPT 17 U/L (12-78); BILIRUBIN,TOTAL 0.3 MG/DL (0.2-1.0); BLOOD UREA NITROGEN 15 MG/DL (7-18); CALCIUM LEVEL 8.7 MG/DL (8.5-10.1); CARBON DIOXIDE LEVEL 24 MEQ/L (21-32); CHLORIDE LEVEL 105 MEQ/L (98-107); CREATININE FOR GFR 0.71 MG/DL (0.55-1.30); GLOMERULAR FILTRATION RATE > 60.0 (>60); GLUCOSE, FASTING 89 MG/DL (70-100); MAGNESIUM LEVEL 1.1 MG/DL (1.8-2.4); PHOSPHORUS LEVEL 4.4 MG/DL (2.5-4.9); POTASSIUM SERUM 3.7 MEQ/L (3.5-5.1); SODIUM LEVEL 140 MEQ/L (136-145); TOTAL PROTEIN 6.3 GM/DL (6.4-8.2); TRIGLYCERIDES LEVEL 287 MG/DL (<150)
== END ==
LOC: M SHH 11:23
PROVIDERS: ATTEND Surgery
DX: Z79.899 Other long term (current) drug therapy (principal)

== ENCOUNTER → 2019-10-22 | Outpatient (REF) | payer OTHER ==
[2019-10-22 13:20] LABS: BASO # 0.1 10^3/uL (0.0-0.2); BASO % 0.3 % (0.0-1.0); EOS # 0.1 10^3/uL (0.0-0.5); EOS % 0.7 % (0.0-3.0); HEMATOCRIT 35.5 % (36.0-47.0); LYMPH # 2.9 10^3/uL (1.5-5.0); MEAN CORPUSCULAR HEMOGLOBIN 22.4 pg (27.0-33.0); MEAN CORPUSCULAR HGB CONC 28.2 g/dl (32.0-36.5); MEAN CORPUSCULAR VOLUME 79.6 fl (80.0-96.0); MONO % 6.4 % (0.0-5.0); NEUTROPHILS # 10.9 10^3/uL (1.5-8.5); NEUTROPHILS % 72.1 % (36.0-66.0); PLATELET COUNT, AUTOMATED 308 10^3/uL (150-450); RED BLOOD COUNT 4.46 10^6/uL (4.00-5.40); WHITE BLOOD COUNT 15.1 10^3/uL (4.0-10.0)
[2019-10-22 13:46] LABS: ALBUMIN 2.9 GM/DL (3.2-5.2); ALT/SGPT 9 U/L (12-78); BILIRUBIN,TOTAL 0.2 MG/DL (0.2-1.0); BLOOD UREA NITROGEN 15 MG/DL (7-18); CALCIUM LEVEL 8.5 MG/DL (8.5-10.1); CARBON DIOXIDE LEVEL 26 MEQ/L (21-32); CHLORIDE LEVEL 105 MEQ/L (98-107); GLOMERULAR FILTRATION RATE > 60.0 (>60); GLUCOSE, FASTING 107 MG/DL (70-100); PHOSPHORUS LEVEL 3.1 MG/DL (2.5-4.9); POTASSIUM SERUM 3.5 MEQ/L (3.5-5.1); SODIUM LEVEL 140 MEQ/L (136-145); TOTAL PROTEIN 6.1 GM/DL (6.4-8.2); TRIGLYCERIDES LEVEL 127 MG/DL (<150)
== END ==
LOC: M SHH 12:05
PROVIDERS: ATTEND Surgery
DX: K63.2 Fistula of intestine (principal)

== ENCOUNTER → 2019-10-30 | Outpatient (REF) | payer OTHER ==
[2019-10-30 13:27] LABS: BASO % 0.2 % (0.0-1.0); EOS # 0.1 10^3/uL (0.0-0.5); EOS % 0.5 % (0.0-3.0); HEMATOCRIT 36.4 % (36.0-47.0); HEMOGLOBIN 10.5 g/dl (12.0-15.5); LYMPH # 3.5 10^3/uL (1.5-5.0); LYMPH % 19.2 % (24.0-44.0); MEAN CORPUSCULAR HEMOGLOBIN 22.7 pg (27.0-33.0); MEAN CORPUSCULAR HGB CONC 28.8 g/dl (32.0-36.5); MEAN CORPUSCULAR VOLUME 78.8 fl (80.0-96.0); MONO # 0.7 10^3/uL (0.0-0.8); MONO % 3.7 % (0.0-5.0); NEUTROPHILS # 13.6 10^3/uL (1.5-8.5); NEUTROPHILS % 75.5 % (36.0-66.0); PLATELET COUNT, AUTOMATED 342 10^3/uL (150-450); RED BLOOD COUNT 4.62 10^6/uL (4.00-5.40)
[2019-10-30 13:54] LABS: ALT/SGPT 13 U/L (12-78); BILIRUBIN,TOTAL 0.2 MG/DL (0.2-1.0); BLOOD UREA NITROGEN 12 MG/DL (7-18); CALCIUM LEVEL 7.4 MG/DL (8.5-10.1); CARBON DIOXIDE LEVEL 26 MEQ/L (21-32); CHLORIDE LEVEL 109 MEQ/L (98-107); GLOMERULAR FILTRATION RATE > 60.0 (>60); GLUCOSE, FASTING 86 MG/DL (70-100); MAGNESIUM LEVEL 1.2 MG/DL (1.8-2.4); PHOSPHORUS LEVEL 2.3 MG/DL (2.5-4.9); POTASSIUM SERUM 3.1 MEQ/L (3.5-5.1); SODIUM LEVEL 142 MEQ/L (136-145); TOTAL PROTEIN 6.5 GM/DL (6.4-8.2); TRIGLYCERIDES LEVEL 270 MG/DL (<150)
== END ==
LOC: M SHH 12:59
PROVIDERS: ATTEND Surgery
DX: K63.2 Fistula of intestine (principal); E44.0 Moderate protein-calorie malnutrition; K50.919 Crohn's disease, unspecified, with unspecified complications

== ENCOUNTER → 2019-11-05 | Outpatient (REF) | payer OTHER ==
[2019-11-05 13:20] LABS: BASO % 0.2 % (0.0-1.0); EOS % 0.2 % (0.0-3.0); HEMATOCRIT 34.9 % (36.0-47.0); HEMOGLOBIN 10.4 g/dl (12.0-15.5); LYMPH # 1.2 10^3/uL (1.5-5.0); LYMPH % 7.7 % (24.0-44.0); MEAN CORPUSCULAR HEMOGLOBIN 23.1 pg (27.0-33.0); MEAN CORPUSCULAR HGB CONC 29.8 g/dl (32.0-36.5); MEAN CORPUSCULAR VOLUME 77.6 fl (80.0-96.0); MONO # 0.4 10^3/uL (0.0-0.8); MONO % 2.5 % (0.0-5.0); NEUTROPHILS # 13.1 10^3/uL (1.5-8.5); NEUTROPHILS % 88.3 % (36.0-66.0); PLATELET COUNT, AUTOMATED 205 10^3/uL (150-450); WHITE BLOOD COUNT 14.9 10^3/uL (4.0-10.0)
[2019-11-05 14:23] LABS: ALBUMIN 2.9 GM/DL (3.2-5.2); ALT/SGPT 13 U/L (12-78); BILIRUBIN,TOTAL 0.2 MG/DL (0.2-1.0); BLOOD UREA NITROGEN 10 MG/DL (7-18); CALCIUM LEVEL 7.7 MG/DL (8.5-10.1); CARBON DIOXIDE LEVEL 23 MEQ/L (21-32); CHLORIDE LEVEL 109 MEQ/L (98-107); CREATININE FOR GFR 0.68 MG/DL (0.55-1.30); GLOMERULAR FILTRATION RATE > 60.0 (>60); GLUCOSE, FASTING 125 MG/DL (70-100); MAGNESIUM LEVEL 0.9 MG/DL (1.8-2.4); PHOSPHORUS LEVEL 2.4 MG/DL (2.5-4.9); POTASSIUM SERUM 2.9 MEQ/L (3.5-5.1); SODIUM LEVEL 141 MEQ/L (136-145); TOTAL PROTEIN 6.3 GM/DL (6.4-8.2); TRIGLYCERIDES LEVEL 161 MG/DL (<150)
== END ==
LOC: M LAB REF 12:44
PROVIDERS: ATTEND Surgery
DX: K63.2 Fistula of intestine (principal)

== ENCOUNTER → 2019-11-06 | Outpatient (CLI) | payer OTHER ==
[2019-11-06 15:58] LABS: ALT/SGPT 13 U/L (12-78); BILIRUBIN,TOTAL 0.1 MG/DL (0.2-1.0); BLOOD UREA NITROGEN 7 MG/DL (7-18); CALCIUM LEVEL 8.5 MG/DL (8.5-10.1); CARBON DIOXIDE LEVEL 24 MEQ/L (21-32); CHLORIDE LEVEL 108 MEQ/L (98-107); CREATININE FOR GFR 0.76 MG/DL (0.55-1.30); GLOMERULAR FILTRATION RATE > 60.0 (>60); GLUCOSE, FASTING 189 MG/DL (70-100); MAGNESIUM LEVEL 1.1 MG/DL (1.8-2.4); PHOSPHORUS LEVEL 2.9 MG/DL (2.5-4.9); POTASSIUM SERUM 2.8 MEQ/L (3.5-5.1); SODIUM LEVEL 141 MEQ/L (136-145); TOTAL PROTEIN 7.3 GM/DL (6.4-8.2)
== END ==
LOC: M LAB 14:40
DX: K50.013 Crohn's disease of small intestine with fistula (principal); E83.39 Other disorders of phosphorus metabolism; E83.42 Hypomagnesemia; Z78.9 Other specified health status

== ENCOUNTER → 2019-11-12 | Outpatient (REF) | payer OTHER ==
[2019-11-12 14:19] LABS: HEMATOCRIT 36.9 % (36.0-47.0); HEMOGLOBIN 10.3 g/dl (12.0-15.5); MEAN CORPUSCULAR HEMOGLOBIN 23.1 pg (27.0-33.0); MEAN CORPUSCULAR HGB CONC 27.9 g/dl (32.0-36.5); MEAN CORPUSCULAR VOLUME 82.9 fl (80.0-96.0); PLATELET COUNT, AUTOMATED 316 10^3/uL (150-450); RED BLOOD COUNT 4.45 10^6/uL (4.00-5.40); WHITE BLOOD COUNT 18.5 10^3/uL (4.0-10.0)
[2019-11-12 14:38] LABS: ALBUMIN 3.2 GM/DL (3.2-5.2); ALT/SGPT 38 U/L (12-78); BILIRUBIN,TOTAL 0.3 MG/DL (0.2-1.0); BLOOD UREA NITROGEN 18 MG/DL (7-18); CALCIUM LEVEL 8.5 MG/DL (8.5-10.1); CARBON DIOXIDE LEVEL 26 MEQ/L (21-32); CHLORIDE LEVEL 103 MEQ/L (98-107); CREATININE FOR GFR 0.63 MG/DL (0.55-1.30); GLOMERULAR FILTRATION RATE > 60.0 (>60); GLUCOSE, FASTING 163 MG/DL (70-100); MAGNESIUM LEVEL 2.2 MG/DL (1.8-2.4); PHOSPHORUS LEVEL 3.1 MG/DL (2.5-4.9); POTASSIUM SERUM 4.6 MEQ/L (3.5-5.1); SODIUM LEVEL 136 MEQ/L (136-145); TOTAL PROTEIN 6.5 GM/DL (6.4-8.2); TRIGLYCERIDES LEVEL 114 MG/DL (<150)
[2019-11-12 14:48] LABS: LYMPHOCYTES 12 % (16-44); METAMYELOCYTES 1 % (0-0); MONOCYTES 2 % (0-5); MYELOCYTES 2 % (0-0); NEUTROPHILS 83 % (28-66); PLATELET ESTIMATE NORMAL (NORMAL)
[2019-11-12 14:49] LABS: ANISOCYTOSIS 1+
== END ==
LOC: M SHH 13:40
PROVIDERS: ATTEND Surgery
DX: K63.2 Fistula of intestine (principal)

== ENCOUNTER → 2019-11-19 | Outpatient (REF) | payer OTHER ==
[2019-11-19 13:56] LABS: BASO % 0.1 % (0.0-1.0); EOS % 0.3 % (0.0-3.0); HEMATOCRIT 35.1 % (36.0-47.0); LYMPH # 1.1 10^3/uL (1.5-5.0); LYMPH % 7.6 % (24.0-44.0); MEAN CORPUSCULAR HEMOGLOBIN 23.7 pg (27.0-33.0); MEAN CORPUSCULAR HGB CONC 28.5 g/dl (32.0-36.5); MEAN CORPUSCULAR VOLUME 83.2 fl (80.0-96.0); MONO # 0.4 10^3/uL (0.0-0.8); MONO % 3.1 % (0.0-5.0); NEUTROPHILS # 12.1 10^3/uL (1.5-8.5); PLATELET COUNT, AUTOMATED 234 10^3/uL (150-450); RED BLOOD COUNT 4.22 10^6/uL (4.00-5.40); WHITE BLOOD COUNT 13.8 10^3/uL (4.0-10.0)
[2019-11-19 14:00] LABS: ALBUMIN 2.9 GM/DL (3.2-5.2); ALT/SGPT 17 U/L (12-78); BILIRUBIN,TOTAL 0.2 MG/DL (0.2-1.0); BLOOD UREA NITROGEN 15 MG/DL (7-18); CALCIUM LEVEL 8.6 MG/DL (8.5-10.1); CARBON DIOXIDE LEVEL 24 MEQ/L (21-32); CHLORIDE LEVEL 107 MEQ/L (98-107); CREATININE FOR GFR 0.62 MG/DL (0.55-1.30); GLOMERULAR FILTRATION RATE > 60.0 (>60); GLUCOSE, FASTING 129 MG/DL (70-100); MAGNESIUM LEVEL 2.2 MG/DL (1.8-2.4); PHOSPHORUS LEVEL 2.8 MG/DL (2.5-4.9); POTASSIUM SERUM 4.3 MEQ/L (3.5-5.1); SODIUM LEVEL 138 MEQ/L (136-145); TOTAL PROTEIN 6.6 GM/DL (6.4-8.2); TRIGLYCERIDES LEVEL 105 MG/DL (<150)
== END ==
LOC: M SHH 13:16
PROVIDERS: ATTEND Surgery
DX: K63.2 Fistula of intestine (principal)

== ENCOUNTER → 2019-11-26 | Outpatient (REF) | payer OTHER ==
[2019-11-26 13:31] LABS: BASO % 0.3 % (0.0-1.0); EOS % 0.3 % (0.0-3.0); HEMATOCRIT 42.2 % (36.0-47.0); HEMOGLOBIN 12.4 g/dl (12.0-15.5); LYMPH # 1.8 10^3/uL (1.5-5.0); LYMPH % 12.8 % (24.0-44.0); MEAN CORPUSCULAR HGB CONC 29.4 g/dl (32.0-36.5); MEAN CORPUSCULAR VOLUME 81.6 fl (80.0-96.0); MONO # 0.4 10^3/uL (0.0-0.8); NEUTROPHILS # 11.6 10^3/uL (1.5-8.5); PLATELET COUNT, AUTOMATED 308 10^3/uL (150-450); RED BLOOD COUNT 5.17 10^6/uL (4.00-5.40); WHITE BLOOD COUNT 14.1 10^3/uL (4.0-10.0)
[2019-11-26 13:41] LABS: ALBUMIN 3.1 GM/DL (3.2-5.2); ALT/SGPT 17 U/L (12-78); BILIRUBIN,TOTAL < 0.1 MG/DL (0.2-1.0); BLOOD UREA NITROGEN 18 MG/DL (7-18); CALCIUM LEVEL 8.8 MG/DL (8.5-10.1); CARBON DIOXIDE LEVEL 25 MEQ/L (21-32); CHLORIDE LEVEL 107 MEQ/L (98-107); CREATININE FOR GFR 0.68 MG/DL (0.55-1.30); GLOMERULAR FILTRATION RATE > 60.0 (>60); GLUCOSE, FASTING 135 MG/DL (70-100); MAGNESIUM LEVEL 2.4 MG/DL (1.8-2.4); PHOSPHORUS LEVEL 3.2 MG/DL (2.5-4.9); SODIUM LEVEL 139 MEQ/L (136-145); TOTAL PROTEIN 7.1 GM/DL (6.4-8.2); TRIGLYCERIDES LEVEL 118 MG/DL (<150)
== END ==
LOC: M LAB REF 13:16
PROVIDERS: ATTEND Surgery
DX: K63.2 Fistula of intestine (principal)

== ENCOUNTER → 2019-12-03 | Outpatient (REF) | payer OTHER ==
[2019-12-03 14:18] LABS: BASO % 0.1 % (0.0-1.0); EOS % 0.1 % (0.0-3.0); HEMATOCRIT 36.4 % (36.0-47.0); HEMOGLOBIN 10.7 g/dl (12.0-15.5); LYMPH # 0.8 10^3/uL (1.5-5.0); LYMPH % 5.5 % (24.0-44.0); MEAN CORPUSCULAR HEMOGLOBIN 24.3 pg (27.0-33.0); MEAN CORPUSCULAR HGB CONC 29.4 g/dl (32.0-36.5); MEAN CORPUSCULAR VOLUME 82.7 fl (80.0-96.0); MONO # 0.2 10^3/uL (0.0-0.8); MONO % 1.3 % (0.0-5.0); NEUTROPHILS # 13.4 10^3/uL (1.5-8.5); NEUTROPHILS % 92.1 % (36.0-66.0); PLATELET COUNT, AUTOMATED 259 10^3/uL (150-450); WHITE BLOOD COUNT 14.5 10^3/uL (4.0-10.0)
[2019-12-03 14:55] LABS: ALBUMIN 2.8 GM/DL (3.2-5.2); ALT/SGPT 17 U/L (12-78); BILIRUBIN,TOTAL 0.3 MG/DL (0.2-1.0); BLOOD UREA NITROGEN 8 MG/DL (7-18); CALCIUM LEVEL 8.4 MG/DL (8.5-10.1); CARBON DIOXIDE LEVEL 27 MEQ/L (21-32); CHLORIDE LEVEL 102 MEQ/L (98-107); CREATININE FOR GFR 0.71 MG/DL (0.55-1.30); GLOMERULAR FILTRATION RATE > 60.0 (>60); GLUCOSE, FASTING 168 MG/DL (70-100); MAGNESIUM LEVEL 1.4 MG/DL (1.8-2.4); PHOSPHORUS LEVEL 3.4 MG/DL (2.5-4.9); POTASSIUM SERUM 3.2 MEQ/L (3.5-5.1); SODIUM LEVEL 138 MEQ/L (136-145); TOTAL PROTEIN 6.2 GM/DL (6.4-8.2); TRIGLYCERIDES LEVEL 299 MG/DL (<150)
== END ==
LOC: M SHH 14:00
PROVIDERS: ATTEND Surgery
DX: K63.2 Fistula of intestine (principal)

== ENCOUNTER → 2019-12-10 | Outpatient (REF) | payer OTHER ==
[2019-12-10 13:22] LABS: HEMOGLOBIN 13.3 g/dl (12.0-15.5); MEAN CORPUSCULAR HEMOGLOBIN 24.5 pg (27.0-33.0); MEAN CORPUSCULAR HGB CONC 29.6 g/dl (32.0-36.5); MEAN CORPUSCULAR VOLUME 82.9 fl (80.0-96.0); PLATELET COUNT, AUTOMATED 350 10^3/uL (150-450); RED BLOOD COUNT 5.43 10^6/uL (4.00-5.40); WHITE BLOOD COUNT 13.5 10^3/uL (4.0-10.0)
[2019-12-10 13:46] LABS: ALBUMIN 2.9 GM/DL (3.2-5.2); ALT/SGPT 16 U/L (12-78); BILIRUBIN,TOTAL 0.2 MG/DL (0.2-1.0); BLOOD UREA NITROGEN 18 MG/DL (7-18); CALCIUM LEVEL 8.6 MG/DL (8.5-10.1); CARBON DIOXIDE LEVEL 26 MEQ/L (21-32); CHLORIDE LEVEL 105 MEQ/L (98-107); CREATININE FOR GFR 0.56 MG/DL (0.55-1.30); GLOMERULAR FILTRATION RATE > 60.0 (>60); GLUCOSE, FASTING 92 MG/DL (70-100); MAGNESIUM LEVEL 2.4 MG/DL (1.8-2.4); PHOSPHORUS LEVEL 4.1 MG/DL (2.5-4.9); POTASSIUM SERUM 3.5 MEQ/L (3.5-5.1); SODIUM LEVEL 142 MEQ/L (136-145); TOTAL PROTEIN 6.8 GM/DL (6.4-8.2); TRIGLYCERIDES LEVEL 127 MG/DL (<150)
[2019-12-10 14:25] LABS: ATYPICAL LYMPH 1 % (0-5); BASOPHILS 1 % (0-1); EOSINOPHILS 1 % (0-3); LYMPHOCYTES 37 % (16-44); MONOCYTES 11 % (0-5); NEUTROPHILS 49 % (28-66); PLATELET ESTIMATE NORMAL (NORMAL)
== END ==
LOC: M SHH 13:02
PROVIDERS: ATTEND Surgery
DX: K50.013 Crohn's disease of small intestine with fistula (principal)

== ENCOUNTER → 2019-12-17 | Outpatient (REF) | payer OTHER ==
[2019-12-17 14:16] LABS: BASO % 0.3 % (0.0-1.0); EOS # 0.1 10^3/uL (0.0-0.5); EOS % 0.4 % (0.0-3.0); HEMATOCRIT 41.5 % (36.0-47.0); HEMOGLOBIN 12.4 g/dl (12.0-15.5); LYMPH # 1.9 10^3/uL (1.5-5.0); LYMPH % 12.5 % (24.0-44.0); MEAN CORPUSCULAR HEMOGLOBIN 25.3 pg (27.0-33.0); MEAN CORPUSCULAR HGB CONC 29.9 g/dl (32.0-36.5); MEAN CORPUSCULAR VOLUME 84.7 fl (80.0-96.0); MONO # 0.4 10^3/uL (0.0-0.8); MONO % 2.5 % (0.0-5.0); NEUTROPHILS # 12.3 10^3/uL (1.5-8.5); NEUTROPHILS % 83.2 % (36.0-66.0); PLATELET COUNT, AUTOMATED 315 10^3/uL (150-450); WHITE BLOOD COUNT 14.8 10^3/uL (4.0-10.0)
[2019-12-17 14:46] LABS: ALBUMIN 3.2 GM/DL (3.2-5.2); ALT/SGPT 18 U/L (12-78); BILIRUBIN,TOTAL 0.3 MG/DL (0.2-1.0); BLOOD UREA NITROGEN 8 MG/DL (7-18); CALCIUM LEVEL 8.8 MG/DL (8.5-10.1); CARBON DIOXIDE LEVEL 24 MEQ/L (21-32); CHLORIDE LEVEL 107 MEQ/L (98-107); CREATININE FOR GFR 0.72 MG/DL (0.55-1.30); GLOMERULAR FILTRATION RATE > 60.0 (>60); GLUCOSE, FASTING 78 MG/DL (70-100); MAGNESIUM LEVEL 1.5 MG/DL (1.8-2.4); POTASSIUM SERUM 3.2 MEQ/L (3.5-5.1); SODIUM LEVEL 139 MEQ/L (136-145); TOTAL PROTEIN 7.1 GM/DL (6.4-8.2)
== END ==
LOC: M SHH 13:51
PROVIDERS: ATTEND Surgery
DX: K50.013 Crohn's disease of small intestine with fistula (principal)

== ENCOUNTER → 2019-12-24 | Outpatient (REF) | payer OTHER ==
[~2019-12-24] MED LIST changes: +OXYC-1 PO; -OXYC15TA76 PO
[2019-12-24 13:09] LABS: HEMATOCRIT 41.2 % (36.0-47.0); HEMOGLOBIN 12.5 g/dl (12.0-15.5); MEAN CORPUSCULAR HEMOGLOBIN 26.1 pg (27.0-33.0); MEAN CORPUSCULAR HGB CONC 30.3 g/dl (32.0-36.5); PLATELET COUNT, AUTOMATED 286 10^3/uL (150-450); RED BLOOD COUNT 4.79 10^6/uL (4.00-5.40)
[2019-12-24 13:39] LABS: ALBUMIN 2.8 GM/DL (3.2-5.2); ALT/SGPT 15 U/L (12-78); BILIRUBIN,TOTAL 0.3 MG/DL (0.2-1.0); BLOOD UREA NITROGEN 17 MG/DL (7-18); CALCIUM LEVEL 8.5 MG/DL (8.5-10.1); CARBON DIOXIDE LEVEL 25 MEQ/L (21-32); CHLORIDE LEVEL 106 MEQ/L (98-107); CREATININE FOR GFR 0.65 MG/DL (0.55-1.30); GLOMERULAR FILTRATION RATE > 60.0 (>60); GLUCOSE, FASTING 117 MG/DL (70-100); MAGNESIUM LEVEL 2.2 MG/DL (1.8-2.4); PHOSPHORUS LEVEL 2.7 MG/DL (2.5-4.9); POTASSIUM SERUM 3.9 MEQ/L (3.5-5.1); SODIUM LEVEL 141 MEQ/L (136-145); TOTAL PROTEIN 6.5 GM/DL (6.4-8.2); TRIGLYCERIDES LEVEL 177 MG/DL (<150)
[2019-12-24 13:51] LABS: ATYPICAL LYMPH 6 % (0-5); LYMPHOCYTES 28 % (16-44); MONOCYTES 7 % (0-5); NEUTROPHILS 59 % (28-66)
[2019-12-24 13:52] LABS: PLATELET ESTIMATE NORMAL (NORMAL)
== END ==
LOC: M SHH 12:31
PROVIDERS: ATTEND Surgery
DX: K63.2 Fistula of intestine (principal)

== ENCOUNTER → 2019-12-31 | Outpatient (REF) | payer OTHER ==
[2019-12-31 14:30] LABS: BASO # 0.1 10^3/uL (0.0-0.2); BASO % 0.4 % (0.0-1.0); EOS % 0.1 % (0.0-3.0); HEMATOCRIT 42.6 % (36.0-47.0); HEMOGLOBIN 12.6 g/dl (12.0-15.5); LYMPH # 1.6 10^3/uL (1.5-5.0); LYMPH % 9.5 % (24.0-44.0); MEAN CORPUSCULAR HEMOGLOBIN 25.8 pg (27.0-33.0); MEAN CORPUSCULAR HGB CONC 29.6 g/dl (32.0-36.5); MEAN CORPUSCULAR VOLUME 87.3 fl (80.0-96.0); MONO # 0.2 10^3/uL (0.0-0.8); MONO % 1.5 % (0.0-5.0); NEUTROPHILS # 14.2 10^3/uL (1.5-8.5); NEUTROPHILS % 86.5 % (36.0-66.0); PLATELET COUNT, AUTOMATED 304 10^3/uL (150-450); RED BLOOD COUNT 4.88 10^6/uL (4.00-5.40); WHITE BLOOD COUNT 16.3 10^3/uL (4.0-10.0)
[2019-12-31 14:56] LABS: ALBUMIN 3.1 GM/DL (3.2-5.2); ALT/SGPT 16 U/L (12-78); BILIRUBIN,TOTAL 0.3 MG/DL (0.2-1.0); BLOOD UREA NITROGEN 14 MG/DL (7-18); CALCIUM LEVEL 8.7 MG/DL (8.5-10.1); CARBON DIOXIDE LEVEL 25 MEQ/L (21-32); CHLORIDE LEVEL 106 MEQ/L (98-107); CREATININE FOR GFR 0.69 MG/DL (0.55-1.30); GLOMERULAR FILTRATION RATE > 60.0 (>60); GLUCOSE, FASTING 115 MG/DL (70-100); MAGNESIUM LEVEL 2.7 MG/DL (1.8-2.4); PHOSPHORUS LEVEL 3.1 MG/DL (2.5-4.9); POTASSIUM SERUM 4.4 MEQ/L (3.5-5.1); SODIUM LEVEL 139 MEQ/L (136-145); TOTAL PROTEIN 6.7 GM/DL (6.4-8.2); TRIGLYCERIDES LEVEL 140 MG/DL (<150)
== END ==
LOC: M SHH 13:52
PROVIDERS: ATTEND Surgery
DX: K63.2 Fistula of intestine (principal)

== ENCOUNTER → 2020-01-07 | Outpatient (REF) | payer OTHER ==
[2020-01-07 14:32] LABS: BASO % 0.1 % (0.0-1.0); EOS % 0.2 % (0.0-3.0); HEMATOCRIT 42.4 % (36.0-47.0); HEMOGLOBIN 12.7 g/dl (12.0-15.5); LYMPH # 1.8 10^3/uL (1.5-5.0); LYMPH % 12.3 % (24.0-44.0); MEAN CORPUSCULAR HEMOGLOBIN 26.1 pg (27.0-33.0); MEAN CORPUSCULAR VOLUME 87.1 fl (80.0-96.0); MONO # 0.3 10^3/uL (0.0-0.8); MONO % 2.1 % (0.0-5.0); NEUTROPHILS # 12.2 10^3/uL (1.5-8.5); NEUTROPHILS % 84.5 % (36.0-66.0); PLATELET COUNT, AUTOMATED 270 10^3/uL (150-450); RED BLOOD COUNT 4.87 10^6/uL (4.00-5.40); WHITE BLOOD COUNT 14.4 10^3/uL (4.0-10.0)
[2020-01-07 14:39] LABS: ALT/SGPT 18 U/L (12-78); BILIRUBIN,TOTAL 0.2 MG/DL (0.2-1.0); BLOOD UREA NITROGEN 13 MG/DL (7-18); CALCIUM LEVEL 8.7 MG/DL (8.5-10.1); CARBON DIOXIDE LEVEL 26 MEQ/L (21-32); CHLORIDE LEVEL 107 MEQ/L (98-107); GLOMERULAR FILTRATION RATE > 60.0 (>60); GLUCOSE, FASTING 99 MG/DL (70-100); MAGNESIUM LEVEL 2.2 MG/DL (1.8-2.4); PHOSPHORUS LEVEL 4.1 MG/DL (2.5-4.9); POTASSIUM SERUM 4.2 MEQ/L (3.5-5.1); SODIUM LEVEL 142 MEQ/L (136-145); TOTAL PROTEIN 6.6 GM/DL (6.4-8.2); TRIGLYCERIDES LEVEL 163 MG/DL (<150)
== END ==
LOC: M SHH 14:19
PROVIDERS: ATTEND Surgery
DX: K50.013 Crohn's disease of small intestine with fistula (principal)

== ENCOUNTER → 2020-01-10 | Outpatient (CLI) | payer OTHER ==
[2020-01-10 14:39] LABS: BASO # 0.1 10^3/uL (0.0-0.2); BASO % 0.3 % (0.0-1.0); EOS % 0.1 % (0.0-3.0); HEMATOCRIT 43.7 % (36.0-47.0); LYMPH # 1.3 10^3/uL (1.5-5.0); LYMPH % 7.7 % (24.0-44.0); MEAN CORPUSCULAR HEMOGLOBIN 26.2 pg (27.0-33.0); MEAN CORPUSCULAR HGB CONC 29.7 g/dl (32.0-36.5); MEAN CORPUSCULAR VOLUME 87.9 fl (80.0-96.0); MONO # 0.2 10^3/uL (0.0-0.8); MONO % 1.3 % (0.0-5.0); NEUTROPHILS # 15.6 10^3/uL (1.5-8.5); NEUTROPHILS % 89.7 % (36.0-66.0); PLATELET COUNT, AUTOMATED 312 10^3/uL (150-450); RED BLOOD COUNT 4.97 10^6/uL (4.00-5.40); WHITE BLOOD COUNT 17.4 10^3/uL (4.0-10.0)
[2020-01-10 14:44] LABS: ALBUMIN 3.2 GM/DL (3.2-5.2); ALT/SGPT 21 U/L (12-78); BILIRUBIN,TOTAL 0.2 MG/DL (0.2-1.0); BLOOD UREA NITROGEN 14 MG/DL (7-18); CALCIUM LEVEL 9.3 MG/DL (8.5-10.1); CARBON DIOXIDE LEVEL 21 MEQ/L (21-32); CHLORIDE LEVEL 108 MEQ/L (98-107); FREE T4 1.24 NG/DL (0.76-1.46); GLOMERULAR FILTRATION RATE > 60.0 (>60); GLUCOSE, FASTING 115 MG/DL (70-100); NT-PRO BNP 84 PG/ML (<125); SODIUM LEVEL 139 MEQ/L (136-145); THYROID STIMULATING HORMONE 0.497 uIU/ML (0.358-3.740)
== END ==
LOC: M LAB 13:14
PROVIDERS: ATTEND Physician Assistant
DX: R68.89 Other general symptoms and signs (principal); R60.1 Generalized edema; K50.813 Crohn's disease of both small and large intestine with fistula

== ENCOUNTER → 2020-01-14 | Outpatient (REF) | payer OTHER ==
[2020-01-14 13:50] LABS: BASO % 0.1 % (0.0-1.0); EOS % 0.1 % (0.0-3.0); HEMATOCRIT 43.6 % (36.0-47.0); HEMOGLOBIN 13.3 g/dl (12.0-15.5); LYMPH # 1.3 10^3/uL (1.5-5.0); LYMPH % 8.6 % (24.0-44.0); MEAN CORPUSCULAR HEMOGLOBIN 26.5 pg (27.0-33.0); MEAN CORPUSCULAR HGB CONC 30.5 g/dl (32.0-36.5); MONO # 0.3 10^3/uL (0.0-0.8); MONO % 1.8 % (0.0-5.0); NEUTROPHILS # 13.3 10^3/uL (1.5-8.5); NEUTROPHILS % 88.6 % (36.0-66.0); PLATELET COUNT, AUTOMATED 261 10^3/uL (150-450); RED BLOOD COUNT 5.01 10^6/uL (4.00-5.40)
[2020-01-14 14:20] LABS: ALBUMIN 3.2 GM/DL (3.2-5.2); ALT/SGPT 20 U/L (12-78); BILIRUBIN,TOTAL 0.3 MG/DL (0.2-1.0); BLOOD UREA NITROGEN 10 MG/DL (7-18); CALCIUM LEVEL 8.7 MG/DL (8.5-10.1); CARBON DIOXIDE LEVEL 24 MEQ/L (21-32); CHLORIDE LEVEL 108 MEQ/L (98-107); CREATININE FOR GFR 0.81 MG/DL (0.55-1.30); GLOMERULAR FILTRATION RATE > 60.0 (>60); GLUCOSE, FASTING 119 MG/DL (70-100); MAGNESIUM LEVEL 1.2 MG/DL (1.8-2.4); PHOSPHORUS LEVEL 3.1 MG/DL (2.5-4.9); POTASSIUM SERUM 3.4 MEQ/L (3.5-5.1); SODIUM LEVEL 143 MEQ/L (136-145); TOTAL PROTEIN 6.8 GM/DL (6.4-8.2); TRIGLYCERIDES LEVEL 181 MG/DL (<150)
== END ==
LOC: M SHH 13:28
PROVIDERS: ATTEND Surgery
DX: K50.013 Crohn's disease of small intestine with fistula (principal)

== ENCOUNTER → 2020-01-21 | Outpatient (REF) | payer OTHER ==
[~2020-01-21] MED LIST changes: +SULF500T41 PO; -SULF50TA PO
[2020-01-21 12:25] LABS: BASO % 0.1 % (0.0-1.0); EOS # 0.1 10^3/uL (0.0-0.5); EOS % 0.4 % (0.0-3.0); HEMATOCRIT 41.1 % (36.0-47.0); HEMOGLOBIN 12.6 g/dl (12.0-15.5); LYMPH # 2.2 10^3/uL (1.5-5.0); LYMPH % 15.7 % (24.0-44.0); MEAN CORPUSCULAR HGB CONC 30.7 g/dl (32.0-36.5); MONO # 0.4 10^3/uL (0.0-0.8); MONO % 3.2 % (0.0-5.0); NEUTROPHILS # 11.1 10^3/uL (1.5-8.5); NEUTROPHILS % 79.7 % (36.0-66.0); PLATELET COUNT, AUTOMATED 266 10^3/uL (150-450); RED BLOOD COUNT 4.67 10^6/uL (4.00-5.40); WHITE BLOOD COUNT 13.9 10^3/uL (4.0-10.0)
[2020-01-21 13:00] LABS: ALBUMIN 2.9 GM/DL (3.2-5.2); ALT/SGPT 19 U/L (12-78); BILIRUBIN,TOTAL 0.2 MG/DL (0.2-1.0); BLOOD UREA NITROGEN 10 MG/DL (7-18); CALCIUM LEVEL 8.6 MG/DL (8.5-10.1); CARBON DIOXIDE LEVEL 25 MEQ/L (21-32); CHLORIDE LEVEL 110 MEQ/L (98-107); GLOMERULAR FILTRATION RATE > 60.0 (>60); GLUCOSE, FASTING 123 MG/DL (70-100); MAGNESIUM LEVEL 1.5 MG/DL (1.8-2.4); PHOSPHORUS LEVEL 3.2 MG/DL (2.5-4.9); POTASSIUM SERUM 3.6 MEQ/L (3.5-5.1); SODIUM LEVEL 143 MEQ/L (136-145); TOTAL PROTEIN 6.1 GM/DL (6.4-8.2); TRIGLYCERIDES LEVEL 182 MG/DL (<150)
== END ==
LOC: M SHH 12:15
PROVIDERS: ATTEND Surgery
DX: K50.013 Crohn's disease of small intestine with fistula (principal)

== ENCOUNTER → 2020-01-28 | Outpatient (REF) | payer OTHER | LOC: M SHH 12:54 | DX: K50.118 Crohn's disease of large intestine with other complication (principal) ==

== ENCOUNTER → 2020-02-05 | Outpatient (REF) | payer OTHER ==
[2020-02-05 14:27] LABS: BASO % 0.3 % (0.0-1.0); EOS % 0.1 % (0.0-3.0); HEMATOCRIT 44.2 % (36.0-47.0); HEMOGLOBIN 13.8 g/dl (12.0-15.5); LYMPH # 1.7 10^3/uL (1.5-5.0); LYMPH % 11.8 % (24.0-44.0); MEAN CORPUSCULAR HEMOGLOBIN 27.8 pg (27.0-33.0); MEAN CORPUSCULAR HGB CONC 31.2 g/dl (32.0-36.5); MEAN CORPUSCULAR VOLUME 88.9 fl (80.0-96.0); MONO # 0.4 10^3/uL (0.0-0.8); MONO % 2.4 % (0.0-5.0); NEUTROPHILS # 12.1 10^3/uL (1.5-8.5); NEUTROPHILS % 84.1 % (36.0-66.0); PLATELET COUNT, AUTOMATED 328 10^3/uL (150-450); RED BLOOD COUNT 4.97 10^6/uL (4.00-5.40); WHITE BLOOD COUNT 14.4 10^3/uL (4.0-10.0)
[2020-02-05 15:05] LABS: ALBUMIN 3.3 GM/DL (3.2-5.2); ALT/SGPT 14 U/L (12-78); BILIRUBIN,TOTAL 0.3 MG/DL (0.2-1.0); BLOOD UREA NITROGEN 12 MG/DL (7-18); CALCIUM LEVEL 8.8 MG/DL (8.5-10.1); CARBON DIOXIDE LEVEL 24 MEQ/L (21-32); CHLORIDE LEVEL 107 MEQ/L (98-107); CREATININE FOR GFR 0.62 MG/DL (0.55-1.30); GLOMERULAR FILTRATION RATE > 60.0 (>60); GLUCOSE, FASTING 100 MG/DL (70-100); MAGNESIUM LEVEL 1.5 MG/DL (1.8-2.4); PHOSPHORUS LEVEL 3.6 MG/DL (2.5-4.9); POTASSIUM SERUM 4.1 MEQ/L (3.5-5.1); SODIUM LEVEL 139 MEQ/L (136-145); TRIGLYCERIDES LEVEL 192 MG/DL (<150)
== END ==
LOC: M SHH 13:10
PROVIDERS: ATTEND Surgery
DX: K50.118 Crohn's disease of large intestine with other complication (principal)

== ENCOUNTER → 2020-02-11 | Outpatient (REF) | payer OTHER ==
[2020-02-11 13:26] LABS: BASO % 0.2 % (0.0-1.0); EOS # 0.1 10^3/uL (0.0-0.5); EOS % 0.4 % (0.0-3.0); HEMATOCRIT 39.9 % (36.0-47.0); HEMOGLOBIN 12.4 g/dl (12.0-15.5); LYMPH # 1.5 10^3/uL (1.5-5.0); MEAN CORPUSCULAR HEMOGLOBIN 27.3 pg (27.0-33.0); MEAN CORPUSCULAR HGB CONC 31.1 g/dl (32.0-36.5); MEAN CORPUSCULAR VOLUME 87.7 fl (80.0-96.0); MONO # 0.6 10^3/uL (0.0-0.8); MONO % 3.9 % (0.0-5.0); NEUTROPHILS # 13.1 10^3/uL (1.5-8.5); PLATELET COUNT, AUTOMATED 264 10^3/uL (150-450); RED BLOOD COUNT 4.55 10^6/uL (4.00-5.40); WHITE BLOOD COUNT 15.5 10^3/uL (4.0-10.0)
[2020-02-11 14:10] LABS: ALBUMIN 2.8 GM/DL (3.2-5.2); ALT/SGPT 12 U/L (12-78); BILIRUBIN,TOTAL 0.2 MG/DL (0.2-1.0); BLOOD UREA NITROGEN 10 MG/DL (7-18); CALCIUM LEVEL 8.3 MG/DL (8.5-10.1); CARBON DIOXIDE LEVEL 26 MEQ/L (21-32); CHLORIDE LEVEL 104 MEQ/L (98-107); CREATININE FOR GFR 0.57 MG/DL (0.55-1.30); GLOMERULAR FILTRATION RATE > 60.0 (>60); GLUCOSE, FASTING 97 MG/DL (70-100); MAGNESIUM LEVEL 1.7 MG/DL (1.8-2.4); POTASSIUM SERUM 3.6 MEQ/L (3.5-5.1); SODIUM LEVEL 138 MEQ/L (136-145); TOTAL PROTEIN 6.3 GM/DL (6.4-8.2); TRIGLYCERIDES LEVEL 160 MG/DL (<150)
== END ==
LOC: M SHH 12:23
PROVIDERS: ATTEND Surgery
DX: Z01.89 Encounter for other specified special examinations (principal)

== ENCOUNTER → 2020-02-18 | Outpatient (REF) | payer OTHER ==
[2020-02-18 13:10] LABS: BASO # 0.1 10^3/uL (0.0-0.2); BASO % 0.4 % (0.0-1.0); EOS # 0.1 10^3/uL (0.0-0.5); EOS % 0.5 % (0.0-3.0); HEMATOCRIT 42.9 % (36.0-47.0); HEMOGLOBIN 13.6 g/dl (12.0-15.5); LYMPH # 2.2 10^3/uL (1.5-5.0); LYMPH % 13.1 % (24.0-44.0); MEAN CORPUSCULAR HEMOGLOBIN 28.1 pg (27.0-33.0); MEAN CORPUSCULAR HGB CONC 31.7 g/dl (32.0-36.5); MEAN CORPUSCULAR VOLUME 88.6 fl (80.0-96.0); MONO # 0.8 10^3/uL (0.0-0.8); NEUTROPHILS # 13.1 10^3/uL (1.5-8.5); NEUTROPHILS % 79.3 % (36.0-66.0); PLATELET COUNT, AUTOMATED 333 10^3/uL (150-450); RED BLOOD COUNT 4.84 10^6/uL (4.00-5.40); WHITE BLOOD COUNT 16.5 10^3/uL (4.0-10.0)
[2020-02-18 13:43] LABS: ALBUMIN 2.7 GM/DL (3.2-5.2); ALT/SGPT 11 U/L (12-78); BILIRUBIN,TOTAL 0.4 MG/DL (0.2-1.0); BLOOD UREA NITROGEN 13 MG/DL (7-18); CALCIUM LEVEL 8.7 MG/DL (8.5-10.1); CARBON DIOXIDE LEVEL 27 MEQ/L (21-32); CHLORIDE LEVEL 103 MEQ/L (98-107); CREATININE FOR GFR 0.74 MG/DL (0.55-1.30); GLOMERULAR FILTRATION RATE > 60.0 (>60); GLUCOSE, FASTING 129 MG/DL (70-100); MAGNESIUM LEVEL 2.3 MG/DL (1.8-2.4); PHOSPHORUS LEVEL 3.1 MG/DL (2.5-4.9); POTASSIUM SERUM 3.5 MEQ/L (3.5-5.1); SODIUM LEVEL 137 MEQ/L (136-145); TOTAL PROTEIN 6.5 GM/DL (6.4-8.2); TRIGLYCERIDES LEVEL 136 MG/DL (<150)
== END ==
LOC: M SHH 12:54
PROVIDERS: ATTEND Surgery
DX: K50.118 Crohn's disease of large intestine with other complication (principal)

== ENCOUNTER 2020-03-31 16:25 | Emergency (ER) | payer OTHER ==
[~2020-03-31] VITALS: Ht 160 cm; Wt 69.3 kg
[~2020-03-31 16:25] MED LIST changes: -METR-265; +METR-265 PO; -PRED10TA2; +PRED10TA2 PO
[2020-03-31 17:17] LABS: BASO % 0.1 % (0.0-1.0); HEMATOCRIT 37.6 % (36.0-47.0); HEMOGLOBIN 11.4 g/dl (12.0-15.5); LYMPH # 0.5 10^3/uL (1.5-5.0); LYMPH % 5.3 % (24.0-44.0); MEAN CORPUSCULAR HEMOGLOBIN 26.9 pg (27.0-33.0); MEAN CORPUSCULAR HGB CONC 30.3 g/dl (32.0-36.5); MEAN CORPUSCULAR VOLUME 88.7 fl (80.0-96.0); MONO # 0.2 10^3/uL (0.0-0.8); MONO % 1.8 % (0.0-5.0); NEUTROPHILS # 9.2 10^3/uL (1.5-8.5); NEUTROPHILS % 91.8 % (36.0-66.0); PLATELET COUNT, AUTOMATED 309 10^3/uL (150-450); RED BLOOD COUNT 4.24 10^6/uL (4.00-5.40)
[2020-03-31] MEDS ORDERED: HALOPERIDOL 5MG/ML VIAL (J1630 PER 1) IV ONE (17:30)
[2020-03-31] MEDS: GASTROGRAFIN SOLUTION 30ML PO SCH ×2 (17:36→18:20)
[2020-03-31 17:41] LABS: ERYTHROCYTE SEDIMENTATION RATE 50 mm/hr (0-20)
[2020-03-31 17:44] LABS: ALBUMIN 2.1 GM/DL (3.2-5.2); BILIRUBIN,DIRECT 0.1 MG/DL (0.0-0.2); BILIRUBIN,TOTAL 0.3 MG/DL (0.2-1.0); C REACTIVE PROTEIN QUANTITATIV 3.28 MG/DL (0.00-0.30); MAGNESIUM LEVEL 1.7 MG/DL (1.8-2.4); TOTAL PROTEIN 5.8 GM/DL (6.4-8.2)
[2020-03-31] MEDS ORDERED: FERR324T2 (18:33)
[2020-03-31] MEDS ORDERED: VITAMIN PO (18:33)
[2020-03-31] MEDS ORDERED: [UNRECOGNIZED DRUG - OTHER] (18:35)
[2020-03-31] MEDS ORDERED: ISOVUE-370 76% 100ML VIAL As Ordered ONE (18:57)
--- NOTE | 2020-03-31 19:43 | REPVR ---
PROCEDURE INFORMATION: Exam: CT Abdomen And Pelvis With Contrast Exam date and time: 03/31/2020 6:59 PM Age: 35 years old Clinical indication: Abdominal pain; Localized; Lower; Additional info: Lower abdominal pain; ? Fistula formation TECHNIQUE: Imaging protocol: Computed tomography of the abdomen and pelvis with intravenous contrast. Radiation optimization: All CT scans at this facility use at least one of these dose optimization techniques: automated exposure control; mA and/or kV adjustment per patient size (includes targeted exams where dose is matched to clinical indication); or iterative reconstruction. Contrast material: ISOVUE 370; Contrast volume: 100 ml; Contrast route: INTRAVENOUS (IV); COMPARISON: CT ABD PELVIS W/O CONTRAST 02/05/2019 3:27 PM FINDINGS: Liver: There is a diffuse decrease in hepatic parenchymal density, consistent with steatosis. Gallbladder and bile ducts: There has been a cholecystectomy. Pancreas: Normal. No ductal dilation. Spleen: Normal. No splenomegaly. Adrenals: Normal. No mass. Kidneys and ureters: Normal. No hydronephrosis. Stomach and bowel: Inflammatory changes with mucosal enhancement demonstrated in the rectosigmoid and left colon with a strictured sigmoid in the proximal sigmoid colon consistent with patient's known Crohn disease. There is a thin string of oral contrast medium demonstrated within what appears to represent a blind pouch in the lower mid abdomen to the right of midline. Possibility of a blind loop or interloop fistula to be considered. Appendix: No evidence of appendicitis. Intraperitoneal space: There is an extra luminal gas collection tracking transversely in the anterior omentum and extending into the anterior abdominal wall to the right of midline consistent with a possible enterocutaneous fistula. Vasculature: Unremarkable. No abdominal aortic aneurysm. Lymph nodes: Unremarkable. No enlarged lymph nodes. Bladder: Unremarkable as visualized. Reproductive: Unremarkable as visualized. Bones/joints: Moderate to severe central spinal stenosis L4-L5. Soft tissues: Extensive surgery related to patient's known Crohn disease demonstrated in the enteric system with inflammatory changes demonstrated in the anterior abdominal wall which appear to have progressed in comparison to the prior study of 2019. IMPRESSION: 1. Extensive surgery related to patient's known Crohn disease demonstrated in the enteric system with inflammatory changes demonstrated in the anterior abdominal wall which appear to have progressed in comparison to the prior study of 2019. 2. There is an extra luminal gas collection tracking transversely in the anterior omentum and extending into the anterior abdominal wall to the right of midline consistent with a possible enterocutaneous fistula. 3. Inflammatory changes with mucosal enhancement demonstrated in the rectosigmoid and left colon with a strictured sigmoid in the proximal sigmoid colon consistent with patient's known Crohn disease. 4. There is a diffuse decrease in hepatic parenchymal density, consistent with steatosis. 5. There has been a cholecystectomy. 6. There is a thin string of oral contrast medium demonstrated within what appears to represent a blind pouch in the lower mid abdomen to the right of midline. Possibility of a blind loop or interloop fistula to be considered. Electronically signed by: Juarez Brown On 03/31/2020 19:43:16 PM
[2020-03-31 19:51] VITALS: BP 125/63
[2020-03-31] MEDS ORDERED: methylPREDNISolone 125MG 2ML VIAL IV ONE (20:30)
[2020-03-31] MEDS ORDERED: MORPHINE 4 MG/ML 1ML VIAL/SYRINGE (J2270) IV ONE (20:30)
[2020-03-31] MEDS ORDERED: PRED20TA PO (21:16)
== END 2020-03-31 23:00 | disposition home or self-care (01) ==
LOC: M ED 16:25
DX: K50.113 Crohn's disease of large intestine with fistula (principal); Z79.52 Long term (current) use of systemic steroids; Z79.899 Other long term (current) drug therapy; Z90.49 Acquired absence of other specified parts of digestive tract
CPT/HCPCS: 36415; 74177; 80047; 80076; 83605; 83690; 83735; 84702; 85025; 85652; 86140; 96374; 96375; 99285; J1630; J2270; J2930; Q9963; Q9967

== ENCOUNTER 2020-07-22 15:18 | Emergency (ER) | payer OTHER ==
[~2020-07-22] VITALS: Ht 160 cm; Wt 62.8 kg
[~2020-07-22 15:18] MED LIST changes: +FERR324T2; +VITAMIN PO; +[UNRECOGNIZED DRUG - OTHER]
[2020-07-22] MEDS ORDERED: NS 1,000 ML IV ONE (16:30)
[2020-07-22] MEDS ORDERED: MORPHINE 4 MG/ML 1ML VIAL/SYRINGE (J2270) IV ONE ×2 (16:30→21:30)
[2020-07-22 17:29] LABS: BASO % 0.1 % (0.0-1.0); HEMATOCRIT 38.1 % (36.0-47.0); HEMOGLOBIN 11.5 g/dl (12.0-15.5); LYMPH # 1.4 10^3/uL (1.5-5.0); LYMPH % 13.7 % (24.0-44.0); MEAN CORPUSCULAR HEMOGLOBIN 26.5 pg (27.0-33.0); MEAN CORPUSCULAR HGB CONC 30.2 g/dl (32.0-36.5); MEAN CORPUSCULAR VOLUME 87.8 fl (80.0-96.0); MONO # 0.4 10^3/uL (0.0-0.8); MONO % 3.7 % (0.0-5.0); NEUTROPHILS # 8.1 10^3/uL (1.5-8.5); NEUTROPHILS % 81.7 % (36.0-66.0); PLATELET COUNT, AUTOMATED 315 10^3/uL (150-450); RED BLOOD COUNT 4.34 10^6/uL (4.00-5.40); WHITE BLOOD COUNT 9.9 10^3/uL (4.0-10.0)
[2020-07-22] MEDS: GASTROGRAFIN SOLUTION 30ML PO SCH ×2 (17:45→18:19)
[2020-07-22 17:59] LABS: ALBUMIN 2.8 GM/DL (3.2-5.2); ALT/SGPT 12 U/L (12-78); BILIRUBIN,DIRECT < 0.1 MG/DL (0.0-0.2); BILIRUBIN,TOTAL 0.2 MG/DL (0.2-1.0); LIPASE 63 U/L (73-393); TOTAL PROTEIN 5.8 GM/DL (6.4-8.2)
[2020-07-22] MEDS ORDERED: ISOVUE-370 76% 100ML VIAL As Ordered ONE (19:09)
[2020-07-22] MEDS ORDERED: fentaNYL 100 MCG/2 ML INJECTION (J3010) IV ONE ×2 (19:30→22:00)
--- NOTE | 2020-07-22 20:35 | REPVR ---
PROCEDURE INFORMATION: Exam: CT Abdomen And Pelvis With Contrast Exam date and time: 07/22/2020 8:13 PM Age: 35 years old Clinical indication: Other: Fistulas; Additional info: Chronic fistula cutaneous, couple new ones with severe pain TECHNIQUE: Imaging protocol: Computed tomography of the abdomen and pelvis with intravenous contrast. Radiation optimization: All CT scans at this facility use at least one of these dose optimization techniques: automated exposure control; mA and/or kV adjustment per patient size (includes targeted exams where dose is matched to clinical indication); or iterative reconstruction. Contrast material: ISVOUE 370; Contrast volume: 100 ml; Contrast route: INTRAVENOUS (IV); COMPARISON: CT ABD/PEL W/IV ORAL CONTRAS 03/31/2020 6:56 PM FINDINGS: Lungs: Small ground-glass opacities demonstrated at the lung bases may represent atelectasis. Clinical correlation to exclude infection suggested. Liver: Subcentimeter cyst left lobe of the liver. Liver otherwise unremarkable. Gallbladder and bile ducts: There has been a cholecystectomy. Pancreas: Normal. No ductal dilation. Spleen: Normal. No splenomegaly. Adrenal glands: Normal. No mass. Kidneys and ureters: Small simple cyst left kidney measures 8 mm. No follow-up suggested. Punctate nonobstructive calculus lower pole right kidney. Stomach and bowel: Sutures demonstrated in the small bowel within the right lower quadrant. Inflammatory changes demonstrated in the left and rectosigmoid colon with mucosal enhancement, a strictured segment in the proximal sigmoid colon consistent with patient's known Crohn disease. There is a gas containing tubular segment of soft tissue demonstrated anteriorly in the right lower quadrant and right mid abdomen in the region of previously demonstrated suspected fistula. No contrast demonstrated within this region at this time. There is loss of the fat plane between this segment and the sigmoid colon, findings suggesting the presence of an unopacified interloop fistula. Appendix: No evidence of appendicitis. Intraperitoneal space: See "Stomach and bowel" finding. Vasculature: Unremarkable. No abdominal aortic aneurysm. Lymph nodes: Unremarkable. No enlarged lymph nodes. Urinary bladder: Unremarkable as visualized. Reproductive: Unremarkable as visualized. Bones/joints: Age indeterminate compression deformity superior endplate of L5 not present on the 03/31/2020 examination. Severe central spinal stenosis L4-L5. Bulging annulus L5-S1. Soft tissues: Postsurgical changes demonstrated in the anterior abdominal wall. Small gas locules demonstrated in the anterior abdominal wall may be postprocedural in the appropriate clinical setting however the possibility of inflammatory changes /infection related to Crohn disease not excluded. IMPRESSION: 1. Small ground-glass opacities demonstrated at the lung bases may represent atelectasis. Clinical correlation to exclude infection suggested. 2. There has been a cholecystectomy. 3. Postsurgical changes demonstrated in the anterior abdominal wall. Small gas locules demonstrated in the anterior abdominal wall may be postprocedural in the appropriate clinical setting however the possibility of inflammatory changes /infection related to Crohn disease not excluded. 4. Findings consistent with Crohn's disease. Tubular structure in the right lower quadrant with suspected attachment to the sigmoid colon, a finding which may represent an interloop fistula. COMMENTS: Consistent with the [employer]'s Incidental Findings Committee white paper (J Am Alex Radiol 2018): Any incidental renal lesion less than 1 cm or classified as too small to characterize, or any incidental cystic renal lesion characterized as simple-appearing, is likely benign. No follow-up imaging is recommended for these lesions per consensus recommendations based on imaging criteria. Electronically signed by: Juarez Brown On 07/22/2020 20:35:13 PM
[2020-07-22 22:06] VITALS: BP 146/76
--- NOTE | 2020-07-23 09:19 | ED PDOC ---
Post-Departure Follow-Up dr river mueller faxed fomral report of ct abd/p for fu Michel Roblero MD Jul 23, 2020 09:19
== END 2020-07-22 22:20 | disposition home or self-care (01) ==
LOC: M ED 15:18
DX: K63.2 Fistula of intestine (principal); K50.90 Crohn's disease, unspecified, without complications; Z79.891 Long term (current) use of opiate analgesic
CPT/HCPCS: 74177; 80047; 80076; 81001; 83690; 84702; 85025; 96361; 96374; 96375; 96376; 99283; J2270; J3010; Q9963; Q9967

== ENCOUNTER → 2020-10-17 | Outpatient (CLI) | payer OTHER ==
--- NOTE | 2020-10-18 12:34 | ECGEPIP ---
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 Could not rule out prior septal/inferior injuries Different precordial lead placement with slower rate from 12/19/18. More prominent repolarization abnormalities. Clinical correlation advised Electronically Signed on 10-18-2020 12:34:22 EST by Carlos Valdez
== END ==
LOC: M EKG 14:25
PROVIDERS: ATTEND Registered Nurse
DX: K63.2 Fistula of intestine (principal); M79.89 Other specified soft tissue disorders

== ENCOUNTER → 2020-10-17 | Outpatient (CLI) | payer OTHER ==
[2020-10-17 15:49] LABS: HEMATOCRIT 41.4 % (36.0-47.0); HEMOGLOBIN 12.5 g/dl (12.0-15.5); MEAN CORPUSCULAR HEMOGLOBIN 27.3 pg (27.0-33.0); MEAN CORPUSCULAR HGB CONC 30.2 g/dl (32.0-36.5); MEAN CORPUSCULAR VOLUME 90.4 fl (80.0-96.0); PLATELET COUNT, AUTOMATED 288 10^3/uL (150-450); RED BLOOD COUNT 4.58 10^6/uL (4.00-5.40); WHITE BLOOD COUNT 8.9 10^3/uL (4.0-10.0)
[2020-10-17 16:14] LABS: BLOOD UREA NITROGEN 10 MG/DL (7-18); CALCIUM LEVEL 8.7 MG/DL (8.5-10.1); CARBON DIOXIDE LEVEL 29 MEQ/L (21-32); CHLORIDE LEVEL 108 MEQ/L (98-107); CREATININE FOR GFR 0.79 MG/DL (0.55-1.30); GLOMERULAR FILTRATION RATE > 60.0 (>60); GLUCOSE, FASTING 121 MG/DL (70-100); MAGNESIUM LEVEL 1.1 MG/DL (1.8-2.4); PHOSPHORUS LEVEL 4.1 MG/DL (2.5-4.9); POTASSIUM SERUM 3.5 MEQ/L (3.5-5.1); SODIUM LEVEL 143 MEQ/L (136-145)
--- NOTE | 2020-10-18 05:03 | REP ---
INDICATION: DAYANARA LOWER EXT SWELLING *US 1ST, LAB 2ND, EKG 3RD* COMPARISON: None. TECHNIQUE: Ramirez scale and color Doppler evaluation bilateral lower extremities using linear high frequency transducer. FINDINGS: Ultrasound examination of the right and left lower extremity deep venous structures from the common femoral vein to the popliteal vein demonstrates normal compressibility flow and wave patterns in response to respiration and augmentation. There is no evidence for deep venous thrombosis. IMPRESSION: No evidence for deep venous thrombosis. <Electronically signed by Darci Devine > 10/18/20 [id number]
== END ==
LOC: M RAD 14:20
DX: K63.2 Fistula of intestine (principal); R60.0 Localized edema

== ENCOUNTER → 2020-10-21 | Outpatient (CLI) | payer OTHER ==
[~2020-10-21] MED LIST changes: +GASTROGRAFIN SOLUTION 30ML (Q9963) As Ordered ONE; +ISOVUE-370 76% 100ML VIAL As Ordered ONE
--- NOTE | 2020-10-22 06:36 | REP ---
INDICATION: CROHNS DISEASE, ABD PAIN. COMPARISON: 07/22/2020 TECHNIQUE: Axial contrast-enhanced images from the lung bases to the pubic symphysis using oral and 100 cc Isovue 370 intravenous contrast material. Coronal and sagittal reformations obtained. This CT examination was performed using the following dose reduction techniques: Automated exposure control, adjustment of mA and/or kv according to the patient's size, and the use of iterative reconstruction technique. FINDINGS: Lung bases are essentially clear. Visualized heart and pericardium normal. Liver, spleen, pancreas, bilateral adrenal glands and kidneys are normal. The patient once again appears to be status post colectomy and the bowel demonstrates relatively normal fluid/contrast filled appearance without definite evidence for bowel obstruction or definite acute enteric inflammatory process. No obvious bowel fistula or stricture/stenosis is appreciated, but the previously noted area of narrowing through the distal bowel within the pelvis cannot definitively be excluded (series 201; image [id number]). Ill-defined infiltration and stranding along the anterior abdominopelvic wall with small amounts of phlegmonous changes and small locules of gas as well as subtle similar changes just below the level of the peritoneum along the anterior abdominopelvic wall are again appreciated and may be subjectively slightly increased from prior examination (series 201; images [id number]). These findings should be correlated with the possibility of recent surgery and postsurgical change or may represent a subacute chronic infectious/inflammatory process. No discrete drainable collection is appreciated and there is no obvious oral contrast within this process to suggest definite enteric fistula. Pelvis demonstrates normal bladder and age-appropriate uterus/adnexa. No mary beth ascites. No free air. No intraperitoneal or retroperitoneal adenopathy. Abdominal aorta and vasculature appear normal. Musculoskeletal structures are intact and without acute osseous abnormality. IMPRESSION: 1. Postsurgical changes consistent with the given history of Crohn's. No obvious acute enteric process or flare up is appreciated. 2. Ill-defined changes in the anterior abdominopelvic wall with subtle penetration deep to the peritoneum as described above. Findings require correlation with possibility of recent surgery and subsequent postsurgical changes and or may represent a subacute chronic infectious/inflammatory phlegmonous process. There is no associated drainable collection. <Electronically signed by Darci Devine > 10/22/20 0632
== END ==
LOC: M RAD 15:59
PROVIDERS: ATTEND Registered Nurse
DX: K63.2 Fistula of intestine (principal); K50.913 Crohn's disease, unspecified, with fistula; M79.89 Other specified soft tissue disorders
CPT/HCPCS: 74177; Q9963; Q9967

== ENCOUNTER → 2020-11-05 | Outpatient (REF) | payer OTHER ==
[~2020-11-05] MED LIST changes: -GASTROGRAFIN SOLUTION 30ML (Q9963) As Ordered ONE; -ISOVUE-370 76% 100ML VIAL As Ordered ONE
[2020-11-05 17:16] LABS: ALBUMIN 3.5 GM/DL (3.2-5.2); ALT/SGPT 13 U/L (12-78); BILIRUBIN,TOTAL 0.2 MG/DL (0.2-1.0); BLOOD UREA NITROGEN 10 MG/DL (7-18); CALCIUM LEVEL 9.4 MG/DL (8.5-10.1); CARBON DIOXIDE LEVEL 24 MEQ/L (21-32); CHLORIDE LEVEL 108 MEQ/L (98-107); CREATININE FOR GFR 1.02 MG/DL (0.55-1.30); GLOMERULAR FILTRATION RATE > 60.0 (>60); GLUCOSE, FASTING 102 MG/DL (70-100); MAGNESIUM LEVEL 1.4 MG/DL (1.8-2.4); POTASSIUM SERUM 3.6 MEQ/L (3.5-5.1); SODIUM LEVEL 142 MEQ/L (136-145); TOTAL PROTEIN 7.1 GM/DL (6.4-8.2)
== END ==
LOC: M LAB REF 15:58
PROVIDERS: ATTEND Family Medicine Addiction Medicine
DX: E83.42 Hypomagnesemia (principal)

== ENCOUNTER → 2020-11-10 | Outpatient (CLI) | payer OTHER ==
[2020-11-10 15:16] LABS: INR 3.2; PROTHROMBIN TIME 33.5 SECONDS (12.5-14.3)
== END ==
LOC: M LAB 13:31
PROVIDERS: ATTEND Nurse Practitioner Family
DX: I51.3 Intracardiac thrombosis, not elsewhere classified (principal)

== ENCOUNTER → 2020-11-17 | Outpatient (CLI) | payer OTHER ==
[2020-11-17 15:38] LABS: PROTHROMBIN TIME 53.3 SECONDS (12.5-14.3)
[2020-11-17 15:50] LABS: INR 5.77
== END ==
LOC: M LAB 14:25
PROVIDERS: ATTEND Nurse Practitioner Family
DX: I51.3 Intracardiac thrombosis, not elsewhere classified (principal)

== ENCOUNTER → 2020-11-19 | Outpatient (CLI) | payer OTHER ==
[2020-11-19 12:47] LABS: INR 3.63
== END ==
LOC: M LAB 12:12
PROVIDERS: ATTEND Nurse Practitioner Family
DX: I51.3 Intracardiac thrombosis, not elsewhere classified (principal)

== ENCOUNTER → 2020-11-26 | Outpatient (CLI) | payer OTHER ==
[2020-11-26 12:50] LABS: INR 1.21; PROTHROMBIN TIME 15.6 SECONDS (12.5-14.3)
== END ==
LOC: M LAB 12:10
PROVIDERS: ATTEND Nurse Practitioner Family
DX: I51.3 Intracardiac thrombosis, not elsewhere classified (principal); Z79.899 Other long term (current) drug therapy

== ENCOUNTER → 2020-12-12 | Outpatient (CLI) | payer OTHER ==
[2020-12-12 14:53] LABS: INR 1.69; PROTHROMBIN TIME 20.3 SECONDS (12.5-14.3)
== END ==
LOC: M LAB 13:58
PROVIDERS: ATTEND Nurse Practitioner Family
DX: I51.3 Intracardiac thrombosis, not elsewhere classified (principal)

== ENCOUNTER → 2021-02-06 | Outpatient (CLI) | payer OTHER | LOC: M LAB 11:04 | PROVIDERS: ATTEND Registered Nurse | DX: K50.913 Crohn's disease, unspecified, with fistula (principal) ==

== ENCOUNTER → 2021-03-12 | Outpatient (REF) | payer OTHER ==
[2021-03-12 13:50] LABS: BASO % 0.5 % (0.0-1.0); EOS # 0.2 10^3/uL (0.0-0.5); HEMATOCRIT 32.6 % (36.0-47.0); HEMOGLOBIN 10.1 g/dl (12.0-15.5); LYMPH # 1.9 10^3/uL (1.5-5.0); LYMPH % 29.3 % (24.0-44.0); MEAN CORPUSCULAR HEMOGLOBIN 28.4 pg (27.0-33.0); MEAN CORPUSCULAR VOLUME 91.6 fl (80.0-96.0); MONO # 0.3 10^3/uL (0.0-0.8); MONO % 4.9 % (2.0-8.0); NEUTROPHILS # 3.9 10^3/uL (1.5-8.5); NEUTROPHILS % 61.8 % (36.0-66.0); PLATELET COUNT, AUTOMATED 277 10^3/uL (150-450); RED BLOOD COUNT 3.56 10^6/uL (4.00-5.40); WHITE BLOOD COUNT 6.3 10^3/uL (4.0-10.0)
[2021-03-12 15:25] LABS: ALBUMIN 2.2 GM/DL (3.2-5.2); ALT/SGPT 40 U/L (12-78); BILIRUBIN,TOTAL 0.2 MG/DL (0.2-1.0); BLOOD UREA NITROGEN 19 MG/DL (7-18); CALCIUM LEVEL 8.6 MG/DL (8.5-10.1); CARBON DIOXIDE LEVEL 29 MEQ/L (21-32); CHLORIDE LEVEL 104 MEQ/L (98-107); CREATININE FOR GFR 0.33 MG/DL (0.55-1.30); GLOMERULAR FILTRATION RATE > 60.0 (>60); GLUCOSE, FASTING 92 MG/DL (70-100); MAGNESIUM LEVEL 1.9 MG/DL (1.8-2.4); SODIUM LEVEL 138 MEQ/L (136-145); TOTAL PROTEIN 6.6 GM/DL (6.4-8.2); TRIGLYCERIDES LEVEL 152 MG/DL (<150)
== END ==
LOC: M LAB REF 13:17
PROVIDERS: ATTEND Surgery
DX: K63.2 Fistula of intestine (principal); E44.0 Moderate protein-calorie malnutrition; K50.919 Crohn's disease, unspecified, with unspecified complications

== ENCOUNTER → 2021-03-19 | Outpatient (REF) | payer OTHER ==
[2021-03-19 17:42] LABS: HEMATOCRIT 34.4 % (36.0-47.0); MEAN CORPUSCULAR HEMOGLOBIN 29.4 pg (27.0-33.0); PLATELET COUNT, AUTOMATED 265 10^3/uL (150-450); RED BLOOD COUNT 3.74 10^6/uL (4.00-5.40); WHITE BLOOD COUNT 6.9 10^3/uL (4.0-10.0)
[2021-03-19 17:56] LABS: ALBUMIN 2.5 GM/DL (3.2-5.2); ALT/SGPT 39 U/L (12-78); BILIRUBIN,DIRECT 0.1 MG/DL (0.0-0.2); BILIRUBIN,TOTAL 0.3 MG/DL (0.2-1.0); BLOOD UREA NITROGEN 16 MG/DL (7-18); CALCIUM LEVEL 9.4 MG/DL (8.5-10.1); CARBON DIOXIDE LEVEL 27 MEQ/L (21-32); CHLORIDE LEVEL 104 MEQ/L (98-107); CREATININE FOR GFR 0.44 MG/DL (0.55-1.30); GLOMERULAR FILTRATION RATE > 60.0 (>60); GLUCOSE, FASTING 70 MG/DL (70-100); MAGNESIUM LEVEL 1.7 MG/DL (1.8-2.4); POTASSIUM SERUM 3.7 MEQ/L (3.5-5.1); SODIUM LEVEL 140 MEQ/L (136-145); TOTAL PROTEIN 7.1 GM/DL (6.4-8.2)
== END ==
LOC: M LAB REF 16:07
PROVIDERS: ATTEND Surgery
DX: E67.8 Other specified hyperalimentation (principal)

== ENCOUNTER → 2021-03-22 | Outpatient (REF) | payer OTHER ==
[2021-03-22 12:28] LABS: BASO % 0.3 % (0.0-1.0); EOS # 0.6 10^3/uL (0.0-0.5); EOS % 6.5 % (0.0-3.0); HEMATOCRIT 34.4 % (36.0-47.0); HEMOGLOBIN 10.8 g/dl (12.0-15.5); LYMPH % 30.5 % (24.0-44.0); MEAN CORPUSCULAR HEMOGLOBIN 28.6 pg (27.0-33.0); MEAN CORPUSCULAR HGB CONC 31.4 g/dl (32.0-36.5); MONO # 0.5 10^3/uL (0.0-0.8); MONO % 5.5 % (2.0-8.0); NEUTROPHILS # 5.6 10^3/uL (1.5-8.5); NEUTROPHILS % 57.1 % (36.0-66.0); PLATELET COUNT, AUTOMATED 220 10^3/uL (150-450); RED BLOOD COUNT 3.78 10^6/uL (4.00-5.40); WHITE BLOOD COUNT 9.8 10^3/uL (4.0-10.0)
[2021-03-22 12:58] LABS: ALBUMIN 2.4 GM/DL (3.2-5.2); ALT/SGPT 45 U/L (12-78); BILIRUBIN,TOTAL 0.5 MG/DL (0.2-1.0); BLOOD UREA NITROGEN 14 MG/DL (7-18); CALCIUM LEVEL 8.7 MG/DL (8.5-10.1); CARBON DIOXIDE LEVEL 30 MEQ/L (21-32); CHLORIDE LEVEL 105 MEQ/L (98-107); CREATININE FOR GFR 0.44 MG/DL (0.55-1.30); GLOMERULAR FILTRATION RATE > 60.0 (>60); GLUCOSE, FASTING 93 MG/DL (70-100); MAGNESIUM LEVEL 1.8 MG/DL (1.8-2.4); PHOSPHORUS LEVEL 4.3 MG/DL (2.5-4.9); POTASSIUM SERUM 3.7 MEQ/L (3.5-5.1); SODIUM LEVEL 140 MEQ/L (136-145); TOTAL PROTEIN 6.7 GM/DL (6.4-8.2); TRIGLYCERIDES LEVEL 152 MG/DL (<150)
== END ==
LOC: M LAB REF 11:45
PROVIDERS: ATTEND Surgery
DX: K63.2 Fistula of intestine (principal); E44.0 Moderate protein-calorie malnutrition; K50.919 Crohn's disease, unspecified, with unspecified complications

== ENCOUNTER 2021-03-30 19:00 | Emergency (ER) | payer OTHER ==
[~2021-03-30] VITALS: Ht 157.5 cm; Wt 50.0 kg
[2021-03-30 19:00] VITALS: BP 101/61
[2021-03-30] MEDS ORDERED: BUPR1FIL (19:29)
[2021-03-30] MEDS ORDERED: TIZA4TAB4 (19:29)
[2021-03-30] MEDS ORDERED: GABA-282 (19:29)
[2021-03-30] MEDS ORDERED: XARE15TA (19:29)
[2021-03-30] MEDS ORDERED: CORL1.7T (19:29)
[2021-03-30] MEDS ORDERED: OMEP-221 (19:29)
[2021-03-30] MEDS ORDERED: BACL5TAB2 (19:29)
[2021-03-30] MEDS ORDERED: D 202000 (19:29)
[2021-03-31] MEDS ORDERED: ALTEPLASE 2MG/2ML VIAL IV ONE (01:00)
== END 2021-03-31 04:39 | disposition home or self-care (01) ==
LOC: M ED 19:00
DX: T82.868A Thrombosis due to vascular prosthetic devices, implants and grafts, initial encounter (principal); Y92.9 Unspecified place or not applicable; Y93.9 Activity, unspecified; K50.90 Crohn's disease, unspecified, without complications; K91.2 Postsurgical malabsorption, not elsewhere classified; Z79.899 Other long term (current) drug therapy
CPT/HCPCS: 96374; 99283; J2997

== ENCOUNTER → 2021-03-31 | Outpatient (REF) | payer OTHER ==
[~2021-03-31] MED LIST changes: +BACL5TAB2; +BUPR1FIL; +CORL1.7T; +D 202000; +GABA-282; +OMEP-221; +TIZA4TAB4; +XARE15TA
[2021-03-31 16:29] LABS: HEMATOCRIT 28.9 % (36.0-47.0); HEMOGLOBIN 8.9 g/dl (12.0-15.5); MEAN CORPUSCULAR HEMOGLOBIN 28.3 pg (27.0-33.0); MEAN CORPUSCULAR HGB CONC 30.8 g/dl (32.0-36.5); MEAN CORPUSCULAR VOLUME 91.7 fl (80.0-96.0); PLATELET COUNT, AUTOMATED 399 10^3/uL (150-450); RED BLOOD COUNT 3.15 10^6/uL (4.00-5.40); WHITE BLOOD COUNT 5.9 10^3/uL (4.0-10.0)
[2021-03-31 17:04] LABS: ALT/SGPT 23 U/L (12-78); BILIRUBIN,DIRECT 0.1 MG/DL (0.0-0.2); BILIRUBIN,TOTAL 0.3 MG/DL (0.2-1.0); BLOOD UREA NITROGEN 10 MG/DL (7-18); CALCIUM LEVEL 8.5 MG/DL (8.5-10.1); CARBON DIOXIDE LEVEL 26 MEQ/L (21-32); CHLORIDE LEVEL 105 MEQ/L (98-107); CREATININE FOR GFR 0.41 MG/DL (0.55-1.30); GLOMERULAR FILTRATION RATE > 60.0 (>60); GLUCOSE, FASTING 59 MG/DL (70-100); MAGNESIUM LEVEL 1.7 MG/DL (1.8-2.4); PHOSPHORUS LEVEL 5.7 MG/DL (2.5-4.9); POTASSIUM SERUM 3.9 MEQ/L (3.5-5.1); SODIUM LEVEL 138 MEQ/L (136-145); TOTAL PROTEIN 6.6 GM/DL (6.4-8.2)
== END ==
LOC: M LAB REF 15:05
PROVIDERS: ATTEND Surgery
DX: Z48.815 Encounter for surgical aftercare following surgery on the digestive system (principal); Z90.49 Acquired absence of other specified parts of digestive tract

== ENCOUNTER → 2021-04-10 | Outpatient (REF) | payer OTHER ==
[2021-04-10 13:56] LABS: HEMATOCRIT 37.5 % (36.0-47.0); HEMOGLOBIN 11.8 g/dl (12.0-15.5); MEAN CORPUSCULAR HEMOGLOBIN 28.2 pg (27.0-33.0); MEAN CORPUSCULAR HGB CONC 31.5 g/dl (32.0-36.5); MEAN CORPUSCULAR VOLUME 89.5 fl (80.0-96.0); PLATELET COUNT, AUTOMATED 319 10^3/uL (150-450); RED BLOOD COUNT 4.19 10^6/uL (4.00-5.40); WHITE BLOOD COUNT 5.9 10^3/uL (4.0-10.0)
[2021-04-10 14:20] LABS: ALBUMIN 2.7 GM/DL (3.2-5.2); ALT/SGPT 42 U/L (12-78); BILIRUBIN,DIRECT 0.1 MG/DL (0.0-0.2); BILIRUBIN,TOTAL 0.3 MG/DL (0.2-1.0); BLOOD UREA NITROGEN 15 MG/DL (7-18); CALCIUM LEVEL 9.3 MG/DL (8.5-10.1); CARBON DIOXIDE LEVEL 28 MEQ/L (21-32); CHLORIDE LEVEL 106 MEQ/L (98-107); CREATININE FOR GFR 0.43 MG/DL (0.55-1.30); GLOMERULAR FILTRATION RATE > 60.0 (>60); GLUCOSE, FASTING 95 MG/DL (70-100); MAGNESIUM LEVEL 1.7 MG/DL (1.8-2.4); PHOSPHORUS LEVEL 4.5 MG/DL (2.5-4.9); POTASSIUM SERUM 3.7 MEQ/L (3.5-5.1); SODIUM LEVEL 139 MEQ/L (136-145)
== END ==
LOC: M LAB REF 13:29
PROVIDERS: ATTEND Surgery
DX: E44.0 Moderate protein-calorie malnutrition (principal); K63.2 Fistula of intestine; D64.9 Anemia, unspecified

== ENCOUNTER → 2021-04-16 | Outpatient (REF) | payer OTHER ==
[2021-04-16 12:28] LABS: BASO % 0.4 % (0.0-1.0); EOS # 0.3 10^3/uL (0.0-0.5); EOS % 3.8 % (0.0-3.0); HEMATOCRIT 39.7 % (36.0-47.0); HEMOGLOBIN 12.3 g/dl (12.0-15.5); LYMPH # 2.8 10^3/uL (1.5-5.0); LYMPH % 37.5 % (24.0-44.0); MEAN CORPUSCULAR HEMOGLOBIN 28.1 pg (27.0-33.0); MEAN CORPUSCULAR VOLUME 90.8 fl (80.0-96.0); MONO # 0.3 10^3/uL (0.0-0.8); MONO % 3.8 % (2.0-8.0); NEUTROPHILS % 54.1 % (36.0-66.0); PLATELET COUNT, AUTOMATED 215 10^3/uL (150-450); RED BLOOD COUNT 4.37 10^6/uL (4.00-5.40); WHITE BLOOD COUNT 7.4 10^3/uL (4.0-10.0)
[2021-04-16 13:01] LABS: ALBUMIN 2.7 GM/DL (3.2-5.2); ALT/SGPT 36 U/L (12-78); BILIRUBIN,TOTAL 0.3 MG/DL (0.2-1.0); BLOOD UREA NITROGEN 16 MG/DL (7-18); CALCIUM LEVEL 8.6 MG/DL (8.5-10.1); CARBON DIOXIDE LEVEL 28 MEQ/L (21-32); CHLORIDE LEVEL 106 MEQ/L (98-107); CREATININE FOR GFR 0.37 MG/DL (0.55-1.30); GLOMERULAR FILTRATION RATE > 60.0 (>60); GLUCOSE, FASTING 86 MG/DL (70-100); PHOSPHORUS LEVEL 3.1 MG/DL (2.5-4.9); POTASSIUM SERUM 4.1 MEQ/L (3.5-5.1); SODIUM LEVEL 139 MEQ/L (136-145); TOTAL PROTEIN 6.8 GM/DL (6.4-8.2); TRIGLYCERIDES LEVEL 104 MG/DL (<150)
== END ==
LOC: M LAB REF 11:52
PROVIDERS: ATTEND Surgery
DX: K63.2 Fistula of intestine (principal); E44.0 Moderate protein-calorie malnutrition; K50.919 Crohn's disease, unspecified, with unspecified complications

== ENCOUNTER → 2021-04-23 | Outpatient (REF) | payer OTHER ==
[2021-04-23 12:44] LABS: BASO % 0.2 % (0.0-1.0); EOS # 0.1 10^3/uL (0.0-0.5); EOS % 3.3 % (0.0-3.0); HEMATOCRIT 39.1 % (36.0-47.0); HEMOGLOBIN 12.5 g/dl (12.0-15.5); LYMPH # 2.1 10^3/uL (1.5-5.0); LYMPH % 50.1 % (24.0-44.0); MEAN CORPUSCULAR HEMOGLOBIN 28.7 pg (27.0-33.0); MEAN CORPUSCULAR VOLUME 89.7 fl (80.0-96.0); MONO # 0.3 10^3/uL (0.0-0.8); NEUTROPHILS # 1.7 10^3/uL (1.5-8.5); NEUTROPHILS % 40.2 % (36.0-66.0); PLATELET COUNT, AUTOMATED 235 10^3/uL (150-450); RED BLOOD COUNT 4.36 10^6/uL (4.00-5.40); WHITE BLOOD COUNT 4.2 10^3/uL (4.0-10.0)
[2021-04-23 13:15] LABS: ALBUMIN 2.8 GM/DL (3.2-5.2); ALT/SGPT 27 U/L (12-78); BILIRUBIN,TOTAL 0.4 MG/DL (0.2-1.0); BLOOD UREA NITROGEN 5 MG/DL (7-18); CALCIUM LEVEL 8.4 MG/DL (8.5-10.1); CARBON DIOXIDE LEVEL 26 MEQ/L (21-32); CHLORIDE LEVEL 106 MEQ/L (98-107); CREATININE FOR GFR 0.45 MG/DL (0.55-1.30); GLOMERULAR FILTRATION RATE > 60.0 (>60); GLUCOSE, FASTING 85 MG/DL (70-100); MAGNESIUM LEVEL 1.5 MG/DL (1.8-2.4); PHOSPHORUS LEVEL 4.7 MG/DL (2.5-4.9); SODIUM LEVEL 139 MEQ/L (136-145); TOTAL PROTEIN 6.8 GM/DL (6.4-8.2); TRIGLYCERIDES LEVEL 160 MG/DL (<150)
== END ==
LOC: M LAB REF 12:33
PROVIDERS: ATTEND Surgery
DX: K63.2 Fistula of intestine (principal); E44.0 Moderate protein-calorie malnutrition; K50.919 Crohn's disease, unspecified, with unspecified complications

== ENCOUNTER → 2021-04-30 | Outpatient (REF) | payer OTHER ==
[2021-04-30 11:45] LABS: BASO % 0.5 % (0.0-1.0); EOS # 0.3 10^3/uL (0.0-0.5); EOS % 5.6 % (0.0-3.0); HEMATOCRIT 40.8 % (36.0-47.0); HEMOGLOBIN 13.1 g/dl (12.0-15.5); LYMPH # 2.8 10^3/uL (1.5-5.0); LYMPH % 46.1 % (24.0-44.0); MEAN CORPUSCULAR HEMOGLOBIN 28.5 pg (27.0-33.0); MEAN CORPUSCULAR HGB CONC 32.1 g/dl (32.0-36.5); MEAN CORPUSCULAR VOLUME 88.7 fl (80.0-96.0); MONO # 0.3 10^3/uL (0.0-0.8); MONO % 4.4 % (2.0-8.0); NEUTROPHILS # 2.6 10^3/uL (1.5-8.5); NEUTROPHILS % 43.1 % (36.0-66.0); PLATELET COUNT, AUTOMATED 222 10^3/uL (150-450); WHITE BLOOD COUNT 6.1 10^3/uL (4.0-10.0)
[2021-04-30 12:19] LABS: ALBUMIN 2.8 GM/DL (3.2-5.2); ALT/SGPT 21 U/L (12-78); BILIRUBIN,TOTAL 0.2 MG/DL (0.2-1.0); BLOOD UREA NITROGEN 10 MG/DL (7-18); CALCIUM LEVEL 8.3 MG/DL (8.5-10.1); CARBON DIOXIDE LEVEL 27 MEQ/L (21-32); CHLORIDE LEVEL 109 MEQ/L (98-107); CREATININE FOR GFR 0.52 MG/DL (0.55-1.30); GLOMERULAR FILTRATION RATE > 60.0 (>60); GLUCOSE, FASTING 84 MG/DL (70-100); MAGNESIUM LEVEL 1.3 MG/DL (1.8-2.4); PHOSPHORUS LEVEL 4.3 MG/DL (2.5-4.9); POTASSIUM SERUM 3.4 MEQ/L (3.5-5.1); SODIUM LEVEL 141 MEQ/L (136-145); TOTAL PROTEIN 6.6 GM/DL (6.4-8.2); TRIGLYCERIDES LEVEL 160 MG/DL (<150)
== END ==
LOC: M LAB REF 11:18
PROVIDERS: ATTEND Surgery
DX: K63.2 Fistula of intestine (principal); E44.0 Moderate protein-calorie malnutrition; K50.919 Crohn's disease, unspecified, with unspecified complications

== ENCOUNTER → 2021-05-07 | Outpatient (REF) | payer OTHER ==
[2021-05-07 11:33] LABS: BASO % 0.4 % (0.0-1.0); EOS # 0.1 10^3/uL (0.0-0.5); EOS % 2.9 % (0.0-3.0); HEMATOCRIT 36.1 % (36.0-47.0); HEMOGLOBIN 11.6 g/dl (12.0-15.5); LYMPH # 2.2 10^3/uL (1.5-5.0); LYMPH % 45.1 % (24.0-44.0); MEAN CORPUSCULAR HEMOGLOBIN 28.5 pg (27.0-33.0); MEAN CORPUSCULAR HGB CONC 32.1 g/dl (32.0-36.5); MEAN CORPUSCULAR VOLUME 88.7 fl (80.0-96.0); MONO # 0.2 10^3/uL (0.0-0.8); MONO % 4.9 % (2.0-8.0); NEUTROPHILS # 2.3 10^3/uL (1.5-8.5); NEUTROPHILS % 46.7 % (36.0-66.0); PLATELET COUNT, AUTOMATED 164 10^3/uL (150-450); RED BLOOD COUNT 4.07 10^6/uL (4.00-5.40); WHITE BLOOD COUNT 4.9 10^3/uL (4.0-10.0)
[2021-05-07 12:25] LABS: ALT/SGPT 27 U/L (12-78); BILIRUBIN,TOTAL 0.2 MG/DL (0.2-1.0); BLOOD UREA NITROGEN 7 MG/DL (7-18); CALCIUM LEVEL 7.3 MG/DL (8.5-10.1); CARBON DIOXIDE LEVEL 28 MEQ/L (21-32); CHLORIDE LEVEL 111 MEQ/L (98-107); CREATININE FOR GFR 0.34 MG/DL (0.55-1.30); GLOMERULAR FILTRATION RATE > 60.0 (>60); GLUCOSE, FASTING 68 MG/DL (70-100); MAGNESIUM LEVEL 1.1 MG/DL (1.8-2.4); PHOSPHORUS LEVEL 4.3 MG/DL (2.5-4.9); POTASSIUM SERUM 2.9 MEQ/L (3.5-5.1); SODIUM LEVEL 146 MEQ/L (136-145); TOTAL PROTEIN 5.5 GM/DL (6.4-8.2); TRIGLYCERIDES LEVEL 86 MG/DL (<150)
== END ==
LOC: M LAB REF 11:18
PROVIDERS: ATTEND Surgery
DX: K63.2 Fistula of intestine (principal); E44.0 Moderate protein-calorie malnutrition; K50.919 Crohn's disease, unspecified, with unspecified complications

== ENCOUNTER → 2021-05-15 | Outpatient (REF) | payer OTHER ==
[2021-05-15 12:55] LABS: BASO % 0.3 % (0.0-1.0); EOS # 0.1 10^3/uL (0.0-0.5); HEMATOCRIT 38.4 % (36.0-47.0); HEMOGLOBIN 12.4 g/dl (12.0-15.5); LYMPH # 1.9 10^3/uL (1.5-5.0); LYMPH % 32.2 % (24.0-44.0); MEAN CORPUSCULAR HEMOGLOBIN 28.4 pg (27.0-33.0); MEAN CORPUSCULAR HGB CONC 32.3 g/dl (32.0-36.5); MEAN CORPUSCULAR VOLUME 87.9 fl (80.0-96.0); MONO # 0.3 10^3/uL (0.0-0.8); MONO % 4.8 % (2.0-8.0); NEUTROPHILS # 3.6 10^3/uL (1.5-8.5); NEUTROPHILS % 60.4 % (36.0-66.0); PLATELET COUNT, AUTOMATED 227 10^3/uL (150-450); RED BLOOD COUNT 4.37 10^6/uL (4.00-5.40)
[2021-05-15 13:21] LABS: ALBUMIN 2.2 GM/DL (3.2-5.2); ALT/SGPT 29 U/L (12-78); BILIRUBIN,TOTAL 0.2 MG/DL (0.2-1.0); BLOOD UREA NITROGEN 5 MG/DL (7-18); CALCIUM LEVEL 7.4 MG/DL (8.5-10.1); CARBON DIOXIDE LEVEL 28 MEQ/L (21-32); CHLORIDE LEVEL 111 MEQ/L (98-107); CREATININE FOR GFR 0.44 MG/DL (0.55-1.30); GLOMERULAR FILTRATION RATE > 60.0 (>60); GLUCOSE, FASTING 72 MG/DL (70-100); MAGNESIUM LEVEL 1.1 MG/DL (1.8-2.4); PHOSPHORUS LEVEL 4.1 MG/DL (2.5-4.9); POTASSIUM SERUM 3.1 MEQ/L (3.5-5.1); SODIUM LEVEL 144 MEQ/L (136-145); TOTAL PROTEIN 5.9 GM/DL (6.4-8.2); TRIGLYCERIDES LEVEL 109 MG/DL (<150)
== END ==
LOC: M LAB REF 12:42
PROVIDERS: ATTEND Surgery
DX: K50.913 Crohn's disease, unspecified, with fistula (principal); E44.0 Moderate protein-calorie malnutrition

== ENCOUNTER → 2021-05-21 | Outpatient (POV) | payer OTHER | LOC: M IRPRO 15:40 | PROVIDERS: ATTEND Surgery | DX: Z45.2 Encounter for adjustment and management of vascular access device (principal) ==

== ENCOUNTER → 2021-06-09 | Outpatient (CLI) | payer OTHER ==
[2021-06-09 16:31] LABS: HEMATOCRIT 41.4 % (36.0-47.0); HEMOGLOBIN 13.4 g/dl (12.0-15.5); MEAN CORPUSCULAR HEMOGLOBIN 28.8 pg (27.0-33.0); MEAN CORPUSCULAR HGB CONC 32.4 g/dl (32.0-36.5); PLATELET COUNT, AUTOMATED 248 10^3/uL (150-450); RED BLOOD COUNT 4.65 10^6/uL (4.00-5.40); WHITE BLOOD COUNT 5.2 10^3/uL (4.0-10.0)
[2021-06-09 16:48] LABS: INR 1.8; PROTHROMBIN TIME 21.3 SECONDS (12.7-14.5)
== END ==
LOC: M LAB 15:37
PROVIDERS: ATTEND Surgery
DX: K50.013 Crohn's disease of small intestine with fistula (principal)

== ENCOUNTER → 2021-11-26 | Outpatient (CLI) | payer MEDICARE ==
[~2021-11-26] MED LIST changes: -D 202000; -LEVO500T3; +LEVO500T4; +OMEP-173; -OMEP-218; -OMEP-221; +OMEP40CA5; +TIZA10TA; -TIZA4TAB4; +VITA200032
== END ==
LOC: M RAD 13:46
PROVIDERS: ATTEND Physician Assistant
DX: R31.9 Hematuria, unspecified (principal); M54.6 Pain in thoracic spine; R10.9 Unspecified abdominal pain; R39.198 Other difficulties with micturition; N20.0 Calculus of kidney

== ENCOUNTER → 2021-12-01 | Outpatient (REF) | payer MEDICARE, OTHER ==
[~2021-12-01] MED LIST changes: -CORL1.7T; +CORL1.7T PO; +D200CAP3 PO; -FERR324T2; +FERR324T2 PO; +HUMI40IN SC; +MULT1CHW29 PO; -OMEP40CA5; +OMEP40CA5 PO; +POTA10TA17 PO; +POTA99CA2 PO; -SUBO8MIS; +SUBO8MIS PO; -XARE15TA; +XARE15TA PO; +ZINC1TAB2 PO
[2021-12-01 17:06] LABS: APPEARANCE, URINE MANUAL TURBID (CLEAR); COLOR, URINE MANUAL BROWN (YELLOW)
[2021-12-01 17:07] LABS: BILIRUBIN, URINE MANUAL NEGATIVE (NEGATIVE); BLOOD URINE MANUAL POSITIVE (NEGATIVE); GLUCOSE, URINE (UA) MANUAL NEGATIVE (NEGATIVE); KETONE, URINE MANUAL NEGATIVE (NEGATIVE); LEUKOCYTE ESTERASE, URINE MAN POSITIVE (NEGATIVE); NITRITE, URINE MANUAL NEGATIVE (NEGATIVE); PH,URINE MAN 5.5 UNITS (5.0 - 7.0); PROTEIN, URINE MANUAL 3+ mg/dL (NEGATIVE); SPECIFIC GRAVITY,URINE MANUAL 1.025 (1.002-1.035); UROBILINOGEN, URINE MANUAL NORMAL (NORMAL)
[2021-12-01 19:28] LABS: BACTERIA, URINE MOD AMOUNT; HYALINE CAST, URINE NONE SEEN /lpf (0-1); MUCUS, URINE SMALL AMOUNT (NEGATIVE); RBC, URINE TNTC /hpf (0-3); SQUAMOUS EPITHELIAL CELL URINE SMALL AMOUNT /hpf (SMALL AMT); WBC, URINE 15-20 /hpf (0-3)
== END ==
LOC: M SMT 16:36
PROVIDERS: ATTEND Nurse Practitioner Women's Health
DX: R31.0 Gross hematuria (principal)

== ENCOUNTER → 2021-12-04 | Outpatient (CLI) | payer MEDICARE, OTHER ==
[~2021-12-04] MED LIST changes: +CORL1.7T; -CORL1.7T PO; -D200CAP3 PO; +FERR324T2; -FERR324T2 PO; -HUMI40IN SC; -MULT1CHW29 PO; +OMEP40CA5; -OMEP40CA5 PO; -POTA10TA17 PO; -POTA99CA2 PO; +SUBO8MIS; -SUBO8MIS PO; +XARE15TA; -XARE15TA PO; -ZINC1TAB2 PO
[2021-12-04 17:15] LABS: BLOOD UREA NITROGEN 12 MG/DL (7-18); CALCIUM LEVEL 9.2 MG/DL (8.5-10.1); CARBON DIOXIDE LEVEL 30 MEQ/L (21-32); CHLORIDE LEVEL 107 MEQ/L (98-107); CREATININE FOR GFR 0.58 MG/DL (0.55-1.30); GLOMERULAR FILTRATION RATE > 60.0 (>60); GLUCOSE, FASTING 77 MG/DL (70-100); POTASSIUM SERUM 3.7 MEQ/L (3.5-5.1); SODIUM LEVEL 140 MEQ/L (136-145)
== END ==
LOC: M LAB 15:13
PROVIDERS: ATTEND Nurse Practitioner Women's Health
DX: R31.0 Gross hematuria (principal)

== ENCOUNTER → 2021-12-08 | Outpatient (CLI) | payer MEDICARE ==
[~2021-12-08] MED LIST changes: +ISOVUE-370 76% 100ML VIAL As Ordered ONE
== END ==
LOC: M RAD 15:27
PROVIDERS: ATTEND Nurse Practitioner Women's Health
DX: R31.0 Gross hematuria (principal); N20.0 Calculus of kidney; N28.1 Cyst of kidney, acquired; N13.30 Unspecified hydronephrosis
CPT/HCPCS: 74178; Q9967

== ENCOUNTER → 2021-12-22 | Outpatient (CLI) | payer MEDICARE, OTHER ==
[~2021-12-22] MED LIST changes: -ISOVUE-370 76% 100ML VIAL As Ordered ONE
[2021-12-22 16:59] LABS: HEMATOCRIT 34.9 % (36.0-47.0); HEMOGLOBIN 11.7 g/dl (12.0-15.5); MEAN CORPUSCULAR HGB CONC 33.5 g/dl (32.0-36.5); MEAN CORPUSCULAR VOLUME 89.5 fl (80.0-96.0); PLATELET COUNT, AUTOMATED 268 10^3/uL (150-450); WHITE BLOOD COUNT 7.1 10^3/uL (4.0-10.0)
[2021-12-22 17:07] LABS: INR 2.29; PROTHROMBIN TIME 25.6 SECONDS (12.7-14.5)
[2021-12-22 17:09] LABS: PARTIAL THROMBOPLASTIN TIME 54.7 SECONDS (25.9-37.0)
[2021-12-22 18:23] LABS: BLOOD UREA NITROGEN 8 MG/DL (7-18); CALCIUM LEVEL 9.2 MG/DL (8.5-10.1); CARBON DIOXIDE LEVEL 27 MEQ/L (21-32); CHLORIDE LEVEL 105 MEQ/L (98-107); CREATININE FOR GFR 0.58 MG/DL (0.55-1.30); GLOMERULAR FILTRATION RATE > 60.0 (>60); GLUCOSE, FASTING 76 MG/DL (70-100); POTASSIUM SERUM 3.6 MEQ/L (3.5-5.1); SODIUM LEVEL 138 MEQ/L (136-145)
== END ==
LOC: M RAD 15:24
PROVIDERS: ATTEND Nurse Practitioner Women's Health
DX: Z01.818 Encounter for other preprocedural examination (principal); N20.0 Calculus of kidney; R91.8 Other nonspecific abnormal finding of lung field; R94.31 Abnormal electrocardiogram [ECG] [EKG]; M48.56XA Collapsed vertebra, not elsewhere classified, lumbar region, initial encounter for fracture; M48.54XA Collapsed vertebra, not elsewhere classified, thoracic region, initial encounter for fracture

== ENCOUNTER → 2021-12-22 | Outpatient (CLI) | payer MEDICARE, OTHER | LOC: M RAD 15:28 | PROVIDERS: ATTEND Physician Assistant | DX: R31.9 Hematuria, unspecified (principal); M81.0 Age-related osteoporosis without current pathological fracture; M48.56XA Collapsed vertebra, not elsewhere classified, lumbar region, initial encounter for fracture; M48.54XA Collapsed vertebra, not elsewhere classified, thoracic region, initial encounter for fracture ==

== ENCOUNTER → 2022-01-01 | Outpatient (CLI) | payer MEDICARE, OTHER ==
[~2022-01-01] MED LIST changes: -CORL1.7T; +CORL1.7T PO; +D200CAP3 PO; -FERR324T2; +FERR324T2 PO; +HUMI40IN SC; +MULT1CHW29 PO; -OMEP40CA5; +OMEP40CA5 PO; +POTA10TA17 PO; +POTA99CA2 PO; -SUBO8MIS; +SUBO8MIS PO; -XARE15TA; +XARE15TA PO; +ZINC1TAB2 PO
== END ==
LOC: M LABSMTC 11:31
PROVIDERS: ATTEND Anesthesiology
DX: Z01.812 Encounter for preprocedural laboratory examination (principal); Z20.822 Contact with and (suspected) exposure to COVID-19

== ENCOUNTER 2022-01-06 14:46 | Day surgery (SDC) | payer MEDICARE, OTHER ==
[~2022-01-06] VITALS: Ht 152.4 cm; Wt 54.2 kg
[~2022-01-06 14:46] MED LIST changes: +LIDOCAINE 1% MDV 20ML VIAL SQ PRN; +LR 1,000 ML IV ONE; +ceFAZolin SOD 2 GM in IV 1 EA IV ONE
[2022-01-06] MEDS ORDERED: ISOVUE-300 61% 50ML VIAL As Ordered ONE (15:10)
[2022-01-06] MEDS ORDERED: MIDAZOLAM INJ 2MG/2ML VIAL (J2250 PER 1MG) As Ordered ONE (15:15)
[2022-01-06] MEDS ORDERED: LIDOCAINE 2% 100MG/5ML SDV (FOR ANES.) As Ordered ONE (15:15)
[2022-01-06] MEDS ORDERED: ONDANSETRON 4MG/2ML VIAL As Ordered ONE (15:15)
[2022-01-06] MEDS ORDERED: fentaNYL 100 MCG/2 ML INJECTION As Ordered ONE (15:15)
[2022-01-06] MEDS ORDERED: propofoL 200 MG/20 ML VIAL As Ordered ONE (15:15)
[2022-01-06] MEDS ORDERED: dexameTHASONE 4 MG/ML 1ML VIAL (J1100 PER 1MG) As Ordered ONE (15:15)
[2022-01-06] MEDS ORDERED: ACETAMINOPHEN 1000MG 100ML IV BTL (OFIRMEV) (J0131 PER 10MG) As Ordered ONE (15:50)
[2022-01-06] MEDS ORDERED: METOCLOPRAMIDE INJ 10MG/2ML VIAL (J2765 PER 1) As Ordered ONE (15:51)
[2022-01-06] MEDS ORDERED: ESMOLOL INJ 100MG/10ML VIAL As Ordered ONE (16:08)
[2022-01-06] MEDS ORDERED: LABETALOL 100MG/20ML VIAL As Ordered ONE (16:21)
[2022-01-06] MEDS ORDERED: KETOROLAC 60MG 2ML VIAL As Ordered ONE (17:07)
[2022-01-06] MEDS ORDERED: LR 1,000 ML IV SCH (17:40)
[2022-01-06] MEDS ORDERED: fentaNYL 100 MCG/2 ML INJECTION IV PRN (17:40)
[2022-01-06] MEDS ORDERED: ONDANSETRON 4MG/2ML VIAL IV PRN (17:40)
[2022-01-06] MEDS ORDERED: PERCOCET 5MG/325MG TAB PO PRN (17:45)
[2022-01-06 18:25] VITALS: BP 101/56
== END 2022-01-06 18:45 | disposition home or self-care (01) ==
LOC: M SDC 14:46
PROVIDERS: ATTEND Urology
DX: N20.0 Calculus of kidney (principal); I73.9 Peripheral vascular disease, unspecified; K55.1 Chronic vascular disorders of intestine; F41.9 Anxiety disorder, unspecified; F32.9 Major depressive disorder, single episode, unspecified; Z87.891 Personal history of nicotine dependence; Z79.02 Long term (current) use of antithrombotics/antiplatelets; E55.9 Vitamin D deficiency, unspecified; Z79.899 Other long term (current) drug therapy
CPT/HCPCS: 52356; 74420; 82365; C1769; C1894; C2617; J0131; J0690; J1100; J1885; J2250; J2405; J2765; J3010; Q9967

== ENCOUNTER → 2022-02-03 | Outpatient (CLI) | payer MEDICARE, OTHER ==
[~2022-02-03] MED LIST changes: -LIDOCAINE 1% MDV 20ML VIAL SQ PRN; -LR 1,000 ML IV ONE; -ceFAZolin SOD 2 GM in IV 1 EA IV ONE
== END ==
LOC: M RAD 12:31
PROVIDERS: ATTEND Urology
DX: N20.0 Calculus of kidney (principal); Z96.0 Presence of urogenital implants

== ENCOUNTER 2022-02-04 15:15 | Outpatient (RCR) | payer MEDICARE, OTHER | END 2022-02-09 | LOC: M PT 15:15 | PROVIDERS: ATTEND Physician Assistant | DX: M40.204 Unspecified kyphosis, thoracic region (principal) ==

== ENCOUNTER 2022-03-04 12:21 | Outpatient (RCR) | payer MEDICARE, OTHER | END 2022-03-11 | LOC: M PT 12:21 | PROVIDERS: ATTEND Physician Assistant | DX: M40.204 Unspecified kyphosis, thoracic region (principal) ==

== ENCOUNTER 2022-04-06 15:08 | Outpatient (RCR) | payer MEDICARE, OTHER | END 2022-04-11 | LOC: M PT 15:08 | PROVIDERS: ATTEND Physician Assistant | DX: M40.204 Unspecified kyphosis, thoracic region (principal) ==

== ENCOUNTER 2022-04-15 15:15 | Outpatient (RCR) | payer MEDICARE, OTHER ==
[~2022-04-15 15:15] MED LIST changes: +LEVO1TAB39; -LEVO500T4; +POTA-150 PO; -POTA10TA17 PO
== END 2022-05-12 ==
LOC: M PT 15:15
PROVIDERS: ATTEND Physician Assistant
DX: M40.204 Unspecified kyphosis, thoracic region (principal)

== ENCOUNTER → 2022-04-28 | Outpatient (CLI) | payer MEDICARE, OTHER | LOC: M RAD 15:32 | PROVIDERS: ATTEND Physician Assistant | DX: S22.080A Wedge compression fracture of T11-T12 vertebra, initial encounter for closed fracture (principal); S22.060A Wedge compression fracture of T7-T8 vertebra, initial encounter for closed fracture; S32.010A Wedge compression fracture of first lumbar vertebra, initial encounter for closed fracture; M48.061 Spinal stenosis, lumbar region without neurogenic claudication ==

== ENCOUNTER → 2022-05-18 | Outpatient (CLI) | payer MEDICARE, OTHER | LOC: M RAD 13:05 | PROVIDERS: ATTEND Physician Assistant | DX: N91.2 Amenorrhea, unspecified (principal) ==

== ENCOUNTER → 2022-07-15 | Outpatient (CLI) | payer MEDICARE, OTHER ==
[2022-07-15 17:05] LABS: HEMATOCRIT 38.6 % (36.0-47.0); HEMOGLOBIN 13.2 g/dl (12.0-15.5); MEAN CORPUSCULAR HEMOGLOBIN 30.3 pg (27.0-33.0); MEAN CORPUSCULAR HGB CONC 34.2 g/dl (32.0-36.5); MEAN CORPUSCULAR VOLUME 88.7 fl (80.0-96.0); PLATELET COUNT, AUTOMATED 221 10^3/uL (150-450); RED BLOOD COUNT 4.35 10^6/uL (4.00-5.40)
[2022-07-15 17:59] LABS: THYROID STIMULATING HORMONE 0.911 uIU/ML (0.358-3.740)
[2022-07-15 19:37] LABS: ESTRADIOL 32.9 PG/ML; FOLLICLE STIMULATING HORMONE 9.6 mIU/mL; LUTEINIZING HORMONE 1.8 mIU/mL; PROGESTERONE 0.21 NG/ML
== END ==
LOC: M LAB 16:13
PROVIDERS: ATTEND Physician Assistant
DX: N91.2 Amenorrhea, unspecified (principal)

== ENCOUNTER → 2022-08-10 | Outpatient (CLI) | payer MEDICARE, OTHER | LOC: M RAD 13:33 | PROVIDERS: ATTEND Urology | DX: N20.0 Calculus of kidney (principal) ==

== ENCOUNTER → 2022-09-15 | Outpatient (CLI) | payer MEDICARE, OTHER ==
[2022-09-15 16:02] LABS: HEMATOCRIT 43.6 % (36.0-47.0); HEMOGLOBIN 14.6 g/dl (12.0-15.5); MEAN CORPUSCULAR HEMOGLOBIN 29.1 pg (27.0-33.0); MEAN CORPUSCULAR HGB CONC 33.5 g/dl (32.0-36.5); PLATELET COUNT, AUTOMATED 237 10^3/uL (150-450); RED BLOOD COUNT 5.01 10^6/uL (4.00-5.40); WHITE BLOOD COUNT 9.2 10^3/uL (4.0-10.0)
[2022-09-15 16:18] LABS: ERYTHROCYTE SEDIMENTATION RATE 24 mm/hr (0-20)
[2022-09-15 16:34] LABS: C REACTIVE PROTEIN QUANTITATIV < 0.40 MG/DL (<1.0)
[2022-09-15 16:35] LABS: ALBUMIN 3.7 G/DL (3.2-5.2); ALKALINE PHOSPHATASE 112 U/L (46-116); ALT/SGPT 38 U/L (7.0-40); AST/SGOT 34 U/L (<34); BILIRUBIN,TOTAL 0.4 MG/DL (0.3-1.2); BLOOD UREA NITROGEN 9 MG/DL (9-23); CALCIUM LEVEL 9.4 MG/DL (8.5-10.1); CARBON DIOXIDE LEVEL 25 MMOL/L (20-31); CHLORIDE LEVEL 103 MMOL/L (98-107); CREATININE FOR GFR 0.55 MG/DL (0.55-1.30); GLOMERULAR FILTRATION RATE > 60.0 (>60); GLUCOSE, FASTING 75 MG/DL (60-100); POTASSIUM SERUM 4.4 MMOL/L (3.5-5.1); SODIUM LEVEL 139 MMOL/L (136-145); TOTAL PROTEIN 7.2 G/DL (5.7-8.2)
== END ==
LOC: M LAB 14:59
PROVIDERS: ATTEND Internal Medicine Gastroenterology
DX: K50.818 Crohn's disease of both small and large intestine with other complication (principal)

== ENCOUNTER → 2022-11-08 | Outpatient (CLI) | payer MEDICARE | LOC: M PLAIMG 10:40 | PROVIDERS: ATTEND Physician Assistant | DX: N20.0 Calculus of kidney (principal); Z90.49 Acquired absence of other specified parts of digestive tract; R91.1 Solitary pulmonary nodule ==

== ENCOUNTER → 2023-01-05 | Outpatient (CLI) | payer MEDICARE, OTHER | LOC: M WHC 13:28 | PROVIDERS: ATTEND Nurse Practitioner Family | DX: M85.89 Other specified disorders of bone density and structure, multiple sites (principal) ==

== ENCOUNTER → 2023-02-03 | Outpatient (CLI) | payer MEDICARE, OTHER ==
[2023-02-03 12:39] LABS: BLOOD UREA NITROGEN 11 MG/DL (9-23); CALCIUM LEVEL 9.5 MG/DL (8.5-10.1); CARBON DIOXIDE LEVEL 25 MMOL/L (20-31); CHLORIDE LEVEL 107 MMOL/L (98-107); CREATININE FOR GFR 0.54 MG/DL (0.55-1.30); GLOMERULAR FILTRATION RATE > 60.0 (>60); GLUCOSE, FASTING 80 MG/DL (60-100); MAGNESIUM LEVEL 1.6 MG/DL (1.8-2.4); PHOSPHORUS LEVEL 4.2 MG/DL (2.5-4.9); POTASSIUM SERUM 4.2 MMOL/L (3.5-5.1); SODIUM LEVEL 140 MMOL/L (136-145)
[2023-02-03 12:40] LABS: PTH INTACT 53.7 PG/ML (18.5-88.0)
[2023-02-03 12:42] LABS: TOTAL 25(OH) VITAMIN D 49.8 NG/ML (20.0-100.0)
== END ==
LOC: M LAB 11:43
PROVIDERS: ATTEND Nurse Practitioner Family
DX: M85.89 Other specified disorders of bone density and structure, multiple sites (principal)

== ENCOUNTER → 2023-02-03 | Outpatient (REF) | payer MEDICARE, OTHER ==
[2023-02-03 14:25] LABS: CALCIUM, 24 HOUR URINE 123.3 MG/24HR (42-353); CALCIUM, URINE 14.1 MG/DL
== END ==
LOC: M LAB REF 12:41
PROVIDERS: ATTEND Internal Medicine Endocrinology, Diabetes & Metabolism
DX: M85.89 Other specified disorders of bone density and structure, multiple sites (principal)

== ENCOUNTER → 2023-04-06 | Outpatient (CLI) | payer MEDICARE | LOC: M LAB 15:16 | PROVIDERS: ATTEND Internal Medicine Endocrinology, Diabetes & Metabolism | DX: M85.89 Other specified disorders of bone density and structure, multiple sites (principal) ==

== ENCOUNTER → 2023-05-10 | Outpatient (CLI) | payer MEDICARE ==
[~2023-05-10] MED LIST changes: -OCTR100I SQ; +OCTR100I11 SQ
== END ==
LOC: M LAB 16:04
PROVIDERS: ATTEND Internal Medicine Endocrinology, Diabetes & Metabolism
DX: M85.89 Other specified disorders of bone density and structure, multiple sites (principal)

== ENCOUNTER → 2023-07-15 | Outpatient (CLI) | payer MEDICARE, MEDICAID | LOC: M LAB 14:53 | PROVIDERS: ATTEND Internal Medicine Endocrinology, Diabetes & Metabolism | DX: M85.89 Other specified disorders of bone density and structure, multiple sites (principal) ==

== ENCOUNTER → 2023-08-16 | Outpatient (CLI) | payer MEDICARE, MEDICAID ==
[2023-08-16 16:50] LABS: TOTAL 25(OH) VITAMIN D 37.4 NG/ML (20.0-100.0)
== END ==
LOC: M LAB 15:13
PROVIDERS: ATTEND Internal Medicine Endocrinology, Diabetes & Metabolism
DX: M85.89 Other specified disorders of bone density and structure, multiple sites (principal)

== ENCOUNTER → 2023-09-18 | Outpatient (CLI) | payer MEDICARE, MEDICAID | LOC: M LAB 12:52 | PROVIDERS: ATTEND Internal Medicine Endocrinology, Diabetes & Metabolism | DX: M81.0 Age-related osteoporosis without current pathological fracture (principal); E55.9 Vitamin D deficiency, unspecified ==

== ENCOUNTER → 2023-10-20 | Outpatient (CLI) | payer MEDICARE, MEDICAID | LOC: M LAB 16:02 | PROVIDERS: ATTEND Nurse Practitioner Family | DX: M81.0 Age-related osteoporosis without current pathological fracture (principal) ==

== ENCOUNTER → 2023-11-28 | Outpatient (CLI) | payer MEDICARE, OTHER | LOC: M LAB 13:42 | PROVIDERS: ATTEND Internal Medicine Endocrinology, Diabetes & Metabolism | DX: M81.0 Age-related osteoporosis without current pathological fracture (principal) ==

== ENCOUNTER → 2023-11-30 | Outpatient (CLI) | payer MEDICARE | LOC: M PLAIMG 09:46 | PROVIDERS: ATTEND Physician Assistant | DX: N20.0 Calculus of kidney (principal); Z98.0 Intestinal bypass and anastomosis status; R93.3 Abnormal findings on diagnostic imaging of other parts of digestive tract ==

== ENCOUNTER → 2023-12-31 | Outpatient (CLI) | payer MEDICARE, MEDICAID | LOC: M LAB 13:38 | PROVIDERS: ATTEND Nurse Practitioner Family | DX: M81.0 Age-related osteoporosis without current pathological fracture (principal) ==

== ENCOUNTER → 2024-01-31 | Outpatient (CLI) | payer MEDICARE, MEDICAID | LOC: M WHC 12:58 | PROVIDERS: ATTEND Physician Assistant | DX: Z12.31 Encounter for screening mammogram for malignant neoplasm of breast (principal); M81.0 Age-related osteoporosis without current pathological fracture; R92.323 Mammographic fibroglandular density, bilateral breasts ==

== ENCOUNTER → 2024-01-31 | Outpatient (CLI) | payer MEDICARE, MEDICAID | LOC: M LAB 13:52 | PROVIDERS: ATTEND Internal Medicine Endocrinology, Diabetes & Metabolism | DX: M81.0 Age-related osteoporosis without current pathological fracture (principal) ==

== ENCOUNTER → 2024-03-02 | Outpatient (CLI) | payer MEDICARE, MEDICAID ==
[~2024-03-02] MED LIST changes: +ONDA-282 PO; -ONDA4TAB6 PO
== END ==
LOC: M LAB 14:59
PROVIDERS: ATTEND Internal Medicine Endocrinology, Diabetes & Metabolism
DX: M81.0 Age-related osteoporosis without current pathological fracture (principal)

== ENCOUNTER → 2024-04-02 | Outpatient (CLI) | payer MEDICARE, MEDICAID | LOC: M WHC 08:31 | PROVIDERS: ATTEND Internal Medicine Endocrinology, Diabetes & Metabolism | DX: M81.0 Age-related osteoporosis without current pathological fracture (principal) ==

== ENCOUNTER → 2024-06-27 | Outpatient (CLI) | payer MEDICARE, MEDICAID ==
[~2024-06-27] MED LIST changes: +GABA-1172; -GABA-282
[2024-06-27 15:33] LABS: BLOOD UREA NITROGEN 8 MG/DL (9-23); CALCIUM LEVEL 9.7 MG/DL (8.5-10.1); CARBON DIOXIDE LEVEL 26 MMOL/L (20-31); CHLORIDE LEVEL 111 MMOL/L (98-107); CREATININE FOR GFR 0.59 MG/DL (0.55-1.30); GLOMERULAR FILTRATION RATE > 60.0 (>58); GLUCOSE, FASTING 79 MG/DL (60-100); POTASSIUM SERUM 3.8 MMOL/L (3.5-5.1); SODIUM LEVEL 141 MMOL/L (136-145)
== END ==
LOC: M LAB 13:42
PROVIDERS: ATTEND Internal Medicine Endocrinology, Diabetes & Metabolism
DX: M81.0 Age-related osteoporosis without current pathological fracture (principal); E55.9 Vitamin D deficiency, unspecified

== ENCOUNTER → 2024-06-28 | Outpatient (CLI) | payer MEDICARE, MEDICAID | LOC: M LAB 06-27 13:39 | PROVIDERS: ATTEND Student in an Organized Health Care Education/Training Program | DX: K50.113 Crohn's disease of large intestine with fistula (principal) ==

== ENCOUNTER → 2024-10-17 | Outpatient (CLI) | payer MEDICARE, MEDICAID ==
[2024-10-17 16:00] LABS: BLOOD UREA NITROGEN 8 MG/DL (9-23); CALCIUM LEVEL 9.7 MG/DL (8.5-10.1); CARBON DIOXIDE LEVEL 24 MMOL/L (20-31); CHLORIDE LEVEL 106 MMOL/L (98-107); CREATININE FOR GFR 0.67 MG/DL (0.55-1.30); GLOMERULAR FILTRATION RATE > 60.0 (>58); GLUCOSE, FASTING 90 MG/DL (60-100); POTASSIUM SERUM 4.1 MMOL/L (3.5-5.1); SODIUM LEVEL 139 MMOL/L (136-145)
== END ==
LOC: M LAB 14:54
PROVIDERS: ATTEND Internal Medicine Endocrinology, Diabetes & Metabolism
DX: M81.0 Age-related osteoporosis without current pathological fracture (principal)

== ENCOUNTER → 2024-12-17 | Outpatient (CLI) | payer MEDICARE, MEDICAID ==
[2024-12-17 17:19] LABS: BASO % 0.3 % (0.0-1.0); EOS % 0.3 % (0.0-3.0); HEMATOCRIT 39.6 % (36.0-47.0); HEMOGLOBIN 13.9 g/dl (12.0-15.5); LYMPH # 2.2 10^3/uL (1.5-5.0); LYMPH % 29.8 % (24.0-44.0); MEAN CORPUSCULAR HEMOGLOBIN 29.9 pg (27.0-33.0); MEAN CORPUSCULAR HGB CONC 35.1 g/dl (32.0-36.5); MEAN CORPUSCULAR VOLUME 85.2 fl (80.0-96.0); MONO # 0.4 10^3/uL (0.0-0.8); MONO % 4.7 % (2.0-8.0); NEUTROPHILS # 4.8 10^3/uL (1.5-8.5); NEUTROPHILS % 64.6 % (36.0-66.0); PLATELET COUNT, AUTOMATED 238 10^3/uL (150-450); RED BLOOD COUNT 4.65 10^6/uL (4.00-5.40); WHITE BLOOD COUNT 7.4 10^3/uL (4.0-10.0)
[2024-12-17 17:24] LABS: C REACTIVE PROTEIN QUANTITATIV < 0.50 MG/DL (<1.0); TOTAL IRON BINDING CAPACITY 344 UG/DL (250-425)
[2024-12-17 17:25] LABS: ALBUMIN 3.8 G/DL (3.2-5.2); ALKALINE PHOSPHATASE 67 U/L (35-104); ALT/SGPT 30 U/L (7.0-40); AST/SGOT 17 U/L (<34); BILIRUBIN,TOTAL 0.7 MG/DL (0.3-1.2); BLOOD UREA NITROGEN 7 MG/DL (9-23); CALCIUM LEVEL 9.1 MG/DL (8.5-10.1); CARBON DIOXIDE LEVEL 28 MMOL/L (20-31); CHLORIDE LEVEL 105 MMOL/L (98-107); CREATININE FOR GFR 0.67 MG/DL (0.55-1.30); GLOMERULAR FILTRATION RATE > 60.0 (>58); GLUCOSE, FASTING 82 MG/DL (60-100); IRON (FE) 132 UG/DL (50-170); PERCENT SATURATION 38.4 % (13.2-45.0); POTASSIUM SERUM 3.6 MMOL/L (3.5-5.1); SODIUM LEVEL 141 MMOL/L (136-145); TOTAL PROTEIN 7.5 G/DL (5.7-8.2)
[2024-12-17 17:28] LABS: FOLATE > 24.00 NG/ML (>5.4); VITAMIN B12 LEVEL 281 PG/ML (211-911)
[2024-12-17 17:29] LABS: TOTAL 25(OH) VITAMIN D 52.4 NG/ML (20.0-100.0)
== END ==
LOC: M LAB 16:05
PROVIDERS: ATTEND Internal Medicine Gastroenterology
DX: K50.012 Crohn's disease of small intestine with intestinal obstruction (principal)

== ENCOUNTER → 2025-05-07 | Outpatient (CLI) | payer MEDICARE, MEDICAID ==
[~2025-05-07] MED LIST changes: -CLOT10TR PO; +CLOT10TR11 PO
== END ==
LOC: M LAB 13:14
PROVIDERS: ATTEND Internal Medicine Gastroenterology
DX: K50.012 Crohn's disease of small intestine with intestinal obstruction (principal)

== ENCOUNTER → 2025-05-10 | Outpatient (REF) | payer MEDICARE, MEDICAID | LOC: M LAB REF 13:02 | PROVIDERS: ATTEND Internal Medicine Gastroenterology | DX: K50.012 Crohn's disease of small intestine with intestinal obstruction (principal) ==

== ENCOUNTER → 2025-05-30 | Outpatient (REF) | payer MEDICARE, MEDICAID ==
[2025-05-30 20:18] LABS: BASO # 0.0 10^3/uL (0.0-0.2); BASO % 0.3 % (0.0-1.0); EOS # 0.0 10^3/uL (0.0-0.5); EOS % 0.3 % (0.0-3.0); LYMPH # 3.1 10^3/uL (1.5-5.0); LYMPH % 30.6 % (24.0-44.0); MONO # 0.6 10^3/uL (0.0-0.8); MONO % 5.7 % (2.0-8.0); NEUTROPHILS # 6.3 10^3/uL (1.5-8.5); NEUTROPHILS % 62.6 % (36.0-66.0); PLATELET COUNT, AUTOMATED 279 10^3/uL (150-450)
[2025-05-30 20:21] LABS: C REACTIVE PROTEIN QUANTITATIV < 0.50 MG/DL (<1.0)
[2025-05-30 20:23] LABS: ALT/SGPT 32 U/L (7.0-40); AST/SGOT 23 U/L (<34); CALCIUM LEVEL 9.6 MG/DL (8.5-10.1); CARBON DIOXIDE LEVEL 28 MMOL/L (20-31); CHLORIDE LEVEL 101 MMOL/L (98-107); CREATININE FOR GFR 0.62 MG/DL (0.55-1.30); GLOMERULAR FILTRATION RATE > 90.0 (>58); POTASSIUM SERUM 4.0 MMOL/L (3.5-5.1); SODIUM LEVEL 136 MMOL/L (136-145)
[2025-05-30 20:38] LABS: ERYTHROCYTE SEDIMENTATION RATE 25 mm/hr (0-20)
[2025-05-30 22:20] LABS: RHEUMATOID FACTOR QUANT 3.9 IU/ML (<14)
== END ==
LOC: M LAB REF 18:50
PROVIDERS: ATTEND Student in an Organized Health Care Education/Training Program
DX: M25.50 Pain in unspecified joint (principal)

== ENCOUNTER → 2025-07-03 | Outpatient (CLI) | payer MEDICARE, MEDICAID ==
[2025-07-03 14:27] LABS: CALCIUM LEVEL 8.4 MG/DL (8.5-10.1); CARBON DIOXIDE LEVEL 27 MMOL/L (20-31); CHLORIDE LEVEL 102 MMOL/L (98-107); CREATININE FOR GFR 0.58 MG/DL (0.55-1.30); GLOMERULAR FILTRATION RATE > 90.0 (>58); POTASSIUM SERUM 3.3 MMOL/L (3.5-5.1); SODIUM LEVEL 141 MMOL/L (136-145); TOTAL 25(OH) VITAMIN D 36.8 NG/ML (20.0-100.0)
== END ==
LOC: M LAB 13:12
PROVIDERS: ATTEND Nurse Practitioner Family
DX: M81.0 Age-related osteoporosis without current pathological fracture (principal)

== ENCOUNTER → 2025-07-11 | Outpatient (CLI) | payer MEDICARE, MEDICAID ==
[2025-07-11 15:10] LABS: CALCIUM LEVEL 9.1 MG/DL (8.5-10.1); CARBON DIOXIDE LEVEL 31 MMOL/L (20-31); CHLORIDE LEVEL 100 MMOL/L (98-107); CREATININE FOR GFR 0.67 MG/DL (0.55-1.30); GLOMERULAR FILTRATION RATE > 90.0 (>58); POTASSIUM SERUM 3.7 MMOL/L (3.5-5.1); SODIUM LEVEL 139 MMOL/L (136-145)
== END ==
LOC: M LAB 13:46
PROVIDERS: ATTEND Nurse Practitioner Family
DX: M81.0 Age-related osteoporosis without current pathological fracture (principal)